=== PATIENT | male | born 1950 | race Caucasian/White ===

== ENCOUNTER 2022-11-23 15:07 | Outpatient (OUT) | payer MEDICARE, OTHER, SELFPAY ==
[2022-11-23 16:20] LABS: Prostate Specific Antigen Dx 3.31 ng/mL (<=4.00)
== END 2022-11-23 15:08 | disposition home or self-care (01) ==
LOC: LAB 15:12
PROVIDERS: PCP Family Medicine; Visit Provider Urology
DX: N40.1 Benign prostatic hyperplasia with lower urinary tract symptoms (principal)
CPT/HCPCS: 36415; 84153

== ENCOUNTER 2023-02-18 12:33 | Outpatient (OUT) | payer MEDICARE, OTHER, SELFPAY ==
--- NOTE | 2023-02-18 12:39 | ECG_ITS ---
[facility] Test Date: 2023-02-18 Pat Name: STEPHAN RAMON Department: Room: - Gender: Male Tie Fastener: : 1950 Requested By: DIANE KELSEY Order Number: [id number] Reading MD: WALTER WONG Measurements Intervals [place] Rate: 52 P: 50 [place]: 205 QRS: -36 QRSD: 94 T: 7 QT: 418 QTc: 391 Interpretive Statements SINUS BRADYCARDIA MARKED LEFT AXIS DEVIATION [QRS AXIS < -30] VOLTAGE CRITERIA FOR LVH [MEETS CRITERIA IN ONE OF: R(aVL), S(V1), R(V5), R(V5/V6)+S(V1)] No previous ECG available for comparison Electronically Signed On 02-23-2023 6:54:25 EST by WALTER WONG
--- NOTE | 2023-02-18 13:26 | PM.PRESUREVA ---
History of Present Illness History of Present Illness Chief complaint: BPH W/ OBSTRUCTION Narrative: Patient presents for preadmission testing. The patient reports a history of bladder cancer. He states he has incomplete bladder emptying, urgency with urination, weak stream, and urge incontinence. He denies dysuria, hematuria, abdominal pain, fever, nausea, vomiting, or any other complaints he does have a known tremor and is treated at the [facility]. Review of Systems ROS Narrative REVIEW OF SYSTEMS: Negative except as stated in HPI, ten or more systems reviewed. Constitutional: No fever , chills, weakness ENT: No sore throat or epistaxis Cardiovascular: No edema, chest pain, palpitations, or activity intolerance Respiratory: No shortness of breath, cough, or wheezing Musculoskeletal: No joint pain or swelling Gastrointestinal: No abdominal pain, constipation, diarrhea, or vomiting Genitourinary: No dysuria or hematuria Neurological: No numbness, tingling, weakness, or headache Psychiatric: No mood changes PFSH PFS Medical History (Updated 02/18/23 @ 13:06 by Adilia Walters NP) Bladder cancer ?C67.9 - Malignant neoplasm of bladder, unspecified (ICD-10) BPH with obstruction/lower urinary tract symptoms ?N40.1 - Benign prostatic hyperplasia with lower urinary tract symptoms (ICD-10) ?N13.8 - Other obstructive and reflux uropathy (ICD-10) Encounter for removal of skin lesion ?L98.9 - Disorder of the skin and subcutaneous tissue, unspecified (ICD-10) GERD (gastroesophageal reflux disease) ?K21.9 - Gastro-esophageal reflux disease without esophagitis (ICD-10) Hepatitis ?K75.9 - Inflammatory liver disease, unspecified (ICD-10) Hypertension ?I10 - Essential (primary) hypertension (ICD-10) Hypokalemia ?E87.6 - Hypokalemia (ICD-10) Intraoperative cardiac arrest during other surgery ?I97.711 - Intraoperative cardiac arrest during other surgery (ICD-10) Melanoma ?C43.9 - Malignant melanoma of skin, unspecified (ICD-10) Tremor ?R25.1 - Tremor, unspecified (ICD-10) Surgical History (Updated 02/18/23 @ 13:04 by Adilia Walters NP) H/O colectomy ?Z90.49 - Acquired absence of other specified parts of digestive tract (ICD-10) H/O elbow surgery ?Z98.890 - Other specified postprocedural states (ICD-10) H/O hand surgery ?Z98.890 - Other specified postprocedural states (ICD-10) H/O transurethral resection of bladder tumor (TURBT) ?Z98.890 - Other specified postprocedural states (ICD-10) ?Z86.03 - Personal history of neoplasm of uncertain behavior (ICD-10) History of bladder surgery ?Z98.890 - Other specified postprocedural states (ICD-10) History of cardiac catheterization ?Z98.890 - Other specified postprocedural states (ICD-10) History of carpal tunnel release ?Z98.890 - Other specified postprocedural states (ICD-10) History of cataract extraction ?Z98.49 - Cataract extraction status, unspecified eye (ICD-10) History of colonoscopy ?Z98.890 - Other specified postprocedural states (ICD-10) S/P cystoscopy ?Z98.890 - Other specified postprocedural states (ICD-10) Family History (Updated 02/18/23 @ 12:58 by Adilia Walters NP) Other Family history of breast cancer Family history of heart disease Family history of liver cancer Family history of lung cancer Social History (Updated 02/18/23 @ 12:55 by Adilia Walters NP) Within the past year, how often did you have a drink containing alcohol: never Score interpretation: A score less than 4 is consistent with normal alcohol consumption. Smoking status: Never smoker Non-prescribed substance use: denies use Highest level of school completed/degree received: high school graduate Meds Home Medications and Allergies Home Medications Medication Instructions Recorded Confirmed Type fluoxetine 20 mg capsule 20 mg PO DAILY 02/18/23 02/18/23 History hydrochlorothiazide 25 mg tablet 25 mg PO DAILY 02/18/23 02/18/23 History losartan 50 mg tablet 50 mg PO DAILY 02/18/23 02/18/23 History omeprazole 40 mg capsule,delayed 40 mg PO DAILY 02/18/23 02/18/23 History release oxcarbazepine 300 mg tablet 300 mg PO BID 02/18/23 02/18/23 History potassium chloride 10 mEq 20 meq PO DAILY 02/18/23 02/18/23 History capsule,extended release propranolol 80 mg capsule,24 80 mg PO DAILY 02/18/23 02/18/23 History hr,extended release ropinirole 0.25 mg tablet 0.25 mg PO TID 02/18/23 02/18/23 History Allergies Allergy/AdvReac Type Severity Reaction Status Date / Time Iodinated Contrast Media Allergy Rash Verified 02/18/23 12:54 terazosin Allergy syncope Verified 02/18/23 12:54 Exam Narrative Exam Narrative: Constitutional: Awake, alert, comfortable, well-appearing, nontoxic, interactive, vital signs as charted Head: Normocephalic, atraumatic Neck: Supple, normal appearance, normal range of motion, no meningeal signs, no lymphadenopathy Respiratory: No respiratory distress, breath sounds clear Cardiovascular: Regular rate and rhythm, strong and regular heart tones Abdomen: Nontender, normal bowel sounds, soft, no CVA tenderness Musculoskeletal: Normal gait, no swelling or edema Skin: No rashes or induration, no lesions, only visible skin inspected Neuro: upper extremity tremor noted Psychiatric: Oriented ?3, normal affect Assessment and Plan Assessment and Plan (1) BPH with obstruction/lower urinary tract symptoms: (2) Bladder cancer: Plan Cystoscopy, transurethral resection of the prostate scheduled with Dr. Flood 03/03/2023.
[2023-02-18 13:50] LABS: Basophils Absolute Auto 0.1 10^3/uL (0.0-0.1); Basophils Percent Auto 0.8 % (0.2-2.0); Eosinophils Absolute Auto 0.1 10^3/uL (0.0-0.7); Eosinophils Percent Auto 2.1 % (0.9-7.0); Hematocrit 36.9 % (42.0-54.0); Hemoglobin 13.5 g/dL (14.0-18.0); Immature Granulocytes Abs Auto 0.03 10^3/uL (0.00-0.03); Immature Granulocytes Pct Auto 0.5 % (0.0-0.5); Lymphocytes Absolute Auto 1.5 10^3/uL (1.2-3.8); Lymphocytes Percent Auto 24.1 % (20.5-60.0); Mean Corpuscular HGB Conc 36.6 g/dL (29.9-35.2); Mean Corpuscular Hemoglobin 32.7 pg (25.9-34.0); Mean Corpuscular Volume 89.3 fL (80.0-94.0); Mean Platelet Volume 11.2 fL (9.5-13.5); Monocytes Absolute Auto 0.6 10^3/uL (0.3-0.8); Neutrophils Absolute Auto 3.8 10^3/uL (1.4-6.5); Neutrophils Percent Auto 62.5 % (43.0-75.0); Platelet Count 180 10^3/uL (150-450); Red Blood Count 4.13 10^6/uL (4.70-6.10); Red Cell Distribution Width 13.4 % (11.0-15.0); White Blood Count 6.1 10^3/uL (4.0-11.0)
[2023-02-18 13:54] LABS: INR 1.01; Partial Thromboplastin Time 29.9 sec (22.3-36.2); Prothrombin Time 10.7 sec (9.0-11.6)
[2023-02-18 13:55] LABS: Alanine Aminotransferase 10 U/L (16-63); Albumin Globulin Ratio 1.1; Albumin Level 3.7 g/dL (3.4-5.0); Alkaline Phosphatase 130 U/L (46-116); Anion Gap 10.3; Aspartate Amino Transferase 14 U/L (15-37); Bilirubin Direct 0.3 mg/dL (0.0-0.2); Bilirubin Total 1.3 mg/dL (0.2-1.0); Calcium 8.3 mg/dL (8.5-10.1); Carbon Dioxide 30.9 mmol/L (21.0-32.0); Chloride 101 mmol/L (98-107); Estimated GFR (African America >60 (>=60); Estimated GFR (Non-African Ame >60 (>=60); Globulin 3.5 g/dL; Glucose 125 mg/dL (74-106); Potassium 3.2 mmol/L (3.5-5.1); Sodium 139 mmol/L (136-145); Total Protein 7.2 g/dL (6.4-8.2)
== END 2023-02-18 12:34 | disposition home or self-care (01) ==
LOC: PST 12:34
PROVIDERS: PCP Family Medicine; Visit Provider Urology
DX: Z01.810 Encounter for preprocedural cardiovascular examination (principal); Z01.812 Encounter for preprocedural laboratory examination; N40.1 Benign prostatic hyperplasia with lower urinary tract symptoms; R31.9 Hematuria, unspecified; R97.20 Elevated prostate specific antigen [PSA]
CPT/HCPCS: 80048; 80076; 85025; 85610; 85730; 86850; 86900; 86901; 93005; G0463

== ENCOUNTER 2023-03-25 13:06 | Outpatient (OUT) | payer MEDICARE, OTHER, SELFPAY ==
--- NOTE | 2023-03-25 13:52 | CA_ITS ---
Patient Name: STEPHAN RAMON MR#: [id number] : 1950 Exam Date: 03/25/2023 Ordering Doctor: DR JOSELO JOYCE M.D. ECHOCARDIOGRAM REPORT PROCEDURE: CA ECHO DOPPLER COMPLETE INDICATIONS: Hypertension COMPARISON: None. DESCRIPTION: COMPLETE ECHOCARDIOGRAM Real-time transthoracic echocardiography with 2D, M-mode, spectral and color flow Doppler performed. QUALITY: Technical quality was good. 70 , 200#, BSA 2.09 m2 LEFT VENTRICLE: Normal chamber size. Thickened septal wall. Global left ventricular systolic function is normal. LV EF: Normal left ventricular ejection fraction, (>55%). DIASTOLIC: Grade I diastolic dysfunction. ATRIAL SEPTUM: Visually appears intact. LEFT ATRIUM: Mild dilatation. RIGHT ATRIUM: Mild dilatation. RIGHT VENTRICLE: Mildly dilated. Normal right ventricular systolic function. TRICUSPID VALVE: Normal mobility and thickness. No stenosis with trivial regurgitation. Doppler studies reveal mildly (35-45) elevated right sided pressures. RVSP 39 mmHg MITRAL VALVE: Normal mobility and thickness. No evidence of mitral valve stenosis. There is no mitral annular calcification. No mitral regurgitation. AORTIC VALVE: Normal trileaflet appearance. Thickened aortic valve. Normal leaflet mobility. No evidence of aortic valve stenosis. No aortic regurgitation. AORTIC ROOT: Ascending aorta is dilated (3.8 cm) PULMONIC VALVE: Not well visualized. No stenosis. No regurgitation. PERICARDIUM: No evidence of pericardial effusion. IVC: IVC does not fully collapse. Normal in size. PLEURA: CONCLUSION: 1. Normal left ventricular systolic function. LVEF is 55 to 60%. 2. Mildly dilated right ventricle with normal systolic function. 3. Mild biatrial dilatation. 4. No significant valvular dysfunction. 5. Mildly elevated right-sided pressures. 6. Mildly dilated ascending aorta measuring 3.8 cm. Adult Echocardiography Procedure Report Left Ventricle LVEDD (3.7 - 5.6 cm): 4.44 cm LVESD (2.2 - 4.0 cm): 2.55 cm LVIVS thickness (0.6 - 1.2 cm): 1.48 cm LVPW thickness (0.5 - 1.0 cm): 0.84 cm e': 0.07 m/s E - e': 7.70 LVOT Max Gradient: 2.97 mm[Hg] LVOT Area (cm2): 0.86 m/s Peak Velocity (LVOT): 0.86 m/s Mean Velocity (LVOT): 0.58 m/s LVOT Diameter 2.21 cm Left Atrium LA Volume Index (2D A2C): 30.59 ml/m2 Left Atrium Systolic Dimension: 4.73 cm Mitral Valve MV E to A Ratio: 0.66 Mitral Valve A-Wave Peak Velocity: 0.77 m/s Mitral Valve E-Wave Peak Velocity: 0.51 m/s Right Ventricle Aorta AO Root Diam: 3.63 cm Ascending Ao Diam: 3.71 cm Aortic Valve AoV Area (Peak Stephen): 3.19 cm2, 3.19 cm2 AoV Area (VTI): 2.98 cm2, 2.98 cm2 Peak Velocity(Antegrade Flow): 1.03 m/s Peak Gradient(Antegrade Flow): 4.26 mm[Hg] Mean Velocity(Antegrade Flow): 0.75 m/s Mean Gradient(Antegrade Flow): 2.45 mm[Hg] Velocity Time Integral: 22.01 cm Tricuspid Valve Peak Velocity (Regurgitant Flow): 2.77 m/s, 2.65 m/s Pulmonic Valve Mean Gradient: 2.21 mm[Hg] Mean Velocity: 0.68 m/s Peak Velocity: 1.05 m/s, 0.85 m/s Peak Gradient: 4.38 mm[Hg], 2.89 mm[Hg] Right Atrium Right Atrium Systolic Pressure: 66.53 ml, 66.53 ml Dictated by: Basil Pichardo M.D. on 03/25/2023 at 17:02 Approved by: Basil Pichardo M.D. on 03/25/2023 at 17:07
== END 2023-03-25 13:07 | disposition home or self-care (01) ==
LOC: CARD 13:07
PROVIDERS: PCP Family Medicine; Visit Provider Internal Medicine Interventional Cardiology
DX: I15.1 Hypertension secondary to other renal disorders (principal); I10 Essential (primary) hypertension
CPT/HCPCS: 93306

== ENCOUNTER 2023-04-26 12:39 | Outpatient (OUT) | payer MEDICARE, OTHER, SELFPAY ==
--- OUTSIDE RECORDS SUMMARY | 2023-04-26 12:43 | XMS_ITS | CCD ---
Author Name Unknown Address [address] [facility] [address] [place] [address] Organization [facility] Care Team Providers Care Maintenance Man Name Role Phone FLORENCIO CROWELL Primary Care Physician Florencio Crowell MD Primary Care Provider Florencio Crowell Unavailable LAURA BURROWS Admitting Unavailable LAURA BURROWS Attending Unavailable MERVAT, DR FLORENCIO Delgado Primary Care Unavailable ASIA MALLOY Attending Unavailable FLORENCIO CROWELL Primary Care Unavailable ALEC HUNTLEY Attending Unavailable TREVOR LYNNE Referring Unavailable TREVOR LYNNE Attending Unavailable FLORENCIO CROWELL Primary Care Unavailable FLORENCIO CROWELL Primary Care Unavailable FLOOD, Connor Rodriguez Attending Unavailable FLOOD, Connor Rodriguez Attending Unavailable FLOOD, Connor R Attending Unavailable FLOOD, Connor R Attending Unavailable FLOOD, Connor R Attending Unavailable FLOOD, Connor R Referring Unavailable FLOOD, Connor R Admitting Unavailable FLOOD, Connor Rodriguez Attending Unavailable FLOOD, Connor Rodriguez Attending Unavailable Laura Chadwick Attending Unavailable Allergies Allergy Classification Reported Allergen(s) Allergy Type Date of Onset Reaction(s) Facility (11 sources) Iodine; Translations: [iodine] Drug Allergy 1 Unknown (qualifier value), Rash, hives [facility] (6 sources) Terazosin; Translations: [terazosin] Drug Allergy 3 Low blood pressure (disorder), Syncope (disorder) [facility] (1 source) Iodine Drug Allergy [facility] Repository Medications Current Medications Medication Drug Class(es) Dates Sig (Normalized) Sig (Original) amoxicillin 875 mg / clavulanate 125 mg oral tablet (1 source) Penicillin-class Antibacterial Start: 07-06-2022 take 1 tablet by mouth every twelve hours Amoxicillin-Pot Clavulanate 875-125 MG 1 tablet Orally every 12 hrs for 10 day(s) Jun, Active benzonatate 200 mg oral capsule (1 source) Non-narcotic Antitussive Start: 07-06-2022 take 1 capsule by mouth every eight hours Benzonatate 200 MG 1 capsule Orally Three times a day for 10 day(s) Jun, Active enteric contrast (will be provided with radiology test) (1 source) Start: 05-10-2022 End: 05-11-2022 enteric contrast (will be provided with radiology test) For CT CHESTABD/PEL W IVCON Routine order Administer, As Directed One Time Only, via Oral, Rectal, both Oral and Rectal, Enteric Tube, Stoma or Indwelling Catheter, Enteric Contrast as designated per enteric contrast guidelines 1 Each 0 05/10/2022 05/11/2022 Active Comment on above: For CT CHESTABD/PEL W IVCON Routine order Administer, As Directed One Time Only, via Oral, Rectal, both Oral and Rectal, Enteric Tube, Stoma or Indwelling Catheter, Enteric Contrast as designated per enteric contrast guidelines iv contrast (will be provided with radiology test) (1 source) Start: 05-10-2022 End: 05-11-2022 iv contrast (will be provided with radiology test) CT Chest ABD/PEL-Inject, intravenously, once for 1 dose.No IV access, insert saline lock prior to the beginning of sedation, infusion, injection of imaging exam. Discontinue saline lock post exam. If Pt. has a central line or IVAD, may access for administration according to line specific nursing protocol. Once exam is complete flush line and de-access according to line specific nursing protocol in the CT contrast administration guidelines link. 1 Each 0 05/10/2022 05/11/2022 Active Comment on above: CT Chest ABD/PEL-Inj ect, intravenously, once for 1 dose.No IV access, insert saline lock prior to the beginning of sedation, infusion, injection of imaging exam. Discontinue saline lock post exam. If Pt. has a central line or IVAD, may access for administration according to line specific nursing protocol. Once exam is complete flush line and de-access according to line specific nursing protocol in the CT contrast administration guidelines link. losartan potassium 50 mg oral tablet (8 sources) Angiotensin 2 Receptor Gilson Start: 11-29-2022 take 1 tablet by mouth once daily losartan 50 mg Tab 50 mg = 1 tab(s), Oral, Daily Start Date: 11/29/22 Status: Ordered Start: 02-12-2021 losartan (COZA AR) 50 mg tablet Start: 02-21-2019 losartan Start Date: 02/21/19 Status: Ordered omeprazole 40 mg delayed release oral capsule (8 sources) Proton Pump Inhibitor Start: 11-29-2022 take 1 capsule by mouth once daily omeprazole 40 mg Cap-DR 40 mg = 1 cap(s), Oral, Daily Start Date: 11/29/22 Status: Ordered Start: 02-21-2019 omeprazole Sta rt Date: 02/21/19 Status: Ordered take 1 capsule by [facility] every twenty-four hours Omeprazole 20 MG 1 capsule Orally Once a day for 30 day(s) Active Comment on above: Take 20 mg by mouth once daily. OXcarbazepine 300 mg oral tablet (2 sources) Anti-epileptic Agent Start: 3 take 1 tablet by mouth twice daily oxcarbazepine 300 mg Tab 300 mg = 1 tab(s), Oral, BID Start Date: 11/29/22 Status: Ordered 24 hr propranolol hydrochloride 60 mg extended release oral capsule (2 sources) beta-Adrenergic Gilson Start: 3 take 1 capsule by mouth once daily propranolol 60 mg Cap-ER 60 mg = 1 cap(s), Oral, Daily Start Date: 11/29/22 Status: Ordered rOPINIRole 0.25 mg oral tablet (5 sources) Nonergot Dopamine Agonist Start: 2 take 1 tablet by mouth three times daily ropinirole 0.25 mg Tab 0.25 mg = 1 tab(s), Oral, TID Start Date: 06/09/21 Status: Ordered Start: 05-05-2021 rOPINIRole (RE QUIP) 4 mg tablet Completed/Discontinued Medications Medication Drug Class(es) Dates Sig (Normalized) Sig (Original) amantadine hydrochloride 100 mg oral capsule (3 sources) Influenza A M2 Protein Inhibitor Start: 04-23-19 End: 05-10-19 amantadine HCl (SYMMETREL) 100 mg capsule carbidopa 10 mg / levodopa 100 mg oral tablet (1 source) Aromatic Amino Acid Decarboxylation Inhibitor, Aromatic Amino Acid Start: 12-02-19 carbidopa-levodopa (SINEMET 10-100) 10-100 mg per tablet ciprofloxacin 500 mg oral tablet (2 sources) Quinolone Antimicrobial Start: 11-30-19 take 1 tablet by mouth once daily Cipro 500 mg Tab 500 mg = 1 tab(s), Oral, Daily, take one tab day before procedure and one tab after procedure, # 2 tab(s), Refills(s) 0, Pharmacy: [facility]/pharmacy #[id number], 178, cm, 11/29/22 13:29:00 EDT, Height/Length Dosing, 87.9, kg, 11/29/22 13:29:00 EDT, Weight Dosing Start Date: 11/29/22 Status: Ordered diphenhydrAMINE hydrochloride 50 mg oral capsule (4 sources) Histamine-1 Receptor Antagonist Start: 04-15-20 End: 04-05-20 take 1 capsule by mouth every six hours as needed diphenhydrAMINE (BENADRYL) 50 mg capsule Take 1 capsule by mouth one hour prior to CT scan 1 capsule 0 04/05/2022 Active Comment on above: Take 1 capsule by [facility] one hour prior to CT scan FLUoxetine 20 mg oral capsule (3 sources) Serotonin Reuptake Inhibitor Start: 04-27-19 FLUoxetine (PROZAC) 20 mg capsule hydroCHLOROthiazide 12.5 mg oral tablet (4 sources) Thiazide Diuretic Start: 02-13-20 21 hydroCHLOROthiazide (HYDRODIURIL, ESIDRIX) 12.5 mg tablet lidocaine hydrochloride 20 mg/ml mucous membrane topical solution (1 source) Antiarrhythmic, Amide Local Anesthetic Start: 11-22-19 16 take 10 mL by mouth every four hours as needed Lidocaine Viscous 2 % 10 ml as needed Mouth/Throat every 4 hrs Nov, Not-Taking methylPREDNISolone 4 mg oral tablet (1 source) Corticosteroid Start: 11-22-19 16 Medrol (Fady) 4 MG as directed Orally Nov, Not-Taking Potassium Chloride (9 sources) Start: 11-30-19 23 take 1 tablet by mouth once daily Potassium Chloride (Hom-Xnhp-Lnv 10) 10 mEq oral tablet, extended release 10 mEq = 1 tab(s), Oral, Daily Start Date: 11/29/22 Status: Ordered Start: 02-21-2019 Klor-Con Start Date: 02/21/19 Status: Ordered Potassium Chlori de ER 10 MEQ Oral for 90 Active Klor-Con Not-Ki ing POTASSIUM CHLORI DE (KLOR-CON ORAL) Take by mouth. 0 Active Comment on above: Take by mouth. predniSONE 50 mg oral tablet (4 sources) Start: 1 End: 2 predniSONE (DELTASONE) 50 mg Take 1 tablet by mouth as directed. Take one tab 13 hours prior, 7 hours prior, and [address] scan 3 tablet 0 04/05/2022 Active Comment on above: Take 1 tablet by michelle th as directed. Take one tab 13 hours prior, 7 hours prior, and [address] scan tamsulosin hydrochloride 0.4 mg oral capsule (4 sources) alpha-Adrenergic Gilson Start: 0 take 0.4 mg by mouth once daily tamsulosin ER (FLOMAX) 0.4 mg Take 0.4 mg by mouth once daily. 0 03/29/2020 Active Comment on above: Take 0.4 mg by mouth once daily. terazosin 10 mg oral capsule (3 sources) alpha-Adrenergic Gilson Start: 2 Terazosin HCl (HYTRIN) 10 mg capsule Triamcinolone (1 source) Corticosteroid Start: 1 KENALOG - 10 mg August, 40 mg Problems Problem Classification Problem Date Documented Date Episodic/Chronic Cancer of bladder (3 sources) History of malignant neoplasm of bladder; Translations: [Personal history of malignant neoplasm of bladder] Onset: 07-28-2021 Episodic Cancer; other and unspecified primary (4 sources) H/O: malignant neoplasm 04-01-2020 Episodic Diabetes mellitus without complication (3 sources) Type 2 diabetes mellitus without complication; Translations: [Type 2 diabetes mellitus without complications] Onset: 06-17-2015 06-17-2015 Chronic Diabetes mellitus without complication (3 sources) Glycosuria; Translations: [Glycosuria] Onset: 11-29-2022 Episodic Esophageal disorders (3 sources) Gastroesophageal reflux disease; Translations: [Gastro-esophageal reflux disease without esophagitis] Onset: 12-13-2013 12-13-2013 Chronic Essential hypertension (7 sources) Hypertensive disorder; Translations: [Essential (primary) hypertension] Onset: 12-13-2013 02-21-2019 Chronic Genitourinary symptoms and ill-defined conditions (11 sources) Incomplete emptying of bladder; Translations: [Microscopic hematuria] Onset: 11-29-2022 04-01-2020 Episodic Hyperplasia of prostate (8 sources) Benign prostatic hypertrophy with outflow obstruction; Translations: [Benign prostatic hyperplasia with lower urinary tract symptoms] Onset: 07-28-2021 Chronic Melanomas of skin (10 sources) Malignant melanoma of skin; Translations: [Malignant melanoma] Onset: 05-03-2022 02-21-2019 Chronic Neoplasms of unspecified nature or uncertain behavior (1 source) Neoplasm of uncertain behavior of soft tissues; Translations: [Neoplasms of unspecified nature of bone, soft tissue, and skin] Episodic Other diseases of kidney and ureters (1 source) Urinary tract obstruction; Translations: [Other obstructive and reflux uropathy] Onset: 12-28-2022 Episodic Other hereditary and degenerative nervous system conditions (1 source) Essential tremor; Translations: [Essential tremor] Chronic Other liver diseases (4 sources) Inflammatory disease of liver 02-21-2019 Chronic Other nervous system disorders (3 sources) Bilateral carpal tunnel syndrome; Translations: [Carpal tunnel syndrome, bilateral upper limbs] Onset: 03-07-2012 03-07-2012 Chronic Other nutritional; endocrine; and metabolic disorders (3 sources) Gilbert's syndrome; 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] Onset: 05-18-2018 05-18-2018 Chronic Other screening for suspected conditions (not mental disorders or infectious disease) (6 sources) Raised prostate specific antigen; Translations: [Elevated prostate specific antigen [PSA]] Onset: 10-27-2021 02-21-2019 Episodic Other upper respiratory infections (1 source) Acute maxillary sinusitis, unspecified Episodic Results Test Name Value Interpretation Reference Range [facility] TRISTEN[facility] ([id number]) 1950 M Date Time Provider Department 04/01/23 TREVOR LYNNE During your visit today, we recorded the following information about you: Amara Marte RN 04/01/2023 2:59 PM Signed Pt here for 1 year f/u 05/05. Please sign labs if agreeable. Will draw with CT 05/02 Thank You! Amara Marte RN Allergies As of Date: 04/01/2023 Noted Allergy Reaction IODINE 02/08/2012 2 - Rash Date Reviewed: 02/17/2023 Reviewed by: Jaspal Palacios LPN - Fully Assessed Reason for Visit: Orders [681] Primary Visit Diagnosis:Malignant melanoma, unspecified site (HCC) [C43.9] Order(s):CBC + DIFF [SQCBCDIF] Order #: [id number] FUTURE COMP METABOLIC PANEL [SQCMP] Order #: [id number] FUTURE Prescriptions as of 04/04/2023 - propranolol (INDERAL) 60 mg tablet Take 60 mg by mouth once daily. - OXcarbazepine (TRILEPTAL) 300 mg tablet Take 300 mg by mouth two times a day. - losartan-hydroCHLOROthi azide (HYZAAR) 50-12.5 mg per tablet Take 1 tablet by mouth once daily. - rOPINIRole (REQUIP) 4 mg tablet - predniSONE (DELTASONE) 50 mg Take 1 tablet by mouth as directed. Take one tab 13 hours prior, 7 hours prior, and [address] scan - diphenhydrAMINE (BENADRYL) 50 mg capsule Take 1 capsule by mouth one hour prior to CT scan - FLUoxetine (PROZAC) 20 mg capsule - POTASSIUM CHLORIDE (KLOR-CON ORAL) Take by mouth. - omeprazole 20 mg capsule Take 20 mg by mouth once daily. Problem List As Of Date 04/01/2023 Noted Resolved Leukopenia [D72.819] 02/08/2012 12/13/2013 Carpal tunnel syndrome on both sides [G56.03] 03/07/2012 Melanoma [C43.9] Hypertension [I10] 12/13/2013 GERD (gastroesophageal reflux disease) [K21.9] 12/13/2013 Type 2 diabetes mellitus without complication (*06/17/2015 Gilbert's syndrome [E80.4] 05/18/2018 Encounter Status:Closed by TREVOR LYNNE on 04/04/23 Normal [facility] Consultation Noteon 03-18-20 Consultation Note [id number] IFF Normal [facility] Office Visiton 03-16-2023 Follow-up visit [id number] Stephan Mercer 1950 M Date Provider Department Center 03/16/2023 [facility], [facility] Family History Problem Relation Age of Onset No Known Problems Mother No Known Problems Father Family Status - Relation Status Age at Mother Father Level of Service:67794 [place] OFFICE/OUTPATIENT NEW HIGH MDM 60-74 MINUTES Normal [facility] ECG 12-Leadon 02-23-2023 ECG 12-Lead [id number] IFF Normal [facility] Lab Reportson 02-22-2023 Lab Reports [id number] IFF Normal [facility] Lab Reports [id number] IFF Normal [facility] CNOVon 02-17-2023 CNOV Office Visit (NRESAV ) STEPHAN MERCER ([id number]) 1950 M Date Time Provider Department 02/17/23 4:00 PM ALEC HUNTLEY NRESAV During your visit today, we recorded the following information about you: Pulse Blood pressure 59/minute 150/77 Alec Huntley, 02/18/2023 2:44 PM Signed [facility] - NEW PATIENT EVALUATION Florencio Crowell MD [address] [facility] [address] Stpehan Mercer is a 72 year old right-handed male who is seen in consultation for evaluation of tremor. He is seen with his . History of Present Illness: The patient has a history of left hemisomal tremor since early 2019. He has been maintained on Requip, propranolol and Trileptal. This provides no benefit. He was tried on Artane, amantadine and Sinemet 10/100. Sinemet caused an upset stomach. No family history of tremor. No effect from EtoH. MRI brain was negative. No DaTscan (Ioflupane I 123 Injection) was done. 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 Anxiety: CAROLIN-7 = 0 usually representing no significant (0-4) anxiety. Finally, the following table shows the patient's overall global physical and mental health using the PROMIS scale: PROMIS-10 Flowsheet Row Office Visit from 02/17/2023 in Neurology Visit (SP) Office from 05/10/2022 in Hematology/Oncology Global Physical Health T Score 54.1 50.8 Global Mental Health T Score 53.3 45.8 0-10 Standard Pain Scale 4 4 *PROMIS-10 scoring scale: mean = 50, over 50 is above average, under 50 is below average Movement Disorders Medications Schedule: Medications AM supper bedtime Requip 3mg 1 1 1 propranolol 60mg 1 0 0 trileptal 300mg 1 0 0 Review of Systems Respiratory: Negative for difficulty breathing. Cardiovascular: Negative for chest pain. Gastrointestinal: Negative for abdominal pain. All other systems reviewed and are negative. ALLERGIES Allergen Reactions Iodine Rash Current Outpatient Medications Medication Sig rOPINIRole (REQUIP) 4 mg tablet FLUoxetine (PROZAC) 20 mg capsule POTASSIUM CHLORIDE (KLOR-CON ORAL) Take by mouth. omeprazole 20 mg capsule Take 20 mg by mouth once daily. propranolol (INDERAL) 60 mg tablet Take 60 mg by mouth once daily. OXcarbazepine (TRILEPTAL) 300 mg tablet Take 300 mg by mouth two times a day. losartan-hydroCHLOROthi azide (HYZAAR) 50-12.5 mg per tablet Take 1 tablet by mouth once daily. predniSONE (DELTASONE) 50 mg Take 1 tablet by mouth as directed. Take one tab 13 hours prior, 7 hours prior, and [address] scan diphenhydrAMINE (BENADRYL) 50 mg capsule Take 1 capsule by mouth one hour prior to CT scan No current facility-administered medications for this visit. Past Medical and Surgical History: has a past medical history of Hypertension and Melanoma (HCC). has a past surgical history that includes colon surgery hx. In addition, the patient denies a history of exposure to dopamine receptor blocking agents, denies history of encephalitis/meningitis and denies significant exposure to insecticides/ pesticides/ heavy metals/ carbon monoxide Social History Tobacco Use Smoking status: Never Smokeless tobacco: Never Substance Use Topics Alcohol use: No Drug use: No Family History: family history is not on file. In addition, the patient denies any family history of PD/parkinsonism, tremor, other involuntary movement disorders. Objective: Vital Signs: BP 150/77 (BP Site: Left Arm, BP Position: Sitting, BP Cuff Size: Regular Adult) Pulse (!) 59 General Medical Examination: General Description of Patient: Well appearing, comfortable Head:normocephalic, atraumatic Neck:No bruits, full range of movement, supple Cardiac: Regular rate and rhythm, no murmur Extremities: No leg edema, pulses intact, no rash or venous stasis changes. Neurological Exam Movement Disorders Scales Performed: MDS-UPDRS Motor subscale condition of exam Medication Off/On/Naiive Time of UPDRS Time of Last Medication Last Medication Taken DBS Right DBS Left MDS-UPDRS Motor subscale scores Speech 1-Slight. Loss of modulation, diction or volume, but still all words easy to understand. Facial Expression 3-Moderate. Masked facies with lips parted some of the time when the mouth is at rest. Rigidity Neck 2-Mild. Rigidity detected without the activation maneuver, but full range of motion is easily achieved. Rigidity Right Upper Extremity 1-Slight. Rigidity only detected with activation maneuver. Rigidity Left Upper Extremity 1-Sl (more content not included)... [facility] Consent for Procedure/Surger yon 02-04-2023 Consent for Procedure/Surgery [id number] IFF Normal [facility] Reminderson 02-03-2023 Reminders - From: Rosa Lacey To: EU - Recalls Flood; Cc: Rosa Lacey; Sent: 11/29/2022 14:32:25 EDT Show up: 11/17/2023 14:32:00 EDT Subject: cysto/needs fish/cytol Due Date/Time: 12/05/2023 14:32:00 EDT Reminder/Recall Patient needs 1 year cysto/fish/cytol (bt ck) in Dec 2023 Pt had turp in Feb 2024, august move cysto Normal [facility] UroVysion Fish and Urine Cyt o ([facility])on 01-04-2023 UVFISH & UC Diagnosis Info Invalid Interpretation Code [facility] Comment on above: Result Comment: A:Ur ine,Urine:Cystoscopy Diagnosis Summary - Atypical Urothelial Cells; Inconclusive for Malignancy. Adequate cellularity for evaluation. Diagnosis Summary - The UroVysion FISH study detected normal copy numbers for chromosomes 3, 7, 17, and 9p21. No evidence of aneuploidy for chromosomes 3, 7, or 17 or deletion of the 9p21 locus was found in cells present in this specimen. These findings should be correlated with cytology and cystoscopy results.* Microscopic Notes - Microscopic Notes - Abnormal cells 9p21 deletions: Abnormal cells aneploid events: Total cells analyzed: Hematuria: Gross Description Site ID:A color Dark Yellow fixative Alcohol Received 90 mls of clear dark yellow fluid with the patient's name and, Urine on the vial. Electronically signed by : on: 01/04/2023 17:32:09 Performed By: #### 1 [id number] ####[facility] [address] [place] [address] Consent for Procedure/Surger yon 12-28-2022 Consent for Procedure/Surgery [id number] CD:127 [facility] Consent for Treatmenton 12-17 Consent for Treatment [id number] D:127 [facility] IntraOperative Documentson 0 12-28-2022 IntraOperative Documents [id number] CD:127 [facility] Main OR Intraoperative Recor don 12-28-2022 Main OR Intraoperative Record IntraOp Document Type FTURO Summary Primary Physician: Connor FLOOD MD Finalized Date/Time: 12/28/22 15:17:56 Pt. Name: LUZKERLINESTEPHAN RODRIGUEZ/Sex: 1950 Male Med Rec #: [id number] Physician: Connor FLOOD MD Financial #: [id number] Pt. Type: O Room/Bed: / Admit/Disch: 12/28/22 13:42:40 - Institution: Case Times FTURO Entry 1 Patient Times In Room 12/28/22 14:59:00 Out Room 12/28/22 15:10:00 Procedure Times Start 12/28/22 15:01:00 Stop 12/28/22 15:06:00 Anesthesia Times Last Modified By: Nathaniel VELAZQUEZ, Shannan Lugo 12/28/22 15:17:41 Case Attendance FTURO Entry 1 Entry 2 Entry 3 Case Attendee LOW GONZALEZ, Connor Armstrong RN, Meg Copeland CST Role Performed Surgeon - Primary Optoelectronics Engineer - Primary Scrub - Primary Time In 12/28/22 14:59:00 12/28/22 14:59:00 12/28/22 14:59:00 Time Out 12/28/22 15:10:00 12/28/22 15:10:00 12/28/22 15:10:00 Procedure CYSTOSCOPY LOCAL(.) CYSTOSCOPY LOCAL(.) CYSTOSCOPY LOCAL(.) Comments Last Modified By: Nathaniel VELAZQUEZ, Shannan Armstrong RN, Shannan Gonzalez RN 12/28/22 15:17:43 12/28/22 15:17:43 12/28/22 15:17:43 Surgical Procedures FTURO Entry 1 Procedure Description Procedure CYSTOSCOPY LOCAL Modifiers . Surgeon Description CYSTOSCOPY WITH FISH AND CYTOLOGY Primary Procedure Yes Primary Surgeon Connor FLOOD MD Start 12/28/22 15:01:00 Stop 12/28/22 15:06:00 Anesthesia Type Local Surgical Service Urology Wound Class 2 - Clean-Contaminated Last Modified By: Shannan Armstrong RN 12/28/22 15:17:49 General Case Data FTURO Pre-Care Text: Classifies surgical wound, implements aseptic technique, initiates traffic control Entry 1 Case Information OR URO 1 FT Case Level None Wound Class 2 - Clean-Contaminated Specialty Urology Preop Diagnosis HX BLADDER CANCER Postop Same As Preop No Postop Diagnosis HX BLADDER CANCER, Outcomes Met? Yes PROSTATE ENLARGEMENT, FOEIGN BODY BLADDER Last Modified By: Shannan Armstrong RN 12/28/22 15:05:11 Post-Care Text: The patient is free from signs and symptoms of infection EU IntraOp - FTURO Pre-Care Text: Implements protective measures prior to operative or invasive procedure, confirms identity before the operative or invasive procedure, verifies operative procedure, surgical site, and laterality Entry 1 EU Perioperative Protocols Procedure(s) CYSTOSCOPY LOCAL(.) Patient Identity Birthday, ID Band Verified (select at Check, Patient least 2): Participation Consents / H and P HandP, Surgery/Procedure Operative Site N/A Verified Consent Marking Verified Surgical Site Yes Laterality Verified n/a Verified Procedure Verified Yes Correct Patient Yes Position Verified Availability Equipment, Medication Time Out Connor FLOOD MD, Verified (If Participants Shannan Armstrong RN, Applicable) Meg Nuno CST Time Out Complete 12/28/22 15:00:00 Allergies Reviewed? Yes Allergies Reviewed Self/Patient With Body Position Supine Prep Area PENIS Prep Agents Betadine Solution Skin. Condition Unable to Visualize Additional FISH Specimens Collected Vitals - EU Blood Pressure 159/94 Pulse 54 bpm Respirations 16 br/min SPO2 96 % EBL 0 IandO - EU Total Intake 0 mL Total Output 0 mL Outcomes Met? Yes Last Modified By: Shannan Armstrong RN 12/28/22 15:00:59 Post-Care Text: The patient is free from signs and symptoms of injury caused by extraneous objects Sign Out FTURO Entry 1 Before Patient Leaves OR Nurse verbally Yes Nurse verbally n/a confirms with the confirms with the team the name of team that the procedure(s) instrument, sponge, recorded and needle counts are correct (or N/A) Nurse verbally Yes Nurse verbally n/a confirms with the confirms with the team how the team whether there specimen is labeled are any equipment (including patient problems to be name), if applicable addressed Sign Out Complete 12/28/22 15:05:00 Last Modified By: Shannan Armstrong RN 12/28/22 15:05:33 Case Comments Finalized By: Shannan Armstrong RN Document Signatures Signed By: Shannan Armstrong RN 12/28/22 15:17 Normal [facility] Main OR Preoperative Recordo n 12-28-2022 Main OR Preoperative Record Holding Area Document Type FTURO Summary Primary Physician: Connor FLOOD MD Finalized Date/Time: 12/28/22 14:40:44 Pt. Name: STEPHAN MERCER D.O.B./Sex: 1950 Male Med Rec #: [id number] Physician: Connor FLOOD MD Financial #: [id number] Pt. Type: O Room/Bed: / Admit/Disch: 12/28/22 13:42:40 - Institution: Case Times Holding FTURO Pre-Care Text: Verifies consent for planned procedure, identifies individual values and wishes concerning care, includes family members in perioperative teaching Secures patient's records' belongings, and valuables, maintains patient's dignity and privacy, and maintains patient confidentiality Entry 1 In Holding 12/28/22 14:34:00 Outcomes Met? Yes Last Modified By: Meg Bullock RN 12/28/22 14:34:57 Post-Care Text: The patient participates in decisions affecting his or her perioperative plan of care The patient's right to privacy is maintained Surgery Checklist FTURO Entry 1 Patient Birthday, ID Band Procedure History and Physical, Identification: Check, Patient Verification: Surgical Consent, With Participation Patient NPO after Midnight: n/a Personal Items: Cataract Lens Implant, Dentures, Glasses, Jewelry Personal Items ring x 1; upper dental Limitations: up ad melinda Comment: implant; bilateral cataract lens implants Complaints of Pain: No Skin Integrity Dry, Warm Vitals - EU Blood Pressure 159/94 Pulse 54 bpm Respirations 16 br/min SPO2 96 % Additional FISH, Other (See Specimens Comment fish and cytology - not Specimens Collected Comment) enought will get more with scope RN Reviewed Yes Last Modified By: Meg Bullock RN 12/28/22 14:39:28 Finalized By: Meg Bullock RN Document Signatures Signed By: Meg Bullock RN 12/28/22 14:39 Meg Bullock RN 12/28/22 14:40 Normal [facility] Operative Reporton Operative Report Patient: STEPHAN MERCER Age: 72 years Sex: Male : 1950 Associated Diagnoses: None Author: Connor FLOOD MD Procedure Operative Information Details: Date/ Time: 12/28/2022 15:14:00. Pre-Op Dx: Hx of Bladder CA - Z85.51, BPH w/ LUTS - N40.1, Urgency Incontinence - N39.41, Incomplete Bladder Emptying - R39.14. Post-Op Dx: Same. Anesthesia Type: Local. Procedure: Local Cystoscopy. Complications: None. Risks/Benefits/Informed Consent: Surgical risks, benefits, details of the procedure have been explained to the patient, Full informed consent has been obtained. Intraoperative Information Prepped: Patient is brought back to the endoscopy suite, Patient is placed in supine position, Patient prepped in the usual fashion with Betadine solution, 2% Xylocaine Jelly is placed per Urethra, After waiting several minutes the Cystoscope is introduced. The Urethra is: Normal. The Prostatic Urethra is: Obstructed, Median Lobe, Very high obstructing median lobe with UroLift band protruding from it. Lateral lobes are obstructing.. The Bladder is: Trabeculated (Severe (3), No bladder tumors. High-grade trabeculation with open deep diverticuli diffusely. UroLift band within the bladder adjacent to the median lobe of the prostate on the patient's left side.). The ureteral orifices: Show efflux of clear urine. Devices Implanted: None. Removal: Cystoscope is removed, The patient tolerated it well. Postoperative Information Discharge: Patient is discharged home with antibiotic coverage, Follow up arranged. Normal [facility] Comment on above: Result Comment: Elec tronically Signed By: Connor FLOOD MD\.br\Date and Time Signed: 12/28/22 15:16 EDT Progress Note-Physicianon Progress Note-Physician Patient: STEPHAN MERCER Age: 72 years Sex: Male : 1950 Associated Diagnoses: None Author: Connor FLOOD MD Subjective X this gentleman has rather exquisite urinary frequency urgency urge incontinence weak stream hesitancy etc. ever since having his UroLift done about a year ago. Cystoscopy today showed no bladder tumors but he has UroLift bands protruding from the large median lobe. He also has a UroLift band within the bladder adhered into the bladder wall on the floor on the patient's left side. He has very high-grade bladder damage. He is strongly desirous to improve his urination profile. Review of Systems ROS reviewed as documented in chart Health Status Allergies: Allergic Reactions (Selected) Severity Not Documented Iodine- Unknown. Nonallergic Reactions (Selected) Mild Terazosin- Syncope and hypotension. Current medications: Home Medications (7) Active Cipro 500 mg Tab 500 mg = 1 tab(s), Oral, Daily losartan 50 mg Tab 50 mg = 1 tab(s), Oral, Daily omeprazole 40 mg Cap-DR 40 mg = 1 cap(s), Oral, Daily oxcarbazepine 300 mg Tab 300 mg = 1 tab(s), Oral, BID Potassium Chloride (Uzk-Xqrs-Xrq 10) 10 mEq oral tablet, extended release 10 mEq = 1 tab(s), Oral, Daily propranolol 60 mg Cap-ER 60 mg = 1 cap(s), Oral, Daily ropinirole 0.25 mg Tab 0.25 mg = 1 tab(s), Oral, TID Problem list: All Problems BPH with urinary obstruction / SNOMED CT 6365665945 / Confirmed Elevated PSA / SNOMED CT 1806605690 / Confirmed Skin cancer (melanoma) / SNOMED CT 079485816 / Confirmed Hepatitis / SNOMED CT 680436236 / Confirmed Hypertension / SNOMED CT 0890037104 / Confirmed History of bladder cancer / SNOMED CT 9518614368 / Confirmed Microscopic hematuria / SNOMED CT 906979236 / Confirmed Incomplete bladder emptying / SNOMED CT 492782873 / Confirmed Glucosuria / SNOMED CT 53389836 / Confirmed Proteinuria / SNOMED CT 07398295 / Confirmed Histories Past Medical History: No active or resolved past medical history items have been selected or recorded. Family History: Hypertension Father Congenital heart disease Mother Stroke Mother Cancer Father Procedure history: Transurethral insertion of prostatic urethral lift implant ([id number]) on 07/16/2021 at 70 Years. Comments: 10/27/2021 11:01 MERVIN - Qi Jacobson UroLift Cystourethroscopy (separate procedure) (09467) on 05/11/2021 at 70 Years. Cystoscopy ([id number]) on 03/06/2020 at 69 Years. TURBT - Transurethral resection of bladder tumor ([id number]) on 10/14/2010 at 60 Years. Cystoscope ([id number]) on 09/30/2010 at 60 Years. Comments: 02/21/2019 13:48 Doris Howard With Bladder BX Cystoscope ([id number]) on 09/07/2010 at 60 Years. Cataract extraction (21874724). Colonoscopy (604010626). Carpal tunnel release (029385696). Release of trigger finger (307535265). Social History Social & Psychosocial Habits Alcohol 02/22/2019 Risk Assessment: Denies Alcohol Use Substance Abuse 06/09/2021 Risk Assessment: Denies Substance Abuse Tobacco 04/01/2020 Risk Assessment: Denies Tobacco Use 11/29/2022 Tobacco Use: Never (less than 100 in l Smokeless tobacco use: Never . Objective He is resting comfortably in bed. He is in no acute distress. Abdomen is soft and nontender. No masses are palpable. External genitalia are unremarkable. Impression and Plan Impression: #1. No evidence of recurrent bladder cancer. 2. This gentleman is visually obstructed with an incredibly high median lobe and obstructing lateral lobes. He also has foreign bodies protruding from the median lobe and within the bladder. He also has severe bladder damage due to persistent obstruction. Plan: #1. We will get him scheduled for a cystoscopy and transurethral resection of the prostate. At this time we will remove all of his UroLift bands and the foreign body within the bladder. [facility] Comment on above: Result Comment: Elec tronically Signed By: LOW GONZALEZ, Connor Rodriguez\.br\Date and Time Signed: 12/28/22 15:21 EDT [facility] Fish and Urine Cyt o ([facility])on 12-28-2022 [facility] Method of Extraction Cystoscopy Normal [facility] Comment on above: Performed By: #### 1 [id number] ####[facility] [address] [place] [address] [facility] Number of Jars 1 Invalid Interpretation Code [facility] Comment on above: Performed By: #### 1 [id number] ####[facility] [address] [place] [address] [facility] Specimen Cystoscopy Normal [facility] Comment on above: Performed By: #### 1 [id number] ####[facility] [address] [place] [address] [facility] Type of Service Technical Only Normal [facility] Comment on above: Performed By: #### 1 [id number] ####[facility] [address] [place] [address] Ambulatory Visit Summaryon 0 11-29-2022 Ambulatory Visit Summary LUZSTEPHAN HADDAD J :1950 Visit Date:11/29/2022 Ambulatory Visit Instructions Your Diagnosis BPH with urinary obstruction History of bladder cancer Elevated PSA Glucosuria Proteinuria Tests Performed Urnls Dip Stick Auto w/o Microscopy POC 40574 Your Care Team Attending Physician - LOW GONZALEZ, Connor Rodriguez Primary Care Physician - FLORENCIO CROWELL MD This Is Your Medications List ciprofloxacin (Cipro 500 mg Tab) Contact prescribing physician if questions or concerns losartan (losartan 50 mg Tab) omeprazole (omeprazole 40 mg Cap-DR) oxcarbazepine (oxcarbazepine 300 mg Tab) potassium chloride (Potassium Chloride (Bbr-Bsad-Kjl 10) 10 mEq oral tablet, extended release) propranolol (propranolol 60 mg Cap-ER) ropinirole (ropinirole 0.25 mg Tab) Procedures Performed Transurethral insertion of prostatic urethral lift implant (07/16/2021), Cystourethroscopy (separate procedure) (05/11/2021), Cystoscopy (03/06/2020), TURBT - Transurethral resection of bladder tumor (10/14/2010), Cystoscope (09/30/2010), Cystoscope (09/07/2010), Carpal tunnel release, Cataract extraction, Colonoscopy, Release of trigger finger. Discharge Vitals Heart Rate (Peripheral) 70 Blood Pressure 150/85 Height 178 cm Height 70 in Weight 87.9 kg Weight 193.38 lb BMI 27.74 What to do next You Need to Schedule the Following Appointments Follow Up with LOW GONZALEZ, TIMMY Betancourt When: Comments: sched cysto Where: [facility] [address], [place] [address]- [phone] Medications What How Much When Instructions New ciprofloxacin (Cipro 500 mg Tab) 1 Tablets By Mouth Every day take one tab day before procedure and one tab after procedure Pickup at [facility]/pharmacy #[id number] Unchanged losartan (losartan 50 mg Tab) 1 Tablets By Mouth Every day Contact prescribing physician if questions or concerns Unchanged omeprazole (omeprazole 40 mg Cap-DR) 1 Capsules By Mouth Every day Contact prescribing physician if questions or concerns Unchanged oxcarbazepine (oxcarbazepine 300 mg Tab) 1 Tablets By Mouth 2 times a day Contact prescribing physician if questions or concerns Unchanged potassium chloride (Potassium Chloride (Mmv-Yryz-Wup 10) 10 mEq oral tablet, extended release) 1 Tablets By Mouth Every day Contact prescribing physician if questions or concerns Unchanged propranolol (propranolol 60 mg Cap-ER) 1 Capsules By Mouth Every day Contact prescribing physician if questions or concerns Unchanged ropinirole (ropinirole 0.25 mg Tab) 1 Tablets By Mouth 3 times a day Contact prescribing physician if questions or concerns Pharmacy Information [facility]/pharmacy #[id number]: [address], [place] [id number] [phone] Test Results Urnls Dip Stick Auto w/o Microscopy POC 32308 (11/29/2022) Bilirubin Urine Dipstick - 1+ Small Blood Urine Dipstick - Trace-intact Glucose Urine Dipstick - Trace 100 mg/dl Ketones Urine Dipstick - Negative Leukocytes Urine Dipstick - Negative Nitrite Urine Dipstick - Negative Protein Urine Dipstick - 1+ (30 mg/dl) Specific [place] Urine Dipstick - 1.020 Urine Appearance Urine Dipstick - Clear Urine Color Urine Dipstick - Yellow Urobilinogen Urine Dipstick - >=8 EU/dl pH Urine Dipstick - 6 Allergies terazosin (Hypotension, Syncope) iodine (Unknown) Problems Ongoing - Any problem that you are currently receiving treatment for. BPH with urinary obstruction Elevated PSA Glucosuria Hepatitis History of bladder cancer Hypertension Incomplete bladder emptying Microscopic hematuria Proteinuria Skin cancer (melanoma) Education Materials Benign Prostatic Hyperplasia Benign prostatic hyperplasia (BPH) is an enlarged prostate gland that is caused by the normal aging process. The prostate may get bigger as a man gets older. The condition is not caused by cancer. The prostate is a walnut-sized gland that is involved in the production of semen. It is located in front of the rectum and below the bladder. The bladder stores urine. The urethra carries stored urine out of the body. An enlarged prostate can press on the urethra. This can make it harder to pass urine. The buildup of urine in the bladder can cause infection. Back pressure and infection may progress to bladder damage and kidney (renal) failure. What are the causes? This condition is part of the normal aging process. However, not all men develop problems from this condition. If the prostate enlarges away from the urethra, urine flow will not be blocked. If it enlarges toward the urethra and compresses it, there will be problems passing urine. What increases the risk? This condition is more likely to develop in men older than 50 years. What are the signs or symptoms? Symptoms of this condition include: ? Getting up often during the night to urinate. ? Needing to urinate frequently during the day. ? Difficulty starting urine flow. (more content not included)... Normal [facility] Lab Reportson 11-29-2022 Lab Reports [id number] D:127 Normal [facility] Patient Educationon 11-30-19 Patient Education Urology Benign Prostatic Hyperplasia Benign prostatic hyperplasia (BPH) is an enlarged prostate gland that is caused by the normal aging process. The prostate may get bigger as a man gets older. The condition is not caused by cancer. The prostate is a walnut-sized gland that is involved in the production of semen. It is located in front of the rectum and below the bladder. The bladder stores urine. The urethra carries stored urine out of the body. An enlarged prostate can press on the urethra. This can make it harder to pass urine. The buildup of urine in the bladder can cause infection. Back pressure and infection may progress to bladder damage and kidney (renal) failure. What are the causes? This condition is part of the normal aging process. However, not all men develop problems from this condition. If the prostate enlarges away from the urethra, urine flow will not be blocked. If it enlarges toward the urethra and compresses it, there will be problems passing urine. What increases the risk? This condition is more likely to develop in men older than 50 years. What are the signs or symptoms? Symptoms of this condition include: ? Getting up often during the night to urinate. ? Needing to urinate frequently during the day. ? Difficulty starting urine flow. ? Decrease in size and strength of your urine stream. ? Leaking (dribbling) after urinating. ? Inability to pass urine. This needs immediate treatment. ? Inability to completely empty your bladder. ? Pain when you pass urine. This is more common if there is also an infection. ? Urinary tract infection (UTI). How is this diagnosed? This condition is diagnosed based on your medical history, a physical exam, and your symptoms. Tests will also be done, such as: ? A post-void bladder scan. This measures any amount of urine that may remain in your bladder after you finish urinating. ? A digital rectal exam. In a rectal exam, your health care provider checks your prostate by putting a lubricated, gloved finger into your rectum to feel the back of your prostate gland. This exam detects the size of your gland and any abnormal lumps or growths. ? An exam of your urine (urinalysis). ? A prostate specific antigen (PSA) screening. This is a blood test used to screen for prostate cancer. ? An ultrasound. This test uses sound waves to electronically produce a picture of your prostate gland. Your health care provider may refer you to a specialist in kidney and prostate diseases (urologist). How is this treated? Once symptoms begin, your health care provider will monitor your condition (active surveillance or watchful waiting). Treatment for this condition will depend on the severity of your condition. Treatment may include: ? Observation and yearly exams. This may be the only treatment needed if your condition and symptoms are mild. ? Medicines to relieve your symptoms, including: ? Medicines to shrink the prostate. ? Medicines to relax the muscle of the prostate. ? Surgery in severe cases. Surgery may include: ? Prostatectomy. In this procedure, the prostate tissue is removed completely through an open incision or with a laparoscope or robotics. ? Transurethral resection of the prostate (TURP). In this procedure, a tool is inserted through the opening at the tip of the penis (urethra). It is used to cut away tissue of the inner core of the prostate. The pieces are removed through the same opening of the penis. This removes the blockage. ? Transurethral incision (TUIP). In this procedure, small cuts are made in the prostate. This lessens the prostate's pressure on the urethra. ? Transurethral microwave thermotherapy (TUMT). This procedure uses microwaves to create heat. The heat destroys and removes a small amount of prostate tissue. ? Transurethral needle ablation (TUNA). This procedure uses radio frequencies to destroy and remove a small amount of prostate tissue. ? Interstitial laser coagulation (ILC). This procedure uses a laser to destroy and remove a small amount of prostate tissue. ? Transurethral electrovaporization (TUVP). This procedure uses electrodes to destroy and remove a small amount of prostate tissue. ? Prostatic urethral lift. This procedure inserts an implant to push the lobes of the prostate away from the urethra. Follow these instructions at home: ? Take splw-joh-iimkika and prescription medicines only as told by your health care provider. ? Monitor your symptoms for any changes. Contact your health care provider with any changes. ? Avoid drinking large amounts of liquid before going to bed or out in public. ? Avoid or reduce how much caffeine or alcohol you drink. ? Give yourself time when you urinate. ? Keep all follow-up visits. This is important. Contact a health care provider if: ? You have unexplained back pain. ? Your symptoms do not get better with treatment. ? You develop side effects from the medicine (more content not included)... Normal [facility] Urology Office/Clinic Noteon 11-29-2022 Urology Office/Clinic Note Chief Complaint 13 month follow up HPI Staff 13 month follow up w/PSA. Current PSA 3.31 done 11/23/22, previous PSA 3.1 done 04/14/21. Previous DX:BPH with urinary obstruction, history of bladder cancer, elevated PSA, incomplete bladder emptying. S/P UroLift done on 07/16/21, Cystourethroscopy done on 05/11/21, TURBT 10/14/10. Dysuria: denies pain or burning Incomplete bladder emptying: sometimes Hematuria: denies visible blood Frequency: denies Urgency: yes ever since the UROLIFT he has been wearing depends Nocturia: denies Stream: sometimes has hesitancy, yes weak stream Leaking: denies Post void dripping: yes Wearing pads/ Depends: yes wears depends daily, changes once a day Urge incontinence: yes Stress incontinence: denies Incontinence without Sensory Awareness: denies Abdominal pain: denies Flank pain: denies Sexual complaints: denies History of Present Illness Tests reviewed: reviewed UA, PSA I have reviewed the previous health record information and history for this patient from Dr. Espinoza. I have reviewed and verified the staff HPI to be accurate for this encounter. There have been no associated fever, chills, flank pain, or blood in the urine. Denies any urinary infections since last encounter. Review of Systems PHQ Score Initial Depression Screen Score: 0 ROS - Provider Constitutional: denies weight loss, denies hot flashes. Eyes: denies eye problems. Gastrointestinal: denies nausea, denies vomiting. Cardiovascular: denies chest pain or angina. Integumentary: no dryness Musculoskeletal: denies musculoskeletal symptoms. ENMT: denies otolaryngeal symptoms. Respiratory: no shortness of breath. Heme/Lymph: denies easy bleeding tendency, denies easy bruising tendency. Psychiatric: no confusion, no anxiety. Genitourinary: See HPI. Physical Exam Vitals & Measurements HR: 70(Peripheral) BP: 150/85 HT: 70 in HT: 178 cm WT: 87.9 kg WT: 193.38 lb BMI: 27.74 General Appearance: alert, no distress, well nourished, well developed male. Genitourinary: normal scrotum, normal testes, normal urethra, normal epididymis, normal vas deferens/spermatic cord. Flank Pain: none. Bladder: nonpalpable. Assessment/Plan Former Dr. Espinoza pt. 1. BPH with urinary obstruction (N40.1: Benign prostatic hyperplasia with lower urinary tract symptoms) S/p UroLift done 07/16/21. Pt states his urinary complications have increased since UroLift procedure. Reports he has urgency and a weak stream. Feels he empties completely most of the time. Pt to start timed voids q2-3hr during waking hours whether the urge to void is present or not. All questions/concerns were discussed. Pt to call the office if he encounters any issues prior. Pt acknowledges understanding. 2. History of bladder cancer (Z85.51: Personal history of malignant neoplasm of bladder) S/p TURBT 10/14/10. S/p Cysto 05/11/21. Will schedule cystoscopy. The risks and benefits for cystoscopy have been discussed. The risks include bleeding, infection, and irritation of the bladder and urinary channel, among others. The patient, after being informed of procedural details and after questions have been answered, wishes to proceed. Full informed consent has been obtained. Will order Local anesthesia. 3. Elevated PSA (R97.20: Elevated prostate specific antigen [PSA]) PSA 02/18/20 - 3.08 04/14/21 - 3.1 11/23/22 - 3.31 4. Glucosuria (R81: Glycosuria) UA today shows 100 mg/dL 5. Proteinuria (R80.9: Proteinuria, unspecified) UA today shows 30 mg/dL. Follow-up With When Contact Information LOW GONZALEZ, Connor Rodriguez, URL [facility] [address], [place] [phone] Additional Instructions: sched cysto Patient Education Benign Prostatic Hyperplasia I, Elsa Valdovinos, personally scribed for Dr. Flood on 11/29/2022 14:21:40. . Documentation recorded by the scribElsa delgado, accurately reflects the services(s) I performed and decisions made by me. Authenticated by Dr. Flood on 11/29/2022 14:22:45. Problem List/Past Medical History Ongoing BPH with urinary obstruction Elevated PSA Glucosuria Hepatitis History of bladder cancer Hypertension Incomplete bladder emptying Microscopic hematuria Proteinuria Skin cancer (melanoma) Historical No qualifying data Procedure/Surgical History Transurethral insertion of prostatic urethral lift implant (07/16/2021), Cystourethroscopy (separate procedure) (05/11/2021), Cystoscopy (03/06/2020), TURBT - Transurethral resection of bladder tumor (10/14/2010), Cystoscope (09/30/2010), Cystoscope (09/07/2010), Carpal tunnel release, Cataract extraction, Colonoscopy, Release of trigger finger. Medications losartan 50 mg Tab, 50 mg= 1 tab(s), Oral, Daily omeprazole 40 mg Cap-DR, 40 mg= 1 cap(s), Oral, Daily oxcarbazepine 300 mg Tab, 300 mg= 1 tab(s), Oral, BID Potassium Chloride (Zgx-Bnfw-Snd 10) 10 mEq oral (more content not included)... [facility] Comment on above: Result Comment: Elec tronically Signed By: Connor FLOOD MD\.br\Date and Time Signed: 11/29/22 14:22 EDT\.br\Electronically Co-Signed By: Elsa Valdovinos\.br\Date and Time Co-Signed: 11/29/22 14:21 EDT Consultation Noteon 05-13-19 Consultation Note [id number] D:127 [facility] CNOVSPon 05-10-2022 CNOVSP Visit (SP) Office ([place]) STEPHAN MERCER ([id number]) 1950 M Date Time Provider Department 05/10/22 1:30 PM TREVOR LYNNE During your visit today, we recorded the following information about you: Temperature Pulse Respiration Blood pressure 97.5 degrees 60/minute 16/minute 156/76 Weight Height 86 kg 1.753 m Trevor Lynne MD 05/10/2022 9:06 PM Signed PATIENT NAME: Stephan Mercer DATE: 05/10/2022 PRIMARY CARE PHYSICIAN: Dr. Florencio Crowell OTHER PHYSICIANS: Dr. Michel, Dr. Kin Espinoza, Dr. Lobato Portions of this encounter note have been copied from the note from 05/11/2021 and has been updated where appropriate, and reflect my current medical decision making from today. CC: This is a 71 year old male with a history of melanoma, seen for scheduled follow-up. INTERIM HISTORY: Since the patient's last visit here he has had no significant medical changes. He still has tremor involving both upper extremities, now felt to be an essential tremor rather than Parkinson's. He follows with neurology (Dr. Lobato). He has ongoing lower urinary tract symptoms despite previous UroLift procedure. He plans to follow-up with his urologist (Dr. Espinoza) for further management. Despite the above he feels well overall. He has noticed no skin changes. No other suspicious symptoms. MEDICATIONS: predniSONE (DELTASONE) 50 mg Take 1 tablet by mouth as directed. Take one tab 13 hours prior, 7 hours prior, and [address] scan diphenhydrAMINE (BENADRYL) 50 mg capsule Take 1 capsule by mouth one hour prior to CT scan amantadine HCl (SYMMETREL) 100 mg capsule FLUoxetine (PROZAC) 20 mg capsule hydroCHLOROthiazide (HYDRODIURIL, ESIDRIX) 12.5 mg tablet losartan (COZAAR) 50 mg tablet Terazosin HCl (HYTRIN) 10 mg capsule tamsulosin ER (FLOMAX) 0.4 mg Take 0.4 mg by mouth once daily. POTASSIUM CHLORIDE (KLOR-CON ORAL) Take by mouth. omeprazole 20 mg capsule Take 20 mg by mouth once daily. ALLERGIES: Iodine PAST MEDICAL HISTORY: PAST MEDICAL HISTORY Diagnosis Date Hypertension Melanoma (HCC) PAST SURGICAL HISTORY: PAST SURGICAL HISTORY Procedure Laterality Date COLON SURGERY HX REVIEW OF SYSTEMS: General: No weight loss, malaise or fevers. HEENT: Negative for frequent or significant headaches. No changes in hearing or vision, no nose bleeds or other nasal problems. Respiratory: Negative for cough, wheezing or shortness of breath. Cardiovascular: Negative for chest pain, leg swelling or palpitations. GI: Negative for abdominal discomfort, blood in stools or black stools or change in bowel habits. : No history of dysuria, frequency or incontinence. Musculoskeletal: Negative for: joint pain or swelling, back pain and muscle pain. Skin: Negative for lesions, rash and itching. Hematology/Lymphology: Negative for prolonged bleeding, bruising easily or swollen nodes. Neuro: No history of headaches, syncope, paralysis, seizures or tremors. PHYSICAL EXAM: Vitals: BP 156/76 Pulse 60 Temp 36.4 ?C (97.5 ?F) (Temporal) Resp 16 Ht 175.3 cm (5' 9 ) Wt 86 kg (189 lb 9.6 oz) SpO2 98% BMI 28.00 kg/m? ECOG 0 Exam limited to gross visualization where appropriate due to COVID-19. Gen.: This is an age-appropriate patient in no acute distress. Head: Appears atraumatic with no visible lesions. Eyes: Pupils equally round and reactive to light, extraocular muscles are intact. Neck: Supple. Mouth: Mucous membranes appeared to be moist. Respiratory: Appears to be respiring comfortably. Neurologic: Nonfocal to gross visualization. Alert and oriented ?3. Psychiatric: No evidence of inappropriate anxiety or depression. Skin: Visible areas of skin without rash, lesions, wounds or petechiae. RADIOLOGY/OTHER STUDIES: 05/03/2022 CT chest IMPRESSION: 1. Stable CT of the chest. No evidence of intrathoracic metastatic disease. 2. No evidence of intrathoracic lymphadenopathy. 3. Stable ectasia of ascending thoracic aorta. 05/03/2022 CT abdomen/pelvis IMPRESSION: 1. Stable CT of the abdomen and pelvis. No findings to suggest new abdominal or pelvic metastatic disease. 2. Cholelithiasis without evidence of acute cholecystitis. No evidence of biliary ductal dilation. 04/30/2021 CT chest IMPRESSION: 1. No evidence of intrathoracic metastatic disease. 2. No evidence of bulky intrathoracic lymphadenopathy. 3. 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 04/30/2021 CT abdomen/pelvis IMPRESSION: 1. Stable CT of the abdomen and pelvis. No evidence of abdominal or pelvic metastatic disease. 2. Cholelithiasis without evidence of acute cholecystitis. No biliary ductal dilation. ASSESSMENT/PLAN: 1. 172.9 Melanoma (primary diagnosis); Malignant melanoma, unspecified site (HCC) - ICD9: 172.9, ICD10: C43.9 (primary diagnosis) Stage (more content not included)... Normal [facility] Patient [facility] May 05, 2022 STEPHAN PEREZJENNIFER [address] [place] [address] STEPHAN MERCER 1950 Dear Mr. 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 This requires a procedure known as a Cystoscopy-scope inside the bladder, and to obtain some recent imaging. My office has tried contacting you to get this scheduled with no response. Please contact my office at your earliest convenience and we will get you scheduled so your condition can be closely monitored. I cannot be responsible for your urological care if you do not follow up as recommended. Office Sincerely, Dr. Asaf Espinoza [facility] [address] [place] [address]. [place] [address] Normal [facility] CBC W Auto Differential pane l (Bld)on 05-03-2022 Basophils (Bld) [#/Vol] 10*3/uL Normal <0.11 [facility] Comment on above: Order Comment: Speci men Type: BLOOD SPECIMEN Ordering Facility: [facility] Address: [address] [address] Performed By: #### 5 7021-8 #### [facility] CLIA [id number] [address] [place] [address] 33972 Basophils/100 WBC (Bld) 0.2 % Normal [facility] Comment on above: Order Comment: Speci men Type: BLOOD SPECIMEN Ordering Facility: [facility] Address: [address] [address] Performed By: #### 5 7021-8 #### [facility] CLIA [id number] [address] [place] [address] 33785 Differential cell count method Nom (Bld) Auto Normal [facility] Comment on above: Order Comment: Speci men Type: BLOOD SPECIMEN Ordering Facility: [facility] Address: [address] [address] Performed By: #### 5 7021-8 #### [facility] CLIA [id number] [address] [place] [address] 29455 Eosinophils (Bld) [#/Vol] 10*3/uL Normal <0.46 [facility] Comment on above: Order Comment: Speci men Type: BLOOD SPECIMEN Ordering Facility: [facility] Address: [address] [address] Performed By: #### 5 7021-8 #### [facility] CLIA [id number] [address] [place] [address] 41083 Eosinophils/100 WBC (Bld) 0.0 % Normal [facility] Comment on above: Order Comment: Speci men Type: BLOOD SPECIMEN Ordering Facility: [facility] Address: [address] [place] [address] Performed By: #### 5 7021-8 #### [facility] CLIA [id number] [address] [place] [address] 58284 Erythrocyte distribution width (RBC) [Ratio] 13.0 % Normal 11.5-15.0 [facility] Comment on above: Order Comment: Speci men Type: BLOOD SPECIMEN Ordering Facility: [facility] Address: [address] [place] [address] Performed By: #### 5 7021-8 #### [facility] CLIA [id number] [address] [place] [address] 86174 Hematocrit (Bld) [Volume fraction] 43.9 % Normal 39.0-51.0 [facility] Comment on above: Order Comment: Speci men Type: BLOOD SPECIMEN Ordering Facility: [facility] Address: [address] [address] Performed By: #### 5 7021-8 #### [facility] CLIA [id number] [address] [place] [address] 84724 Hemoglobin (Bld) [Mass/Vol] 15.5 g/dL Normal 13.0-17.0 [facility] Comment on above: Order Comment: Speci men Type: BLOOD SPECIMEN Ordering Facility: [facility] Address: [address] [address] Performed By: #### 5 7021-8 #### [facility] CLIA [id number] [address] [place] [address] 95986 Immature granulocytes (Bld) [#/Vol] 0.03 10*3/uL Normal <0.10 [facility] Comment on above: Order Comment: Speci men Type: BLOOD SPECIMEN Ordering Facility: [facility] Address: [address] [address] Performed By: #### 5 7021-8 #### [facility] CLIA [id number] [address] [place] [address] 66874 Immature granulocytes/100 WBC (Bld) 0.5 % Normal [facility] Comment on above: Order Comment: Speci men Type: BLOOD SPECIMEN Ordering Facility: [facility] Address: [address] [address] Performed By: #### 5 7021-8 #### [facility] CLIA [id number] [address] [place] [address] 08458 Lymphocytes (Bld) [#/Vol] 0.58 10*3/uL Low 1.00-4.00 [facility] Comment on above: Order Comment: Speci men Type: BLOOD SPECIMEN Ordering Facility: [facility] Address: [address] [address] Performed By: #### 5 7021-8 #### [facility] CLIA [id number] [address] [place] [address] 17784 Lymphocytes/100 WBC (Bld) 9.2 % Normal [facility] Comment on above: Order Comment: Speci men Type: BLOOD SPECIMEN Ordering Facility: [facility] Address: [address] [address] Performed By: #### 5 7021-8 #### [facility] CLIA [id number] [address] [place] [address] 52349 MCH (RBC) [Entitic mass] 30.2 pg Normal 26.0-34.0 [facility] Comment on above: Order Comment: Speci men Type: BLOOD SPECIMEN Ordering Facility: [facility] Address: [address] [address] Performed By: #### 5 7021-8 #### [facility] CLIA [id number] [address] [place] [address] 88254 MCHC (RBC) [Mass/Vol] 35.3 g/dL Normal 30.5-36.0 [facility] Comment on above: Order Comment: Speci men Type: BLOOD SPECIMEN Ordering Facility: [facility] Address: [address] [address] Performed By: #### 5 7021-8 #### [facility] CLIA [id number] [address] [place] [address] 41535 MCV (RBC) [Entitic vol] 85.4 fL Normal 80.0-100.0 [facility] Comment on above: Order Comment: Speci men Type: BLOOD SPECIMEN Ordering Facility: [facility] Address: [address] [address] Performed By: #### 5 7021-8 #### [facility] CLIA [id number] [address] [place] [address] 11938 Monocytes (Bld) [#/Vol] 0.07 10*3/uL Normal <0.87 [facility] Comment on above: Order Comment: Speci men Type: BLOOD SPECIMEN Ordering Facility: [facility] Address: [address] [address] Performed By: #### 5 7021-8 #### [facility] CLIA [id number] [address] [place] [address] 74422 Monocytes/100 WBC (Bld) 1.1 % Normal [facility] Comment on above: Order Comment: Speci men Type: BLOOD SPECIMEN Ordering Facility: [facility] Address: [address] [place] [address] Performed By: #### 5 7021-8 #### [facility] CLIA [id number] [address] [place] [address] 63825 Neutrophils (Bld) [#/Vol] 5.63 10*3/uL Normal 1.45-7.50 [facility] Comment on above: Order Comment: Speci men Type: BLOOD SPECIMEN Ordering Facility: [facility] Address: [address] [place] [address] Performed By: #### 5 7021-8 #### [facility] CLIA [id number] [address] [place] [address] 29753 Neutrophils/100 WBC (Bld) 89.0 % Normal [facility] Comment on above: Order Comment: Speci men Type: BLOOD SPECIMEN Ordering Facility: [facility] Address: [address] [place] [address] Performed By: #### 5 7021-8 #### [facility] CLIA [id number] [address] [place] [address] 40318 Nucleated RBC (Bld) [#/Vol] 10*3/uL Normal <0.01 [facility] Comment on above: Order Comment: Speci men Type: BLOOD SPECIMEN Ordering Facility: [facility] Address: [address] [place] [address] Performed By: #### 5 7021-8 #### [facility] CLIA [id number] [address] [place] [address] 15948 Nucleated RBC/100 WBC (Bld) [Ratio] 0.0 /100 WBC Normal [facility] Comment on above: Order Comment: Speci men Type: BLOOD SPECIMEN Ordering Facility: [facility] Address: [address] [place] [address] Performed By: #### 5 7021-8 #### [facility] CLIA [id number] [address] [place] [address] 92189 Platelet mean volume (Bld) [Entitic vol] 11.1 fL Normal 9.0-12.7 [facility] Comment on above: Order Comment: Speci men Type: BLOOD SPECIMEN Ordering Facility: [facility] Address: [address] [place] [address] Performed By: #### 5 7021-8 #### [facility] CLIA [id number] [address] [place] [address] 08304 Platelets (Bld) [#/Vol] 200 10*3/uL Normal 150-400 [facility] Comment on above: Order Comment: Speci men Type: BLOOD SPECIMEN Ordering Facility: [facility] Address: [address] [place] [address] Performed By: #### 5 7021-8 #### [facility] CLIA [id number] [address] [place] [address] 66275 RBC (Bld) [#/Vol] 5.14 10*6/uL Normal 4.20-6.00 [facility] Comment on above: Order Comment: Speci men Type: BLOOD SPECIMEN Ordering Facility: [facility] Address: [address] [place] [address] Performed By: #### 5 7021-8 #### [facility] CLIA [id number] [address] [place] [address] 24751 WBC (Bld) [#/Vol] 6.32 10*3/uL Normal 3.70-11.00 [facility] Comment on above: Order Comment: Speci men Type: BLOOD SPECIMEN Ordering Facility: [facility] Address: [address] [place] [address] Performed By: #### 5 7021-8 #### [facility] CLIA [id number] [address] [place] [address] ABD/PEL W IVCONon 023 CT ABD/PEL W IVCON * * *Final Report* * * DATE OF EXAM: May 03 2022 12:42PM [facility] 0530 - CT ABD/PEL W IVCON / PROCEDURE REASON: Malignant melanoma of skin (HCC) * * * * Physician Interpretation * * * * RESULT: EXAMINATION: CT ABDOMEN AND PELVIS WITH IV CONTRAST CLINICAL HISTORY: History of melanoma. TECHNIQUE: CT of the abdomen and pelvis was performed using standard technique, scanning from just above the dome of the diaphragm to the symphysis pubis. MQ: CTAP_3 Contrast: IV: 125 ml of Omnipaque 300 Oral: 450 ml of 50ML Omnipaque [address] Radiation dose: Integrated Dose-length product (DLP) for this visit = 889 mGy*cm. CT Dose Reduction Employed: Automated exposure control (AEC) COMPARISON: CT performed 04/30/2021 RESULT: Liver: There is a stable or millimeters hypodensity in segment 6 of the liver (3:36), likely representing a small cyst. The liver is otherwise unremarkable without evidence of a new hepatic mass. Biliary: There is cholelithiasis without evidence of acute cholecystitis. No biliary ductal dilation is seen. Spleen: No mass. No splenomegaly. Pancreas: No mass or duct dilation. Adrenals: No mass. Kidneys: The kidneys symmetrically enhance. No renal calculus or hydronephrosis is seen. A 1.1 cm cyst is noted in the lower pole of the left kidney, more conspicuous when compared to prior exam. GI tract: The stomach and small bowel are unremarkable. There is no evidence of small bowel obstruction or wall thickening. Postsurgical changes are noted in the rectosigmoid colon. The colon is otherwise unremarkable. Lymph nodes: No abdominal or pelvic lymphadenopathy. Mesentery/Peritoneum: No ascites or mass. Retroperitoneum: No mass. Vasculature: - Abdominal aorta and iliac arteries: Atherosclerotic calcifications without aneurysm. - Celiac and SMA: Patent without stenosis. - Portal venous system (SMV, splenic vein, portal vein and branches): Patent. - Hepatic veins: Patent. Pelvis: The urinary bladder is unremarkable. No pelvic mass or fluid collection is seen. Bones/Soft Tissues: Degenerative changes noted in the lumbar spine. Superficial soft tissues are unremarkable. Lower thorax: A chest CT performed will be reported separately. Rapier Insertion Loom Fixer (topogram) images: No additional findings. IMPRESSION: 1. Stable CT of the abdomen and pelvis. No findings to suggest new abdominal or pelvic metastatic disease. 2. Cholelithiasis without evidence of acute cholecystitis. No evidence of biliary ductal dilation. Transcribe Date/Time: May 03 2022 2:41P Dictated by: JOSHUA MEDEL MD This examination was interpreted and the report reviewed and electronically signed by: JOSHUA MEDEL MD on May 03 2022 2:53PM EST Thank you for allowing us to participate in the care of your patient. Should there be any questions regarding this interpretation, please call [phone]. If you are unable to reach us at the number above, please feel free to contact [facility] at [phone]. [id number] Normal [facility] CT CHEST W IVCONon 3 CT CHEST W IVCON * * *Final Report* * * DATE OF EXAM: May 03 2022 12:42PM [facility] 0539 - CT CHEST W IVCON / PROCEDURE REASON: Malignant melanoma of skin (HCC) * * * * Physician Interpretation * * * * RESULT: EXAMINATION: CHEST CT WITH CONTRAST CLINICAL HISTORY: History of melanoma. Technique: Spiral CT acquisition of the chest from the thoracic inlet to the upper abdomen following IV contrast. MQ: CTCW_6 Contrast: 125 mL Omnipaque [address] Radiation dose: Integrated Dose-length product (DLP) for this visit = 889 mGy*cm CT Dose Reduction Employed: Automated exposure control (AEC) Comparison: CT chest performed 04/30/2021 RESULT: Limitations: None. Lines, tubes, and devices: None. Lung parenchyma and airways: There is mild dependent atelectasis. No lobar consolidation is noted. There is a stable right lower lobe 2 mm nodule (4:97). No new or enlarging nodules are visualized. The central airways are widely patent. Pleural space: No pleural effusion. No pleural thickening. Lower neck, lymph nodes, and mediastinum: The imaged thyroid gland is normal. No lymphadenopathy in the supraclavicular, axillary, mediastinal, or hilar regions. Heart, pericardium, and thoracic vessels: The ascending thoracic aorta is ectatic measuring up to 4 cm in greatest diameter. The main pulmonary artery is normal in caliber. The cardiac chambers are normal in size. No coronary artery atherosclerotic calcifications are noted, although the study is not optimized for coronary assessment. No pericardial effusion or thickening. Bones and soft tissues: Degenerative change is noted in the thoracic spine. No destructive osseous lesions are seen. Superficial soft tissues are unremarkable. Upper abdomen: A dedicated CT of the abdomen and pelvis was performed concurrently and is reported separately. Rapier Insertion Loom Fixer (topogram) images: No additional findings. IMPRESSION: 1. Stable CT of the chest. No evidence of intrathoracic metastatic disease. 2. No evidence of intrathoracic lymphadenopathy. 3. Stable ectasia of ascending thoracic aorta. Transcribe Date/Time: May 03 2022 2:30P Dictated by: JOSHUA MEDEL MD This examination was interpreted and the report reviewed and electronically signed by: JOSHUA MEDEL MD on May 03 2022 2:41PM EST Thank you for allowing us to participate in the care of your patient. Should there be any questions regarding this interpretation, please call [phone]. If you are unable to reach us at the number above, please feel free to contact [facility] at [phone]. [id number] Normal [facility] Comprehensive metabolic 2000 panelon 05-03-2022 Albumin [Mass/Vol] 4.8 g/dL Normal 3.9-4.9 [facility] Comment on above: Order Comment: Speci men Type: BLOOD SPECIMEN Ordering Facility: [facility] Address: [address] [place] [address] Performed By: #### 2 4322-8 #### [facility] CLIA [id number] [address] [place] [address] 65505 ALP [Catalytic activity/Vol] 111 U/L Normal 38-113 [facility] Comment on above: Order Comment: Speci men Type: BLOOD SPECIMEN Ordering Facility: [facility] Address: [address] [place] [address] Performed By: #### 2 4322-8 #### [facility] CLIA [id number] [address] [place] [address] 67780 ALT [Catalytic activity/Vol] U/L Low 10-54 [facility] Comment on above: Order Comment: Speci men Type: BLOOD SPECIMEN Ordering Facility: [facility] Address: [address] [place] [address] Performed By: #### 2 432-8 #### [facility] CLIA [id number] [address] [place] [address] 96260 Anion gap [Moles/Vol] 10 mmol/L Normal 9-18 [facility] Comment on above: Order Comment: Speci men Type: BLOOD SPECIMEN Ordering Facility: [facility] Address: [address] [address] Performed By: #### 2 4323-8 #### [facility] CLIA [id number] [address] [place] [address] 59488 AST [Catalytic activity/Vol] 14 U/L Normal 14-40 [facility] Comment on above: Order Comment: Speci men Type: BLOOD SPECIMEN Ordering Facility: [facility] Address: [address] [address] Performed By: #### 2 4323-8 #### [facility] CLIA [id number] [address] [place] [address] 31837 Bilirubin [Mass/Vol] 1.9 mg/dL High 0.2-1.3 [facility] Comment on above: Order Comment: Speci men Type: BLOOD SPECIMEN Ordering Facility: [facility] Address: [address] [address] Performed By: #### 2 4323-8 #### [facility] CLIA [id number] [address] [place] [address] 49488 Calcium [Mass/Vol] 9.5 mg/dL Normal 8.5-10.2 [facility] Comment on above: Order Comment: Speci men Type: BLOOD SPECIMEN Ordering Facility: [facility] Address: [address] [address] Performed By: #### 2 4323-8 #### [facility] CLIA [id number] [address] [place] [address] Chloride [Moles/Vol] 100 mmol/L Normal 97-105 [facility] Comment on above: Order Comment: Speci men Type: BLOOD SPECIMEN Ordering Facility: [facility] Address: [address] [address] Performed By: #### 2 4323-8 #### [facility] CLIA [id number] [address] [place] [address] CO2 [Moles/Vol] 27 mmol/L Normal 22-30 [facility] Comment on above: Order Comment: Speci men Type: BLOOD SPECIMEN Ordering Facility: [facility] Address: [address] [address] Performed By: #### 2 4323-8 #### [facility] CLIA [id number] [address] [place] [address] Creatinine [Mass/Vol] 0.85 mg/dL Normal 0.73-1.22 [facility] Comment on above: Order Comment: Speci men Type: BLOOD SPECIMEN Ordering Facility: [facility] Address: [address] [address] Performed By: #### 2 4323-8 #### [facility] CLIA [id number] [address] [place] [address] ESTIMATED GLOMERULAR FILTRATION RATE 93 mL/min/1.73m??? Normal >=60 [facility] Comment on above: Order Comment: Speci men Type: BLOOD SPECIMEN Ordering Facility: [facility] Address: [address] [place] [address] Result Comment: Tammy mated Glomerular Filtration Rate (eGFR) is calculated using the 2020 CKD-EPI creatinine equation. This equation utilizes serum creatinine, sex, and age as parameters. The creatinine assay has traceable calibration to isotope dilution-mass spectrometry. Refer to KDIGO guidelines for clinical interpretation. In patients with unstable renal function, e.g. those with acute kidney injury, the eGFR may not accurately reflect actual GFR. Performed By: #### 2 4323-8 #### [facility] CLIA [id number] [address] [place] [address] Glucose [Mass/Vol] 153 mg/dL High 74-99 [facility] Comment on above: Order Comment: Speci men Type: BLOOD SPECIMEN Ordering Facility: [facility] Address: [address] [place] [address] Result Comment: The [place] [employer] (ADA) provides guidance for cutoff values for fasting glucose and random glucose. The ADA defines fasting as no caloric intake for at least 8 hours. Fasting plasma glucose results between 100 to 125 mg/dL indicate increased risk for diabetes (prediabetes). Fasting plasma glucose results greater than or equal to 126 mg/dL meet the criteria for diagnosis of diabetes. In the absence of unequivocal hyperglycemia, results should be confirmed by repeat testing. In a patient with classic symptoms of hyperglycemia or hyperglycemic crisis, random plasma glucose results greater than or equal to 200 mg/dL meet the criteria for diagnosis of diabetes. Reference: Standards of Medical Care in Diabetes 2016, [place] [employer]. Diabetes Care. 2016.39(Suppl 1). Performed By: #### 2 4323-8 #### [facility] CLIA [id number] [address] [place] [address] Potassium [Moles/Vol] 3.7 mmol/L Normal 3.7-5.1 [facility] Comment on above: Order Comment: Speci men Type: BLOOD SPECIMEN Ordering Facility: [facility] Address: [address] [place] [address] Performed By: #### 2 4323-8 #### [facility] CLIA [id number] [address] [place] [address] Protein [Mass/Vol] 7.8 g/dL Normal 6.3-8.0 [facility] Comment on above: Order Comment: Abdoulaey krishnamurthy Type: BLOOD SPECIMEN Ordering Facility: [facility] Address: [address] [place] [address] Performed By: #### 2 4323-8 #### [facility] CLIA [id number] [address] [place] [address]892 Sodium [Moles/Vol] 137 mmol/L Normal 136-144 [facility] Comment on above: Order Comment: Katiei men Type: BLOOD SPECIMEN Ordering Facility: [facility] Address: [address] [address] Performed By: #### 2 4323-8 #### [facility] CLIA [id number] [address] [place] [address] 56294 Urea nitrogen [Mass/Vol] 22 mg/dL Normal 9-24 [facility] Comment on above: Order Comment: Speci men Type: BLOOD SPECIMEN Ordering Facility: [facility] Address: [place] [address] Performed By: #### 2 4323-8 #### [facility] CLIA [id number] [address] [place] [address] Vital Signs Date Time Vital Sign Value Performing Clinician Shad boyce 11-29-2022 13:24-0400 Blood Pressure Location Connor FLOOD [facility] 11-29-2022 13:24-0400 Diastolic blood pressure 85 mm[Hg] Connorrony FLOOD [facility] 11-29-2022 13:24-0400 Heart rate 70 /min Connor FLOOD [facility] 11-29-2022 13:24-0400 Systolic blood pressure 150 mm[Hg] Connor FLOOD [facility] 05-10-2022 13:35-0500 Body height 175.3 cm Trevor Lynne MD Work Phone: [facility] 05-10-2022 13:35-0500 Body temperature 97.5 [degF] Trevor Lynne MD Work Phone: [facility] 05-10-2022 13:35-0500 Body weight 86 kg Trevor Lynne MD Work Phone: [facility] 05-10-2022 13:35-0500 Diastolic blood pressure 76 mm[Hg] Trevor Lynne MD Work Phone: [facility] 05-10-2022 13:35-0500 Heart rate 60 /min Trevor Lynne MD Work Phone: [facility] 05-10-2022 13:35-0500 Respiratory rate 16 /min Trevor Lynne MD Work Phone: [facility] 05-10-2022 13:35-0500 SaO2% (BldA) [Mass fraction] 98 % Trevor Lynne MD Work Phone: [facility] 05-10-2022 13:35-0500 Systolic blood pressure 156 mm[Hg] Trevor Lynne MD Work Phone: [facility] 10-27-2021 10:45-0400 Blood Pressure Location Asaf Espinoza Jr. [facility] 10-27-2021 10:45-0400 Diastolic blood pressure 86 mm[Hg] Asaf Espinoza Jr. [facility] 10-27-2021 10:45-0400 Heart rate 78 /min Asaf Espinoza Jr. [facility] 10-27-2021 10:45-0400 Respiratory rate 16 /min Asaf Espinoza Jr. [facility] 10-27-2021 10:45-0400 Systolic blood pressure 139 mm[Hg] Asaf Espinoza Jr. [facility] 07-28-2021 12:20-0400 Respiratory rate 16 /min Asaf Espinoza Jr. [facility] Encounters Encounter Date Encounter Type Care Provider Facility Start: 05-30-2023 ambulatory Connor Chu ty:[facility] [place] Start: 05-16-2023 ambulatory Connor Leei ty:[facility] Start: 05-12-2023 ambulatory Connor Leei ty:CD:[id number] Start: 03-28-2023 ambulatory Connor Leei ty:NOLA Herrera Start: 03-16-2023 End: 03-16-2023 ambulatory [facility] Start: 03-16-2023 End: 03-16-2023 Encounter for other preprocedural examination [facility] Start: 03-07-2023 ambulatory Connor Leei ty:NOLA Mcadams Start: 02-17-2023 End: 02-17-2023 ambulatory FLORENCIO CROWELL Facility:[facility] Start: 12-28-2022 End: 12-29-2022 ambulatory Connor R FLOOD Facility:[facility] Start: 12-28-2022 End: 12-28-2022 Patient encounter procedure Connor FLOOD [facility] Start: 11-29-2022 End: 11-30-2022 ambulatory Connorrony FLOOD Facility:[facility]OLA Herrera Start: 11-29-2022 End: 11-29-2022 Patient encounter procedure Connor FLOOD [facility] Start: 08-11-2022 ambulatory Laura Chadwick Facility:[facility] Start: 07-28-2022 ambulatory LAURA CHADWICK . Facility: Start: 07-06-2022 (Televisit) Televisit Florencio العلي [facility] Start: 07-06-2022 End: 07-06-2022 ambulatory Florencio Crowell Other [employer] Other Start: 05-10-2022 End: 05-10-2022 ambulatory TREVOR LYNNE Facility:[facility] Start: 05-10-2022 End: 05-10-2022 ambulatory Trevor Lynne MD Work Phone: Hematology/Oncology Comment on above: Malignant melanoma o f skin (HCC) (Primary Dx); Benign localized prostatic hyperplasia with lower urinary tract symptoms (LUTS); Essential tremor Start: 05-10-2022 End: 05-10-2022 Patient encounter procedure Trevor Lynne MD Work Phone: [facility] Start: 05-03-2022 End: 05-03-2022 ambulatory FLORENCIO CROWELL Facility:[facility] Start: 04-30-2022 Orders Only Trevor Lynne MD Work Phone: Radiology Pet CT Comment on above: Malignant melanoma o f skin (HCC) (Primary Dx) Start: 04-05-2022 Telephone encounter Leticia Galen Vgoel Hematology/Oncology Comment on above: Orders Start: 10-27-2021 End: 10-27-2021 Patient encounter procedure Asaf Espinoza Jr. [facility] Start: 07-28-2021 End: 07-28-2021 Patient encounter procedure Asaf Espinoza Jr. [facility] Procedures Date Procedure Procedure Detail Performing Clinician Start: 07-16-2021 Transurethral insert ion of prostatic urethral lift implant Asaf Espinoza Jr. Comment on above: UroLift Start: 05-11-2021 Cystourethroscopy Kirk Espinoza Jr. Start: 03-06-2020 Cystoscopy Asaf pearson Jr. Start: 10-14-2010 Transurethral resect ion of bladder neoplasm Asaf Espinoza Jr. Start: 09-30-2010 Cystoscope, device ( physical object) Asaf Espinoza Jr. Comment on above: With Bladder BX Start: 09-07-2010 Cystoscope, device ( physical object) Asaf Espinoza Jr. Colonoscopy Asaf [place] Decompression of median nerve Asaf Espinoza Jr. Extraction of cataract Kirk rebollar Alexis Ovalle Release of trigger finger Do jamilah Alexis Ovalle Plan of Treatment Date Care Activity Detail Author Start: 05-03-2022 End: 07-03-2022 CBC W Auto Differential panel - Blood CBC + DIFF Lab Routine Malignant melanoma of skin (HCC) Expected: 05/03/2022, Expires: 07/03/2022 [facility] Work Phone: Comment on above: Expected: 05/03/2022 , Expires: 07/03/2022 Start: 04-18-2022 ADVANCE DIRECTIVE DISCUSSION ADVANCE DIRECTIVE DISCUSSION [facility] Start: 04-18-2022 DEPRESSION ASSESSMENT DEPRESSION ASS ESSMENT [facility] Start: 12-17-2021 Influenza vaccination INFLUENZA (#1) [facility] Start: 04-21-2021 COVID-19 VACCINE (4 - Booster) COVID-19 VACCINE (4 - Booster) [facility] Start: 04-18-2021 ADVANCE DIRECTIVE DISCUSSION ADVANCE DIRECTIVE DISCUSSION [facility] Start: 04-18-2021 DEPRESSION ASSESSMENT DEPRESSION ASS ESSMENT [facility] Start: 08-15-2020 COVID-19 VACCINE (3 - Booster) COVID-19 VACCINE (3 - Booster) [facility] Start: 03-07-2020 PNEUMOCOCCAL: 65+ (2 - PCV) PNEUMOCOCCAL: 65+ (2 - PCV) [facility] Start: 08-01-2001 SHINGRIX VACCINE (1 of 2) SHINGRIX VACCINE (1 of 2) [facility] Start: 08-01-1996 COLOGUARD (FIT-DNA) COLOGUARD (FIT-D NA) [facility] Start: 08-01-1996 Colonoscopy COLONOSCOPY [facility] Start: 08-01-1996 COLORECTAL CANCER SCREENING COLORECTAL CANCER SCREENING [facility] Start: 08-01-[address] COLONOGRAPHY [facility] Start: 08-01-1996 FECAL OCCULT BLOOD FECAL OCCULT BLOO D [facility] Start: 08-01-1996 SIGMOIDOSCOPY SIGMOIDOSCOPY [facility] Start: 08-01-1970 Urine microalbumin profile DTAP,TDAP,TD (1 - Tdap) [facility] Start: 08-01-1969 ANNUAL PCP TEAM FREQUENCY CHECKER RAFAELA DISEASE VISIT ANNUAL PCP TEAM CHRONIC DISEASE VISIT [facility] Start: 08-01-1969 BP CONTROLLED (<130/80) BP CONTROLLE D (<130/80) [facility] Start: 08-01-1969 Hepatitis B surface antibody level LDL CHOLESTEROL [facility] Start: 08-01-1969 HEPATITIS C SCREENING HEPATITIS C SC JOEL [facility] Start: 08-01-1961 3 comp foot exam completed DIABETIC FOOT EXAM [facility] Start: 08-01-1961 Hepatitis B screening URINE ALBUMIN:CREATININE RATIO [facility] Start: 08-01-1961 Hepatitis C antibody , confirmatory test DILATED RETINAL EXAM [facility] Start: 08-01-1956 Hemoglobin A1c/Hemoglobin.total in Blood HBA1C [facility] End: 06-09-2023 Ct abdomen & pelvis w/contrast material CT ABD/PEL W IVCON Radiology Routine Malignant melanoma of skin (HCC) 1 Occurrences starting 05/10/2022 until 06/09/2023 [facility] Work Phone: Comment on above: 1 Occurrences starti ng 05/10/2022 until 06/09/2023 End: 06-09-2023 CT CHEST W IVCON CT CHEST W IVCON Radiology Routine Malignant melanoma of skin (HCC) 1 Occurrences starting 05/10/2022 until 06/09/2023 [facility] Work Phone: Comment on above: 1 Occurrences starti ng 05/10/2022 until 06/09/2023 [facility] Immunizations Immunization Date Immunization Notes Care Provider Daniel fagan 02-24-2021 SARS-CoV-2 (COVID-19 ) mRNA BNT-162b2 vax Asaf Espinoza Jr. [facility] 02-16-2021 influenza virus vacc ine, unspecified formulation Asaf Espinoza Jr. [facility] 06-20-2020 SARS-CoV-2 (COVID-19 ) mRNA-1273 vaccine Asaf Espinoza Jr. [facility] Comment on above: Result Comment: 2nd shot 05-30-2020 SARS-CoV-2 (COVID-19 ) [id number] vaccine Asaf Espinoza [facility] Comment on above: Result Comment: 1st shot 03-18-2020 influenza nasal, unspecified formulation Leticia Aaron RN [facility] 03-18-2020 influenza virus vacc ine, unspecified formulation Asaf Alexis Ovalle [facility] 03-07-2019 influenza, high dose seasonal, preservative-free Leticia Aaron RN [facility] 03-07-2019 pneumococcal polysaccharide vaccine, 23 valent Leticia Aaron RN [facility] 01-25-2018 influenza virus vacc ine, unspecified formulation Leticia Aaron RN [facility] 02-21-2013 influenza virus vacc ine, unspecified formulation Leticia Aaron RN [facility] Payers Date Payer Category Payer Private Health Insurance [id number] 2017 Unknown [employer] [facility] MEDIC[facility] SUPPLEMENT [id number] 2017-Present [phone] [id number] [place] [address] Indemnity [id number] 2017 Unknown [id number] 2016 Medicare MEDICARE MEDICAR E A AND B [id number] 2016-Present [phone] [place] [address] Medicare [id number] 2016 Medicare [id number] 1959 Self-pay 1950 Unknown [id number] 1950 Unknown [id number] 1950 Unknown [id number] 1950 Unknown [id number] 1950 Unknown [id number] 1950 Unknown [id number] 1950 Unknown [id number] 1950 Unknown [id number] Social History Date Type Detail Facility Start: 07-28-2021 End: 11-29-2022 Tobacco smoking status Never smoked tobacco (finding) [facility] Sex Assigned At Male [facility] Start: 05-11-2021 Alcohol intake 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 Start: 1950 Sex Assigned At Male [facility] Tobacco smoking status Never [facility] Functional Status Date Assessment Result Facility 12-28-2022 Functional Status N/A [facility] 11-29-2022 Functional Status N/A [facility] 10-27-2021 Functional Status N/A [facility] Clinical Notes 02-08-2012 to 03-16-2023 Note Date & Type Note Facility 03-16-2023 Note e [facility] 03-16-[address] [facility] Cardiology Clinic Note Chief Complaint: New patient here to establish care. Ref from Dr. Flood for surgery clearance. Had ECG a few weeks ago. He had colon surgery about 12 years ago and arrested during surgery. Says he had heart cath at [facility] at that time and it was normal. Says BP has been elevated lately. Denies chest pain, SOB, and lightheadedness/syncope. Sometimes feels his heart racing but no irregular beats. HPI: Stephan Mercer is a 72 y.o. male History of hypertension, gastroesophageal reflux disease here in preoperative evaluation. He is currently retired. He states that he is physically active and is able to walk up and down a flight of stairs without chest pain or shortness of breath. No orthopnea, no paroxysmal, dyspnea, no lower extremity edema. Notably, about 12 years ago, during colon surgery he apparently had an arrest . He underwent a cardiac catheterization soon after that showed no obstructive coronary disease. It was felt that hypokalemia was the cause of his arrest. He has been on potassium supplementation since. He has had surgery with general anesthesia since that time with no significant perioperative cardiovascular issues. Cardiology ROS: Review of Systems Cardiovascular: Positive for palpitations ( racing ). Neurological: Positive for tremors. All other systems reviewed and are negative. Past Medical History He has no past medical history on file. Surgical History He has no past surgical history on file. Social History He has no history on file for tobacco use, alcohol use, and drug use. Family History No family history on file. Allergies Patient has no allergy information on record. Medications No current outpatient medications on file. Last Recorded Vitals BP 138/83 (BP Location: Left arm, Patient Position: Sitting) Pulse 65 Ht 1.778 m (5' 10 ) Wt 90.3 kg (199 lb) SpO2 99% BMI 28.55 kg/m??? Physical Examination: GENERAL: alert and oriented x3, well developed, in no acute distress. HEAD: atraumatic, normocephalic. EYES: ANDRZEJ, EOMI. NECK: trachea midline, no JVD present, no carotid bruits present. CARDIAC: S1, S2 present. RRR. No murmur, rubs, or gallops. RESPIRATORY: CTAB, no increased effort of breathing, no rales, rhonchi, or wheezing. ABDOMEN: soft, nontender, nondistended. EXTREMITIES: no lower extremity edema, peripheral pulses are 2+ bilaterally. No rash/skin discoloration present. NEURO: strength/sensation equal and symmetric in bilateral upper and lower extremities. PSYCH: appropriate mood, affect, and judgement. EKG 02/2023: Sinus bradycardia, 52 bpm, left axis deviation, voltage criteria for left ventricular hypertrophy. Assessment: Preoperative cardiovascular risk assessment History of prior cardiac arrest intra-operatively Hypertension Abnormal EKG; LVH Palpitations Essential tremor Plan: Given the patient's physical tolerance (>4 METS), absence of unstable angina, decompensated heart failure or uncontrolled arrhythmias, and the planned procedure, he would be at acceptable low risk to proceed with no further cardiovascular testing needed. Recommend strict heart rate and blood pressure control and avoidance of major fluid shifts. Given his prior history, maintaining normal electrolytes pre and postoperatively is crucial. I do not believe stress testing would add to his risk assessment at this juncture. Will obtain a complete echocardiogram to evaluate for possible left ventricular hypertrophy given his CKD. He is currently appropriately on an angiotensin receptor gilson. Continue aggressive cardiovascular factor modification. Return to clinic in 1 year or sooner should problems arise Asia Malloy MD, MPH, [facility], [facility], [facility] Interventional Cardiology Pager Email: [email or web address] 02-17-2023 Note HNO ID: [id number] Author: Alec Huntley, DO Service: ? Author Type: Physician Type: Progress Notes Filed: 02/18/2023 2:44 PM Note Text: [facility] - NEW PATIENT EVALUATION Florencio Crowell MD [facility] [id number] Stephan Mercer is a 72 year old right-handed male who is seen in consultation for evaluation of tremor. He is seen with his . History of Present Illness: The patient has a history of left hemisomal tremor since early 2019. He has been maintained on Requip, propranolol and Trileptal. This provides no benefit. He was tried on Artane, amantadine and Sinemet 10/100. Sinemet caused an upset stomach. No family history of tremor. No effect from EtoH. MRI brain was negative. No DaTscan (Ioflupane I 123 Injection) was done. 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 Anxiety: CAROLIN-7 = 0 usually representing no significant (0-4) anxiety. Finally, the following table shows the patient's overall global physical and mental health using the PROMIS scale: PROMIS-10 Flowsheet Row Office Visit from 02/17/2023 in Neurology Visit ([place]) Office from 05/10/2022 in Hematology/Oncology Global Physical Health T Score 54.1 50.8 Global Mental Health T Score 53.3 45.8 0-10 Standard Pain Scale 4 4 *PROMIS-10 scoring scale: mean = 50, over 50 is above average, under 50 is below average Movement Disorders Medications Schedule: Medications AM supper bedtime Requip 3mg 1 1 1 propranolol 60mg 1 0 0 trileptal 300mg 1 0 0 Review of Systems Respiratory: Negative for difficulty breathing. Cardiovascular: Negative for chest pain. Gastrointestinal: Negative for abdominal pain. All other systems reviewed and are negative. ALLERGIES Allergen Reactions Iodine Rash Current Outpatient Medications Medication Sig rOPINIRole (REQUIP) 4 mg tablet FLUoxetine (PROZAC) 20 mg capsule POTASSIUM CHLORIDE (KLOR-CON ORAL) Take by mouth. omeprazole 20 mg capsule Take 20 mg by mouth once daily. propranolol (INDERAL) 60 mg tablet Take 60 mg by mouth once daily. OXcarbazepine (TRILEPTAL) 300 mg tablet Take 300 mg by mouth two times a day. losartan-hydroCHLOROthiazide (HYZAAR) 50-12.5 mg per tablet Take 1 tablet by mouth once daily. predniSONE (DELTASONE) 50 mg Take 1 tablet by mouth as directed. Take one tab 13 hours prior, 7 hours prior, and [address] scan diphenhydrAMINE (BENADRYL) 50 mg capsule Take 1 capsule by mouth one hour prior to CT scan No current facility-administered medications for this visit. Past Medical and Surgical History: has a past medical history of Hypertension and Melanoma (HCC). has a past surgical history that includes colon surgery hx. In addition, the patient denies a history of exposure to dopamine receptor blocking agents, denies history of encephalitis/meningitis and denies significant exposure to insecticides/ pesticides/ heavy metals/ carbon monoxide Social History Tobacco Use Smoking status: Never Smokeless tobacco: Never Substance Use Topics Alcohol use: No Drug use: No Family History: family history is not on file. In addition, the patient denies any family history of PD/parkinsonism, tremor, other involuntary movement disorders. Objective: Vital Signs: BP 150/77 (BP Site: Left Arm, BP Position: Sitting, BP Cuff Size: Regular Adult) Pulse (!) 59 General Medical Examination: General Description of Patient: Well appearing, comfortable Head:normocephalic, atraumatic Neck:No bruits, full range of movement, supple Cardiac: Regular rate and rhythm, no murmur Extremities: No leg edema, pulses intact, no rash or venous stasis changes. Neurological Exam Movement Disorders Scales Performed: MDS-UPDRS Motor subscale condition of exam Medication Off/On/Naiive Time of UPDRS Time of Last Medication Last Medication Taken DBS Right DBS Left MDS-UPDRS Motor subscale scores Speech 1-Slight. Loss of modulation, diction or volume, but still all words easy to understand. Facial Expression 3-Moderate. Masked facies with lips parted some of the time when the mouth is at rest. Rigidity Neck 2-Mild. Rigidity detected without the activation maneuver, but full range of motion is easily achieved. Rigidity Right Upper Extremity 1-Slight. Rigidity only detected with activation maneuver. Rigidity Left Upper Extremity 1-Slight. Rigidity only detected with activation maneuver. Rigidity Right Lower Extremity 2-Mild. Rigidity detected without the activation maneuver, but full range of motion is easily achieved. Rigidity Left Lower Extremity 2-Mil (more content not included)... [facility] 12-28-2022 Note Cystoscopy ? Voiding after the procedure: there may be some pain, burning, urgency, frequency and blood tinged urine following the procedure. These symptoms usually resolve within 2-5 days. Drink the amount of fluid it takes to keep the urine pink to yellow or clear in color. Drinking enough water and fluids will help to ease any discomfort after your procedure. ? If you are having problems that seem out of the ordinary, please call. ? If unable to contact your physician and you feel it is an emergency, go to the nearest emergency room or call 911 ? Diet ? you may resume your normal diet. ? Activity ? you may resume your normal activities ? Call if you have a fever over 100 degrees. Urology Transurethral Resection of the Prostate Transurethral resection of the prostate (TURP) is the removal, or resection, of part of the prostate tissue. This procedure is done to treat an enlarged prostate gland (benign prostatic hyperplasia). The goal of TURP is to remove enough prostate tissue to allow for a normal flow of urine. The procedure will allow you to empty your bladder more completely when you urinate so that you can urinate less often. In a transurethral resection, a thin telescope with a light, a camera, and an electric cutting edge (resectoscope) is passed through the urethra and into the prostate. The opening of the urethra is at the end of the penis. Tell a health care provider about: ? Any allergies you have. ? All medicines you are taking, including vitamins, herbs, eye drops, creams, and rxca-cqx-vmdugmv medicines. ? Any problems you or family members have had with anesthetic medicines. ? Any bleeding problems you have. ? Any surgeries you have had. ? Any medical conditions you have. ? Any prostate infections you have had. What are the risks? Generally, this is a safe procedure. However, problems may occur, including: ? Infection. ? Bleeding. ? Allergic reactions to medicines. ? Blood in the urine (hematuria). ? Damage to nearby structures or organs. Other problems may occur, but they are rare. They include: ? Dry ejaculation, or having no semen come out during orgasm. ? Erectile dysfunction, or being unable to have or keep an erection. ? Scarring that leads to narrowing of the urethra. This narrowing may block the flow of urine. ? Inability to control when you urinate (incontinence). ? Deep vein thrombosis. This is a blood clot that can develop in your leg. ? TURP syndrome. This can happen when you lose too much sodium during or after the procedure. Some signs and symptoms of this condition include: ? Weakness. ? Headaches. ? Nausea or vomiting. ? Muscle cramping. What happens before the procedure? When to stop eating and drinking Follow instructions from your health care provider about what you may eat and drink before your procedure. These may include: ? 8 hours before your procedure ? Stop eating most foods. Do not eat meat, fried foods, or fatty foods. ? Eat only light foods, such as toast or crackers. ? All liquids are okay except energy drinks and alcohol. ? 6 hours before your procedure ? Stop eating. ? Drink only clear liquids, such as water, clear fruit juice, black coffee, plain tea, and sports drinks. ? Do not drink energy drinks or alcohol. ? 2 hours before your procedure ? Stop drinking all liquids. ? You may be allowed to take medicines with small sips of water. If you do not follow your health care provider's instructions, your procedure may be delayed or canceled. Medicines Ask your health care provider about: ? Changing or stopping your regular medicines. This is especially important if you are taking diabetes medicines or blood thinners. ? Taking medicines such as aspirin and ibuprofen. These medicines can thin your blood. Do not take these medicines unless your health care provider tells you to take them. ? Taking ikks-pfj-chktppt medicines, vitamins, herbs, and supplements. Surgery safety Ask your health care provider what steps will be taken to help prevent infection. These steps may include: ? Removing hair at the surgery site. ? Washing skin with a germ-killing soap. ? Taking antibiotic medicine. General instructions ? Do not use any products that contain nicotine or tobacco for at least 4 weeks before the procedure. These products include cigarettes, chewing tobacco, and vaping devices, such as e-cigarettes. If you need help quitting, ask your health care provider. ? If you will be going home right after the procedure, plan to have a responsible adult: ? Take you home from the hospital or clinic. You will not be allowed to drive. ? Care for you for the time you are told. What happens during the procedure? ? An IV will be inserted into one of your veins. ? You will be given one or more of the following: ? A medicine to help you relax (sedative). ? A medicine to make you fall asleep (general anesthetic) (more content not included)... [facility] 12-28-2022 Hospital Discharge instructions Patient Education 12/28/2022 15:21:43 Transurethral Resection of the Prostate Transurethral Resection of the Prostate Transurethral resection of the prostate (TURP) is the removal, or resection, of part of the prostate tissue. This procedure is done to treat an enlarged prostate gland (benign prostatic hyperplasia). The goal of TURP is to remove enough prostate tissue to allow for a normal flow of urine. The procedure will allow you to empty your bladder more completely when you urinate so that you can urinate less often. In a transurethral resection, a thin telescope with a light, a camera, and an electric cutting edge (resectoscope) is passed through the urethra and into the prostate. The opening of the urethra is at the end of the penis. Tell a health care provider about: Any allergies you have. All medicines you are taking, including vitamins, herbs, eye drops, creams, and nypf-ibn-mufddio medicines. Any problems you or family members have had with anesthetic medicines. Any bleeding problems you have. Any surgeries you have had. Any medical conditions you have. Any prostate infections you have had. What are the risks? Generally, this is a safe procedure. However, problems may occur, including: Infection. Bleeding. Allergic reactions to medicines. Blood in the urine (hematuria). Damage to nearby structures or organs. Other problems may occur, but they are rare. They include: Dry ejaculation, or having no semen come out during orgasm. Erectile dysfunction, or being unable to have or keep an erection. Scarring that leads to narrowing of the urethra. This narrowing may block the flow of urine. Inability to control when you urinate (incontinence). Deep vein thrombosis. This is a blood clot that can develop in your leg. TURP syndrome. This can happen when you lose too much sodium during or after the procedure. Some signs and symptoms of this condition include: ?Weakness. ?Headaches. ?Nausea or vomiting. ?Muscle cramping. What happens before the procedure? When to stop eating and drinking Follow instructions from your health care provider about what you may eat and drink before your procedure. These may include: 8 hours before your procedure ?Stop eating most foods. Do not eat meat, fried foods, or fatty foods. ?Eat only light foods, such as toast or crackers. ?All liquids are okay except energy drinks and alcohol. 6 hours before your procedure ?Stop eating. ?Drink only clear liquids, such as water, clear fruit juice, black coffee, plain tea, and sports drinks. ?Do not drink energy drinks or alcohol. 2 hours before your procedure ?Stop drinking all liquids. ?You may be allowed to take medicines with small sips of water. If you do not follow your health care provider's instructions, your procedure may be delayed or canceled. Medicines Ask your health care provider about: Changing or stopping your regular medicines. This is especially important if you are taking diabetes medicines or blood thinners. Taking medicines such as aspirin and ibuprofen. These medicines can thin your blood. Do not take these medicines unless your health care provider tells you to take them. Taking rwhn-yep-fthqjcw medicines, vitamins, herbs, and supplements. Surgery safety Ask your health care provider what steps will be taken to help prevent infection. These steps may include: Removing hair at the surgery site. Washing skin with a germ-killing soap. Taking antibiotic medicine. General instructions Do not use any products that contain nicotine or tobacco for at least 4 weeks before the procedure. These products include cigarettes, chewing tobacco, and vaping devices, such as e-cigarettes. If you need help quitting, ask your health care provider. If you will be going home right after the procedure, plan to have a responsible adult: ?Take you home from the hospital or clinic. You will not be allowed to drive. ?Care for you for the time you are told. What happens during the procedure? An IV will be inserted into one of your veins. You will be given one or more of the following: ?A medicine to help you relax (sedative). ?A medicine to make you fall asleep (general anesthetic). ?A medicine that is injected into your spine to numb the area below and slightly above the injection site (spinal anesthetic). Your legs will be placed in foot rests (stirrups) so that your legs are apart and your knees are bent. The resectoscope will be passed through your urethra to your prostate. Parts of your prostate will be resected using the cutting edge of the resectoscope. Fluid will be passed to rinse out the cut tissues (irrigation). The resectoscope will be removed. A small, thin tube (catheter) will be passed through your urethra and into your bladder. The catheter will drain urine into a bag outside of your body. The procedure may vary among health care providers and hospitals. What happens after the procedure? Your blood pressure, heart rate, breathing rate, and blood oxygen level will be monitored until you leave the hospital or clinic. You will be given fluids through the IV. The IV will be removed when you start eating and drinking normally. You may have some pain. Pain medicine will be available to help you. You will have a catheter draining your urine. ?You may have blood in your urine. Your catheter may be kept in until your urine is clear. ?Your urinary drainage will be monitored. If necessary, your bladder may be rinsed out (irrigated) through your catheter. You will be encouraged to walk around as soon as possible. You may have to wear compression stockings. These stockings help to prevent blood clots and reduce swelling in your legs. If you were given a sedative during the procedure, it can affect you for several hours. Do not drive or operate machinery until your health care provider says that it is safe. Summary Transurethral resection of the prostate (TURP) is the removal (resection) of part of the prostate tissue. The goal of this procedure is to remove enough prostate tissue to allow for a normal flow of urine. Follow instructions from your health care provider about taking medicines and about eating and drinking before the procedure. This information is not intended to replace advice given to you by your health care provider. Make sure you discuss any questions you have with your health care provider. Document Revised: 12/29/2021 Document Reviewed: 12/29/2021 [employer] Patient Education 2022 [employer]. 12/28/2022 15:08:27 EU - Cystoscopy Discharge Instructions (CUSTOM) Cystoscopy Voiding after the procedure: there may be some pain, burning, urgency, frequency and blood tinged urine following the procedure. These symptoms usually resolve within 2-5 days. Drink the amount of fluid it takes to keep the urine pink to yellow or clear in color. Drinking enough water and fluids will help to ease any discomfort after your procedure. If you are having problems that seem out of the ordinary, please call. If unable to contact your physician and you feel it is an emergency, go to the nearest emergency room or call 911 Diet you may resume your normal diet. Activity you may resume your normal activities Call if you have a fever over 100 degrees. Follow Up Care 11/29/2022 14:31:05 With:Connor FLOOD Address: [facility] [address], [place] [address]- Business (1) When: Unknown Comments:Office will call to schedule follow up [facility] 12-28-2022 Note [id number] [facility] 12-28-2022 Evaluation + Plan note Extrac christine from: Title:Urology Progress Note Author:Bryan FLOOD MD Date:12/28/22 Impression and Plan Impression: #1. No evidence of recurrent bladder cancer. 2. This gentleman is visually obstructed with an incredibly high median lobe and obstructing lateral lobes. He also has foreign bodies protruding from the median lobe and within the bladder. He also has severe bladder damage due to persistent obstruction. Plan: #1. We will get him scheduled for a cystoscopy and transurethral resection of the prostate. At this time we will remove all of his UroLift bands and the foreign body within the bladder. Diagnostic Tests Pending * [facility] ([facility]) 12/28/22 [facility]08-14-2023 Hospital Discharge instructions Patient Education 11/29/2022 14:16:06 Benign Prostatic Hyperplasia Benign Prostatic Hyperplasia Benign prostatic hyperplasia (BPH) is an enlarged prostate gland that is caused by the normal agingprocess. The prostate may get bigger as a man gets older. The condition is not caused by cancer. The prostate is a walnut-sized gland that is involved in the production of semen. It is located in front of the rectum and below the bladder. The bladder stores urine. The urethra carries stored urine ou t of the body. An enlarged prostate can press on the urethra. This can make it harder to pass urine. The buildup of urine in the bladder can cause infection. Back pressure and infection may progress to bladder damage and kidney (renal) failure. What are the causes? This condition is part of the normal aging process. However, not all men develop problems from thiscondition. If the prostate enlarges away from the urethra, urine flow will not be blocked. If it enlarges toward the urethra and compresses it, there will be problems passing urine. What increases the risk? This condition is more likely to develop in men older than 50 years. What are the signs or symptoms? Symptoms of this condition include: Getting up often during the night to urinate. Needing to urinate frequently during the day. Difficulty starting urine flow. Decrease in size and strength of your urine stream. Leaking (dribbling) after urinating. Inability to pass urine. This needs immediate treatment. Inability to completely empty your bladder. Pain when you pass urine. This is more common if there is also an infection. Urinary tract infection (UTI). How is this diagnosed? This condition is diagnosed based on your medical history, a physical exam, and your symptoms. Tests will also be done, such as: A post-void bladder scan. This measures any amount of urine that may remain in your bladder after you finish urinating. A digital rectal exam. In a rectal exam, your health care provider checks your prostate by putting a lubricated, gloved finger into your rectum to feel the back of your prostate gland. This exam detects the size of your gland and any abnormal lumps or growths. An exam of your urine (urinalysis). A prostate specific antigen (PSA) screening. This is a blood test used to screen for prostate cancer. An ultrasound. This test uses sound waves to electronically produce a picture of your prostate gland. Your health care provider may refer you to a specialist in kidney and prostate diseases (urologist). How is this treated? Once symptoms begin, your health care provider will monitor your condition (active surveillance or watchful waiting). Treatment for this condition will depend on the severity of your condition. Treatment may include: Observation and yearly exams. This may be the only treatment needed if your condition and symptoms are mild. Medicines to relieve your symptoms, including: ?Medicines to shrink the prostate. ?Medicines to relax the muscle of the prostate. Surgery in severe cases. Surgery may include: ?Prostatectomy. In this procedure, the prostate tissue is removed completely through an open incision or with a laparoscope or robotics. ?Transurethral resection of the prostate (TURP). In this procedure, a tool is inserted through the opening at the tip of the penis (urethra). It is used to cut away tissue of the inner core of the prostate. The pieces are removed through the same opening of the penis. This removes the blockage. ?Transurethral incision (TUIP). In this procedure, small cuts are made in the prostate. This lessens the prostate's pressure on the urethra. ?Transurethral microwave thermotherapy (TUMT). This procedure uses microwaves to create heat. The heat destroys and removes a small amount of prostate tissue. ?Transurethral needle ablation (TUNA). This procedure uses radio frequencies to destroy and remove a small amount of prostate tissue. ?Interstitial laser coagulation (ILC). This procedure uses a laser to destroy and remove a small amount of prostate tissue. ?Transurethral electrovaporization (TUVP). This procedure uses electrodes to destroy and remove a small amount of prostate tissue. ?Prostatic urethral lift. This procedure inserts an implant to push the lobes of the prostate away from the urethra. Follow these instructions at home: Take yfbx-oar-sogvlwc and prescription medicines only as told by your health care provider. Monitor your symptoms for any changes. Contact your health care provider with any changes. Avoid drinking large amounts of liquid before going to bed or out in public. Avoid or reduce how much caffeine or alcohol you drink. Give yourself time when you urinate. Keep all follow-up visits. This is important. Contact a health care provider if: You have unexplained back pain. Your symptoms do not get better with treatment. You develop side effects from the medicine you are taking. Your urine becomes very dark or has a bad smell. Your lower abdomen becomes distended and you have trouble passing urine. Get help right away if: You have a fever or chills. You suddenly cannot urinate. You feel light-headed or very dizzy, or you faint. There are large amounts of blood or clots in your urine. Your urinary problems become hard to manage. You develop moderate to severe low back or flank pain. The flank is the side of your body between the ribs and the hip. These symptoms may be an emergency. Get help right away. Call 911. Do not wait to see if the symptoms will go away. Do not drive yourself to the hospital. Summary Benign prostatic hyperplasia (BPH) is an enlarged prostate that is caused by the normal aging process. It is not caused by cancer. An enlarged prostate can press on the urethra. This can make it hard to pass urine. This condition is more likely to develop in men older than 50 years. Get help right away if you suddenly cannot urinate. This information is not intended to replace advice given to you by your health care provider. Make sure you discuss any questions you have with your health care provider. Document Revised: 10/21/2021 Document Reviewed: 10/21/2021 [employer] Patient Education 2022 [employer]. Follow Up Care 07/30/2022 13:07:08 With:LOW GONZALEZ, Connor Rodriguez, TIMMY Address: [facility] [address], [place] [address]- [phone] When: Unknown Comments:sched cysto [facility] Javier 03-21-2023 Evaluation note* Encounter Date Diagnosis Assessment Notes Treatment Notes Treatment Clinical Notes Jun, Acute non-recurrent maxillary sinusitis (ICD-10 - J01.00) Sinus infections can be triggered by a secondary infection from a viral URI or even seasonal allergies. Take medications as directed. Use saline nasal spray prior to presciption nasal spray. Take medications as directed, and complete all doses of medication even if you start to feel better. Patient advised to follow up with PCP if symptoms persist or worsen. Patient verbalized understanding and agreement with treatment plan. [employer] Other 01-23-2023 NoteHNO ID: [id number] Author: Trevor Lynne MD Service: ? Author Type: Physician Type: Progress Notes Filed: 05/10/2022 9:06 PM Note Text: PATIENT NAME: Stephan Mercer DATE: 05/10/2022 PRIMARY CARE PHYSICIAN: Dr. Florencio Crowell OTHER PHYSICIANS: Dr. Michel, Dr. Kin Espinoza, Dr. Lobato Portions of this encounter note have been copied from the note from 05/11/2021 and has been updated where appropriate, and reflect my current medical decision making from today. CC: This is a 71 year old male with a history of melanoma, seen for scheduled follow-up. INTERIM HISTORY: Since the patient's last visit here he has had no significant medical changes. He still has tremor involving both upper extremities, now felt to be an essential tremor rather than Parkinson's. He follows with neurology (Dr. Lobato). He has ongoing lower urinary tract symptoms despite previous UroLift procedure. He plans to follow-up with his urologist (Dr. Espinoza) for further management. Despite the above he feels well overall. He has noticed no skin changes. No other suspicious symptoms. MEDICATIONS: predniSONE (DELTASONE) 50 mg Take 1 tablet by mouth as directed. Take one tab 13 hours prior, 7 hours prior, and [address] scan diphenhydrAMINE (BENADRYL) 50 mg capsule Take 1 capsule by mouth one hour prior to CT scan amantadine HCl (SYMMETREL) 100 mg capsule FLUoxetine (PROZAC) 20 mg capsule hydroCHLOROthiazide (HYDRODIURIL, ESIDRIX) 12.5 mg tablet losartan (COZAAR) 50 mg tablet Terazosin HCl (HYTRIN) 10 mg capsule tamsulosin ER (FLOMAX) 0.4 mg Take 0.4 mg by mouth once daily. POTASSIUM CHLORIDE (KLOR-CON ORAL) Take by mouth. omeprazole 20 mg capsule Take 20 mg by mouth once daily. ALLERGIES: Iodine PAST MEDICAL HISTORY: PAST MEDICAL HISTORY Diagnosis Date Hypertension Melanoma (HCC) PAST SURGICAL HISTORY: PAST SURGICAL HISTORY Procedure Laterality Date COLON SURGERY HX REVIEW OF SYSTEMS: General: No weight loss, malaise or fevers. HEENT: Negative for frequent or significant headaches. No changes in hearing or vision, no nose bleeds or other nasal problems. Respiratory: Negative for cough, wheezing or shortness of breath. Cardiovascular: Negative for chest pain, leg swelling or palpitations. GI: Negative for abdominal discomfort, blood in stools or black stools or change in bowel habits. : No history of dysuria, frequency or incontinence. Musculoskeletal: Negative for: joint pain or swelling, back pain and muscle pain. Skin: Negative for lesions, rash and itching. Hematology/Lymphology: Negative for prolonged bleeding, bruising easily or swollen nodes. Neuro: No history of headaches, syncope, paralysis, seizures or tremors. PHYSICAL EXAM: Vitals: BP 156/76 Pulse 60 Temp 36.4 ?C (97.5 ?F) (Temporal) Resp 16 Ht 175.3 cm (5' 9 ) Wt 86 kg (189 lb 9.6 oz) SpO2 98% BMI 28.00 kg/m? ECOG 0 Exam limited to gross visualization where appropriate due to COVID-19. Gen.: This is an age-appropriate patient in no acute distress. Head: Appears atraumatic with no visible lesions. Eyes: Pupils equally round and reactive to light, extraocular muscles are intact. Neck: Supple. Mouth: Mucous membranes appeared to be moist. Respiratory: Appears to be respiring comfortably. Neurologic: Nonfocal to gross visualization. Alert and oriented ?3. Psychiatric: No evidence of inappropriate anxiety or depression. Skin: Visible areas of skin without rash, lesions, wounds or petechiae. RADIOLOGY/OTHER STUDIES: 05/03/2022 CT chest IMPRESSION: 1. Stable CT of the chest. No evidence of intrathoracic metastatic disease. 2. No evidence of intrathoracic lymphadenopathy. 3. Stable ectasia of ascending thoracic aorta. 05/03/2022 CT abdomen/pelvis IMPRESSION: 1. Stable CT of the abdomen and pelvis. No findings to suggest new abdominal or pelvic metastatic disease. 2. Cholelithiasis without evidence of acute cholecystitis. No evidence of biliary ductal dilation. 04/30/2021 CT chest IMPRESSION: 1. No evidence of intrathoracic metastatic disease. 2. No evidence of bulky intrathoracic lymphadenopathy. 3. 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 04/30/2021 CT abdomen/pelvis IMPRESSION: 1. Stable CT of the abdomen and pelvis. No evidence of abdominal or pelvic metastatic disease. 2. Cholelithiasis without evidence of acute cholecystitis. No biliary ductal dilation. ASSESSMENT/PLAN: 1. 172.9 Melanoma (primary diagnosis); Malignant melanoma, unspecified site (HCC) - ICD9: 172.9, ICD10: C43.9 (primary diagnosis) Stage III (T1, N2, M0) malignant melanoma diagnosed September 2010. Primary disease involved the superior aspect of the gluteal fold with metastasis to the regional lymph nodes in the left inguinal area. Status post primary disease resection and inguinal lymph node dissection November 2010. Status post adjuvant interferon x1 (more content not included)...[facility]01-23-2023 History of Present illness Narrative* Trevor Lynne MD - 05/10/2022 7:35 AM EST PATIENT NAME: Stephan Mercer DATE: 05/10/2022 PRIMARY CARE PHYSICIAN: Dr. Florencio Crowell OTHER PHYSICIANS: Dr. Michel, Dr. Kin Espinoza, Dr. Lobato Portions of this encounter note have been copied from the note from 05/11/2021 and has been updated where appropriate, and reflect my current medical decision making from today. CC: This is a 71 year old male with a history of melanoma, seen for scheduled follow-up. INTERIM HISTORY: Since the patient's last visit here he has had no significant medical changes. He still has tremor involving both upper extremities, now felt to be an essential tremor rather than Parkinson's. He follows with neurology (Dr. Lobato). He has ongoing lower urinary tract symptoms despite previous UroLift procedure. He plans to follow-up with his urologist (Dr. Espinoza) for further management. Despite the above he feels well overall. He has noticed no skin changes. No other suspicious symptoms. MEDICATIONS: predniSONE (DELTASONE) 50 mg Take 1 tablet by mouth as directed. Take one tab 13 hours prior, 7 hours prior, and [address] scan diphenhydrAMINE (BENADRYL) 50 mg capsule Take 1 capsule by mouth one hour prior to CT scan amantadine HCl (SYMMETREL) 100 mg capsule FLUoxetine (PROZAC) 20 mg capsule hydroCHLOROthiazide (HYDRODIURIL, ESIDRIX) 12.5 mg tablet losartan (COZAAR) 50 mg tablet Terazosin HCl (HYTRIN) 10 mg capsule tamsulosin ER (FLOMAX) 0.4 mg Take 0.4 mg by mouth once daily. POTASSIUM CHLORIDE (KLOR-CON ORAL) Take by mouth. omeprazole 20 mg capsule Take 20 mg by mouth once daily. ALLERGIES: Iodine PAST MEDICAL HISTORY: PAST MEDICAL HISTORY Diagnosis Date Hypertension Melanoma (HCC) PAST SURGICAL HISTORY: PAST SURGICAL HISTORY Procedure Laterality Date COLON SURGERY HX REVIEW OF SYSTEMS: General: No weight loss, malaise or fevers. HEENT: Negative for frequent or significant headaches. No changes in hearing or vision, no nose bleeds or other nasal problems. Respiratory: Negative for cough, wheezing or shortness of breath. Cardiovascular: Negative for chest pain, leg swelling or palpitations. GI: Negative for abdominal discomfort, blood in stools or black stools or change in bowel habits. : No history of dysuria, frequency or incontinence. Musculoskeletal: Negative for: joint pain or swelling, back pain and muscle pain. Skin: Negative for lesions, rash and itching. Hematology/Lymphology: Negative for prolonged bleeding, bruising easily or swollen nodes. Neuro: No history of headaches, syncope, paralysis, seizures or tremors. PHYSICAL EXAM: Vitals: BP 156/76 Pulse 60 Temp 36.4 C (97.5 F) (Temporal) Resp 16 Ht 175.3 cm (5' 9 ) Wt86 kg (189 lb 9.6 oz) SpO2 98% BMI 28.00 kg/m ECOG 0 Exam limited to gross visualization where appropriate due to COVID-19. Gen.: This is an age-appropriate patient in no acute distress. Head: Appears atraumatic with no visible lesions. Eyes: Pupils equally round and reactive to light, extraocular muscles are intact. Neck: Supple. Mouth: Mucous membranes appeared to be moist. Respiratory: Appears to be respiring comfortably. Neurologic: Nonfocal to gross visualization. Alert and oriented 3. Psychiatric: No evidence of inappropriate anxiety or depression. Skin: Visible areas of skin without rash, lesions, wounds or petechiae. RADIOLOGY/OTHER STUDIES: 05/03/2022 CT chest IMPRESSION: 1. Stable CT of the chest. No evidence of intrathoracic metastatic disease. 2. No evidence of intrathoracic lymphadenopathy. 3. Stable ectasia of ascending thoracic aorta. 05/03/2022 CT abdomen/pelvis IMPRESSION: 1. Stable CT of the abdomen and pelvis. No findings to suggest new abdominal or pelvic metastatic disease. 2. Cholelithiasis without evidence of acute cholecystitis. No evidence of biliary ductal dilation. 04/30/2021 CT chest IMPRESSION: 1. No evidence of intrathoracic metastatic disease. 2. No evidence of bulky intrathoracic lymphadenopathy. 3. 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 04/30/2021 CT abdomen/pelvis IMPRESSION: 1. Stable CT of the abdomen and pelvis. No evidence of abdominal or pelvic metastatic disease. 2. Cholelithiasis without evidence of acute cholecystitis. No biliary ductal dilation. ASSESSMENT/PLAN: 1. 172.9 Melanoma (primary diagnosis); Malignant melanoma, unspecified site (HCC) - ICD9: 172.9, ICD10: C43.9 (primary diagnosis) Stage III (T1, N2, M0) malignant melanoma diagnosed September 2010. Primary disease involved the superior aspect of the gluteal fold with metastasis to the regional lymph nodes in the left inguinal area. Status post primary disease resection and inguinal lymph node dissection November 2010. Status post adjuvant interferon x1 year completed April 2012. Currently no evidence of disease. Most recent staging CT scans 05/03/2022 negative. At this time we will continue with routine follow-up. At the patient's request we will continue to see him on a yearly basis with labs and restaging CT scans. His next scans will be April 2023, he will then return for follow-up. The patient will also follow-up with dermatology for complete skin exam every 6 months. 2. 401.9 Hypertension - ICD9: 405.99, ICD10: I15.9 Stable on current medications. Continue per PCP. 3. 530.81 GERD (gastroesophageal reflux disease); 530.81, ICD10: K21.9 Stable on current medications. Continue per PCP. 4. Gilbert's syndrome - ICD9: 277.4, ICD10: E80.4 Intermittent indirect hyperbilirubinemia secondary to Gilbert syndrome. Will evaluate as indicated if LFTs worsen. 5. Benign localized prostatic hyperplasia with lower urinary tract symptoms (LUTS) - ICD9: 600.21, 599.69, ICD10: N40.1 Long history of urinary urgency and hesitancy. Diagnosed BPH per [facility]. Status post UroLift procedure 2020 with minimal improvement. Continue management per urology (Dr. Espinoza). 6. Essential tremor - ICD9: 333.1, ICD10: G25.0 Stable on current medications, continue per neurology. Trevor Lynne MD CC: Dr. Kin Espinoza, [facility] Urology: Dr. Michel, [facility] NoteHNO ID: [id number] Author: Muriel Tobias RT(R) Service: ? Author Type: Technologist Type: Progress Notes Filed: 05/03/2022 11:36 AM Note Text: Radiology Service Progress Note PATIENT NAME: Stephan Mercer DATE OF SERVICE: May 03, 2022 TIME: 11:36 AM PATIENT IDENTITY VERIFICATION COMPLETED USING TWO (2) IDENTIFIERS: Name and Date of confirmed by patient verbally. FALL SCREENING: Has the patient had 2 falls in the last year or 1 fall with injury or currently using an Ambulatory Assistive Device (Walker, Cane, Wheelchair, Crutches, etc.)? No PATIENT GENDER DATA: Male PATIENT RELEVANT IMPLANT DATA REVIEWED: Not Applicable RADIOLOGY DEPARTMENT: CT; Exam(s) Completed: Chest Abdomen Pelvis With IV and Oral contrast PERIPHERAL IV DATA: Site assessment: Clean,Dry and Intact, Site disposition Discontinued SIGNED BY: RT Dez(R) May 03, 2022 11:36 [facility]01-16-2023 NoteHNO ID: [id number] Author: Eli Ocampo RN Service: ? Author Type: Registered Nurse Type: Progress Notes Filed: 05/03/2022 12:26 PM Note Text: Radiology Service Progress Note DATE OF SERVICE: May 03, 2022 TIME: 11:22 AM PATIENT WEIGHT: 186 LBS PATIENT IDENTITY VERIFICATION COMPLETED USING TWO (2) STANDARD IDENTIFIERS: Name and Date of confirmed by patient verbally. FALL SCREENING: Has the patient had 2 falls in the last year or 1 fall with injury or currently using an Ambulatory Assistive Device (Walker, Cane, Wheelchair, Crutches, etc.)? No PATIENT GENDER DATA: Male ALLERGIES: Reviewed and unchanged CONTRAST ALLERGY: Yes STANDARD PREMEDICATION: Prednisone 50mg Dose 1 given at 13 hrs prior, Dose 2 at 7 hrs prior, and Dose 3 at 1 hour prior Benadryl 50mg 1 hour prior ALTERNATIVE PREMEDICATION: EXAM: CT -CONTRAST INDUCED NEPHROPATHY RISK FACTORS: Patient age > 60 years CREATININE: Creatinine Date Value Ref Range Status 05/03/2022 0.85 0.73 - 1.22 mg/dL Final 04/30/2021 0.91 0.73 - 1.22 mg/dL Final 05/01/2020 0.85 0.73 - 1.22 mg/dL Final Estimated Glomerular Filtration Rate Date Value Ref Range Status 05/03/2022 93 >=60 mL/min/1.73m? Final Comment: Estimated Glomerular Filtration Rate (eGFR) is calculated using the 2020 CKD-EPI creatinine equation. This equation utilizes serum creatinine, sex, and age as parameters. The creatinine assay has traceable calibration to isotope dilution-mass spectrometry. Refer to KDIGO guidelines for clinical interpretation. In patients with unstable renal function, e.g. those with acute kidney injury, the eGFR may not accurately reflect actual GFR. eGFR- Date Value Ref Range Status 04/30/2021 >60 Final P.O.C.T. RESULTS: POC done: Yes, See Lab Tab May 03, 2022 TREATMENT: N/A IV SITE: Ambulatory: A peripheral IV was started in the Right antecubital site with a Angio cath: 20 gauge. IV SITE APPEARANCE: Clean,Dry and Intact Patient observed 15 minutes post scan. Pt denies any complaints. SIGNATURE: Eli Ocampo RN PATIENT NAME: Stephan Mercer DATE: May 03, 2022 TIME: 11:22 [facility]12-19-2022 Miscellaneous Notes* Telephone Encounter - Angie Alexis APRN.CNP - 04/05/2022 11:53 AM EST The following approved medication requests have been transmitted electronically. Requested Prescriptions Signed Prescriptions Disp Refills predniSONE (DELTASONE) 50 mg 3 tablet 0 Sig: Take 1 tablet by mouth as directed. Take one tab 13 hours prior, 7 hours prior, and [address] scan Authorizing Provider: ANGIE ALEXIS diphenhydrAMINE (BENADRYL) 50 mg capsule 1 capsule 0 Sig: Take 1 capsule by mouth one hour prior to CT scan Authorizing Provider: ANGIE ALEXIS APRN.CNP * Telephone Encounter - Leticia Aaron RN - 04/05/2022 9:09 AM EST Please review and sign pended Premedications for CT d/t Contrast Allergy. Thank you, Leticia Aaron RN documented [facility] Hospital Discharge instructions Patient Education 10/27/2021 10:52:51 Prostate-Specific Antigen Test Prostate-Specific Antigen Test Why am I having this test? The prostate-specific antigen (PSA) test is a screening test for prostate cancer. It can identify early signs of prostate cancer, which may allow for more effective treatment. Your health care provider may recommend that you have a PSA test starting at age 40 or that you have one earlier or later, depending on your risk factors for prostate cancer. You may also have a PSA test: To monitor treatment of prostate cancer. To check whether prostate cancer has returned after treatment. If you have signs of other conditions that can affect PSA levels, such as: ?An enlarged prostate that is not caused by cancer (benign prostatic hyperplasia, BPH). This condition is very common in older men. ?A prostate infection. What is being tested? This test measures the amount of PSA in your blood. PSA is a protein that is made in the prostate. The prostate naturally produces more PSA as you age, but very high levels may be a sign of a medicalcondition. What kind of sample is taken? A blood sample is required for this test. It is usually collected by inserting a needle into a blood vessel or by sticking a finger with a small needle. Blood for this test should be drawn before having an exam of the prostate. How do I prepare for this test? Do not ejaculate starting 24 hours before your test, or as long as told by your health care provider. Tell a health care provider about: Any allergies you have. All medicines you are taking, including vitamins, herbs, eye drops, creams, and [id number] medicines. This also includes: ?Medicines to assist with hair growth, such as finasteride. ?Any recent exposure to a medicine called diethylstilbestrol. Any blood disorders you have. Any recent procedures you have had, especially any procedures involving the prostate or rectum. Any medical conditions you have. Any recent urinary tract infections (UTIs) you have had. How are the results reported? Your test results will be reported as a value that indicates how much PSA is in your blood. This will be given as nanograms of PSA per milliliter of blood (ng/mL). Your health care provider will compare your results to normal ranges that were established after testing a large group of people (reference ranges). Reference ranges may vary among labs and hospitals. PSA levels vary from person to person and generally increase with age. Because of this variation, there is no single PSA value that is considered normal for everyone. Instead, PSA reference ranges are used to describe whether your PSA levels are considered low or high (elevated). Common reference ranges are: Low: 0 2.5 ng/mL. Slightly to moderately elevated: 2.6 10.0 ng/mL. Moderately elevated: 10.0 19.9 ng/mL. Significantly elevated: 20 ng/mL or greater. Sometimes, the test results may report that a condition is present when it is not present (false-positive result). What do the results mean? A test result that is higher than 4 ng/mL may mean that you are at an increased risk for prostate cancer. However, a PSA test by itself is not enough to diagnose prostate cancer. High PSA levels may also be caused by the natural aging process, prostate infection, or BPH. PSA screening cannot tell you if your PSA is high due to cancer or a different cause. A prostate biopsy is the only way to diagnose prostate cancer. A risk of having the PSA test is diagnosing and treating prostate cancer that would never have caused any symptoms or problems (overdiagnosis and overtreatment). Talk with your health care provider about what your results mean. Questions to ask your health care provider Ask your health care provider, or the department that is doing the test: When will my results be ready? How will I get my results? What are my treatment options? What other tests do I need? What are my next steps? Summary The prostate-specific antigen (PSA) test is a screening test for prostate cancer. Your health care provider may recommend that you have a PSA test starting at age 40 or that you have one earlier or later, depending on your risk factors for prostate cancer. A test result that is higher than 4 ng/mL may mean that you are at an increased risk for prostate cancer. However, elevated levels can be caused by a number of conditions other than prostate cancer. Talk with your health care provider about what your results mean. This information is not intended to replace advice given to you by your health care provider. Make sure you discuss any questions you have with your health care provider. Document Released: 05/07/2005 Document Revised: 03/17/2018 Document Reviewed: 01/09/2018 [employer] Patient Education 2019 [employer] [facility] 04-12-2022 Hospital Discharge instructions Patient Education 07/28/2021 12:29:44 Prostate-Specific Antigen Test Prostate-Specific Antigen Test Why am I having this test? The prostate-specific antigen (PSA) test is a screening test for prostate cancer. It can identify early signs of prostate cancer, which may allow for more effective treatment. Your health care provider may recommend that you have a PSA test starting at age 40 or that you have one earlier or later, depending on your risk factors for prostate cancer. You may also have a PSA test: To monitor treatment of prostate cancer. To check whether prostate cancer has returned after treatment. If you have signs of other conditions that can affect PSA levels, such as: ?An enlarged prostate that is not caused by cancer (benign prostatic hyperplasia, BPH). This condition is very common in older men. ?A prostate infection. What is being tested? This test measures the amount of PSA in your blood. PSA is a protein that is made in the prostate. The prostate naturally produces more PSA as you age, but very high levels may be a sign of a medicalcondition. What kind of sample is taken? A blood sample is required for this test. It is usually collected by inserting a needle into a blood vessel or by sticking a finger with a small needle. Blood for this test should be drawn before having an exam of the prostate. How do I prepare for this test? Do not ejaculate starting 24 hours before your test, or as long as told by your health care provider. Tell a health care provider about: Any allergies you have. All medicines you are taking, including vitamins, herbs, eye drops, creams, and [id number]-mkkdcpx medicines. This also includes: ?Medicines to assist with hair growth, such as finasteride. ?Any recent exposure to a medicine called diethylstilbestrol. Any blood disorders you have. Any recent procedures you have had, especially any procedures involving the prostate or rectum. Any medical conditions you have. Any recent urinary tract infections (UTIs) you have had. How are the results reported? Your test results will be reported as a value that indicates how much PSA is in your blood. This will be given as nanograms of PSA per milliliter of blood (ng/mL). Your health care provider will compare your results to normal ranges that were established after testing a large group of people (reference ranges). Reference ranges may vary among labs and hospitals. PSA levels vary from person to person and generally increase with age. Because of this variation, there is no single PSA value that is considered normal for everyone. Instead, PSA reference ranges are used to describe whether your PSA levels are considered low or high (elevated). Common reference ranges are: Low: 0 2.5 ng/mL. Slightly to moderately elevated: 2.6 10.0 ng/mL. Moderately elevated: 10.0 19.9 ng/mL. Significantly elevated: 20 ng/mL or greater. Sometimes, the test results may report that a condition is present when it is not present (false-positive result). What do the results mean? A test result that is higher than 4 ng/mL may mean that you are at an increased risk for prostate cancer. However, a PSA test by itself is not enough to diagnose prostate cancer. High PSA levels may also be caused by the natural aging process, prostate infection, or BPH. PSA screening cannot tell you if your PSA is high due to cancer or a different cause. A prostate biopsy is the only way to diagnose prostate cancer. A risk of having the PSA test is diagnosing and treating prostate cancer that would never have caused any symptoms or problems (overdiagnosis and overtreatment). Talk with your health care provider about what your results mean. Questions to ask your health care provider Ask your health care provider, or the department that is doing the test: When will my results be ready? How will I get my results? What are my treatment options? What other tests do I need? What are my next steps? Summary The prostate-specific antigen (PSA) test is a screening test for prostate cancer. Your health care provider may recommend that you have a PSA test starting at age 40 or that you have one earlier or later, depending on your risk factors for prostate cancer. A test result that is higher than 4 ng/mL may mean that you are at an increased risk for prostate cancer. However, elevated levels can be caused by a number of conditions other than prostate cancer. Talk with your health care provider about what your results mean. This information is not intended to replace advice given to you by your health care provider. Make sure you discuss any questions you have with your health care provider. Document Released: 05/07/2005 Document Revised: 03/17/2018 Document Reviewed: 01/09/2018 [employer] Patient Education 2020 [employer]. Follow Up Care 07/16/2021 12:46:12 With:Alexis Ovalle MD, Asaf Michaels, URO Address: [facility] [address] [place] [address]- When:10/27/2021 Comments:w/ jarvis [facility] 10-23-2012 History of Past illness Narrative* Problem Noted Date Resolved Date Leukopenia 02/08/2012 12/13/2013 documented as of this encounter (statuses as of 04/09/2022) [facility] History of Past illness Narrative* Problem Noted Date Resolved Date Leukopenia 02/08/2012 12/13/2013 documented as of this encounter (statuses as of 04/30/2022) [facility] History of Past illness Narrative* Problem Noted Date Resolved Date Leukopenia 02/08/2012 12/13/2013 documented as of this encounter (statuses as of 05/11/2022) [facility] Appointment Date:10/27/2021 10:15:00 AM Scheduled Provider:Asaf Espinoza Jr., MD Location:[facility] Appointment Type:URO Office Visit [facility] evaluation + Plan note Future Appointments Appointment Date:12/14/2022 11:15:00 AM Scheduled Provider: Location:[facility] Appointment Type:Urology CALL PAT FT Appointment Date:12/28/2022 02:00:00 PM Scheduled Provider: Location:[facility] Appointment Type:Urology FT [facility] evaluation note* Diagnosis Malignant melanoma of skin (HCC)- Primary Melanoma of skin, site unspecified [facility] Diagnosis Malignant melanoma of skin (HCC)- Primary Melanoma of skin, site unspecified Benign localized prostatic hyperplasia with lower urinary tract symptoms (LUTS) Benign localized hyperplasia of prostate with urinary obstruction and other lower urinary tract symptoms (LUTS) Essential tremor Essential and other specified forms of tremor documented in this encounter [facility] general Narrative - Reported* Type Description Date Medical History melanoma [id number] Medical History interfueron treatment for melano ma 2010 Medical History hypertension Medical History Esophageal reflux Surgical History fistula-colon Surgical History carpal tunnel release-bilateral Surgical History trigger finger release-right th umb Surgical History cystoscopy [employer] Other Hospital course Narrative No data available for this section [facility] progress note No data available for this section [facility] Reason for Referral Specialty Diagnoses / Procedures Referred By Contac t Referred To Contact CT IMAGING Diagnoses Malignant melanoma of skin (HCC) Procedures CT CHEST W IVCON DIAGNOSTIC COMPUTED TOMOGRAPHY THORAX W/CONTRAST Trevor Lynne MD [address] [place] [address] [place] [address] Ct Imaging Referral ID Status Reason Start Date Expiration Date Visits Requested Visits Authorized [id number] Authorized Auto-Generat ed Referral 05/10/2022 06/09/2023 1 1 Specialty Diagnoses / Procedures Referred By Contac t Referred To Contact CT IMAGING Diagnoses Malignant melanoma of skin (HCC) Procedures CT ABD/PEL W IVCON CT ABD & PELVIS W/CONTRAST Trevor Lynne MD [address] [place] [address] [place] [address] Ct Imaging Referral ID Status Reason Start Date Expiration Date Visits Requested Visits Authorized [id number] Authorized Auto-Generat ed Referral 05/10/2022 06/09/2023 1 1 Summary Purpose Family History No Family History Records FoundNo Family History Records FoundNo Family History Records FoundNo Family History Records Found Advance Directives No Advanced Directives Records FoundNo Advanced Directives Records FoundNo Advanced Directives Records FoundNo Advanced Directives Records Found Additional Source Comments Care Team (unrecognized sect ion and content) Maintenance Man Relationship Specialty Start Date End Date Florencio Crowell MD [address] [place] [address] PCP - General Family Medicine 08/29/12 Maintenance Man Relationship Specialty Start Date End Date Florencio Crowell MD [address] [place] [address] PCP - General Family Medicine 08/29/12 Maintenance Man Relationship Specialty Start Date End Date Florencio Crowell MD [address] [place] [address] PCP - General Family Medicine 08/29/12 Source Comments (unrecognize d section and content) In the event this informatio n is protected by the Federal Confidentiality of Alcohol and Drug Abuse Patient Records regulations: The Federal rules restrict any use of the information to criminally investigate or prosecute any alcohol or drug abuse patient.[facility] the event this information is protected by the Federal Confidentiality of Alcohol and Drug Abuse Patient Records regulations: The Federal rules restrict any use of the information to criminally investigate or prosecute any alcohol or drug abuse patient.[facility] the event this information is protected by the Federal Confidentiality of Alcohol and Drug Abuse Patient Records regulations: The Federal rules restrict any use of the information to criminally investigate or prosecute any alcohol or drug abuse patient.[facility] Reason for Visit (unrecogniz ed section and content) Reason Comments Orders Reason Comments Malignant Melanoma (unrecognized sect ion and content) No Status Records FoundNo Status Records FoundNo Status Records FoundNo Status Records Found INFORMATION SOURCE (unrecogn ized section and content) DATE CREATED AUTHOR 07/28/2022 [facility] DATE CREATED AUTHOR 'S LUIS THORNE 03/18/2023 [facility] DATE CREATED AUTHOR AUTHOR'S ORGANIZ ATION 04/04/2023 [facility] DATE CREATED AUTHOR AUTHOR'S ORGANIZ ATION 04/22/2023 [facility] FOR RECORDS PERTAINING TO PATIENTS WHO ARE OR HAVE BEEN ENROLLED IN A CHEMICAL DEPENDENCY/SUBSTANCEABUSE PROGRAM, SOME INFORMATION MAY BE OMITTED. This clinical summary was aggregated from multiple sources. Caution should be exercised in using it in the provision of clinical care. This summary normalizes information from multiple sources, and as a consequence, information in this document may materially change the coding, format and clinical context of patient data. In addition, data may be omitted in some cases. CLINICAL DECISIONS SHOULD BE BASED ON THE PRIMARY CLINICAL RECORDS. [employer] provides no warranty or guarantee of the accuracy or completeness of information in this document.
--- NOTE | 2023-04-26 13:09 | P.GSHP_ITS ---
History of Present Illness History of Present Illness Chief complaint: BPH with obstruction Narrative: Patient presents for preadmission testing. The patient reports a history of bladder cancer. He states he has incomplete bladder emptying, urgency with urination, weak stream, and urgency incontinence. He denies dysuria, hematuria, abdominal pain, fever, nausea, or vomiting. He states he did test positive for COVID on 04/06/2023, he had fatigue and no respiratory symptoms. He states he is feeling better at this time. He also states he has a known upper extremity tremor and he is treated at the [facility], he was recently taken off of his medications for the tremor and is awaiting further testing to continue treatment. Review of Systems ROS Narrative REVIEW OF SYSTEMS: Negative except as stated in HPI, ten or more systems reviewed. Constitutional: No fever , chills, weakness ENT: No sore throat or epistaxis Cardiovascular: No edema, chest pain, palpitations, or activity intolerance Respiratory: No shortness of breath, cough, or wheezing Musculoskeletal: No joint pain or swelling Gastrointestinal: No abdominal pain, constipation, diarrhea, or vomiting Genitourinary: No dysuria or hematuria Neurological: No numbness, tingling, weakness, or headache Psychiatric: No mood [facility] History (Updated 04/26/23 @ 12:53 by Adilia Walters NP) COVID-19 (04/06/23) ?U07.1 - COVID-19 (ICD-10) Bladder cancer ?C67.9 - Malignant neoplasm of bladder, unspecified (ICD-10) Melanoma ?C43.9 - Malignant melanoma of skin, unspecified (ICD-10) BPH with obstruction/lower urinary tract symptoms ?N40.1 - Benign prostatic hyperplasia with lower urinary tract symptoms (ICD- 10) ?N13.8 - Other obstructive and reflux uropathy (ICD-10) GERD (gastroesophageal reflux disease) ?K21.9 - Gastro-esophageal reflux disease without esophagitis (ICD-10) Hypertension ?I10 - Essential (primary) hypertension (ICD-10) Intraoperative cardiac arrest during other surgery ?I97.711 - Intraoperative cardiac arrest during other surgery (ICD-10) Hypokalemia ?E87.6 - Hypokalemia (ICD-10) Encounter for removal of skin lesion ?L98.9 - Disorder of the skin and subcutaneous tissue, unspecified (ICD-10) Hepatitis ?K75.9 - Inflammatory liver disease, unspecified (ICD-10) Tremor ?R25.1 - Tremor, unspecified (ICD-10) Surgical History (Updated 02/18/23 @ 13:04 by Adilia Walters NP) H/O elbow surgery ?Z98.890 - Other specified postprocedural states (ICD-10) H/O hand surgery ?Z98.890 - Other specified postprocedural states (ICD-10) History of cardiac catheterization ?Z98.890 - Other specified postprocedural states (ICD-10) History of colonoscopy ?Z98.890 - Other specified postprocedural states (ICD-10) History of cataract extraction ?Z98.49 - Cataract extraction status, unspecified eye (ICD-10) History of carpal tunnel release ?Z98.890 - Other specified postprocedural states (ICD-10) H/O colectomy ?Z90.49 - Acquired absence of other specified parts of digestive tract (ICD- 10) H/O transurethral resection of bladder tumor (TURBT) ?Z98.890 - Other specified postprocedural states (ICD-10) ?Z86.03 - Personal history of neoplasm of uncertain behavior (ICD-10) S/P cystoscopy ?Z98.890 - Other specified postprocedural states (ICD-10) History of bladder surgery ?Z98.890 - Other specified postprocedural states (ICD-10) Family History (Updated 02/18/23 @ 12:58 by Adilia Walters NP) Other Family history of breast cancer Family history of heart disease Family history of liver cancer Family history of lung cancer Social History (Updated 02/18/23 @ 12:55 by Adilia Walters NP) Within the past year, how often did you have a drink containing alcohol: never Score interpretation: A score less than 4 is consistent with normal alcohol consumption. Smoking status: Never smoker Non-prescribed substance use: denies use Highest level of school completed/degree received: high school graduate Meds Home Medications and Allergies Home Medications Medication Instructions Recorded Confirmed Type fluoxetine 20 mg capsule 20 mg PO DAILY 02/18/23 02/18/23 History hydrochlorothiazide 25 mg tablet 25 mg PO DAILY 02/18/23 02/18/23 History losartan 50 mg tablet 50 mg PO DAILY 02/18/23 02/18/23 History omeprazole 40 mg capsule,delayed 40 mg PO DAILY 02/18/23 02/18/23 History release potassium chloride 10 mEq 20 meq PO DAILY 02/18/23 02/18/23 History capsule,extended release ropinirole 0.25 mg tablet 0.25 mg PO TID 02/18/23 02/18/23 History Allergies Allergy/AdvReac Type Severity Reaction Status Date / Time Iodinated Contrast Media Allergy Rash Verified 04/26/23 12:55 terazosin Allergy syncope Verified 04/26/23 12:55 Exam Narrative Exam Narrative: Constitutional: Awake, alert, comfortable, well-appearing, nontoxic, interactive, vital signs as charted Head: Normocephalic, atraumatic Neck: Supple, normal appearance, normal range of motion, no meningeal signs, no lymphadenopathy Respiratory: No respiratory distress, breath sounds clear Cardiovascular: Regular rate and rhythm, strong and regular heart tones Abdomen: Nontender, normal bowel sounds, soft, no CVA tenderness Musculoskeletal: Normal gait, no swelling or edema Skin: No rashes or induration, no lesions, only visible skin inspected Neuro: Upper extremity tremor noted, left worse than right Psychiatric: Oriented ?3, normal affect Assessment and Plan Assessment and Plan (1) Bladder cancer: (2) BPH with obstruction/lower urinary tract symptoms: Plan Cystoscopy/transurethral resection of the prostate scheduled with Dr. Flood 05/12/2023.
[2023-04-26 13:11] LABS: Basophils Percent Auto 0.5 % (0.2-2.0); Eosinophils Absolute Auto 0.1 10^3/uL (0.0-0.7); Eosinophils Percent Auto 1.4 % (0.9-7.0); Hematocrit 38.2 % (42.0-54.0); Hemoglobin 13.6 g/dL (14.0-18.0); Immature Granulocytes Abs Auto 0.02 10^3/uL (0.00-0.03); Immature Granulocytes Pct Auto 0.3 % (0.0-0.5); Lymphocytes Absolute Auto 1.2 10^3/uL (1.2-3.8); Lymphocytes Percent Auto 18.9 % (20.5-60.0); Mean Corpuscular HGB Conc 35.6 g/dL (29.9-35.2); Mean Corpuscular Hemoglobin 31.6 pg (25.9-34.0); Mean Corpuscular Volume 88.6 fL (80.0-94.0); Mean Platelet Volume 10.2 fL (9.5-13.5); Monocytes Absolute Auto 0.6 10^3/uL (0.3-0.8); Monocytes Percent Auto 8.9 % (1.7-12.0); Neutrophils Absolute Auto 4.6 10^3/uL (1.4-6.5); Platelet Count 240 10^3/uL (150-450); Red Blood Count 4.31 10^6/uL (4.70-6.10); Red Cell Distribution Width 13.2 % (11.0-15.0); White Blood Count 6.5 10^3/uL (4.0-11.0)
[2023-04-26 13:39] LABS: INR 1.04; Partial Thromboplastin Time 29.6 sec (22.3-36.2)
[2023-04-26 13:41] LABS: Alanine Aminotransferase 14 U/L (16-63); Albumin Globulin Ratio 0.9; Albumin Level 3.7 g/dL (3.4-5.0); Alkaline Phosphatase 109 U/L (46-116); Anion Gap 10.2; Aspartate Amino Transferase 21 U/L (15-37); BUN Creatinine Ratio 13.3; Bilirubin Direct 0.4 mg/dL (0.0-0.2); Bilirubin Total 1.4 mg/dL (0.2-1.0); Calcium 9.1 mg/dL (8.5-10.1); Carbon Dioxide 30.7 mmol/L (21.0-32.0); Chloride 103 mmol/L (98-107); Estimated GFR (African America >60 (>=60); Estimated GFR (Non-African Ame >60 (>=60); Globulin 4.1 g/dL; Glucose 114 mg/dL (74-106); Sodium 141 mmol/L (136-145); Total Protein 7.8 g/dL (6.4-8.2)
[2023-04-26 13:51] LABS: Potassium 2.9 mmol/L (3.5-5.1)
== END 2023-04-26 12:40 | disposition home or self-care (01) ==
LOC: PST 12:39
PROVIDERS: PCP Family Medicine; Visit Provider Urology
DX: Z01.812 Encounter for preprocedural laboratory examination (principal); Z01.818 Encounter for other preprocedural examination; N40.1 Benign prostatic hyperplasia with lower urinary tract symptoms
CPT/HCPCS: 80048; 80076; 85025; 85610; 85730; G0463

== ENCOUNTER 2023-04-29 14:15 | Outpatient (OUT) | payer MEDICARE, OTHER, SELFPAY ==
--- OUTSIDE RECORDS SUMMARY | 2023-04-29 14:22 | XMS_ITS | CCD ---
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 FLOOD [facility] 11-29-2022 13:24-0400 Heart rate 70 /min Connor FLOOD [facility] 11-29-2022 13:24-0400 Systolic blood pressure 150 mm[Hg] Connor FLOOD [facility] 05-10-2022 13:35-0500 Body height 175.3 cm Trevor Lynne MD Work Phone: [facility] 05-10-2022 13:35-0500 Body temperature 97.5 [degF] Trevor Lynne MD Work Phone: [facility] 05-10-2022 13:35-0500 Body weight 86 kg Trevor Lynne MD Work Phone: [facility] 05-10-2022 13:35-0500 Diastolic blood pressure 76 mm[Hg] Trevor Lynne MD Work Phone: [facility] 05-10-2022 13:35-0500 Heart rate 60 /min Trevor Lynne MD Work Phone: [facility] 05-10-2022 13:35-0500 Respiratory rate 16 /min Trevor Lynne MD Work Phone: [facility] 05-10-2022 13:35-0500 SaO2% (BldA) [Mass fraction] 98 % Trevor Lynne MD Work Phone: [facility] 05-10-2022 13:35-0500 Systolic blood pressure 156 mm[Hg] Trevor Lynne MD Work Phone: [facility] 10-27-2021 10:45-0400 Blood Pressure Location Asaf Espinoza Jr. [facility] 10-27-2021 10:45-0400 Diastolic blood pressure 86 mm[Hg] Asaf Espinoza Jr. [facility] 10-27-2021 10:45-0400 Heart rate 78 /min Asaf Espinoza Jr. [facility] 10-27-2021 10:45-0400 Respiratory rate 16 /min Asaf Espinoza Jr. [facility] 10-27-2021 10:45-0400 Systolic blood pressure 139 mm[Hg] Asaf Espinoza Jr. [facility] 07-28-2021 12:20-0400 Respiratory rate 16 /min Asaf Espinoza Jr. [facility] Encounters Encounter Date Encounter Type Care Provider Facility Start: 05-30-2023 ambulatory Connor Chu ty:[facility] Start: 05-16-2023 ambulatory Connor Leei ty:[facility] Start: 05-12-2023 ambulatory Connor Leei ty:[id number] Start: 03-28-2023 ambulatory Connor Leei ty:[facility] Start: 03-16-2023 End: 03-16-2023 ambulatory [facility] Start: 03-16-2023 End: 03-16-2023 Encounter for other preprocedural examination [facility] Start: 03-07-2023 ambulatory Connor eLei ty:NOLA [place] Start: 02-17-2023 End: 02-17-2023 ambulatory FLORENCIO CROWELL Facility:[facility] Start: 12-28-2022 End: 12-29-2022 ambulatory Connor R FLOOD Facility:[facility] Start: 12-28-2022 End: 12-28-2022 Patient encounter procedure Connor FLOOD [facility] Start: 11-29-2022 End: 11-30-2022 ambulatory Connorrony FLOOD Facility:[facility] Start: 11-29-2022 End: 11-29-2022 Patient encounter procedure Connor FLOOD [facility] Start: 08-11-2022 ambulatory Laura Chadwick Facility:[facility] Start: 07-28-2022 ambulatory LAURA CHADWICK . Facility: Start: 07-06-2022 (Televisit) Televisit Florencio العلي [facility] Start: 07-06-2022 End: 07-06-2022 ambulatory Florencio Crowell Other Sols Other Start: 05-10-2022 End: 05-10-2022 ambulatory TREVOR LYNNE Facility:[facility] Start: 05-10-2022 End: 05-10-2022 ambulatory Trevor Lynne MD Work Phone: Hematology/Oncology Comment on above: Malignant melanoma o f skin (HCC) (Primary Dx); Benign localized prostatic hyperplasia with lower urinary tract symptoms (LUTS); Essential tremor Start: 05-10-2022 End: 05-10-2022 Patient encounter procedure Trevor Lynne MD Work Phone: [facility] Start: 05-03-2022 End: 05-03-2022 ambulatory FLORENCIO CROWELL Facility:[facility] Start: 04-30-2022 Orders Only Trevor Lynne MD Work Phone: Radiology Pet CT Comment on above: Malignant melanoma o f skin (HCC) (Primary Dx) Start: 04-05-2022 Telephone encounter Leticia Galen Vogel Hematology/Oncology Comment on above: Orders Start: 10-27-2021 End: 10-27-2021 Patient encounter procedure Asaf Espinoza Jr. [facility] Start: 07-28-2021 End: 07-28-2021 Patient encounter procedure Asaf Espinoza Jr. [facility] Procedures Date Procedure Procedure Detail Performing [...] of skin (HCC) Expected: 05/03/2022, Expires: 07/03/2022 [facility] Work Phone: Comment on above: Expected: 05/03/2022 , Expires: 07/03/2022 Start: 04-18-2022 ADVANCE DIRECTIVE DISCUSSION ADVANCE DIRECTIVE DISCUSSION [facility] Start: 04-18-2022 DEPRESSION ASSESSMENT DEPRESSION ASS ESSMENT [facility] Start: 12-17-2021 Influenza vaccination INFLUENZA (#1) [facility] Start: 04-21-2021 COVID-19 VACCINE (4 - Booster) COVID-19 VACCINE (4 - Booster) [facility] Start: 04-18-2021 ADVANCE DIRECTIVE DISCUSSION ADVANCE DIRECTIVE DISCUSSION [facility] Start: 04-18-2021 DEPRESSION ASSESSMENT DEPRESSION ASS ESSMENT [facility] Start: 08-15-2020 COVID-19 VACCINE (3 - Booster) COVID-19 VACCINE (3 - Booster) [facility] Start: 03-07-2020 PNEUMOCOCCAL: 65+ (2 - PCV) PNEUMOCOCCAL: 65+ (2 - PCV) [facility] Start: 08-01-2001 SHINGRIX VACCINE (1 of 2) SHINGRIX VACCINE (1 of 2) [facility] Start: 08-01-1996 COLOGUARD (FIT-DNA) COLOGUARD (FIT-D NA) [facility] Start: 08-01-1996 Colonoscopy COLONOSCOPY [facility] Start: 08-01-1996 COLORECTAL CANCER SCREENING COLORECTAL CANCER SCREENING [facility] Start: 08-01-[address] COLONOGRAPHY [facility] Start: 08-01-1996 FECAL OCCULT BLOOD FECAL OCCULT BLOO D [facility] Start: 08-01-1996 SIGMOIDOSCOPY SIGMOIDOSCOPY [facility] Start: 08-01-1970 Urine microalbumin profile DTAP,TDAP,TD (1 - Tdap) [facility] Start: 08-01-1969 ANNUAL PCP TEAM LICENSED PSYCHIATRIC TECHNICIAN RAFAELA DISEASE VISIT ANNUAL PCP TEAM CHRONIC DISEASE VISIT [facility] Start: 08-01-1969 BP CONTROLLED (<130/80) BP CONTROLLE D (<130/80) [facility] Start: 08-01-1969 Hepatitis B surface antibody level LDL CHOLESTEROL [facility] Start: 08-01-1969 HEPATITIS C SCREENING HEPATITIS C SC JOEL [facility] Start: 08-01-1961 3 comp foot exam completed DIABETIC FOOT EXAM [facility] Start: 08-01-1961 Hepatitis B screening URINE ALBUMIN:CREATININE RATIO [facility] Start: 08-01-1961 Hepatitis C antibody , confirmatory test DILATED RETINAL EXAM [facility] Start: 08-01-1956 Hemoglobin A1c/Hemoglobin.total in Blood HBA1C [facility] End: 06-09-2023 Ct abdomen & pelvis w/contrast material CT ABD/PEL W IVCON Radiology Routine Malignant melanoma of skin (HCC) 1 Occurrences starting 05/10/2022 until 06/09/2023 [facility] Work Phone: Comment on above: 1 Occurrences starti ng 05/10/2022 until 06/09/2023 End: 06-09-2023 CT CHEST W IVCON CT CHEST W IVCON Radiology Routine Malignant melanoma of skin (HCC) 1 Occurrences starting 05/10/2022 until 06/09/2023 [facility] Work Phone: Comment on above: 1 Occurrences starti ng 05/10/2022 until 06/09/2023 [facility] Immunizations Immunization Date Immunization Notes Care Provider Daniel fagan 02-24-2021 SARS-CoV-2 (COVID-19 ) mRNA BNT-162b2 vax Asaf Espinoza Jr. [facility] 02-16-2021 influenza virus vacc ine, unspecified formulation Asaf Espinoza Jr. [facility] 06-20-2020 SARS-CoV-2 (COVID-19 ) mRNA-1273 vaccine Asaf Espinoza Jr. [facility] Comment on above: Result Comment: 2nd shot 05-30-2020 SARS-CoV-2 (COVID-19 ) [id number] vaccine Asaf Espinoza [facility] Comment on above: Result Comment: 1st shot 03-18-2020 influenza nasal, unspecified formulation Leticia Aaron RN [facility] 03-18-2020 influenza virus vacc ine, unspecified formulation Asaf Alexis Ovalle [facility] 03-07-2019 influenza, high dose seasonal, preservative-free Leticia Aaron RN [facility] 03-07-2019 pneumococcal polysaccharide vaccine, 23 valent Leticia Aaron RN [facility] 01-25-2018 influenza virus vacc ine, unspecified formulation Leticia Aaron RN [facility] 02-21-2013 influenza virus vacc ine, unspecified formulation Leticia Aaron RN [facility] Payers Date Payer Category Payer Private Health Insurance [id number] 2017 Unknown [employer] [facility] MEDICARE SUPPLEMENT [id number] 2017-Present [phone] [address] [place] [address] Indemnity [id number] 2017 Unknown [id number] 2016 Medicare MEDICARE MEDICAR E A AND B [id number] 2016-Present [phone] [place] [address] Medicare [id number] 2016 Medicare [id number] 1959 Self-pay 1950 Unknown [id number] 1950 Unknown [id number] 1951 Unknown [id number] 1951 Unknown [id number] .[id number] 1950 Unknown [id number] .[id number] 1951 Unknown [id number] .[id number] 1950 Unknown [id number] .[id number] 1950 Unknown [id number] .[id number] Social History Date Type Detail Facility Start: 07-28-2021 End: 11-29-2022 Tobacco smoking status Never smoked tobacco (finding) [facility] Sex Assigned At Male [facility] Start: 05-11-2021 Alcohol intake Current non-dr certified medical biller of alcohol (finding) [facility] Start: 1950 Sex Assigned At Male [facility] Tobacco smoking status Never [facility] Functional Status Date Assessment Result Facility 12-28-2022 Functional Status N/A [facility] 11-29-2022 Functional Status N/A [facility] 10-27-2021 Functional Status N/A [facility] Clinical Notes 02-08-2012 to 03-16-2023 Note Date & Type Note Facility 03-16-2023 Note e [facility] 03-16-[address] [facility] Cardiology Clinic Note Chief Complaint: New patient here to establish care. Ref from Dr. Flood for surgery clearance. Had ECG a few weeks ago. He had colon surgery about 12 years ago and arrested during surgery. Says he had heart cath at [facility] at that time and it was normal. [...] should problems arise Asia Malloy MD, MPH, [facility], [facility], [facility] Interventional Cardiology Pager Email: [email or web address] 02-17-2023 Note HNO ID: [id number] Author: Alec Huntley, DO Service: ? Author Type: Physician Type: Progress Notes Filed: 02/18/2023 2:44 PM Note Text: [facility] - NEW PATIENT EVALUATION Florencio Crowell MD [facility] [address] Stephan Mercer is a 72 year old [...] Lower Extremity 2-Mil (more content not included)... [facility] 12-28-2022 Note Cystoscopy ? Voiding after [...] including vitamins, herbs, eye drops, creams, and vxwi-wdl-gqleziq medicines. ? Any problems you or family [...] tells you to take them. ? Taking gkbb-dcx-hkmroox medicines, vitamins, herbs, and supplements. Surgery safety [...] asleep (general anesthetic) (more content not included)... [facility] 12-28-2022 Hospital Discharge instructions Patient Education [...] including vitamins, herbs, eye drops, creams, and mezd-kre-zyclywq medicines. Any problems you or family members [...] provider tells you to take them. Taking invp-ozq-piggykr medicines, vitamins, herbs, and supplements. Surgery safety [...] provider. Document Revised: 12/29/2021 Document Reviewed: 12/29/2021 [employer] Patient Education 2022 [employer]. 12/28/2022 15:08:27 [facility] - Cystoscopy Discharge Instructions [...] [facility] [address], [place] [address]- Business (1) When: Unknown Comments:Office will call to schedule follow up [facility] 12-28-2022 Note [id number]:[id number] [facility] 12-28-2022 Evaluation + Plan note Extrac [...] Fish and Urine Cyto ([facility]) 12/28/22 [facility]08-14-2023 Hospital Discharge instructions Patient Education 11/29/2022 [...] urethra. Follow these instructions at home: Take pnfb-avf-mjflptu and prescription medicines only as told by [...] provider. Document Revised: 10/21/2021 Document Reviewed: 10/21/2021 [employer] Patient Education 2022 Practice Ignition. Follow Up Care 07/30/2022 13:07:08 With:LOW GONZALEZ, Connor Rodriguez, TIMMY Address: [facility] [address], [place] [address]- [phone] When: Unknown Comments:sched cysto [facility] Javier 03-21-2023 Evaluation note* Encounter Date Diagnosis [...] verbalized understanding and agreement with treatment plan. Sols Other 01-23-2023 NoteHNO ID: [id number] Author: Trevor Lynne MD Service: ? Author [...] post adjuvant interferon x1 (more content not included)...[facility]01-23-2023 History of Present illness Narrative* Trevor [...] Trevor Lynne MD CC: Dr. Kin Espinoza, [facility] Urology: Dr. Michel, [facility]23 NoteHNO ID: [id number] Author: Muriel Tobias RT(R) Service: ? Author [...] BY: RT Dez(R) May 03, 2022 11:36 [facility]01-16-2023 NoteHNO ID: [id number] Author: Eli Ocampo RN Service: ? Author [...] [place] DATE: May 03, 2022 TIME: 11:22 [facility]12-19-2022 Miscellaneous Notes* Telephone Encounter - Angie Alexis [...] you, Leticia Aaron RN [facility] Hospital Discharge instructions Patient Education 10/27/2021 10:52:51 [...] including vitamins, herbs, eye drops, creams, and etqw-llk-moydbky medicines. This also includes: ?Medicines to assist [...] 05/07/2005 Document Revised: 03/17/2018 Document Reviewed: 01/09/2018 [employer] Patient Education 2019 [employer] Ignition. [facility] 04-12-2022 Hospital Discharge instructions Patient Education [...] including vitamins, herbs, eye drops, creams, and zltx-dbk-fkgxwbi medicines. This also includes: ?Medicines to assist [...] 05/07/2005 Document Revised: 03/17/2018 Document Reviewed: 01/09/2018 [employer] Patient Education 2020 Practice Ignition. Follow Up Care 07/16/2021 12:46:12 With:Alexis Ovalle MD, sAaf Michaels, URO Address: [facility] [address] [place] [address]- When:10/27/2021 Comments:w/ jarvis [facility] 10-23-2012 History of Past illness Narrative* Problem Noted Date Resolved Date Leukopenia 02/08/2012 12/13/2013 documented as of this encounter (statuses as of 04/09/2022) [facility] History of Past illness Narrative* Problem Noted Date Resolved Date Leukopenia 02/08/2012 12/13/2013 documented as of this encounter (statuses as of 04/30/2022) [facility] History of Past illness Narrative* Problem Noted Date Resolved Date Leukopenia 02/08/2012 12/13/2013 documented as of this encounter (statuses as of 05/11/2022) [facility] Future Appointments Appointment Date:10/27/2021 10:15:00 AM Scheduled Provider:Asaf Espinoza Jr., MD Location:[facility] Appointment Type:URO Office Visit [facility] evaluation + Plan note Future Appointments Appointment Date:12/14/2022 11:15:00 AM Scheduled Provider: Location:[facility] Appointment Type:Urology CALL PAT FT Appointment Date:12/28/2022 02:00:00 PM Scheduled Provider: Location:[facility] Appointment Type:Urology FT [facility] evaluation note* Diagnosis Malignant melanoma of skin (HCC)- Primary Melanoma of skin, site unspecified documented in this encounter [facility] Diagnosis Malignant melanoma of skin (HCC)- Primary Melanoma of skin, site unspecified Benign localized prostatic hyperplasia with lower urinary tract symptoms (LUTS) Benign localized hyperplasia of prostate with urinary obstruction and other lower urinary tract symptoms (LUTS) Essential tremor Essential and other specified forms of tremor documented in this encounter [facility] general Narrative - Reported* Type Description Date Medical History melanoma [id number] Medical History interfueron treatment for melano ma 2010 Medical History hypertension Medical History Esophageal reflux Surgical History fistula-colon Surgical History carpal tunnel release-bilateral Surgical History trigger finger release-right th umb Surgical History cystoscopy Sols Other Hospital course Narrative No data available for this section [facility] progress note No data available for this section [facility] Reason for Referral Specialty Diagnoses / Procedures Referred By Contac t Referred To Contact CT IMAGING Diagnoses Malignant melanoma of skin (HCC) Procedures CT CHEST W IVCON DIAGNOSTIC COMPUTED TOMOGRAPHY THORAX W/CONTRAST Trevor Lynne MD [address] [place] [address] [place] [address] Ct Imaging Referral ID Status Reason Start Date Expiration Date Visits Requested Visits Authorized [id number] Authorized Auto-Generat ed Referral 05/10/2022 06/09/2023 1 1 Specialty Diagnoses / Procedures Referred By Contac t Referred To Contact CT IMAGING Diagnoses Malignant melanoma of skin (HCC) Procedures CT ABD/PEL W IVCON CT ABD & PELVIS W/CONTRAST Trevor Lynne MD [address] [place] [address] [place] [address] Ct Imaging Referral ID Status Reason Start Date Expiration Date Visits Requested Visits Authorized [id number] Authorized Auto-Generat ed Referral 05/10/2022 06/09/2023 1 1 Summary Purpose Family History No Family History Records FoundNo Family History Records FoundNo Family History Records FoundNo Family History Records Found Advance Directives No Advanced Directives Records FoundNo Advanced Directives Records FoundNo Advanced Directives Records FoundNo Advanced Directives Records Found Additional Source Comments Care Team (unrecognized sect ion and content) 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 Start Date End Date Florencio Crowell MD [address] [place] [id number] PCP - General Family Medicine 08/29/12 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 Start Date End Date Florencio Crowell MD [address] [place] [address] PCP - General Family Medicine 08/29/12 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 Start Date End Date Florencio Crowell MD [address] [place] [address] PCP - General Family Medicine 08/29/12 Source Comments (unrecognize d section and content) In the event this informatio n is protected by the Federal Confidentiality of Alcohol and Drug Abuse Patient Records regulations: The Federal rules restrict any use of the information to criminally investigate or prosecute any alcohol or drug abuse patient.[facility] the event this information is protected by the Federal Confidentiality of Alcohol and Drug Abuse Patient Records regulations: The Federal rules restrict any use of the information to criminally investigate or prosecute any alcohol or drug abuse patient.[facility] the event this information is protected by the Federal Confidentiality of Alcohol and Drug Abuse Patient Records regulations: The Federal rules restrict any use of the information to criminally investigate or prosecute any alcohol or drug abuse patient.[facility] Reason for Visit (unrecogniz ed section and content) Reason Comments Orders Reason Comments Malignant Melanoma (unrecognized sect ion and content) No Status Records FoundNo Status Records FoundNo Status Records FoundNo Status Records Found INFORMATION SOURCE (unrecogn ized section and content) DATE CREATED AUTHOR 07/28/2022 [facility] DATE CREATED AUTHOR 'S LUIS THORNE 03/18/2023 [facility] DATE CREATED AUTHOR AUTHOR'S ORGANIZ ATION 04/04/2023 [facility] DATE CREATED AUTHOR AUTHOR'S ORGANIZ ATION 04/22/2023 [facility] FOR RECORDS PERTAINING TO PATIENTS WHO ARE [...] BE BASED ON THE PRIMARY CLINICAL RECORDS. [employer] provides no warranty or guarantee of the accuracy or completeness of information in this document.
[2023-04-29 15:12] LABS: Anion Gap 11.6; BUN Creatinine Ratio 15.6; Carbon Dioxide 32.5 mmol/L (21.0-32.0); Chloride 101 mmol/L (98-107); Estimated GFR (African America >60 (>=60); Estimated GFR (Non-African Ame >60 (>=60); Glucose 105 mg/dL (74-106); Potassium 3.1 mmol/L (3.5-5.1); Sodium 142 mmol/L (136-145)
== END 2023-04-29 14:16 | disposition home or self-care (01) ==
LOC: LAB 14:18
PROVIDERS: PCP Family Medicine; Visit Provider Family Medicine
DX: E87.6 Hypokalemia (principal)
CPT/HCPCS: 36415; 80048

== ENCOUNTER 2023-05-12 11:11 | Day surgery (SDC) | payer MEDICARE, OTHER, SELFPAY ==
[2023-02-18 13:19] VITALS: BP 141/77; PULSE 57; RESP 16; TEMP 36.5; O2SAT 98; BMI 28.5
[2023-04-26 13:07] VITALS: BP 150/90; RESP 18; TEMP 36.3; O2SAT 97; BMI 27.1
[2023-05-12] VITALS (13 sets, daily range): BP systolic 131–146; BP diastolic 65–81; PULSE 57–89; RESP 9–97; TEMP 35.8–36.7; O2SAT 94–100
--- OUTSIDE RECORDS SUMMARY | 2023-05-12 11:22 | XMS_ITS | CCD ---
Author Name Unknown Address [address] [place] [address] Organization [facility] Care Team Providers Care Wardrobe Stylist Name Role Phone PILI CROWELL Primary Care Physician [phone] Pili Crowell MD Primary Care Provider [phone] Pili Crowell LAURA BURROWS Admitting Unavailable LAURA BURROWS Attending Unavailable DR PILI CROWELL Primary Care Unavailable ASIA MALLOY Attending Unavailable FLOOD, Connor Rodriguez Attending Unavailable FLOOD, Connor Rodriguez Attending Unavailable FLOOD, Connor Rodriguez Attending Unavailable FLOOD, Connor Rodriguez Attending Unavailable FLOOD, Connor Rodriguez Attending Unavailable FLOOD, Connor Rodriguez Referring Unavailable FLOOD, Connor Rodriguez Admitting Unavailable FLOOD, Connor Rodriguez Attending Unavailable FLOOD, Connor Rodriguez Attending Unavailable Laura Chadwick. Attending Unavailable JAE LYNNE Referring Unavailable JAE LYNNE Attending Unavailable PILI CROWELL Primary Care Unavailable JAE LYNNE Referring Unavailable PILI CROWELL Primary Care Unavailable ALEC HUNTLEY Attending Unavailable PILI CROWELL Primary Care Unavailable JAE LYNNE Referring Unavailable JAE LYNNE Attending Unavailable PILI CROWELL Primary Care Unavailable Allergies Allergy Classification Reported Allergen(s) Allergy Type Date of Onset Reaction(s) Facility (12 sources) Iodine; Translations: [iodine] Drug Allergy 1 Unknown (qualifier value), Rash, hives [facility] (6 sources) Terazosin; Translations: [terazosin] Drug Allergy 3 Low blood pressure (disorder), Syncope (disorder) [facility] (1 source) Iodine Drug Allergy [facility] Repository (1 source) patient allergy list reviewed by nurse or physicia Propensity to adverse reactions 8 Comment:Done vidIQ Other (1 source) Allergies Reconciled Propensity to adverse reactions Unknown [facility] Other Medications Current Medications Medication Drug Class(es) Dates [...] link. losartan potassium 50 mg oral tablet (9 sources) Angiotensin 2 Receptor Pawan Start: 11-29-2022 take 1 tablet by mouth once daily losartan 50 mg Tab 50 mg = 1 tab(s), Oral, Daily Start Date: 11/29/22 Status: Ordered Start: 02-12-2021 losartan (COZA AR) 50 mg tablet Start: 02-21-2019 losartan Start Date: 02/21/19 Status: Ordered omeprazole 40 mg delayed release oral capsule (9 sources) Proton Pump Inhibitor Start: 11-29-2022 take 1 capsule by mouth once daily omeprazole 40 mg Cap-DR 40 mg = 1 cap(s), Oral, Daily Start Date: 11/29/22 Status: Ordered Start: 02-21-2019 omeprazole Sta rt Date: 02/21/19 Status: [facility]-four hours Omeprazole 20 MG 1 capsule Orally Once a day for 30 day(s) Active Comment on above: Take 20 mg by mouth once daily. OXcarbazepine 300 mg oral tablet (2 sources) Anti-epileptic Agent Start: 3 take 1 tablet by mouth twice daily oxcarbazepine 300 mg Tab 300 mg = 1 tab(s), Oral, BID Start Date: 11/29/22 Status: Ordered paxlovid (300/100) 20 x 150 mg & 10 x 100mg tablet therapy pack (1 source) Paxlovid (300/10 0) 20 x 150 MG & 10 x 100MG as directed Orally for 6 days Active 24 hr propranolol hydrochloride 60 mg extended release oral capsule (2 sources) beta-Adrenergic Pawan Start: 3 take 1 capsule by mouth once daily propranolol 60 mg Cap-ER 60 mg = 1 cap(s), Oral, Daily Start Date: 11/29/22 Status: Ordered rOPINIRole 0.25 mg oral tablet (5 sources) Nonergot Dopamine Agonist Start: take 1 tablet by mouth three times [...] procedure, # 2 tab(s), Refills(s) 0, Pharmacy: [facility]/pharmacy #[id number], 178, cm, 11/29/22 13:29:00 EDT, [...] Comment on above: [facility] 1 [facility] one hour prior to [facility] scan FLUoxetine 20 mg oral capsule (4 sources) Serotonin Reuptake Inhibitor Start: 04-27-19 FLUoxetine (PROZAC) 20 mg capsule hydroCHLOROthiazide 12.5 mg oral tablet (5 sources) Thiazide Diuretic Start: 10-28-20 21 hydroCHLOROthiazide (HYDRODIURIL, ESIDRIX) 12.5 mg tablet lidocaine hydrochloride 20 mg/ml mucous membrane topical solution (2 sources) Antiarrhythmic, Amide Local Anesthetic Start: 11-22-19 16 take 10 mL by mouth every four hours as needed Lidocaine Viscous 2 % 10 ml as needed Mouth/Throat every 4 hrs Nov, Not-Taking/PRN Start: 11-22-2015 take 10 mL by mouth every four hours as needed Lidocaine Viscous 2 % 10 ml as needed Mouth/Throat every 4 hrs Nov, Not-Taking methylPREDNISolone 4 mg oral tablet (2 sources) Corticosteroid Start: 11-22-2015 Medrol (Fady) 4 MG as directed Orally Nov, Not-Taking/PRN Potassium Chloride (11 sources) Start: 11-29-2022 take 1 tablet by mouth once daily Potassium Chloride (Fzk-Cxzf-Siz 10) 10 mEq oral tablet, extended release 10 mEq = 1 tab(s), Oral, Daily Start Date: 11/29/22 Status: Ordered Start: 02-21-2019 Klor-Con Start Date: 02/21/19 Status: [facility]dered take 2 tablets [facility] once daily Potassium Chloride ER 10 MEQ TAKE 2 TABLETS BY MOUTH EVERY DAY for 90 Active Klor-Con Not-Ki ing/PRN Potassium Chlori de ER 10 MEQ Oral [...] Comment on above: Take 1 tablet by [facility] as directed. Take one tab 13 hours prior, 7 hours prior, and [address] scan tamsulosin hydrochloride 0.4 mg oral capsule (5 sources) alpha-Adrenergic Pawan Start: 0 take 0.4 mg by mouth once daily tamsulosin ER (FLOMAX) 0.4 mg Take 0.4 mg by mouth once daily. 0 03/29/2020 Active Comment on above: Take 0.4 mg by mouth once daily. terazosin 10 mg oral capsule (3 sources) alpha-Adrenergic Pawan Start: 2 Terazosin HCl (HYTRIN) 10 mg capsule Triamcinolone (2 sources) Corticosteroid Start: 1 KENALOG - 10 mg August, 40 mg Problems Active Problems Problem Classification Problem Date Documented Date Episodic/Chronic Cancer of bladder (1 source) Malignant tumor of urinary bladder; Translations: [Malignant neoplasm of bladder, part unspecified] Chronic Cancer of bladder (3 sources) History of malignant neoplasm of bladder; Translations: [Personal history of malignant neoplasm of bladder] Onset: 07-28-2021 Episodic Cancer; other and unspecified primary (4 sources) H/O: malignant neoplasm 04-01-2020 Episodic Diabetes mellitus without complication (3 sources) Type 2 diabetes mellitus without complication; Translations: [Type 2 diabetes mellitus without complications] Onset: 06-17-2015 06-17-2015 Chronic Esophageal disorders (4 sources) Gastroesophageal reflux disease; Translations: [Gastro-esophageal reflux disease without esophagitis] Onset: 12-13-2013 12-13-2013 Chronic Essential hypertension (8 sources) Hypertensive disorder; Translations: [Essential (primary) hypertension] Onset: 12-13-2013 02-21-2019 Chronic Fluid and electrolyte disorders (2 sources) Hypokalemia; Translations: [Hypokalemia] Episodic Genitourinary symptoms and ill-defined conditions (11 sources) Incomplete emptying of bladder; Translations: [Microscopic hematuria] Onset: 11-29-2022 04-01-2020 Episodic Hyperplasia of prostate (8 sources) Benign prostatic hypertrophy with outflow obstruction; Translations: [Benign prostatic hyperplasia with lower urinary tract symptoms] Onset: 07-28-2021 Chronic Melanomas of skin (10 sources) Malignant melanoma of skin; Translations: [Malignant melanoma] Onset: 05-02-2023 02-21-2019 Chronic Melanomas of skin (1 source) History of malignant melanoma of the skin; Translations: [Personal history of malignant melanoma of skin] Episodic Neoplasms of unspecified nature or uncertain behavior (2 sources) Neoplasm of uncertain behavior of soft tissues; Translations: [Neoplasms of unspecified nature of bone, soft tissue, and skin] Episodic Other diseases of kidney and ureters (1 source) Urinary tract obstruction; Translations: [Other obstructive and reflux uropathy] Onset: 12-28-2022 Episodic Other hereditary and degenerative nervous system conditions (1 source) Essential tremor; Translations: [Essential tremor] Chronic Other hereditary and degenerative nervous system conditions (1 source) Tremor; Translations: [Other specified forms of tremor] Chronic Other liver diseases (4 sources) Inflammatory disease of liver 02-21-2019 Chronic Other nervous system disorders (3 sources) Bilateral carpal tunnel syndrome; Translations: [Carpal tunnel syndrome, bilateral upper limbs] Onset: 03-07-2012 03-07-2012 Chronic Other non-traumatic joint disorders (1 source) Pain in wrist; Translations: [Pain in right wrist] Episodic Other nutritional; endocrine; and metabolic disorders (3 sources) Gilbert's syndrome; 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] Onset: 05-18-2018 05-18-2018 Chronic Other upper respiratory disease (1 source) Seasonal allergic rhinitis; Translations: [Other seasonal allergic rhinitis] Onset: 04-21-2017 Chronic Past or Other Problems Problem Classification Problem Date Documented Da te Episodic/Chronic Diabetes mellitus without complication (4 sources) Glycosuria; Translations: [Glycosuria] Onset: 02-26-2015 Episodic Immunizations and screening for infectious disease (1 source) Vaccination given; Translations: [Encounter for immunization] Onset: 04-21-2017 Episodic Other connective tissue disease (1 source) Acquired trigger finger; Translations: [Trigger finger] Onset: 12-23-2012 Episodic Other nutritional; endocrine; and metabolic disorders (1 source) Body mass index 25-29 - overweight; Translations: [Body mass index 28.0-28.9, adult] Onset: 01-02-2016 Episodic Other nutritional; endocrine; and metabolic disorders (1 source) Overweight; Translations: [Overweight] Onset: 01-02-2016 Episodic Other screening for suspected conditions (not mental disorders or infectious disease) (7 sources) Raised prostate specific antigen; Translations: [Elevated prostate specific antigen [PSA]] Onset: 05-01-2018 02-21-2019 Episodic Other upper respiratory infections (2 sources) Acute maxillary sinusitis, unspecified; Translations: [Acute sinusitis] Onset: 03-22-2013 Episodic Results Test Name Value Interpretation Reference Range Facility [facility] 05-05-2023 OVS Visit (SP) Office ([facility]) STEPHAN MERCER ([id number]) 1950 [address] Date Time Provider Department 05/05/23 2:15 PM JAE LYNNE During your visit today, we recorded the following information about you: Temperature Pulse Respiration Blood pressure 97.1 degrees 62/minute 16/minute 151/74 Weight Height 86.9 kg 1.753 m Jae Lynne MD 05/06/2023 8:25 AM Signed PATIENT NAME: Stephan Mercer DATE: 05/05/2023 PRIMARY CARE PHYSICIAN: Dr. Pili Crowell OTHER PHYSICIANS: Dr. Michel, Dr. Flood, Dr. Lobato Portions of this encounter note have been copied from the note from 05/10/2022 and has been updated where appropriate, and reflect my current medical decision making from today. CC: This is a 72 year old male with a history of melanoma, seen for scheduled follow-up. INTERIM HISTORY: Since the patient's last visit here he apparently has had increasing LUTS, and is scheduled to undergo prostate surgery per Dr. Flood next week. Otherwise he has had no significant medical changes. No abdominal pain or other GI symptoms. Essential tremor is unchanged. He has noticed no skin changes. No other suspicious symptoms. MEDICATIONS: diphenhydrAMINE (BENADRYL) 50 mg capsule Take 1 capsule by mouth as directed for 1 dose. one (1) hour prior to exam. propranolol (INDERAL) 60 mg tablet Take 60 mg by mouth once daily. OXcarbazepine (TRILEPTAL) 300 mg tablet Take 300 mg by mouth two times a day. losartan-hydroCHLOROthi azide (HYZAAR) 50-12.5 mg per tablet Take 1 tablet by mouth once daily. rOPINIRole (REQUIP) 4 mg tablet predniSONE (DELTASONE) 50 mg Take 1 tablet by mouth as directed. Take one tab 13 hours prior, 7 hours prior, and [address] scan diphenhydrAMINE (BENADRYL) 50 mg capsule Take 1 capsule by mouth one hour prior to CT scan FLUoxetine (PROZAC) 20 mg capsule POTASSIUM CHLORIDE [...] seizures or tremors. PHYSICAL EXAM: Vitals: BP 151/74 Pulse 62 Temp 36.2 ?C (97.1 ?F) (Temporal) Resp 16 Ht 175.3 cm (5' 9.02 ) Wt 86.9 kg (191 lb 9.3 oz) SpO2 97% BMI 28.28 kg/m? ECOG 0 Exam limited to gross [...] rash, lesions, wounds or petechiae. RADIOLOGY/OTHER STUDIES: 05/02/2023 CT chest IMPRESSION: Stable CT examination of the chest. No substantial intrathoracic adenopathy is identified. 05/02/2023 CT abdomen/pelvis IMPRESSION: 1. 9 mm right lobe hepatic hypodensity is more conspicuous in size from the prior study. Correlation with continued follow-up examinations is recommended. Alternatively, for immediate further evaluation, an MRI examination of the liver would be recommended. 2. 1.4 x 0.9 cm periportal lymph node, slightly more conspicuous in size from the prior examination. Correlation with continued follow-up examinations is recommended. 3. Cholelithiasis is again noted. 05/03/2022 CT chest IMPRESSION: 1. Stable CT of the chest. No evidence of intrathoracic metastatic disease. 2. No evidence of intrathoracic lymphadenopathy. 3. Stable ectasia of ascending thoracic aorta. 05/03/2022 CT abdomen/pelvis IMPRESSION: 1. Stable CT of the abdomen and pelvis. No findings to suggest new abdominal or pelvic metastatic disease. 2. Cholelithiasis without evidence of acute cholecystitis. No e (more content not included)... Normal [facility] CBC W Auto Differential pane l (Bld)on 05-02-2023 Basophils (Bld) [#/Vol] 10*3/uL Normal <0.11 [facility] Comment on above: Order Comment: Speci men Type: BLOOD SPECIMEN Ordering Facility: [facility] Address: [address] [place] [address] Performed By: #### 5 7021-8 #### [facility] CLIA [id number] [address] [place] [address] 23560 Basophils/100 WBC (Bld) 0.0 % Normal [facility] Comment on above: Order Comment: Speci men Type: BLOOD SPECIMEN Ordering Facility: [facility] Address: [address] [place] [address] Performed By: #### 5 7021-8 #### [facility] CLIA [id number] [address] [place] [address] 13678 Differential cell count method Nom (Bld) Auto Normal [facility] Comment on above: Order Comment: Speci men Type: BLOOD SPECIMEN Ordering Facility: [facility] Address: [address] [place] [address] Performed By: #### 5 7021-8 #### [facility] CLIA [id number] [address] [place] [address] 13437 Eosinophils (Bld) [#/Vol] 10*3/uL Normal <0.46 [facility] Comment on above: Order Comment: Speci men Type: BLOOD SPECIMEN Ordering Facility: [facility] Address: [address] [place] [address] Performed By: #### 5 7021-8 #### [facility] CLIA [id number] [address] [place] [address] 51083 Eosinophils/100 WBC (Bld) 0.0 % Normal [facility] Comment on above: Order Comment: Speci men Type: BLOOD SPECIMEN Ordering Facility: [facility] Address: [address] [place] [address] Performed By: #### 5 7021-8 #### [facility] CLIA [id number] [address] [place] [address] 05128 Erythrocyte distribution width (RBC) [Ratio] 13.7 % Normal 11.5-15.0 [facility] Comment on above: Order Comment: Speci men Type: BLOOD SPECIMEN Ordering Facility: [facility] Address: [address] [place] [address] Performed By: #### 5 7021-8 #### [facility] CLIA [id number] [address] [place] [address] 85891 Hematocrit (Bld) [Volume fraction] 40.7 % Normal 39.0-51.0 [facility] Comment on above: Order Comment: Speci men Type: BLOOD SPECIMEN Ordering Facility: [facility] Address: [address] [place] [address] Performed By: #### 5 7021-8 #### [facility] CLIA [id number] [address] [place] [address] 08093 Hemoglobin (Bld) [Mass/Vol] 14.4 g/dL Normal 13.0-17.0 [facility] Comment on above: Order Comment: Speci men Type: BLOOD SPECIMEN Ordering Facility: [facility] Address: [address] [place] [address] Performed By: #### 5 7021-8 #### [facility] CLIA [id number] [address] [place] [address] 82452 Immature granulocytes (Bld) [#/Vol] 10*3/uL Normal <0.10 [facility] Comment on above: Order Comment: Speci men Type: BLOOD SPECIMEN Ordering Facility: [facility] Address: [address] [place] [address] Performed By: #### 5 7021-8 #### [facility] CLIA [id number] [address] [place] [address] 45574 Immature granulocytes/100 WBC (Bld) 0.4 % Normal [facility] Comment on above: Order Comment: Speci men Type: BLOOD SPECIMEN Ordering Facility: [facility] Address: [address] [place] [address] Performed By: #### 5 7021-8 #### [facility] CLIA [id number] [address] [place] [address] 01926 Lymphocytes (Bld) [#/Vol] 0.52 10*3/uL Low 1.00-4.00 [facility] Comment on above: Order Comment: Speci men Type: BLOOD SPECIMEN Ordering Facility: [facility] Address: [address] [place] [address] Performed By: #### 5 7021-8 #### [facility] CLIA [id number] [address] [place] [address] 84880 Lymphocytes/100 WBC (Bld) 10.2 % Normal [facility] Comment on above: Order Comment: Speci men Type: BLOOD SPECIMEN Ordering Facility: [facility] Address: [address] [place] [address] Performed By: #### 5 7021-8 #### [facility] CLIA [id number] [address] [place] [address] 36221 MCH (RBC) [Entitic mass] 31.2 pg Normal 26.0-34.0 [facility] Comment on above: Order Comment: Speci men Type: BLOOD SPECIMEN Ordering Facility: [facility] Address: [address] [place] [address] Performed By: #### 5 7021-8 #### [facility] CLIA [id number] [address] [place] [address] 10723 MCHC (RBC) [Mass/Vol] 35.4 g/dL Normal 30.5-36.0 [facility] Comment on above: Order Comment: Speci men Type: BLOOD SPECIMEN Ordering Facility: [facility] Address: [address] [place] [address] Performed By: #### 5 7021-8 #### [facility] CLIA [id number] [address] [place] [address] 78884 MCV (RBC) [Entitic vol] 88.1 fL Normal 80.0-100.0 [facility] Comment on above: Order Comment: Speci men Type: BLOOD SPECIMEN Ordering Facility: [facility] Address: [address] [place] [address] Performed By: #### 5 7021-8 #### [facility] CLIA [id number] [address] [place] [address] 66685 Monocytes (Bld) [#/Vol] 0.05 10*3/uL Normal <0.87 [facility] Comment on above: Order Comment: Speci men Type: BLOOD SPECIMEN Ordering Facility: [facility] Address: [address] [place] [address] Performed By: #### 5 7021-8 #### [facility] CLIA [id number] [address] [place] [address] 42194 Monocytes/100 WBC (Bld) 1.0 % Normal [facility] Comment on above: Order Comment: Speci men Type: BLOOD SPECIMEN Ordering Facility: [facility] Address: [address] [place] [address] Performed By: #### 5 7021-8 #### [facility] CLIA [id number] [address] [place] [address] 40420 Neutrophils (Bld) [#/Vol] 4.51 10*3/uL Normal 1.45-7.50 [facility] Comment on above: Order Comment: Speci men Type: BLOOD SPECIMEN Ordering Facility: [facility] Address: [address] [place] [address] Performed By: #### 5 7021-8 #### [facility] CLIA [id number] [address] [place] [address] 76901 Neutrophils/100 WBC (Bld) 88.4 % Normal [facility] Comment on above: Order Comment: Speci men Type: BLOOD SPECIMEN Ordering Facility: [facility] Address: [address] [place] [address] Performed By: #### 5 7021-8 #### [facility] CLIA [id number] [address] [place] [address] 07552 Nucleated RBC (Bld) [#/Vol] 10*3/uL Normal <0.01 [facility] Comment on above: Order Comment: Speci men Type: BLOOD SPECIMEN Ordering Facility: [facility] Address: [address] [place] [address] Performed By: #### 5 7021-8 #### [facility] CLIA [id number] [address] [place] [address] 10048 Nucleated RBC/100 WBC (Bld) [Ratio] 0.0 /100 WBC Normal [facility] Comment on above: Order Comment: Speci men Type: BLOOD SPECIMEN Ordering Facility: [facility] Address: [address] [place] [address] Performed By: #### 5 7021-8 #### [facility] CLIA [id number] [address] [place] [address] 01414 Platelet mean volume (Bld) [Entitic vol] 10.7 fL Normal 9.0-12.7 [facility] Comment on above: Order Comment: Speci men Type: BLOOD SPECIMEN Ordering Facility: [facility] Address: [address] [place] [address] Performed By: #### 5 7021-8 #### [facility] CLIA [id number] [address] [place] [address] 38272 Platelets (Bld) [#/Vol] 227 10*3/uL Normal 150-400 [facility] Comment on above: Order Comment: Speci men Type: BLOOD SPECIMEN Ordering Facility: [facility] Address: [address] [place] [address] Performed By: #### 5 7021-8 #### [facility] CLIA [id number] [address] [place] [address] 47913 RBC (Bld) [#/Vol] 4.62 10*6/uL Normal 4.20-6.00 [facility] Comment on above: Order Comment: Speci men Type: BLOOD SPECIMEN Ordering Facility: [facility] Address: [address] [place] [address]322 Performed By: #### 5 7021-8 #### [facility] CLIA [id number] [address] [place] [address] 10393 WBC (Bld) [#/Vol] 5.10 10*3/uL Normal 3.70-11.00 [facility] Comment on above: Order Comment: Speci men Type: BLOOD SPECIMEN Ordering Facility: [facility] Address: [address] [place] [address] 0[address]10 Performed By: #### 5 7021-8 #### [facility] CLIA [id number] [address] [place] [address] ABD/PEL W IVCONon 024 CT ABD/PEL W IVCON * * *Final Report* * * DATE OF EXAM: May 02 2023 11:43AM [facility] 0530 - CT ABD/PEL W IVCON / PROCEDURE REASON: Malignant melanoma of skin (HCC) * * * * Physician Interpretation * * * * RESULT: EXAMINATION: CT ABDOMEN AND PELVIS WITH IV CONTRAST CLINICAL HISTORY: Malignant melanoma TECHNIQUE: CT of the abdomen and pelvis was performed using standard technique, scanning from just above the dome of the diaphragm to the symphysis pubis. MQ: CTAP_3 Contrast: IV: 150 ml of Omnipaque 300 Oral: 500 ml of Omni Oral 9mg per ml CT Radiation dose: Integrated Dose-length product (DLP) for this visit = 989 mGy*cm. CT Dose Reduction Employed: Automated exposure control (AEC) COMPARISON: 05/03/2022 RESULT: Liver: 0.9 cm right lobe hypodensity, more conspicuous in size, previously 6 mm. No additional hepatic lesion is identified. Biliary Tract: No bile duct dilation. Cholelithiasis is noted. Spleen: The spleen remains mildly prominent in size measuring 12.6 cm in maximal length. No discrete splenic mass is appreciated. Pancreas: No mass or ductal dilatation. Adrenal glands: No mass. Kidneys: No enhancing mass or hydronephrosis. 1.2 cm left renal cyst, stable. GI Tract: No bowel wall thickening or dilation. Postoperative changes at the rectosigmoid colon, stable. Lymph nodes: Periportal lymph node measuring 1.4 x 0.9 cm is more conspicuous, previously 1.4 x 0.7 cm, image 30, series 3. No substantial retroperitoneal or pelvic lymphadenopathy. Mesentery/Peritoneum: No ascites or mass. Retroperitoneum: No mass. Vasculature: - Abdominal aorta and iliac arteries: Atherosclerotic calcifications without aneurysm. - Celiac and SMA: Patent. - Portal venous system (SMV, splenic vein, portal vein and branches): Patent. - Hepatic veins: Patent. Pelvis: No free fluid or pelvic mass. The prostate gland is prominent in size, stable. No substantial inguinal adenopathy. Postoperative changes at the left inguinal region, stable. Bones/Soft Tissues: Degenerative change involving the lumbar spine. No osseous destructive process. Lower Thorax: A CT examination of the chest has been performed concurrently and will be dictated separately. Magnetic Tester (topogram) images: No additional findings. IMPRESSION: 1. 9 mm right lobe hepatic hypodensity is more conspicuous in size from the prior study. Correlation with continued follow-up examinations is recommended. Alternatively, for immediate further evaluation, an MRI examination of the liver would be recommended. 2. 1.4 x 0.9 cm periportal lymph node, slightly more conspicuous in size from the prior examination. Correlation with continued follow-up examinations is recommended. 3. Cholelithiasis is again noted. Transcribe Date/Time: May 02 2023 3:52P Dictated by: LILLIE MANDUJANO MD This examination was interpreted and the report reviewed and electronically signed by: LILLIE MANDUJANO MD on May 03 2023 11:48AM EST Thank you for allowing us to participate in the care of your patient. Should there be any questions regarding this interpretation, please call [phone]. If you are unable to reach us at the number above, please feel free to contact [facility] eRadiology at [phone]. [id number] Normal [facility] CT CHEST W IVCONon 4 CT CHEST W IVCON * * *Final Report* * * DATE OF EXAM: May 02 2023 11:43AM [facility] 0539 - CT CHEST W IVCON / PROCEDURE REASON: Malignant melanoma of skin (HCC) * * * * Physician Interpretation * * * * RESULT: EXAMINATION: CHEST CT WITH CONTRAST CLINICAL HISTORY: Malignant melanoma Technique: Spiral CT acquisition of the chest from the thoracic inlet to the upper abdomen following IV contrast. MQ: CTCW_6 Contrast: 150 mL Omnipaque [address] Radiation dose: Integrated Dose-length product (DLP) for this visit = 989 mGy*cm CT Dose Reduction Employed: Automated exposure control (AEC) Comparison: CT chest 05/03/2022 RESULT: Limitations: None. Lines, tubes, and devices: None. Lung parenchyma , airways, and pleural space: No consolidative process or pleural effusion. The trachea and major airways appear patent. No suspicious enlarging pulmonary nodule. Punctate, 2 mm right lower lobe nodule, image 103, series 4, stable to less conspicuous. Lower neck, lymph nodes, and mediastinum: The visualized thyroid gland is stable. No substantial supraclavicular or axillary lymphadenopathy is identified. No substantial mediastinal or hilar adenopathy is identified. Heart, pericardium, and thoracic vessels: Ectasia of the ascending thoracic aorta measuring 3.9 cm in maximal diameter, stable. No substantial pericardial effusion is identified. Bones/Soft Tissues: Degenerative change within the thoracic spine is again noted. No osseous destructive process is identified. Upper Abdomen: A CT examination of the abdomen has been performed concurrently and will be dictated separately. Magnetic Tester (topogram) images: No additional findings. IMPRESSION: Stable CT examination of the chest. No substantial intrathoracic adenopathy is identified. Transcribe Date/Time: May 02 2023 4:27P Dictated by: LILLIE MANDUJANO MD This examination was interpreted and the report reviewed and electronically signed by: LILLIE MANDUJANO MD on May 03 2023 11:48AM EST Thank you for allowing us to participate in the care of your patient. Should there be any questions regarding this interpretation, please call [phone]. If you are unable to reach us at the number above, please feel free to contact [facility] eRadiology at [phone]. [id number] Normal [facility] Comprehensive metabolic 2000 panelon 05-02-2023 Albumin [Mass/Vol] 4.7 g/dL Normal 3.9-4.9 [facility] Comment on above: Order Comment: Speci men Type: BLOOD SPECIMENOrdering Facility: [facility] Address: [address] [place] [address] Performed By: #### 2 4323-8 ####[facility] [id number] [place] [address] ALP [Catalytic activity/Vol] 118 U/L High 38-113 [facility] Comment on above: Order Comment: Speci men Type: BLOOD SPECIMENOrdering Facility: [facility] Address: [address] [place] [address] Performed By: #### 2 4323-8 ####[facility] [id number] [place] [address] ALT [Catalytic activity/Vol] 5 U/L Low 10-54 [facility] Comment on above: Order Comment: Speci men Type: BLOOD SPECIMENOrdering Facility: [facility] Address: [address] [place] [address] Performed By: #### 2 4323-8 ####[facility] [id number] [place] [address] Anion gap [Moles/Vol] 10 mmol/L Normal 9-18 [facility] Comment on above: Order Comment: Speci men Type: BLOOD SPECIMENOrdering Facility: [facility] Address: [address] [place] [address] Performed By: #### 2 4323-8 ####[facility] [id number] [place] [address] AST [Catalytic activity/Vol] 16 U/L Normal 14-40 [facility] Comment on above: Order Comment: Speci men Type: BLOOD SPECIMENOrdering Facility: [facility] Address: [address] [place] [address] Performed By: #### 2 4323-8 ####[facility] [id number] [place] [address] Bilirubin [Mass/Vol] 1.3 mg/dL Normal 0.2-1.3 [facility] Comment on above: Order Comment: Speci men Type: BLOOD SPECIMENOrdering Facility: [facility] Address: [address] [place] [address] Performed By: #### 2 4323-8 ####[facility] [id number] [place] [address] Calcium [Mass/Vol] 9.9 mg/dL Normal 8.5-10.2 [facility] Comment on above: Order Comment: Speci men Type: BLOOD SPECIMENOrdering Facility: [facility] Address: [address] [place] [address] Performed By: #### 2 4323-8 ####[facility] [id number] [place] [address] Chloride [Moles/Vol] 101 mmol/L Normal 97-105 [facility] Comment on above: Order Comment: Speci men Type: BLOOD SPECIMENOrdering Facility: [facility] Address: [address] [place] [address] Performed By: #### 2 4323-8 ####[facility] [id number] [place] [address] CO2 [Moles/Vol] 28 mmol/L Normal 22-30 [facility] Comment on above: Order Comment: Speci men Type: BLOOD SPECIMENOrdering Facility: [facility] Address: [address] [place] [address] Performed By: #### 2 4323-8 ####[facility] [id number] [place] [address] Creatinine [Mass/Vol] 0.84 mg/dL Normal 0.73-1.22 [facility] Comment on above: Order Comment: Abdoulaye krishnamurthy Type: BLOOD SPECIMENOrdering Facility: [facility] Address: [address] [place] [address] Performed By: #### 2 4323-8 ####[facility] [id number] [place] [address] Creatinine and Glomerular filtration rate.predicted panel (S/P/Bld) 93 mL/min/1.73m??? Normal >=60 [facility] Comment on above: Order Comment: Abdoulaye krishnamurthy Type: BLOOD SPECIMENOrdering Facility: [facility] Address: [address] [place] [address] Result Comment: Tammy mated Glomerular Filtration Rate [...] actual GFR. Performed By: #### 2 4323-8 ####[facility] [id number] [place] [address] Glucose [Mass/Vol] 152 mg/dL High 74-99 [facility] Comment on above: Order Comment: Abdoulaye krishnamurthy Type: BLOOD SPECIMENOrdering Facility: [facility] Address: [address] [place] [address] Result Comment: The Stateless Diabetes Association (ADA) provides guidance for cutoff [...] Standards of Medical Care in Diabetes 2016, Stateless Diabetes Association. Diabetes Care. 2016.39(Suppl 1). Performed By: #### 2 4323-8 ####[facility] [id number] [place] [address] Potassium [Moles/Vol] 4.2 mmol/L Normal 3.7-5.1 [facility] Comment on above: Order Comment: Speci men Type: BLOOD SPECIMENOrdering Facility: [facility] Address: [address] [place] [address] Performed By: #### 2 4323-8 ####[facility] [id number] [place] [address] Protein [Mass/Vol] 7.8 g/dL Normal 6.3-8.0 [facility] Comment on above: Order Comment: Speci men Type: BLOOD SPECIMENOrdering Facility: [facility] Address: [address] [place] [address] Performed By: #### 2 4323-8 ####[facility] [id number] [place] [address] Sodium [Moles/Vol] 139 mmol/L Normal 136-144 [facility] Comment on above: Order Comment: Speci men Type: BLOOD SPECIMENOrdering Facility: [facility] Address: [address] [place] [address] Performed By: #### 2 4323-8 ####[facility] [id number] [place] [address] Urea nitrogen [Mass/Vol] 15 mg/dL Normal 9-24 [facility] Comment on above: Order Comment: Speci men Type: BLOOD SPECIMENOrdering Facility: [facility] Address: [address] [place] [address] Performed By: #### 2 4323-8 ####[facility] [id number] [place] [address] CNPNon 12-15-2023 [facility] Telephone (HEMTSA) STEPHAN MERCER ([id number]) 1950 Date Time Provider Department 04/01/23 [facility] During your visit today, we recorded the following information about you: Jessy Marte RN 04/01/2023 2:59 PM Signed Pt here for 1 year f/u 05/05. Please sign labs if agreeable. Will draw with CT 05/02 Thank You! 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] 05/18/2018 Encounter Status:Closed by JAE LYNNE on 04/04/23 Normal [facility] Consultation Noteon 03-18-20 Consultation Note [id number]#1.00T IFF Normal [facility] Office Visiton 03-16-2023 Follow-up visit [id number] Stephan Mercer 1950 M Date Provider Department Center 03/16/2023 Anila-ASIA MALLOY CARD Javier Cardona Family History Problem Relation Age of Onset No Known Problems Mother No Known Problems Father Family Status - Relation Status Age at Mother Father Level of Service:69461 [place] OFFICE/OUTPATIENT NEW HIGH MDM 60-74 MINUTES Normal [facility] ECG 12-Leadon 02-23-2023 ECG 12-Lead [id number]#1.00T IFF Normal [facility] Lab Reportson 02-22-2023 Lab Reports [id number]#1.00T IFF Normal [facility] Lab Reports [id number]#1.00T IFF Normal [facility] CNOVon 02-17-2023 CNOV Office Visit (NRESAV ) STEPHAN MERCER ([id number]) 1950 M Date Time Provider Department 02/17/23 4:00 PM ALEC HUNTLEY NRESAV During your visit today, we recorded the following information about you: Pulse Blood pressure 59/minute 150/77 Alec Huntley, DO 02/18/2023 2:44 PM Signed [facility] - NEW PATIENT EVALUATION Pili Crowell MD [address] [facility] [address] Stephan Mercer is a 72 year old [...] Extremity 1-Sl (more content not included)... Normal [facility] Consent for Procedure/Surger yon 02-04-2023 Consent for Procedure/Surgery [id number]#1.00T IFF Normal [facility] Reminderson 02-03-2023 Reminders - From: Rosa Lacey To: EU - Recalls Flood; Cc: Rosa Lacey; Sent: 11/29/2022 14:32:25 EDT Show up: 11/17/2023 14:32:00 EDT Subject: cysto/needs fish/cytol Due Date/Time: 12/05/2023 14:32:00 EDT Reminder/Recall Patient needs 1 year cysto/fish/cytol (bt ck) in Dec 2023 Pt had turp in Feb 2024, may move cysto Normal [facility] [...] on: 01/04/2023 17:32:09 Performed By: #### 1 [id number] ####[facility] [address] [place] [address] Consent for Procedure/Surger yon 12-28-2022 Consent for Procedure/Surgery [id number]#1.00 CD:127 Normal [facility] Consent for Treatmenton 12-17 Consent for Treatment [id number]#1.00C D:127 Normal [facility] IntraOperative Documentson 0 12-28-2022 IntraOperative Documents [id number]#1.00 CD:127 Normal [facility] Main OR Intraoperative Recor don 12-28-2022 Main OR Intraoperative Record IntraOp Document Type FTURO Summary Primary Physician: Connor FLOOD MD Finalized Date/Time: 12/28/22 15:17:56 Pt. Name: TRISTENSTEPHAN D.O.B./Sex: 1950 Male Med Rec #: [id number] Physician: Connor FLOOD MD Financial #: [id number] Pt. Type: O Room/Bed: / Admit/Disch: 12/28/22 13:42:40 - Institution: Case Times FTURO Entry 1 Patient Times In Room 12/28/22 14:59:00 Out Room 12/28/22 15:10:00 Procedure Times Start 12/28/22 15:01:00 Stop 12/28/22 15:06:00 Anesthesia Times Last Modified By: Nathaniel VELAZQUEZ, Shannan Lugo 12/28/22 15:17:41 Case Attendance FTURO Entry 1 Entry 2 Entry 3 Case Attendee LOW GONZALEZ, Connor Armstrong RN, Shannan Nuno [facility], Meg Cortez Role Performed Surgeon - Primary Slab Lifting Supervisor - Primary Scrub - Primary Time In 12/28/22 14:59:00 12/28/22 14:59:00 12/28/22 14:59:00 Time Out 12/28/22 15:10:00 12/28/22 15:10:00 12/28/22 15:10:00 Procedure CYSTOSCOPY LOCAL(.) CYSTOSCOPY LOCAL(.) CYSTOSCOPY LOCAL(.) Comments Last Modified By: Shannan Armstrong RN, RN, Shannan Gonzalez RN 12/28/22 15:17:43 12/28/22 [...] Out Connor FLOOD MD, Verified (If Participants Nathaniel VELAZQUEZ, Shannan Lugo, Applicable) Meg Nuno CST Time Out Complete [...] Finalized Date/Time: 12/28/22 14:40:44 Pt. Name: STEPHAN MERCER/Sex: 1950 Male Med Rec #: [id number] Physician: Connor FLOOD MD Financial #: [id number] Pt. Type: O Room/Bed: / Admit/Disch: 12/28/22 [...] GONZALEZ, Connor Rodriguez\.br\Date and Time Signed: 12/28/22 15:16 EDT Progress [...] = 1 tab(s), Oral, BID Potassium Chloride (Hvt-Iwdu-Fid 10) 10 mEq oral tablet, extended release 10 mEq = 1 tab(s), Oral, Daily propranolol 60 mg Cap-ER 60 mg = 1 cap(s), Oral, Daily ropinirole 0.25 mg Tab 0.25 mg = 1 tab(s), Oral, TID Problem list: All Problems BPH with urinary obstruction / SNOMED CT 4700357995 / Confirmed Elevated PSA / SNOMED CT 1729793270 / Confirmed Skin cancer (melanoma) / SNOMED CT 026871177 / Confirmed Hepatitis / SNOMED CT 657281835 / Confirmed Hypertension / SNOMED CT 0323268239 / Confirmed History of bladder cancer / SNOMED CT 6112944528 / Confirmed Microscopic hematuria / SNOMED CT 923956689 / Confirmed Incomplete bladder emptying / SNOMED CT 608199300 / Confirmed Glucosuria / SNOMED CT 30835680 / Confirmed Proteinuria / SNOMED CT 80817289 / Confirmed Histories Past Medical History: No active or resolved past medical history items have been selected or recorded. Family History: Hypertension Father Congenital heart disease Mother Stroke Mother Cancer Father Procedure history: Transurethral insertion of prostatic urethral lift implant (3529985735) on 07/16/2021 at 70 Years. Comments: 10/27/2021 11:01 Qi Lew UroLift Cystourethroscopy (separate procedure) (04150) on 05/11/2021 at 70 Years. Cystoscopy (75636332) on 03/06/2020 at 69 Years. TURBT - Transurethral resection of bladder tumor (5595926717) on 10/14/2010 at 60 Years. Cystoscope (62951545) on 09/30/2010 at 60 Years. Comments: 02/21/2019 13:48 Doris Howard With Bladder BX Cystoscope (10943550) on 09/07/2010 at 60 Years. Cataract extraction (23449743). Colonoscopy (537463651). Carpal tunnel release (398141296). Release of trigger finger (444469980). Social History Social & Psychosocial Habits Alcohol [...] and the foreign body within the bladder. Normal [facility] Comment on above: Result Comment: Elec tronically Signed By: LOW GONZALEZ, Connor Rodriguez\.br\Date and Time Signed: 12/28/22 15:21 EDT [facility] Fish and Urine Cyt o ([facility])on 12-28-2022 [facility] Method of Extraction Cystoscopy Normal [facility] Comment on above: Performed By: #### 1 [id number] ####[facility] [address] [place] [address] [facility] Number of Jars 1 Invalid Interpretation Code [facility] Comment on above: Performed By: #### 1 [id number] ####[facility] [address] [place] [address] [facility] Specimen Cystoscopy Normal [facility] Comment on above: Performed By: #### 1 [id number] ####[facility] [address] [place] [address] [facility] Type of Service Technical Only Normal [facility] Comment on above: Performed By: #### 1 [id number] ####[facility] [address] [place] [address] Ambulatory Visit Summaryon 0 11-29-2022 Ambulatory Visit Summary STEPHAN MERCER :1950 Visit Date:11/29/2022 Ambulatory Visit Instructions Your Diagnosis BPH with urinary obstruction History of bladder cancer Elevated PSA Glucosuria Proteinuria Tests Performed Urnls Dip Stick Auto w/o Microscopy POC 04233 Your Care Team Attending Physician - LOW GONZALEZ, Connor Rodriguez Primary Care Physician - PILI CROWELL MD This Is Your Medications List ciprofloxacin (Cipro 500 mg Tab) Contact prescribing physician if questions or concerns losartan (losartan 50 mg Tab) omeprazole (omeprazole 40 mg Cap-DR) oxcarbazepine (oxcarbazepine 300 mg Tab) potassium chloride (Potassium Chloride (Fpy-Vqlr-Qht 10) 10 mEq oral tablet, extended release) [...] cysto Where: [facility] [address], [place] [address] [phone] Medications What How Much When Instructions New ciprofloxacin (Cipro 500 mg Tab) 1 Tablets By Mouth Every day take one tab day before procedure and one tab after procedure Pickup at [facility]/pharmacy #[id number] Unchanged losartan (losartan 50 mg Tab) 1 [...] or concerns Unchanged potassium chloride (Potassium Chloride (Gql-Cunh-Pfq 10) 10 mEq oral tablet, extended release) 1 Tablets By Mouth Every day Contact prescribing physician if questions or concerns Unchanged propranolol (propranolol 60 mg Cap-ER) 1 Capsules By Mouth Every day Contact prescribing physician if questions or concerns Unchanged ropinirole (ropinirole 0.25 mg Tab) 1 Tablets By Mouth 3 times a day Contact prescribing physician if questions or concerns Pharmacy Information [facility]/pharmacy #[id number]: [address] [place], [place] [id number] [phone] Test Results Urnls Dip Stick Auto w/o Microscopy POC 29269 (11/29/2022) Bilirubin Urine Dipstick - 1+ Small Blood Urine Dipstick - Trace-intact Glucose Urine Dipstick - Trace 100 mg/dl Ketones Urine Dipstick - Negative Leukocytes Urine Dipstick - Negative Nitrite Urine Dipstick - Negative Protein Urine Dipstick - 1+ (30 mg/dl) Specific Stanley Urine Dipstick - 1.020 Urine Appearance Urine [...] [facility] Reportson 11-29-2022 Lab Reports [id number]#1.00C D:127 Normal [facility] Patient Educationon 11-30-19 23 Patient Education Urology Benign Prostatic Hyperplasia Benign [...] Follow these instructions at home: ? Take zfdc-rea-xskqbgj and prescription medicines only as told by [...] the medicine (more content not included)... Normal [facility] Urology Office/Clinic Noteon 11-29-2022 Urology Office/Clinic Note [...] URL [facility] [address], [place] [phone] Additional Instructions: sched cysto Patient Education Benign Prostatic Hyperplasia I, Elsa Valdovinos, personally scribed for Dr. Flood on 11/29/2022 14:21:40. . Documentation recorded by the scribe, Elsa Valdovinos, accurately reflects the services(s) I performed and [...] mg= 1 tab(s), Oral, BID Potassium Chloride (Agb-Fwou-Sun 10) 10 mEq oral (more content not included)... [facility] Comment on above: Result Comment: Elec tronically Signed By: Connor FLOOD MD\.br\Date and Time Signed: 11/29/22 14:22 EDT\.br\Electronically Co-Signed By: Elsa Valdovinos\.br\Date and Time Co-Signed: 11/29/22 14:21 EDT Consultation Noteon 05-13-19 23 Consultation Note [id number]#1.00C D:127 [facility] CNOVSPon 05-10-2022 CNOVSP Visit (SP) Office (RUI) STEPHAN MERCER ([id number]) 1950 Date Time Provider Department 05/10/22 1:30 PM JAE LYNNE During your visit today, we recorded the following information about you: Temperature Pulse Respiration Blood pressure 97.5 degrees 60/minute 16/minute 156/76 Weight Height 86 kg 1.753 m Jae Lynne MD 05/10/2022 9:06 PM Signed PATIENT NAME: Stephan Mercer DATE: 05/10/2022 PRIMARY CARE PHYSICIAN: Dr. Pili Crowell OTHER PHYSICIANS: Dr. Michel, Dr. Kin [...] diagnosis) Stage (more content not included)... Normal [facility] Patient Letter FTMCon 2022 Patient Letter [facility] May 05, 2022 STEPHAN MERCER [address] [place] [address] TRISTEN STEPHAN Lugo 1950 Dear Mr. Mercer, I am corresponding [...] Office Sincerely, Dr. Asaf Espinoza [facility] [address] [place] [address] Normal [facility] Vital Signs Date Time Vital Sign Value Performing Clinician Shad boyce 11-29-2022 13:24-0400 Blood Pressure Location Connor FLOOD [facility] 11-29-2022 13:24-0400 Diastolic blood pressure 85 mm[Hg] Connor FLOOD [facility] 11-29-2022 13:24-0400 Heart rate 70 /min Connor FLOOD [facility] 11-29-2022 13:24-0400 Systolic blood pressure 150 mm[Hg] Connor FLOOD [facility] 05-10-2022 13:35-0500 Body height 175.3 cm Jae Lynne MD Work Phone: [facility] 05-10-2022 13:35-0500 Body temperature 97.5 [degF] Jae Lynne MD Work Phone: [facility] 05-10-2022 13:35-0500 Body weight 86 kg Jae Lynne MD Work Phone: [facility] 05-10-2022 13:35-0500 Diastolic blood pressure 76 mm[Hg] Jae Lynne MD Work Phone: [facility] 05-10-2022 13:35-0500 Heart rate 60 /min Jae Lynne MD Work Phone: [facility] 05-10-2022 13:35-0500 Respiratory rate 16 /min Jae Lynne MD Work Phone: [facility] 05-10-2022 13:35-0500 SaO2% (BldA) [Mass fraction] 98 % Jae Lynne MD Work Phone: [facility] 05-10-2022 13:35-0500 Systolic blood pressure 156 mm[Hg] Jae Lynne MD Work Phone: [facility] 10-27-2021 10:45-0400 Blood Pressure Location Asaf Espinoza Jr. [facility] 10-27-2021 10:45-0400 Diastolic blood pressure 86 mm[Hg] Asaf Espinoza Jr. [facility] 10-27-2021 10:45-0400 Heart rate 78 /min Asaf Espinoza Jr. [facility] 10-27-2021 10:45-0400 Respiratory rate 16 /min Asaf Espinoza Jr. [facility] 10-27-2021 10:45-0400 Systolic blood pressure 139 mm[Hg] Asaf Espinoza Jr. [facility] 07-28-2021 12:20-0400 Respiratory rate 16 /min Asaf Espinoza Jr. [facility] Encounters Encounter Date Encounter Type Care Provider Facility Start: 05-30-2023 ambulatory Connor Leei ty:NOLA Herrera Start: 05-16-2023 ambulatory Connor Leei ty:NOLA Herrera Start: 05-12-2023 ambulatory Connor Leei ty:[id number] Start: 05-05-2023 End: 05-05-2023 ambulatory JAE LYNNE Facility:[facility] Start: 05-03-2023 End: 05-03-2023 ambulatory Pili Crowell Other [facility] Other Start: 05-03-2023 Telephone encounter Pili Crowell [facility] Start: 05-02-2023 End: 05-02-2023 ambulatory JAE LYNNE Facility:[facility] Start: 03-28-2023 ambulatory Connor Leei ty:[facility] Javier Start: 03-16-2023 End: 03-16-2023 ambulatory [facility] Start: 03-16-2023 End: 03-16-2023 Encounter for other preprocedural examination [facility] Start: 03-07-2023 ambulatory Connor Leei ty:NOLA Mcadams Start: 02-17-2023 End: 02-17-2023 ambulatory ALEC HUNTLEY Facility:[facility] Start: 12-28-2022 End: 12-29-2022 ambulatory Connor FLOOD Facility:[facility] Start: 12-28-2022 End: 12-28-2022 Patient encounter procedure Connor FLOOD [facility] Start: 11-29-2022 End: 11-30-2022 ambulatory Connorrony FLOOD Facility:[facility] [place] Start: 11-29-2022 End: 11-29-2022 Patient encounter procedure Connor FLOOD [facility] Start: 08-11-2022 ambulatory Laura Chadwick Facility:[facility] [place] Start: 07-28-2022 ambulatory LAURA CHADWICK . Facility: Start: 07-06-2022 (Televisit) Televisit Pili Crowell [facility] Start: 07-06-2022 End: 07-06-2022 ambulatory Pili Crowell Other [facility] Other Start: 05-10-2022 End: 05-10-2022 ambulatory JAE LYNNE Facility:[facility] Start: 05-10-2022 End: 05-10-2022 ambulatory Jae Lynne MD Work Phone: Hematology/Oncology Comment on above: Malignant melanoma o f skin (HCC) (Primary Dx); Benign localized prostatic hyperplasia with lower urinary tract symptoms (LUTS); Essential tremor Start: 05-10-2022 End: 05-10-2022 Patient encounter procedure Jae Lynne MD Work Phone: [place] Start: 04-30-2022 Orders Only Jae Lynne MD Work Phone: Radiology Pet CT Comment on above: Malignant melanoma o f skin (HCC) (Primary Dx) Start: 04-05-2022 Telephone encounter Leticia Vogel Hematology/Oncology Comment on above: Orders Start: 10-27-2021 End: 10-27-2021 Patient encounter procedure Asaf Espinoza Jr. [facility] Start: 07-28-2021 End: 07-28-2021 Patient encounter procedure Asaf Espinoza Jr. [facility] Start: 10-12-2019 Pre-procedure evalua tion check Pili Crowell Other [facility] Other Procedures Date Procedure Procedure Detail Performing Clinician Start: 07-16-2021 Transurethral insert ion of prostatic urethral lift implant Asaf Espinoza Jr. Comment on above: UroLift Start: 05-11-2021 Cystourethroscopy Kirk Espinoza Jr. Start: 03-06-2020 Cystoscopy Asaf pearson Jr. Start: 04-25-2018 Screening for malign ant neoplasm of prostate Pili Crowell Other Start: 03-22-2013 General examination of patient Pili Crowell Other Start: 10-14-2010 Transurethral resect ion of bladder neoplasm Asaf Espinoza Jr. Start: 09-30-2010 Cystoscope, device ( physical object) Asaf Espinoza Jr. Comment on above: With Bladder BX Start: 09-07-2010 Cystoscope, device ( physical object) Asaf Espinoza Jr. Colonoscopy Asaf [place] Decompression of median nerve Asaf Espinoza Jr. Extraction of cataract Kirk Espinoza Jr. Release of trigger finger Do jamilah Espinoza Jr. Plan of Treatment Date Care Activity Detail Author Start: 05-03-2022 End: 07-03-2022 CBC W Auto Differential panel - Blood CBC + DIFF Lab Routine Malignant melanoma of skin (HCC) Expected: 05/03/2022, Expires: 07/03/2022 [facility] Work Phone: Comment on above: Expected: 05/03/2022 , Expires: 07/03/2022 Start: 04-18-2022 ADVANCE DIRECTIVE DISCUSSION ADVANCE DIRECTIVE DISCUSSION [facility] Start: 04-18-2022 DEPRESSION ASSESSMENT DEPRESSION ASS ESSMENT [facility] Start: 12-17-2021 Influenza vaccination INFLUENZA (#1) [facility] Start: 04-21-2021 COVID-19 VACCINE (4 - Booster) COVID-19 VACCINE (4 - Booster) [facility] Start: 04-18-2021 ADVANCE DIRECTIVE DISCUSSION ADVANCE DIRECTIVE DISCUSSION [facility] Start: 04-18-2021 DEPRESSION ASSESSMENT DEPRESSION ASS ESSMENT [facility] Start: 08-15-2020 COVID-19 VACCINE (3 - Booster) COVID-19 VACCINE (3 - Booster) [facility] Start: 03-07-2020 PNEUMOCOCCAL: 65+ (2 - PCV) PNEUMOCOCCAL: 65+ (2 - PCV) [facility] Start: 08-01-2001 SHINGRIX VACCINE (1 of 2) SHINGRIX VACCINE (1 of 2) [facility] Start: 08-01-1996 COLOGUARD (FIT-DNA) COLOGUARD (FIT-D NA) [facility] Start: 08-01-1996 Colonoscopy COLONOSCOPY [facility] Start: 08-01-1996 COLORECTAL CANCER SCREENING COLORECTAL CANCER SCREENING [facility] Start: 08-01-[address] COLONOGRAPHY [facility] Start: 08-01-1996 FECAL OCCULT BLOOD FECAL OCCULT BLOO D [facility] Start: 08-01-1996 SIGMOIDOSCOPY SIGMOIDOSCOPY [facility] Start: 08-01-1970 Urine microalbumin profile DTAP,TDAP,TD (1 - Tdap) [facility] Start: 08-01-1969 ANNUAL PCP TEAM 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 TECHNOLOGIST RAFAELA DISEASE VISIT ANNUAL PCP TEAM CHRONIC DISEASE VISIT [facility] Start: 08-01-1969 BP CONTROLLED (<130/80) BP CONTROLLE D (<130/80) [facility] Start: 08-01-1969 Hepatitis B surface antibody level LDL CHOLESTEROL [facility] Start: 08-01-1969 HEPATITIS C SCREENING HEPATITIS C SC JOEL [facility] Start: 08-01-1961 3 comp foot exam completed DIABETIC FOOT EXAM [facility] Start: 08-01-1961 Hepatitis B screening URINE ALBUMIN:CREATININE RATIO [facility] Start: 08-01-1961 Hepatitis C antibody , confirmatory test DILATED RETINAL EXAM [facility] Start: 08-01-1956 Hemoglobin A1c/Hemoglobin.total in Blood HBA1C [facility] End: 06-09-2023 Ct abdomen & pelvis w/contrast material CT ABD/PEL W IVCON Radiology Routine Malignant melanoma of skin (HCC) 1 Occurrences starting 05/10/2022 until 06/09/2023 [facility] Work Phone: Comment on above: 1 Occurrences starti ng 05/10/2022 until 06/09/2023 End: 06-09-2023 CT CHEST W IVCON CT CHEST W IVCON Radiology Routine Malignant melanoma of skin (HCC) 1 Occurrences starting 05/10/2022 until 06/09/2023 [facility] Work Phone: Comment on above: 1 Occurrences starti ng 05/10/2022 until 06/09/2023 [facility] Immunizations Immunization Date Immunization Notes Care Provider Daniel fagan 03-27-2021 influenza virus vaccine, split virus (incl. purified surface antigen) Pili Crowell Other [facility] Other 02-24-2021 SARS-CoV-2 (COVID-19 ) mRNA BNT-162b2 vax Asaf Espinoza Jr. [facility] 02-16-2021 influenza virus vaccine, unspecified formulation Asaf Espinoza Jr. [facility] 06-20-2020 SARS-CoV-2 (COVID-19 ) mRNA-1273 vaccine Asaf Espinoza Jr. [facility] Comment on above: Result Comment: 2nd shot 05-30-2020 SARS-CoV-2 (COVID-19 ) mRNA-1273 vaccine Asaf Espinoza Jr. [facility] Comment on above: Result Comment: 1st shot 03-18-2020 influenza nasal, unspecified formulation Leticia Aaron RN [facility] 03-18-2020 influenza virus vaccine, unspecified formulation Asaf Espinoza Jr. [facility] 03-07-2019 influenza, high dose seasonal, preservative-free Leticia Aaron RN [facility] 03-07-2019 pneumococcal polysaccharide vaccine, 23 valent Leticia Aaron RN [facility] 01-25-2018 influenza virus vaccine, unspecified formulation Leticia Aaron RN [facility] 01-10-2018 influenza virus vaccine, split virus (incl. purified surface antigen) Pili Crowell Other [facility] Other 04-21-2017 pneumococcal conjuga te vaccine, 13 valent Pili Crowell Other [facility] Other 04-16-2016 influenza virus vaccine, split virus (incl. purified surface antigen) Pili Crowell Other [facility] Other 02-21-2013 influenza virus vaccine, unspecified formulation Leticia Aaron RN [facility] Payers Date Payer Category Payer Private Health Insurance [id number] 2017 Unknown [employer] MEDICARE SUPPLEMENT [id number] 2017-Present [phone] [employer] [place] [address] Indemnity [id number] 2017 Unknown [id number] 2016 Medicare MEDICARE MEDICAR E A AND B [id number] 2016-Present [phone] [place] [address] Medicare [id number] 2016 Medicare [id number] 1959 Self-pay 1950 Unknown [id number] 1950 Unknown [id number] 1950 Unknown [id number] 1951 Unknown [id number] 1950 Unknown [id number] 1951 Unknown [id number] 1951 Unknown [id number] 1950 Unknown [id number] Social History Date Type Detail Facility Start: 07-28-2021 End: 11-29-2022 Tobacco smoking status Never smoked tobacco (finding) [facility] Sex Assigned At Male [facility] Start: 05-11-2021 Alcohol intake Current non-dr dinker of alcohol (finding) [facility] Start: 1950 Sex Assigned At Male [facility] Tobacco smoking status Never [facility] Functional Status Date Assessment Result Facility 12-28-2022 Functional Status N/A [facility] 11-29-2022 Functional Status N/A [facility] 10-27-2021 Functional Status N/A [facility] Clinical Notes 02-08-2012 to 05-05-2023 Note Date & Type Note Facility 05-05-2023 Note HNO ID: [id number] Author: JAE LYNNE MD Service: ? Author Type: Physician Type: Progress Notes Filed: 05/06/2023 08:25 Note Text: PATIENT NAME: Stephan Mercer DATE: 05/05/2023 PRIMARY CARE PHYSICIAN: Dr. Pili Crowell OTHER PHYSICIANS: Dr. Michel, Dr. Flood, Dr. Lobato Portions of this encounter note have been copied from the note from 05/10/2022 and has been updated where appropriate, and reflect my current medical decision making from today. CC: This is a 72 year old male with a history of melanoma, seen for scheduled follow-up. INTERIM HISTORY: Since the patient's last visit here he apparently has had increasing LUTS, and is scheduled to undergo prostate surgery per Dr. Flood next week. Otherwise he has had no significant medical changes. No abdominal pain or other GI symptoms. Essential tremor is unchanged. He has noticed no skin changes. No other suspicious symptoms. MEDICATIONS: diphenhydrAMINE (BENADRYL) 50 mg capsule Take 1 capsule by mouth as directed for 1 dose. one (1) hour prior to exam. propranolol (INDERAL) 60 mg tablet Take 60 mg by mouth once daily. OXcarbazepine (TRILEPTAL) 300 mg tablet Take 300 mg by mouth two times a day. losartan-hydroCHLOROthiazide (HYZAAR) 50-12.5 mg per tablet Take 1 tablet by mouth once daily. rOPINIRole (REQUIP) 4 mg tablet predniSONE (DELTASONE) 50 mg Take 1 tablet by mouth as directed. Take one tab 13 hours prior, 7 hours prior, and [address] scan diphenhydrAMINE (BENADRYL) 50 mg capsule Take 1 capsule by mouth one hour prior to CT scan FLUoxetine (PROZAC) 20 mg capsule POTASSIUM CHLORIDE [...] seizures or tremors. PHYSICAL EXAM: Vitals: BP 151/74 Pulse 62 Temp 36.2 ?C (97.1 ?F) (Temporal) Resp 16 Ht 175.3 cm (5' 9.02 ) Wt 86.9 kg (191 lb 9.3 oz) SpO2 97% BMI 28.28 kg/m? ECOG 0 Exam limited to gross [...] rash, lesions, wounds or petechiae. RADIOLOGY/OTHER STUDIES: 05/02/2023 CT chest IMPRESSION: Stable CT examination of the chest. No substantial intrathoracic adenopathy is identified. 05/02/2023 CT abdomen/pelvis IMPRESSION: 1. 9 mm right lobe hepatic hypodensity is more conspicuous in size from the prior study. Correlation with continued follow-up examinations is recommended. Alternatively, for immediate further evaluation, an MRI examination of the liver would be recommended. 2. 1.4 x 0.9 cm periportal lymph node, slightly more conspicuous in size from the prior examination. Correlation with continued follow-up examinations is recommended. 3. Cholelithiasis is again noted. 05/03/2022 CT chest IMPRESSION: 1. Stable CT [...] abdomen/pelvis IMPRESSION: 1. Stable CT of the abdom (more content not included)... [facility] 05-03-2023 Evaluation note Encounter Date Diagnosis Assessment Notes Apr, Hypokalemia (ICD-10 - E87.6) [facility] Other 01-15-2024 NoteHNO ID: [id number] Author: JESSY MARTE RN Service: ? Author Type: Registered Nurse Type: Progress Notes Filed: 05/02/2023 14:50 Note Text: 191 Radiology Service Progress Note DATE OF SERVICE: May 02, 2023 TIME: 10:26 AM PATIENT WEIGHT: 191LBS PATIENT IDENTITY VERIFICATION COMPLETED USING TWO (2) STANDARD IDENTIFIERS: Name and Date of confirmed by patient verbally. FALL SCREENING: Has the patient had 2 falls in the last year or 1 fall with injury or currently using an Ambulatory Assistive Device (Walker, Cane, Wheelchair, Crutches, etc.)? No PATIENT GENDER DATA: Male ALLERGIES: Reviewed and unchanged CONTRAST ALLERGY: No EXAM: CT -CONTRAST INDUCED NEPHROPATHY RISK FACTORS: Patient age > 60 years CREATININE: Creatinine Date Value Ref Range Status 05/02/2023 0.84 0.73 - 1.22 mg/dL Final 05/03/2022 0.85 0.73 - 1.22 mg/dL Final 04/30/2021 0.91 0.73 - 1.22 mg/dL Final Estimated Glomerular Filtration Rate Date Value Ref Range Status 05/02/2023 93 >=60 mL/min/1.73m? Final Comment: Estimated Glomerular [...] POC done: Yes, See Lab Tab May 02, 2023 TREATMENT: N/A IV SITE: Ambulatory: A peripheral IV was started in the Right antecubital site with a Angio cath: 20 gauge. IV SITE APPEARANCE: Clean,Dry and Intact Pt with IV contrast allergy-premeds taken per pt. Observed pt [id number] after CT no s/s reaction SIGNATURE: Jessy Marte RN PATIENT NAME: Stephan Mercer DATE: May 02, 2023 TIME: 10:26 [facility]01-15-2024 NoteHNO ID: [id number] Author: BRANDEN EVERETT RT(R) Service: ? Author Type: Technologist Type: Progress Notes Filed: 05/02/2023 10:28 Note Text: Radiology Service Progress Note PATIENT NAME: Stephan Mercer DATE OF SERVICE: May 02, 2023 TIME: 10:28 AM PATIENT IDENTITY VERIFICATION COMPLETED USING TWO [...] disposition Discontinued SIGNED BY: RT Dez(R) May 02, 2023 10:28 [facility] Note Chief Complaint: New patient here to establish care. Ref from Dr. Flood for surgery clearance. Had ECG a few weeks ago. He had colon surgery about 12 years ago and arrested during surgery. Says he had heart cath at [facility] at that time and it was normal. [...] is currently appropriately on an angiotensin receptor pawan. Continue aggressive cardiovascular factor modification. Return to clinic in 1 year or sooner should problems arise Asia Malloy MD, MPH, [facility], [facility], [facility] Interventional Cardiology Pager Email: [email or web address]11-02-2023 NoteHNO ID: [id number] Author: Alec Huntley, DO Service: ? Author Type: Physician Type: Progress Notes Filed: 02/18/2023 2:44 PM Note Text: [facility] - NEW PATIENT EVALUATION Pili Crowell MD [address] [facility] [address] Stephan Mercer is a 72 year old [...] Left Lower Extremity 2-Mil (more content not included)...[facility]09-12-2023 NoteCystoscopy ? Voiding after the procedure: there may be some pain, burning, urgency, frequency and blood tingedurine following the procedure. These symptoms usually resolve [...] light, a camera, and an electric cutting edge(resectoscope) is passed through the urethra and into the prostate. The opening of the urethra is at the end of the penis. Tell a health care provider about: ? Any allergies you have. ? All medicines you are taking, including vitamins, herbs, eye drops, creams, and lptl-qpj-vwzzspk medicines. ? Any problems you or family [...] tells you to take them. ? Taking wcwj-gmz-ygaitzt medicines, vitamins, herbs, and supplements. Surgery safety [...] fall asleep (general anesthetic) (more content not included)...[facility]09-12-2023 Hospital Discharge instructions Patient Education 12/28/2022 15:21:43 [...] light, a camera, and an electric cutting edge(resectoscope) is passed through the urethra and into the prostate. The opening of the urethra is at the end of the penis. Tell a health care provider about: Any allergies you have. All medicines you are taking, including vitamins, herbs, eye drops, creams, and zkqn-qpo-iyifcpe medicines. Any problems you or family members [...] provider tells you to take them. Taking uffd-ttx-xuibbjt medicines, vitamins, herbs, and supplements. Surgery safety Ask your health care provider what steps will be taken to help prevent infection. These steps may include: Removing hair at the surgery site. Washing skin with a germ-killing soap. Taking antibiotic medicine. General instructions Do not use any products that contain nicotine or tobacco for at least 4 weeks before the procedure.These products include cigarettes, chewing tobacco, and vaping [...] blood oxygen level will be monitored until youleave the hospital or clinic. You will be [...] provider. Document Revised: 12/29/2021 Document Reviewed: 12/29/2021 [employer] Patient Education 2022 [employer]. 12/28/2022 15:08:27 EU - Cystoscopy Discharge Instructions [...] With:Connor FLOOD Address: [facility] [address] , [place] [address]- Business (1) When: Unknown Comments:Office will call to schedule follow up [facility]09-12-2023 Note [id number]:127[facility] 12-28-2022 Evaluation + Plan noteExtracted from: Title:Urology Progress Note Author:Bryan FLOOD MD [...] Fish and Urine Cyto ([facility]) 12/28/22 [facility]08-14-2023 Hospital Discharge instructions Patient Education 11/29/2022 [...] urethra. Follow these instructions at home: Take ocqw-qgx-ospcfhe and prescription medicines only as told by [...] provider. Document Revised: 10/21/2021 Document Reviewed: 10/21/2021 [employer] Patient Education 2022 [employer] Follow Up Care 07/30/2022 13:07:08 With:LOW GONZALEZ, Connor Rodriguez, URL Address: [facility] [address], [place] [phone] When: Unknown Comments:sched cysto [facility] [place] 03-21-2023 Evaluation note* Encounter Date [...] verbalized understanding and agreement with treatment plan. [facility] Other 01-23-2023 NoteHNO ID: [id number] Author: Jae Lynne MD Service: ? Author Type: Physician Type: Progress Notes Filed: 05/10/2022 9:06 PM Note Text: PATIENT NAME: Stephan Mercer DATE: 05/10/2022 PRIMARY CARE PHYSICIAN: Dr. Pili Crowell OTHER PHYSICIANS: Dr. Michel, Dr. Kin [...] post adjuvant interferon x1 (more content not included)...[facility]01-23-2023 History of Present illness Narrative* Jae Lynne MD - 05/10/2022 7:35 AM EST PATIENT NAME: Stephan Mercer DATE: 05/10/2022 PRIMARY CARE PHYSICIAN: Dr. Pili Crowell OTHER PHYSICIANS: Dr. Michel, Dr. Kin [...] Stable on current medications, continue per neurology. Jae Lynne MD CC: Dr. Kin Espinoza, [facility] Urology: Dr. Michel, [facility] Miscellaneous Notes* Telephone Encounter - Angie [...] you, Leticia Aaron RN [facility] Hospital Discharge instructions Patient Education 10/27/2021 [...] including vitamins, herbs, eye drops, creams, and vdtl-rvv-wsehant medicines. This also includes: ?Medicines to assist [...] 05/07/2005 Document Revised: 03/17/2018 Document Reviewed: 01/09/2018 [employer] Patient Education 2019 [employer]. [facility] [place] 04-12-2022 Hospital Discharge instructions Patient Education 07/28/2021 [...] including vitamins, herbs, eye drops, creams, and hjgd-pej-prwszoc medicines. This also includes: ?Medicines to assist [...] 05/07/2005 Document Revised: 03/17/2018 Document Reviewed: 01/09/2018 [employer] Patient Education [employer]. Follow Up Care 07/16/2021 12:46:12 With:Alexis Ovalle MD, Asaf Michaels, URO Address: [facility] [address], [place] [address]- When:10/27/2021 Comments:w/ pvr [facility] 10-23-2012 History of Past illness Narrative* Problem Noted Date Resolved Date Leukopenia 02/08/2012 12/13/2013 documented as of this encounter (statuses as of 04/09/2022) [facility]10-[facility] History of Past illness Narrative* Problem Noted Date Resolved Date Leukopenia 02/08/2012 12/13/2013 documented as of this encounter (statuses as of 04/30/2022) [facility] History of Past illness Narrative* Problem Noted Date Resolved Date Leukopenia 02/08/2012 12/13/2013 documented as of this encounter (statuses as of 05/11/2022) [facility] Future Appointments Appointment Date:10/27/2021 10:15:00 AM Scheduled Provider:Alexis Ovalle MD, Asaf Michaels Location:[facility] Appointment Type:URO Office Visit [facility] evaluation + Plan note Future Appointments Appointment Date:12/14/2022 11:15:00 AM Scheduled Provider: Location:[facility] Appointment Type:Urology CALL PAT FT Appointment Date:12/28/2022 02:00:00 PM Scheduled Provider: Location:[facility] Appointment Type:Urology FT [facility] evaluation note* Diagnosis Malignant melanoma of skin (HCC)- Primary Melanoma of skin, site unspecified [facility] Diagnosis Malignant melanoma of skin (HCC)- Primary Melanoma of skin, site unspecified Benign localized prostatic hyperplasia with lower urinary tract symptoms (LUTS) Benign localized hyperplasia of prostate with urinary obstruction and other lower urinary tract symptoms (LUTS) Essential tremor Essential and other specified forms of tremor documented in this encounter [facility] general Narrative - Reported* Type Description Date Medical History melanoma [id number] Medical History interfueron treatment for melano ma 2010 Medical History hypertension Medical History Esophageal reflux Surgical History fistula-colon Surgical History carpal tunnel release-bilateral Surgical History trigger finger release-right th umb Surgical History cystoscopy [facility] Other Hospital course Narrative No data available for this section [facility] [place] progress note No data available for this section [facility] [employer] Reason for Referral Specialty Diagnoses / Procedures Referred By Contac t Referred To Contact CT IMAGING Diagnoses Malignant melanoma of skin (HCC) Procedures CT CHEST W IVCON DIAGNOSTIC COMPUTED TOMOGRAPHY THORAX W/CONTRAST Jae Lynne MD [address] [place] [address] [address], [place] [address] Ct Imaging Referral ID Status Reason Start Date Expiration Date Visits Requested Visits Authorized [id number] Authorized Auto-Generat ed Referral 05/10/2022 06/09/2023 1 1 Specialty Diagnoses / Procedures Referred By Contac t Referred To Contact CT IMAGING Diagnoses Malignant melanoma of skin (HCC) Procedures CT ABD/PEL W IVCON CT ABD & PELVIS W/CONTRAST Jae Lynne MD [address] [place] [address] [place] [address] Ct Imaging Referral ID Status Reason Start Date Expiration Date Visits Requested Visits Authorized [id number] Authorized Auto-Generat ed Referral 05/10/2022 06/09/2023 1 1 Summary Purpose Family History No Family History Records FoundNo Family History Records FoundNo Family History Records FoundNo Family History Records Found Advance Directives No Advanced Directives Records FoundNo Advanced Directives Records FoundNo Advanced Directives Records FoundNo Advanced Directives Records Found Additional Source Comments Care Team (unrecognized sect ion and content) Wardrobe Stylist Relationship Specialty Start Date End Date iPli Crowell MD [address] [place] [address] PCP - General Family Medicine 08/29/12 Wardrobe Stylist Relationship Specialty Start Date End Date Pili Crowell MD [address] [place] [address] PCP - General Family Medicine 08/29/12 Wardrobe Stylist Relationship Specialty Start Date End Date Pili Crowell MD [address] [place] [address] PCP - General Family Medicine 08/29/12 Source Comments (unrecognize d section and content) In the event this informatio n is protected by the Federal Confidentiality of Alcohol and Drug Abuse Patient Records regulations: The Federal rules restrict any use of the information to criminally investigate or prosecute any alcohol or drug abuse patient.[facility] the event this information is protected by the Federal Confidentiality of Alcohol and Drug Abuse Patient Records regulations: The Federal rules restrict any use of the information to criminally investigate or prosecute any alcohol or drug abuse patient.[facility] the event this information is protected by the Federal Confidentiality of Alcohol and Drug Abuse Patient Records regulations: The Federal rules restrict any use of the information to criminally investigate or prosecute any alcohol or drug abuse patient.[facility] Reason for Visit (unrecogniz ed section and content) Reason Comments Orders Reason Comments Malignant Melanoma (unrecognized sect ion and content) No Status Records FoundNo Status Records FoundNo Status Records FoundNo Status Records Found INFORMATION SOURCE (unrecogn ized section and content) DATE CREATED AUTHOR 07/28/2022 Toya Herrera [facility] DATE CREATED AUTHOR AUTHOR'S ORGANIZ ATION 03/18/2023 [facility] DATE CREATED AUTHOR AUTHOR'S ORGANIZ ATION 04/22/2023 [facility] DATE CREATED AUTHOR AUTHOR'S ORGANIZ ATION 05/06/2023 [facility] FOR RECORDS PERTAINING TO PATIENTS WHO ARE [...] BE BASED ON THE PRIMARY CLINICAL RECORDS. [employer] [facility] provides no warranty or guarantee of the accuracy or completeness of information in this document.
[2023-05-12 11:55] LABS: BUN Creatinine Ratio 13.7; Carbon Dioxide 32.8 mmol/L (21.0-32.0); Chloride 104 mmol/L (98-107); Estimated GFR (African America >60 (>=60); Estimated GFR (Non-African Ame >60 (>=60); Glucose 101 mg/dL (74-106); Potassium 3.8 mmol/L (3.5-5.1); Sodium 144 mmol/L (136-145)
--- NOTE | 2023-05-12 12:13 | PC.NURSE ---
Tremor of left hand and arm noted
[2023-05-12] MEDS: LACTATED RINGER'S SOLUTION 1,000 ML 50 ML IV (12:14)
[2023-05-12] MEDS: LEVOFLOXACIN IN DEXTROSE 5 % 500 MG/100 ML PIGGYBACK 100 MG IV (13:27)
[2023-05-12] MEDS: LACTATED RINGER'S SOLUTION 1,000 ML 1000 ML IV (14:59)
--- NOTE | 2023-05-12 15:21 | PC.NURSE ---
22fr coude catheter inserted in [facility]
--- NOTE | 2023-05-12 15:32 | PC.NURSE ---
clear pale yellow urine just emptied from catheter
--- OUTSIDE RECORDS SUMMARY | 2023-05-12 15:55 | XMS_ITS | CCD ---
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 Elsa Valdovinos\.br\Date and Time Co-Signed: 11/29/22 14:21 EDT Consultation Noteon 05-13-19 23 Consultation Note [id number] D:127 [facility] CNOVSPon 05-10-2022 CNOVSP Visit (SP) Office (RUI) STEPHAN MERCER ([id number]) 1950 Date Time Provider Department 05/10/22 1:30 [...] diagnosis) Stage (more content not included)... Normal [facility] Patient Letter FTMCon 2022 Patient Letter [facility] [place] 05, 2022 STEPHAN MERCER [address] [place] [address] TRISTEN STEPHAN Lugo 1950 Dear Mr. Mercer, [...] Office Sincerely, Dr. Asaf Espinoza [facility] [address] [place] [id number] Normal [facility] Vital Signs Date Time Vital Sign Value Performing Clinician Shad boyce 11-29-2022 13:24-0400 Blood Pressure Location Connor FLOOD [facility] 11-29-2022 13:24-0400 Diastolic blood pressure 85 mm[Hg] Connor FLOOD [facility] 11-29-2022 13:24-0400 Heart rate 70 /min Connor FLOOD [facility] 11-29-2022 13:24-0400 Systolic blood pressure 150 mm[Hg] Connor FLOOD [facility] 05-10-2022 13:35-0500 Body height 175.3 cm Jae Lynne MD Work Phone: [facility] 05-10-2022 13:35-0500 Body temperature 97.5 [degF] Jae Lynne MD Work Phone: [facility] 05-10-2022 13:35-0500 Body weight 86 kg Jae Lynne MD Work Phone: [facility] 05-10-2022 13:35-0500 Diastolic blood pressure 76 mm[Hg] Jae Lynne MD Work Phone: [facility] 05-10-2022 13:35-0500 Heart rate 60 /min Jae Lynne MD Work Phone: [facility] 05-10-2022 13:35-0500 Respiratory rate 16 /min Jae Lynne MD Work Phone: [facility] 05-10-2022 13:35-0500 SaO2% (BldA) [Mass fraction] 98 % Jae Lynne MD Work Phone: [facility] 05-10-2022 13:35-0500 Systolic blood pressure 156 mm[Hg] Jae Lynne MD Work Phone: [facility] 10-27-2021 10:45-0400 Blood Pressure Location Asaf Espinoza Jr. [facility] 10-27-2021 10:45-0400 Diastolic blood pressure 86 mm[Hg] Asaf Espinoza Jr. [facility] 10-27-2021 10:45-0400 Heart rate 78 /min Asaf Espinoza Jr. [facility] 10-27-2021 10:45-0400 Respiratory rate 16 /min Asaf Espinoza Jr. [facility] 10-27-2021 10:45-0400 Systolic blood pressure 139 mm[Hg] Asaf Espinoza Jr. [facility] 07-28-2021 12:20-0400 Respiratory rate 16 /min Asaf Espinoza Jr. [facility] Encounters Encounter Date Encounter Type Care Provider Facility Start: 05-30-2023 ambulatory Connor Leei ty:[facility] [place] Start: 05-16-2023 ambulatory Connor Leei ty:NOL[facility] [place] Start: 05-12-2023 ambulatory Connor Leei ty:CD:[id number] Start: 05-05-2023 End: 05-05-2023 ambulatory JAE LYNNE Facility:[facility] Start: 05-03-2023 End: 05-03-2023 ambulatory Pili Crowell Other [facility] Other Start: 05-03-2023 Telephone encounter Pili Crowell [facility] Start: 05-02-2023 End: 05-02-2023 ambulatory JAE LYNNE Facility:[facility] Start: 03-28-2023 ambulatory Connor Leei ty:[facility] [place] Start: 03-16-2023 End: 03-16-2023 ambulatory [facility] Start: 03-16-2023 End: 03-16-2023 Encounter for other preprocedural examination [facility] Start: 03-07-2023 ambulatory Connor Leei ty:NOLA Mcadams Start: 02-17-2023 End: 02-17-2023 ambulatory ALEC HUNTLEY Facility:[facility] Start: 12-28-2022 End: 12-29-2022 ambulatory Connor FLOOD [facility] Start: 12-28-2022 End: 12-28-2022 Patient encounter procedure Connor FLOOD [facility] Start: 11-29-2022 End: 11-30-2022 ambulatory Connorrony FLOOD Facility:[facility] [place] Start: 11-29-2022 End: 11-29-2022 Patient encounter procedure Connor FLOOD [facility] Start: 08-11-2022 ambulatory Laura Chadwick Facility:[facility] Start: 07-28-2022 ambulatory LAURA CHADWICK . Facility: Start: 07-06-2022 (Televisit) Televisit Pili Crowell [facility] Start: 07-06-2022 End: 07-06-2022 ambulatory Pili Crowell Other [facility] Other Start: 05-10-2022 End: 05-10-2022 ambulatory JAE LYNNE Facility:[facility] Start: 05-10-2022 End: 05-10-2022 ambulatory Jae Lynne MD Work Phone: Hematology/Oncology Comment on above: Malignant melanoma o f skin (HCC) (Primary Dx); Benign localized prostatic hyperplasia with lower urinary tract symptoms (LUTS); Essential tremor Start: 05-10-2022 End: 05-10-2022 Patient encounter procedure Jae Lynne MD Work Phone: [place] Start: 04-30-2022 Orders Only Jae Lynne MD Work Phone: Radiology Pet CT Comment on above: Malignant melanoma o f skin (HCC) (Primary Dx) Start: 04-05-2022 Telephone encounter Leticia Vogel Hematology/Oncology Comment on above: Orders Start: 10-27-2021 End: 10-27-2021 Patient encounter procedure Asaf Espinoza Jr. [facility] Start: 07-28-2021 End: 07-28-2021 Patient encounter procedure Asaf Espinoza Jr. [facility] Start: 10-12-2019 Pre-procedure evalua tion check Pili Crowell Other [facility] Other Procedures Date Procedure Procedure Detail Performing [...] of skin (HCC) Expected: 05/03/2022, Expires: 07/03/2022 [facility] Work Phone: Comment on above: Expected: 05/03/2022 , Expires: 07/03/2022 Start: 04-18-2022 ADVANCE DIRECTIVE DISCUSSION ADVANCE DIRECTIVE DISCUSSION [facility] Start: 04-18-2022 DEPRESSION ASSESSMENT DEPRESSION ASS ESSMENT [facility] Start: 12-17-2021 Influenza vaccination INFLUENZA (#1) [facility] Start: 04-21-2021 COVID-19 VACCINE (4 - Booster) COVID-19 VACCINE (4 - Booster) [facility] Start: 04-18-2021 ADVANCE DIRECTIVE DISCUSSION ADVANCE DIRECTIVE DISCUSSION [facility] Start: 04-18-2021 DEPRESSION ASSESSMENT DEPRESSION ASS ESSMENT [facility] Start: 08-15-2020 COVID-19 VACCINE (3 - Booster) COVID-19 VACCINE (3 - Booster) [facility] Start: 03-07-2020 PNEUMOCOCCAL: 65+ (2 - PCV) PNEUMOCOCCAL: 65+ (2 - PCV) [facility] Start: 08-01-2001 SHINGRIX VACCINE (1 of 2) SHINGRIX VACCINE (1 of 2) [facility] Start: 08-01-1996 COLOGUARD (FIT-DNA) COLOGUARD (FIT-D NA) [facility] Start: 08-01-[address] [facility] Start: 08-01-1996 COLORECTAL CANCER SCREENING COLORECTAL CANCER SCREENING [facility] Start: 08-01-[address] COLONOGRAPHY [facility] Start: 08-01-1996 FECAL OCCULT BLOOD FECAL OCCULT BLOO D [facility] Start: 08-01-1996 SIGMOIDOSCOPY SIGMOIDOSCOPY [facility] Start: 08-01-1970 Urine microalbumin profile DTAP,TDAP,TD (1 - Tdap) 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 Start: 08-01-1969 BP CONTROLLED (<130/80) BP CONTROLLE D (<130/80) [facility] Start: 08-01-1969 Hepatitis B surface antibody level LDL CHOLESTEROL [facility] Start: 08-01-1969 HEPATITIS C SCREENING HEPATITIS C SC JOEL [facility] Start: 08-01-1961 3 comp foot exam completed DIABETIC FOOT EXAM [facility] Start: 08-01-1961 Hepatitis B screening URINE ALBUMIN:CREATININE RATIO [facility] Start: 08-01-1961 Hepatitis C antibody , confirmatory test DILATED RETINAL EXAM [facility] Start: 08-01-1956 Hemoglobin A1c/Hemoglobin.total in Blood HBA1C [facility] End: 06-09-2023 Ct abdomen & pelvis w/contrast material CT ABD/PEL W IVCON Radiology Routine Malignant melanoma of skin (HCC) 1 Occurrences starting 05/10/2022 until 06/09/2023 [facility] Work Phone: Comment on above: 1 Occurrences starti ng 05/10/2022 until 06/09/2023 End: 06-09-2023 CT CHEST W IVCON CT CHEST W IVCON Radiology Routine Malignant melanoma of skin (HCC) 1 Occurrences starting 05/10/2022 until 06/09/2023 [facility] Work Phone: Comment on above: 1 Occurrences starti ng 05/10/2022 until 06/09/2023 [facility] Immunizations Immunization Date Immunization Notes Care Provider Daniel fagan 03-27-2021 influenza virus vaccine, split virus (incl. purified surface antigen) Pili Crowell Other [facility] Other 02-24-2021 SARS-CoV-2 (COVID-19 ) mRNA BNT-162b2 vax Asaf Espinoza Jr. [facility] 02-16-2021 influenza virus vaccine, unspecified formulation Asaf Espinoza Jr. [facility] 06-20-2020 SARS-CoV-2 (COVID-19 ) mRNA-1273 vaccine Asaf Espinoza Jr. [facility] Comment on above: Result Comment: 2nd shot 05-30-2020 SARS-CoV-2 (COVID-19 ) mRNA-1273 vaccine Asaf Espinoza Jr. [facility] Comment on above: Result Comment: 1st shot 03-18-2020 influenza nasal, unspecified formulation Leticia Aaron RN [facility] 03-18-2020 influenza virus vaccine, unspecified formulation Asaf Espinoza Jr. [facility] 03-07-2019 influenza, high dose seasonal, preservative-free Leticia Aaron RN [facility] 03-07-2019 pneumococcal polysaccharide vaccine, 23 valent Leticia Aaron RN [facility] 01-25-2018 influenza virus vaccine, unspecified formulation Leticia Aaron RN [facility] 01-10-2018 influenza virus vaccine, split virus (incl. purified surface antigen) Pili Crowell Other [facility] Other 04-21-2017 pneumococcal conjuga te vaccine, 13 valent Pili Crowell Other [facility] Other 04-16-2016 influenza virus vaccine, split virus (incl. purified surface antigen) Pili Crowell Other [facility] Other 02-21-2013 influenza virus vaccine, unspecified formulation Leticia Aaron RN [facility] Payers Date Payer Category Payer Private Health Insurance [id number] 2017 Unknown [employer] MED[employer] SUPPLEMENT [id number] 2017-Present [phone] [id number] [employer] [place] [address] Indemnity [id number] 2017 Unknown [id number] 2016 Medicare MEDICARE MEDICAR E A AND B [id number] 2016-Present [phone] [place] [address] Medicare [id number] 2016 Medicare [id number] 1959 Self-pay 1950 Unknown [id number] 1950 Unknown [id number] 1950 Unknown [id number] 1950 Unknown [id number] .[id number] 1950 Unknown [id number] .[id number] 1950 Unknown [id number] .[id number] 1950 Unknown [id number] .[id number] 1950 Unknown [id number] .[id number] Social History Date Type Detail Facility Start: 07-28-2021 End: 11-29-2022 Tobacco smoking status Never smoked tobacco (finding) [facility] Sex Assigned At Male [facility] Start: 05-11-2021 Alcohol intake Current non-dr charger of alcohol (finding) [facility] Start: 1950 Sex Assigned At Male [facility] Tobacco smoking status Never [facility] Functional Status Date Assessment Result Facility 12-28-2022 Functional Status N/A [facility] 11-29-2022 Functional Status N/A [facility] 10-27-2021 Functional Status N/A [facility] Clinical Notes 02-08-2012 to 05-05-2023 Note Date & Type Note Facility 05-05-2023 Note HNO ID: [id number] Author: JAE LYNNE MD Service: ? Author [...] of the abdom (more content not included)... [facility] 05-03-2023 Evaluation note Encounter Date Diagnosis Assessment Notes Apr, Hypokalemia (ICD-10 - E87.6) [facility] Other 01-15-2024 NoteHNO ID: [id number] Author: JESSY MARTE RN Service: ? Author [...] contrast allergy-premeds taken per pt. Observed pt b96egmtuvm after CT no s/s reaction SIGNATURE: Jessy Marte RN PATIENT NAME: Stephan Mercer DATE: May 02, 2023 TIME: 10:26 [facility]01-15-2024 NoteHNO ID: [id number] Author: BRANDEN EVERETT RT(R) Service: ? Author [...] BY: RT Dez(R) May 02, 2023 10:28 [facility]11-29-20[facility] Cardiology Clinic Note Chief Complaint: New patient here to establish care. Ref from Dr. Flood for surgery clearance. Had ECG a few weeks ago. He had colon surgery about 12 years ago and arrested during surgery. Says he had heart cath at [facility] at that time and it was normal. [...] should problems arise Asia Malloy MD, MPH, [facility], [facility], [facility] Interventional Cardiology Pager Email: [email or web address]11-02-2023 NoteHNO ID: [id number] Author: Alec Huntley, DO Service: ? Author Type: Physician Type: Progress Notes Filed: 02/18/2023 2:44 PM Note Text: [facility] - NEW PATIENT EVALUATION Pili Crowell MD [address] [address] Stephan Mercer is a 72 year old [...] Left Lower Extremity 2-Mil (more content not included)...[facility]09-12-2023 NoteCystoscopy ? Voiding after the procedure: there [...] including vitamins, herbs, eye drops, creams, and losf-vie-bktxqpj medicines. ? Any problems you or family [...] tells you to take them. ? Taking fmmb-sik-xewsnee medicines, vitamins, herbs, and supplements. Surgery safety [...] fall asleep (general anesthetic) (more content not included)...[facility]09-12-2023 Hospital Discharge instructions Patient Education 12/28/2022 15:21:43 [...] including vitamins, herbs, eye drops, creams, and wgbt-qmd-nmqenje medicines. Any problems you or family members [...] provider tells you to take them. Taking hlma-idl-htxobzx medicines, vitamins, herbs, and supplements. Surgery safety [...] provider. Document Revised: 12/29/2021 Document Reviewed: 12/29/2021 [employer] Patient Education 2022 [employer]. 12/28/2022 15:08:27 [facility] - Cystoscopy Discharge Instructions [...] [facility] [address] , [place] [address]- Business (1) When: Unknown Comments:Office will call to schedule follow up [facility]09-12-2023 Note [id number]:127[facility] 12-28-2022 Evaluation + Plan noteExtracted from: Title:Urology [...] Fish and Urine Cyto ([facility]) 12/28/22 [facility]08-14-2023 Hospital Discharge instructions Patient Education 11/29/2022 [...] urethra. Follow these instructions at home: Take vgyr-kub-lqknyhy and prescription medicines only as told by [...] provider. Document Revised: 10/21/2021 Document Reviewed: 10/21/2021 [employer] Patient Education 2022 [employer] Follow Up Care 07/30/2022 13:07:08 With:LOW GONZALEZ, Connor Rodriguez, URL Address: [facility] [address], [place] [phone] When: Unknown Comments:sched cysto [facility] [place] 03-21-2023 Evaluation note* Encounter Date [...] verbalized understanding and agreement with treatment plan. [facility] Other 01-23-2023 NoteHNO ID: [id number] Author: Jae Lynne MD Service: ? Author [...] post adjuvant interferon x1 (more content not included)...[facility]01-23-2023 History of Present illness Narrative* Jae Lynne [...] Jae Lynne MD CC: Dr. Kin Espinoza, [facility] [place]: Dr. Michel, [facility] Miscellaneous Notes* Telephone Encounter - Angie [...] you, Leticia Aaron RN [facility] Hospital Discharge instructions Patient Education 10/27/2021 [...] including vitamins, herbs, eye drops, creams, and sffm-rke-bfvsmut medicines. This also includes: ?Medicines to assist [...] 05/07/2005 Document Revised: 03/17/2018 Document Reviewed: 01/09/2018 [employer] Patient Education 2019 [employer]. [facility] [place] 04-12-2022 Hospital Discharge instructions Patient [...] including vitamins, herbs, eye drops, creams, and vqle-rth-llhzdim medicines. This also includes: ?Medicines to assist [...] 05/07/2005 Document Revised: 03/17/2018 Document Reviewed: 01/09/2018 [employer] Patient Education [employer]. Follow Up Care 07/16/2021 12:46:12 With:Alexis Ovalle MD, Asaf Michaels, URO Address: [facility] [address], [place] [address]- When:10/27/2021 Comments:w/ pvr [facility] 10-23-2012 History of Past illness Narrative* Problem Noted Date Resolved Date Leukopenia 02/08/2012 12/13/2013 documented as of this encounter (statuses as of 04/09/2022) [facility]10-[facility] History of Past illness Narrative* Problem Noted Date Resolved Date Leukopenia 02/08/2012 12/13/2013 documented as of this encounter (statuses as of 04/30/2022) [facility] History of Past illness Narrative* Problem Noted Date Resolved Date Leukopenia 02/08/2012 12/13/2013 documented as of this encounter (statuses as of 05/11/2022) [facility] Future Appointments Appointment Date:10/27/2021 10:15:00 AM Scheduled Provider:Alexis Ovalle MD, Asaf Michaels Location:[facility] Appointment Type:URO Office Visit [facility] evaluation + Plan note Future Appointments Appointment Date:12/14/2022 11:15:00 AM Scheduled Provider: Location:[facility] Appointment Type:Urology CALL PAT FT Appointment Date:12/28/2022 02:00:00 PM Scheduled Provider: Location:[facility] Appointment Type:Urology FT [facility] evaluation note* Diagnosis Malignant melanoma of skin (HCC)- Primary Melanoma of skin, site unspecified [facility] Diagnosis Malignant melanoma of skin (HCC)- Primary Melanoma of skin, site unspecified Benign localized prostatic hyperplasia with lower urinary tract symptoms (LUTS) Benign localized hyperplasia of prostate with urinary obstruction and other lower urinary tract symptoms (LUTS) Essential tremor Essential and other specified forms of tremor documented in this encounter [facility] general Narrative - Reported* Type Description Date Medical History melanoma [id number] Medical History interfueron treatment for melano ma 2010 Medical History hypertension Medical History Esophageal reflux Surgical History fistula-colon Surgical History carpal tunnel release-bilateral Surgical History trigger finger release-right th umb Surgical History cystoscopy [facility] Other Hospital course Narrative No data available for this section [facility] progress note No data available for this section [facility] 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 Reason for Referral Specialty Diagnoses / Procedures Referred By Contac t Referred To Contact CT IMAGING Diagnoses Malignant melanoma of skin (HCC) Procedures CT CHEST W IVCON DIAGNOSTIC COMPUTED TOMOGRAPHY THORAX W/CONTRAST Jae Lynne MD [address] [place] [address] [address] [place], [place] [address] Ct Imaging Referral ID Status Reason Start Date Expiration Date Visits Requested Visits Authorized [id number] Authorized Auto-Generat ed Referral 05/10/2022 06/09/2023 1 1 Specialty Diagnoses / Procedures Referred By Contac t Referred To Contact CT IMAGING Diagnoses Malignant melanoma of skin (HCC) Procedures CT ABD/PEL W IVCON CT ABD & PELVIS W/CONTRAST Jae Lynne MD [address] [place] [address] [place] [address] Ct Imaging Referral ID Status Reason Start Date Expiration Date Visits Requested Visits Authorized [id number] Authorized Auto-Generat ed Referral 05/10/2022 06/09/2023 1 1 Summary Purpose Family History No Family History Records FoundNo Family History Records FoundNo Family History Records FoundNo Family History Records Found Advance Directives No Advanced Directives Records FoundNo Advanced Directives Records FoundNo Advanced Directives Records FoundNo Advanced Directives Records Found Additional Source Comments Care Team (unrecognized sect ion and content) 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 Start Date End Date Pili Crowell MD [address] [place] [address] PCP - General Family Medicine 08/29/12 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 the event this information is protected by the Federal Confidentiality of Alcohol and Drug Abuse Patient Records regulations: The Federal rules restrict any use of the information to criminally investigate or prosecute any alcohol or drug abuse patient.[facility] the event this information is protected by the Federal Confidentiality of Alcohol and Drug Abuse Patient Records regulations: The Federal rules restrict any use of the information to criminally investigate or prosecute any alcohol or drug abuse patient.[facility] Reason for Visit (unrecogniz ed section and content) Reason Comments Orders Reason Comments Malignant Melanoma (unrecognized sect ion and content) No Status Records FoundNo Status Records FoundNo Status Records FoundNo Status Records Found INFORMATION SOURCE (unrecogn ized section and content) DATE CREATED AUTHOR 07/28/2022 Toya Herrera [facility] DATE CREATED AUTHOR AUTHOR'S ORGANIZ ATION 03/18/2023 [facility] DATE CREATED AUTHOR AUTHOR'S ORGANIZ ATION 04/22/2023 [facility] DATE CREATED AUTHOR AUTHOR'S ORGANIZ ATION 05/06/2023 [facility] FOR RECORDS PERTAINING TO PATIENTS WHO ARE [...] BE BASED ON THE PRIMARY CLINICAL RECORDS. [employer] [facility]. provides no warranty or guarantee of the accuracy or completeness of information in this document.
--- NOTE | 2023-05-12 16:00 | P.URON_ITS ---
Urology Surgery Operative Note Operative Note Procedure Date: 05/12/23 Time Out Performed: yes Pre-op Diagnosis: BPH with LUTS status post UroLift 07/07. Post-op Diagnosis: other (Same plus foreign bodies in bladder) Procedures performed: 1. Cystoscopy. 2. Transurethral resection of the prostate. 3. Removal of UroLift bands from the prostate and from the bladder. Anesthesia: GETA Primary Surgeon: Connor Flood Complications: None Estimated blood loss (mL): 20 Findings: 1. Trilobar obstruction of the prostate. 2. UroLift band protruding from the median lobe 3. UroLift bands placed within the bladder Specimens: Prostate chips Drains: 22 [place] three-way coud? Castillo catheter to traction and CBI Indications for Procedures: This gentleman had a UroLift done in June 2021 for BPH with LUTS. Since his procedure he has had worsening frequency urgency and weak stream. Endoscopy revealed that he has trilobar obstruction of the prostate and protruding UroLift bands from the median lobe and at the bladder neck. He was strongly desirous for TURP so as to remove his UroLift bands and open up his obstructing prostate. He has signed an informed consent for this procedure after all risks were explained. Some of these risks include bleeding, infection, anesthesia, urinary incontinence temporary and permanent, retrograde ejaculation, erectile dysfunction and possible need for further operations just to name a few. Detailed description of Procedure: The patient was brought to the operating room and placed on the operating room table in the supine position. SCDs were placed on the lower extremities and turned on and functioning during the entire case. Timeout was done by all par ties in the room. We all agreed upon the patient's identification and the planned procedures for this patient. Genn. anesthesia was then administered. The patient was then repositioned into the modified dorsal lithotomy position. All pressure points were satisfactorily padded. Genitalia were sterilely prepped and draped in usual fashion. I started by passing a 26 [place] Olympus resectoscope with a standard bipolar loop electrode per urethra and as I arrived at the high median lobe I could see there was a protruding UroLift band which was poking into his anterior bladder neck. Once the scope was in the bladder I then could appreciate that there was a second UroLift band coming out of the bladder neck on the right side. This was protruding into the bladder also. I initially marked the ureters with the loop electrode. I then started up on the high median lobe and uniformly resected this down to the bladder neck level. This allowed me to remove the UroLift band within the median lobe. I also was then able to remove the bladder neck UroLift band. I then resected the left lateral lobe from the bladder neck to the Veru level. I found 1 band there which was also removed. I then resected the right lateral lobe in a similar fashion and I also found a band there which I was able to remove. The anterior tissue was then taken down. I then opened up the apex. I then brought the scope back into the bladder and used the Ilich to get all the chips and bands out of the bladder. The prostate chips were sent for permanent sections. To my surprise, I then found another UroLift band originating in the bladder on the right lateral wall lateral to the right UO. I used the bipolar loop and resected this band free. It was of course removed from the bladder. I then pressed on the bladder wall to cause the suture connecting the UroLift bands to protrude. I was able to remove this entire suture. I then could see the anchoring end of this UroLift band while I pressed deeply and exposed the area where the anchor was. This was on the outer side of the bladder wall. In order for me to remove this in full, I would have to significantly perforate the bladder. I elected not to. I simply coagulated the mucosa and submucosa around it. It seemed to fall back into the depths of the outer bladder and I could no longer see the metal anchor. On final inspection, I found no more UroLift bands. there was no prostate chips remaining in the bladder. There was no bleeding. With the scope at the apex the prostatic urethra and bladder neck were wide open. The scope was then removed. I then placed a 22 [place] three-way coud? Castillo catheter in the bladder. It was manually irrigated with a Genet syringe. 30 cc of fluid was placed in the balloon. It was taped to traction and CBI was started. It irrigated clear. The anesthetic was then reversed. [place] and wheeled to PACU in stable condition. Urinary Catheter Management Urinary Catheter Management Coude: Cath placed during this visit: no
[2023-05-12] MEDS: SOLIFENACIN SUCCINATE 10 MG TABLET PO (17:06)
[2023-05-12] MEDS: 0.9 % SODIUM CHLORIDE 1,000 ML 80 ML IV (17:06)
[2023-05-12] MEDS: SODIUM CHLORIDE IRRIG SOLUTION 3,000 ML 3000 ML IRR ×2 (17:07→17:16)
[2023-05-12] MEDS: CEFAZOLIN SODIUM/DEXTROSE,ISO 1 GM/50 ML IV.SOLN IV ×2 (18:20→23:07)
[2023-05-12] MEDS: SODIUM CHLORIDE IRRIG SOLUTION 3,000 ML 1500 ML IRR ×4 (18:20→23:12)
[2023-05-13 01:00] VITALS: BP 115/65; PULSE 97; RESP 20; TEMP 36.4; O2SAT 95
[2023-05-13 05:00] VITALS: BP 137/71; PULSE 60; RESP 20; TEMP 36.7; O2SAT 96
--- NOTE | 2023-05-13 05:24 | PC.NURSE ---
traction tape removed from left thigh.
== END 2023-05-13 09:45 | disposition home or self-care (01) ==
LOC: SURGOUT 15:50 → MS 05-13 09:35 → SURGOUT 05-24 09:00 → MS 05-24 09:01
PROVIDERS: PCP Family Medicine; Visit Provider Urology
PROC: (CPT 52601; principal; 2023-05-12 12:15)
DX: N40.1 Benign prostatic hyperplasia with lower urinary tract symptoms (principal); T83.89XA Other specified complication of genitourinary prosthetic devices, implants and grafts, initial encounter; K75.9 Inflammatory liver disease, unspecified; I10 Essential (primary) hypertension; R33.9 Retention of urine, unspecified; R39.12 Poor urinary stream; N39.41 Urge incontinence; N13.8 Other obstructive and reflux uropathy; K21.9 Gastro-esophageal reflux disease without esophagitis; Z85.51 Personal history of malignant neoplasm of bladder; Z86.74 Personal history of sudden cardiac arrest; Z90.49 Acquired absence of other specified parts of digestive tract; Z86.16 Personal history of COVID-19
CPT/HCPCS: 52601; 53899; 36415; 80048; 88305; J1094; J2704

== ENCOUNTER 2024-05-14 07:37 | Day surgery (SDC) | payer MEDICARE, OTHER, SELFPAY ==
--- OUTSIDE RECORDS SUMMARY | 2024-05-14 07:43 | XMS_ITS | CCD ---
Author Organization [facility] Care Team Providers Care Braider Operator Name Role Phone FLORENCIO CROWELL Primary Care Physician Florencio Crowell MD Primary Care Provider Florencio Crowell Unavailable SYLWIA BURROWS Admitting Unavailable SYLWIA BURROWS Attending Unavailable DR FLORENCIO CROWELL Primary Care Unavailable Connor Kelsey Attending Unavailable Connor Kelsey Admitting Unavailable Florencio Crowell MD Primary Care Provider Anita Roman CNP Unavailable Anita Roman CNP Unavailable ASIA MALLOY Attending Unavailable HUMZA DOMINGUEZ Attending Unavailable FLORENCIO CROWELL Primary Care Unavailable ALEC HUNTLEY Referring Unavailable FLORENCIO CROWELL Primary Care Unavailable FLORENCIO CROWELL Primary Care Unavailable ALEC HUNTLEY Referring Unavailable TREVOR LYNNE Attending Unavailable TREVOR LYNNE Referring Unavailable FLORENCIO CROWELL Primary Care Unavailable TREVOR LYNNE Referring Unavailable FLORENCIO CROWELL Primary Care Unavailable ALEC HUNTLEY Attending Unavailable FLORENCIO CROWELL Primary Care Unavailable ISABEL STACK Attending Unavailab Connor Ramires Attending Unavailable Connor KELSEY Attending Unavailable Connor KELSEY Attending Unavailable Connor KELSEY Attending Unavailable Connor KELSEY Admitting Unavailable Connor KELSEY Attending Unavailable Connor KELSEY Attending Unavailable Allergies Allergy Classification Reported Allergen(s) Allergy Type Date of Onset Reaction(s) Facility Iodine (and Iodine containting drugs) (2 sources) Iodine Drug Allergy 2 Rash [facility] (20 sources) Iodine; Translations: [iodine] Drug Allergy 1 Unknown (qualifier value), Rash, hives [facility] (11 sources) Terazosin; Translations: [terazosin] Drug Allergy 3 Low blood pressure (disorder), Syncope (disorder) [facility] (1 source) Iodine Drug Allergy [facility] (2 sources) patient allergy list reviewed by nurse or physicia Propensity to adverse reactions 8 Comment:Done Best [facility] Other (2 sources) Allergies Reconciled Propensity to adverse reactions Unknown [facility] Other (1 source) Iodine Drug Allergy 3 [facility] Medications Current Medications Medication Drug Class(es) [...] a day for 10 day(s) Jun, Active carbidopa 25 mg / levodopa 100 mg oral tablet (8 sources) Aromatic Amino Acid Decarboxylation Inhibitor, Aromatic Amino Acid Start: 11-24-2023 End: 01-02-2025 take 2 tablets by mouth three times daily carbidopa-levodopa (SINEMET) 25-100 mg per tablet Indications: Parkinson's disease without dyskinesia or fluctuating manifestations (HCC) Take 2 tablets by mouth three times a day. 540 tablet 3 01/03/2024 01/02/2025 Active Start: 12-01-2021 carbidopa-levo dopa (SINEMET 10-100) 10-100 mg per tablet enteric contrast (will be provided with radiology test) (2 sources) Start: 05-03-2024 End: 05-04-2024 enteric contrast (will be provided with radiology test) For CT CHESTABD/PEL W IVCON Routine order Administer, As Directed One Time Only, via Oral, Rectal, both Oral and Rectal, Enteric Tube, Stoma or Indwelling Catheter, Enteric Contrast as designated per enteric contrast guidelines 1 Each 05/03/2024 05/04/2024 Active Start: 05-10-2022 End: 05-11-2022 enteric contrast (will be pr ovided with radiology test) For CT CHESTABD/PEL W [...] Contrast as designated per enteric contrast guidelines FLUoxetine 20 mg oral capsule (16 sources) Serotonin Reuptake Inhibitor Start: FLUoxetine (PROZAC) 20 mg capsule 04/27/2021 Active hydroCHLOROthiazide 12.5 mg / losartan potassium 50 mg oral tablet (10 sources) Thiazide Diuretic, Angiotensin 2 Receptor Gilson take 1 tablet by mouth once daily losartan-hydroCHLORO thiazide (HYZAAR) 50-12.5 mg per tablet Take 1 tablet by mouth once daily. Active iv contrast (will be provided with radiology test) (2 sources) Start: End: iv contrast (will be provided with radiology [...] CT contrast administration guidelines link. 1 Each 05/03/2024 05/04/2024 Active Start: 05-10-2022 End: 05-11-2022 iv contrast (will be provide d with radiology test) CT Chest ABD/PEL-Inject, intravenously, [...] link. losartan potassium 50 mg oral tablet (15 sources) Angiotensin 2 Receptor Gilson Start: 1 take 1 tablet by mouth once daily losartan 50 mg Tab 50 mg = 1 tab(s), Oral, Daily Start Date: 11/29/22 Status: Ordered Start: 02-21-2019 losartan Start Date: 02/21/19 Status: Ordered omeprazole 40 mg delayed release oral capsule (20 sources) Proton Pump Inhibitor Start: 11-29-2022 take 1 capsule by mouth once daily omeprazole 40 mg Cap-DR 40 mg = 1 cap(s), Oral, Daily Start Date: 11/29/22 Status: Ordered Start: 02-21-2019 omeprazole Sta rt Date: 02/21/19 Status: Ordered take 1 capsule by [facility] once daily omeprazole 20 mg capsule Take 20 mg by mouth once daily. Active Comment on above: Take 20 mg by mouth once daily. OXcarbazepine 300 mg oral tablet (12 sources) Anti-epileptic Agent Start: 3 End: 4 take 1 tablet by mouth twice daily oxcarbazepine 300 mg Tab 300 mg = 1 tab(s), Oral, BID Start Date: 11/29/22 Status: Ordered paxlovid (300/100) 20 x 150 mg & 10 x 100mg tablet therapy pack (2 sources) Paxlovid (300/10 0) 20 x 150 MG & 10 x 100MG as directed Orally for 6 days Active 24 hr propranolol hydrochloride 60 mg extended release oral capsule (13 sources) beta-Adrenergic Gilson Start: take 1 capsule by mouth once daily propranolol 60 mg Cap-ER 60 mg = 1 cap(s), Oral, Daily Start Date: 11/29/22 Status: Ordered take 1 tablet by michelle th three times daily propranolol (INDERAL) 40 mg tablet Take 40 mg by mouth three times a day. Active End: 11-24-2023 take 1 tablet by mouth once daily propranolol (INDERAL) 60 mg tablet Take 60 mg by mouth once daily. 11/24/2023 Discontinued (Discontinued by another Health Care Provider) rOPINIRole 0.25 mg oral tablet (17 sources) Nonergot Dopamine Agonist Start: 06-09-2021 take 1 tablet by mouth three times daily ropinirole 0.25 mg Tab 0.25 mg = 1 tab(s), Oral, TID Start Date: 06/09/21 Status: Ordered Start: 05-05-2021 End: 01-03-2024 rOPINIRole (REQUIP) 4 mg tab let 05/05/2021 01/03/2024 Discontinued Completed/Discontinued Medications Medication Drug Class(es) Dates Sig (Normalized) Sig (Original) amantadine hydrochloride 100 mg oral capsule (3 sources) Influenza A M2 Protein Inhibitor Start: 04-23-2021 End: 05-10-2022 amantadine HCl (SYMMETREL) 100 mg capsule ciprofloxacin 500 mg oral tablet (5 sources) Quinolone Antimicrobial Start: 03-06-2024 take 1 tablet by mouth once daily Cipro 500 mg Tab 500 mg = 1 tab(s), Oral, Daily, Take 1 tablet the day before the procedure and 1 tablet after the procedure, # 2 tab(s), Refills(s) 0, Pharmacy: [facility]/pharmacy #[id number], 178, cm, 08/30/23 16:17:00 EDT, Height/Length Dosing, 86.5, kg, 08/30/23 16:17:00 EDT, Weight Dosing Start Date: 03/06/24 Status: Ordered Start: 11-29-2022 take 1 tablet by michelle th once daily Cipro 500 mg Tab 500 mg = 1 tab(s), Oral, Daily, take one tab day before procedure and one tab after procedure, # 2 tab(s), Refills(s) 0, Pharmacy: [facility]/pharmacy #[id number], 178, cm, 11/29/22 13:29:00 EDT, Height/Length Dosing, 87.9, kg, 11/29/22 13:29:00 EDT, Weight Dosing Start Date: 11/29/22 Status: Ordered diphenhydrAMINE hydrochloride 50 mg oral capsule (20 sources) Histamine-1 Receptor Antagonist Start: 04-15-2021 End: 05-03-2024 take 1 capsule by mouth every hour diphenhydrAMINE (BENADRYL) 50 mg capsule Take 1 capsule by mouth as directed for 1 dose. one (1) hour prior to exam. 1 capsule 04/04/2023 05/03/2024 Discontinued (Discontinued by Patient) Comment on above: Take 1 capsule by mo [facility] one hour prior to CT scan hydroCHLOROthiazide 12.5 mg oral tablet (5 sources) Thiazide Diuretic Start: 02-12-2021 hydroCHLOROthiazide (HYDRODIURIL, ESIDRIX) 12.5 mg tablet lidocaine hydrochloride 20 mg/ml mucous membrane topical solution (3 sources) Antiarrhythmic, Amide Local Anesthetic Start: 11-22-2015 take 10 mL by mouth every four hours as needed Lidocaine Viscous 2 % 10 ml as needed Mouth/Throat every 4 hrs Nov, Not-Taking/PRN Start: 11-22-2015 take 10 mL by mouth every four hours as needed Lidocaine Viscous 2 % 10 ml as needed Mouth/Throat every 4 hrs Nov, Not-Taking methylPREDNISolone 4 mg oral tablet (3 sources) Corticosteroid Start: 11-22-2015 Medrol (Fady) 4 MG as directed Orally Nov, Not-Taking/PRN Potassium Chloride (20 sources) Start: 11-29-2022 take 1 tablet by mouth once daily Potassium Chloride (Qqe-Dccd-Slx 10) 10 mEq oral tablet, extended release 10 mEq = 1 tab(s), Oral, Daily Start Date: 11/29/22 Status: Ordered Start: 02-21-2019 Klor-Con Start Date: 02/21/19 Status: Ordered POTASSIUM CHLORI DE (KLOR-CON ORAL) Take by mouth. Active take 2 tablets by mo [facility] every twelve hours Potassium Chloride ER 10 MEQ 2 tablets with food Orally Twice a day for 90 days Active take 2 tablets by mo uth once daily Potassium Chloride ER 10 MEQ TAKE 2 TABLETS BY MOUTH EVERY DAY for 90 Active Klor-Con Not-Ki ing/PRN Potassium Chlori de ER 10 MEQ Oral for 90 Active Klor-Con Not-Ki ing POTASSIUM CHLORI DE (KLOR-CON ORAL) Take by mouth. 0 Active Comment on above: Take by mouth. predniSONE 50 mg oral tablet (19 sources) Start: 03-20-2024 End: 05-03-2024 predniSONE (DELTASONE) 50 mg Take one tab 13 hours prior to scan, take one tab 7 hours prior to scan and take one tab 1 hour prior to scan 3 tablet 03/20/2024 05/03/2024 Discontinued (Discontinued by Patient) Start: 04-15-2021 End: 05-03-2024 predniSONE (DELTASONE) 50 mg Take 1 tablet by mouth as directed. Take one tab 13 hours prior, 7 hours prior, and [address] scan 3 tablet 04/05/2022 05/03/2024 Discontinued (Discontinued by Patient) Comment on above: Take 1 tablet by [facility] as directed. Take one tab 13 hours prior, 7 hours prior, and [address] scan tamsulosin hydrochloride 0.4 mg oral capsule (7 sources) alpha-Adrenergic Gilson Start: 03-29-20 End: 02-18-20 23 take 0.4 mg by mouth once daily tamsulosin ER (FLOMAX) 0.4 mg Take 0.4 mg by mouth once daily. 03/29/2020 02/17/2023 Discontinued (Other) Comment on above: Take 0.4 mg by mouth once daily. terazosin 10 mg oral capsule (3 sources) alpha-Adrenergic Gilson Start: 04-21-19 22 Terazosin HCl (HYTRIN) 10 mg capsule Triamcinolone (3 sources) Corticosteroid Start: 09-04-19 21 KENALOG - 10 mg August, 40 mg Problems Active Problems Problem Classification Problem Date Documented Date Episodic/Chronic Cancer of bladder (2 sources) Malignant tumor of urinary bladder; Translations: [Malignant neoplasm of bladder, part unspecified] Chronic Cancer of bladder (6 sources) History of malignant neoplasm of bladder; Translations: [Personal history of malignant neoplasm of bladder] Onset: 07-28-2021 Episodic Cancer; other and unspecified primary (9 sources) H/O: malignant neoplasm 04-01-2020 Episodic Diabetes mellitus without complication (15 sources) Type 2 diabetes mellitus without complication; Translations: [Type 2 diabetes mellitus without complications] Onset: 06-17-2015 06-17-2015 Chronic Diabetes mellitus without complication (10 sources) Glycosuria; Translations: [Glycosuria] Onset: 02-26-2015 Episodic Esophageal disorders (17 sources) Gastroesophageal reflux disease; Translations: [Gastro-esophageal reflux disease without esophagitis] Onset: 12-13-2013 12-13-2013 Chronic Essential hypertension (20 sources) Hypertensive disorder; Translations: [Essential (primary) hypertension] Onset: 12-13-2013 02-21-2019 Chronic Fluid and electrolyte disorders (3 sources) Hypokalemia; Translations: [Hypokalemia] Episodic Genitourinary symptoms and ill-defined conditions (20 sources) Incomplete emptying of bladder; Translations: [Microscopic hematuria] Onset: 11-29-2022 04-01-2020 Episodic Hyperplasia of prostate (15 sources) Benign prostatic hypertrophy with outflow obstruction; Translations: [Benign prostatic hyperplasia with lower urinary tract symptoms] Onset: 07-28-2021 Chronic Lymphadenitis (1 source) Lymphadenopathy; Translations: [Enlarged lymph nodes, unspecified] 04-30-2021 Episodic Melanomas of skin (20 sources) Malignant melanoma of skin; Translations: [Malignant melanoma] 02-21-2019 Chronic Melanomas of skin (3 sources) History of malignant melanoma of the skin; Translations: [Personal history of malignant melanoma of skin] 05-04-2024 Episodic Neoplasms of unspecified nature or uncertain behavior (3 sources) Neoplasm of uncertain behavior of soft tissues; Translations: [Neoplasms of unspecified nature of bone, soft tissue, and skin] Episodic Other diseases of kidney and ureters (1 source) Urinary tract obstruction; Translations: [Other obstructive and reflux uropathy] Onset: 12-28-2022 Episodic Other hereditary and degenerative nervous system conditions (1 source) Essential tremor; Translations: [Essential tremor] Chronic Other hereditary and degenerative nervous system conditions (2 sources) Tremor; Translations: [Other specified forms of tremor] Chronic Other liver diseases (9 sources) Inflammatory disease of liver 02-21-2019 Chronic Other nervous system disorders (15 sources) Bilateral carpal tunnel syndrome; Translations: [Carpal tunnel syndrome, bilateral upper limbs] Onset: 03-07-2012 03-07-2012 Chronic Other non-traumatic joint disorders (2 sources) Pain in wrist; Translations: [Pain in right wrist] Episodic Other nutritional; endocrine; and metabolic disorders (15 sources) Gilbert's syndrome; 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] Onset: 05-18-2018 05-18-2018 Chronic Other screening for suspected conditions (not mental disorders or infectious disease) (13 sources) Raised prostate specific antigen; Translations: [Elevated prostate specific antigen [PSA]] Onset: 05-01-2018 02-21-2019 Episodic Other upper respiratory disease (1 source) Seasonal allergic rhinitis; Translations: [Other seasonal allergic rhinitis] Onset: 04-21-2017 Chronic Other upper respiratory disease (1 source) Other seasonal allergic rhinitis; Translations: [Other seasonal allergic rhinitis] Onset: 04-21-2017 Chronic Unclassified (2 sources) Parkinson's disease; Translations: [Parkinson's disease without dyskinesia or fluctuating manifestations (HCC)] 11-24-2023 Chronic Past or Other Problems Problem Classification Problem Date Documented Da te Episodic/Chronic Diseases of white blood cells (12 sources) Leukopenia; Translations: [Decreased white blood cell count, unspecified] Onset: 02-08-2012 Resolved: 12-13-2013 12-13-2013 Chronic Immunizations and screening for infectious disease (2 sources) Vaccination given; Translations: [Encounter for immunization] Onset: 04-21-2017 Episodic Other connective tissue disease (1 source) Acquired trigger finger; Translations: [Trigger finger] Onset: 12-23-2012 Episodic Other nutritional; endocrine; and metabolic disorders (2 sources) Body mass index 25-29 - overweight; Translations: [Body mass index 28.0-28.9, adult] Onset: 01-02-2016 Episodic Other nutritional; endocrine; and metabolic disorders (2 sources) Overweight; Translations: [Overweight] Onset: 01-02-2016 Episodic Other upper respiratory infections (3 sources) Acute maxillary sinusitis, unspecified; Translations: [Acute sinusitis] Onset: 03-22-2013 Episodic Unclassified (1 source) Trigger finger; Translations: [Trigger finger] Onset: 12-23-2012 Results Test Name Value Interpretation Reference Range Facility [facility] 05-03-2024 [facility] Visit (SP) Office ([facility]) STEPHAN MERCER ([id number]) 1950 M Date Time Provider Department 05/03/24 1:40 PM TREVOR LYNNE During your visit today, we recorded the following information about you: Temperature Pulse Respiration Blood pressure 97.3 degrees 48/minute 16/minute 158/86 Weight Height 83.2 kg 1.753 m Trevor Lynne MD 05/04/2024 7:20 AM Signed PATIENT NAME: Stephan Mercer DATE: 05/03/2024 PRIMARY CARE PHYSICIAN: Dr. Florencio Crowell OTHER PHYSICIANS: Dr. Michel, Dr. Kelsey, Dr. Huntley Portions of this encounter note have been copied from the note from 05/05/2023 and has been updated where appropriate, and reflect my current medical decision making from today. CC: This is a 73 year old male with a history of melanoma, seen for scheduled follow-up. INTERIM HISTORY: Since the patient's last visit here he was diagnosed with Parkinson's disease. He currently is on medications per [facility] neurology with improvement. He continues to have LUTS, stable on current medications per urology. He continues to follow with dermatology on yearly basis. Apparently he has been diagnosed with small areas of basal cell carcinoma, but has had no evidence of recurrent melanoma. Otherwise no new medical problems. Overall he feels well. MEDICATIONS: propranolol (INDERAL) 40 mg tablet Take 40 mg by mouth three times a day. diphenhydrAMINE (BENADRYL) 50 mg capsule Take 1 capsule by mouth as directed. Take one capsule 1 hour prior to scan carbidopa-levodopa (SINEMET) 25-100 mg per tablet Take 2 tablets by mouth three times a day. losartan-hydroCHLOROthi azide (HYZAAR) 50-12.5 mg per tablet Take 1 tablet by mouth once daily. FLUoxetine (PROZAC) 20 mg capsule POTASSIUM CHLORIDE [...] seizures or tremors. PHYSICAL EXAM: Vitals: BP 158/86 Pulse (!) 48 Temp 36.3 ?C (97.3 ?F) (Temporal) Resp 16 Ht 175.3 cm (5' 9.02 ) Wt 83.2 kg (183 lb 6.8 oz) SpO2 98% BMI 27.07 kg/m? ECOG 0 Exam limited to gross [...] rash, lesions, wounds or petechiae. RADIOLOGY/OTHER STUDIES: 04/26/2024 CT chest IMPRESSION: No metastatic disease in the chest. 04/26/2024 CT abdomen/pelvis IMPRESSION: No metastatic disease in the abdomen or pelvis. 05/02/2023 CT chest IMPRESSION: Stable CT examination [...] new abdominal or pelvic metastatic disease. 2. Cholelithiasi (more content not included)... Normal [facility] CBC W Auto Differential pane l (Bld)on 04-26-2024 Basophils (Bld) [#/Vol] [facility] Basophils/100 WBC (Bld) 0.0 % [facility] Differential cell count method Nom (Bld) Auto [facility] Eosinophils (Bld) [#/Vol] [facility] Eosinophils/100 WBC (Bld) 0.0 % [facility] Erythrocyte distribution width (RBC) [Ratio] 13.7 % 11.5 - 15.0 % [facility] Hematocrit (Bld) [Volume fraction] 43.6 % 39.0 - 51.0 % [facility] Hemoglobin (Bld) [Mass/Vol] 16.0 g/dL 13.0 - 17.0 g/dL [facility] Immature granulocytes (Bld) [#/Vol] [facility] Immature granulocytes/100 WBC (Bld) 0.3 % [facility] Interpretation and review of laboratory results Abnormal [facility] Lymphocytes (Bld) [#/Vol] 0.58 10*3/uL Low [facility] Lymphocytes/100 WBC (Bld) 9.6 % [facility] MCH (RBC) [Entitic mass] 30.9 pg 26.0 - 34.0 pg [facility] MCHC (RBC) [Mass/Vol] 36.7 g/dL High 30.5 - 36.0 g/dL [facility] MCV (RBC) [Entitic vol] 84.2 fL 80.0 - 100.0 fL [facility] Monocytes (Bld) [#/Vol] 0.04 10*3/uL [facility] Monocytes/100 WBC (Bld) 0.7 % [facility] Neutrophils (Bld) [#/Vol] 5.39 10*3/uL [facility] Neutrophils/100 WBC (Bld) 89.4 % [facility] Nucleated RBC (Bld) [#/Vol] NINF [facility] Nucleated RBC/100 WBC (Bld) [Ratio] 0.0 % /100 WBC [facility] Platelet mean volume (Bld) [Entitic vol] 10.7 fL 9.0 - 12.7 fL [facility] Platelets (Bld) [#/Vol] 201 10*3/uL [facility] RBC (Bld) [#/Vol] 5.18 10*6/uL 4.20 - 6.0 0 m/uL [facility] WBC (Bld) [#/Vol] 6.03 10*3/uL [facility] Basophils (Bld) [#/Vol] 10*3/uL Normal <0.11 [facility] Comment on above: Order Comment: Speci men Type: BLOOD SPECIMEN Ordering Facility: [facility] Address: [address] [place] [address] Performed By: #### 5 7021-8 #### [facility] CLIA [id number] [address] [place] [address] Basophils/100 WBC (Bld) 0.0 % Normal [facility] Comment on above: Order Comment: Speci men Type: BLOOD SPECIMEN Ordering Facility: [facility] Address: [address] [place] [address] Performed By: #### 5 7021-8 #### [facility] CLIA [id number] [address] [place] [address] Differential cell count method Nom (Bld) Auto Normal [facility] Comment on above: Order Comment: Speci men Type: BLOOD SPECIMEN Ordering Facility: [facility] Address: [address] [place] [address] Performed By: #### 5 7021-8 #### [facility] CLIA [id number] [address] [place] [address] Eosinophils (Bld) [#/Vol] 10*3/uL Normal <0.46 [facility] Comment on above: Order Comment: Speci men Type: BLOOD SPECIMEN Ordering Facility: [facility] Address: [address] [place] [address] Performed By: #### 5 7021-8 #### [facility] CLIA [id number] [address] [place] [address] Eosinophils/100 WBC (Bld) 0.0 % Normal [facility] Comment on above: Order Comment: Speci men Type: BLOOD SPECIMEN Ordering Facility: [facility] Address: [address] [place] [address] Performed By: #### 5 7021-8 #### [facility] CLIA [id number] [address] [place] [address] Erythrocyte distribution width (RBC) [Ratio] 13.7 % Normal 11.5-15.0 [facility] Comment on above: Order Comment: Speci men Type: BLOOD SPECIMEN Ordering Facility: [facility] Address: [address] [place] [address] Performed By: #### 5 7021-8 #### [facility] CLIA [id number] [address] [place] [address] Hematocrit (Bld) [Volume fraction] 43.6 % Normal 39.0-51.0 [facility] Comment on above: Order Comment: Speci men Type: BLOOD SPECIMEN Ordering Facility: [facility] Address: [address] [place] [address] Performed By: #### 5 7021-8 #### [facility] CLIA [id number] [address] [place] [address] Hemoglobin (Bld) [Mass/Vol] 16.0 g/dL Normal 13.0-17.0 [facility] Comment on above: Order Comment: Speci men Type: BLOOD SPECIMEN Ordering Facility: [facility] Address: [address] [place] [address] Performed By: #### 5 7021-8 #### [facility] CLIA [id number] [address] [place] [address] Immature granulocytes (Bld) [#/Vol] 10*3/uL Normal <0.10 [facility] Comment on above: Order Comment: Speci men Type: BLOOD SPECIMEN Ordering Facility: [facility] Address: [address] [place] [address] Performed By: #### 5 7021-8 #### [facility] CLIA [id number] [address] [place] [address] Immature granulocytes/100 WBC (Bld) 0.3 % Normal [facility] Comment on above: Order Comment: Speci men Type: BLOOD SPECIMEN Ordering Facility: [facility] Address: [address] [place] [address] Performed By: #### 5 7021-8 #### [facility] CLIA [id number] [address] [place] [address] Lymphocytes (Bld) [#/Vol] 0.58 10*3/uL Low 1.00-4.00 [facility] Comment on above: Order Comment: Speci men Type: BLOOD SPECIMEN Ordering Facility: [facility] Address: [address] [place] [address] Performed By: #### 5 7021-8 #### [facility] CLIA [id number] [address] [place] [address] Lymphocytes/100 WBC (Bld) 9.6 % Normal [facility] Comment on above: Order Comment: Speci men Type: BLOOD SPECIMEN Ordering Facility: [facility] Address: [address] [place] [address] Performed By: #### 5 7021-8 #### [facility] CLIA [id number] [address] [place] [address] MCH (RBC) [Entitic mass] 30.9 pg Normal 26.0-34.0 [facility] Comment on above: Order Comment: Speci men Type: BLOOD SPECIMEN Ordering Facility: [facility] Address: [address] [place] [address] Performed By: #### 5 7021-8 #### [facility] CLIA [id number] [address] [place] [address] 77806 MCHC (RBC) [Mass/Vol] 36.7 g/dL High 30.5-36.0 [facility] Comment on above: Order Comment: Speci men Type: BLOOD SPECIMEN Ordering Facility: [facility] Address: [address] [place] [address] Performed By: #### 5 7021-8 #### [facility] CLIA [id number] [address] [place] [address] 78132 MCV (RBC) [Entitic vol] 84.2 fL Normal 80.0-100.0 [facility] Comment on above: Order Comment: Speci men Type: BLOOD SPECIMEN Ordering Facility: [facility] Address: [address] [place] [address] Performed By: #### 5 7021-8 #### [facility] CLIA [id number] [address] [place] [address] 12140 Monocytes (Bld) [#/Vol] 0.04 10*3/uL Normal <0.87 [facility] Comment on above: Order Comment: Speci men Type: BLOOD SPECIMEN Ordering Facility: [facility] Address: [address] [place] [address] Performed By: #### 5 7021-8 #### [facility] CLIA [id number] [address] [place] [address] 06989 Monocytes/100 WBC (Bld) 0.7 % Normal [facility] Comment on above: Order Comment: Speci men Type: BLOOD SPECIMEN Ordering Facility: [facility] Address: [address] [place] [address] Performed By: #### 5 7021-8 #### [facility] CLIA [id number] [address] [place] [address] 69859 Neutrophils (Bld) [#/Vol] 5.39 10*3/uL Normal 1.45-7.50 [facility] Comment on above: Order Comment: Speci men Type: BLOOD SPECIMEN Ordering Facility: [facility] Address: [address] [place] [address] Performed By: #### 5 7021-8 #### [facility] CLIA [id number] [address] [place] [address] Neutrophils/100 WBC (Bld) 89.4 % Normal [facility] Comment on above: Order Comment: Speci men Type: BLOOD SPECIMEN Ordering Facility: [facility] Address: [address] [place] [id number] Performed By: #### 5 7021-8 #### [facility] CLIA [id number] [address] [place] [address] Nucleated RBC (Bld) [#/Vol] 10*3/uL Normal <0.01 [facility] Comment on above: Order Comment: Speci men Type: BLOOD SPECIMEN Ordering Facility: [facility] Address: [address] [place] [address] Performed By: #### 5 7021-8 #### [facility] CLIA [id number] [address] [place] [address] 40309 Nucleated RBC/100 WBC (Bld) [Ratio] 0.0 /100 WBC Normal [facility] Comment on above: Order Comment: Speci men Type: BLOOD SPECIMEN Ordering Facility: [facility] Address: [address] [place] [address] Performed By: #### 5 7021-8 #### [facility] CLIA [id number] [address] [place] [address] Platelet mean volume (Bld) [Entitic vol] 10.7 fL Normal 9.0-12.7 [facility] Comment on above: Order Comment: Speci men Type: BLOOD SPECIMEN Ordering Facility: [facility] Address: [address] [place] [address] Performed By: #### 5 7021-8 #### [facility] CLIA [id number] [address] [place] [address] 97240 Platelets (Bld) [#/Vol] 201 10*3/uL Normal 150-400 [facility] Comment on above: Order Comment: Speci men Type: BLOOD SPECIMEN Ordering Facility: [facility] Address: [address] [place], [place] [address] Performed By: #### 5 7021-8 #### [facility] CLIA [id number] [address] [place] [address] 33366 RBC (Bld) [#/Vol] 5.18 10*6/uL Normal 4.20-6.00 [facility] Comment on above: Order Comment: Speci men Type: BLOOD SPECIMEN Ordering Facility: [facility] Address: [address] [place], [place] [address] Performed By: #### 5 7021-8 #### [facility] CLIA [id number] [address] [place] [address] 26390 WBC (Bld) [#/Vol] 6.03 10*3/uL Normal 3.70-11.00 [facility] Comment on above: Order Comment: Speci men Type: BLOOD SPECIMEN Ordering Facility: [facility] Address: [address] [place], [place] [address] Performed By: #### 5 7021-8 #### [facility] CLIA [id number] [address] [place] [address] ABD/PEL W IVCONon 025 CT ABD/PEL W IVCON * * *Final Report* * * DATE OF EXAM: Apr 26 2024 11:16AM [facility] 0530 - CT ABD/PEL W IVCON / PROCEDURE REASON: Malignant melanoma of skin (HCC) * * * * Physician Interpretation * * * * RESULT: EXAMINATION: CT ABDOMEN AND PELVIS WITH IV CONTRAST PATIENT/TECHNOLOGIST PROVIDED HISTORY: Melanoma CLINICAL INFORMATION ( PROVIDED BY ORDERING CLINICIAN) : Malignant melanoma of skin (HCC) TECHNIQUE: CT of the abdomen and pelvis was performed using standard technique, scanning from just above the dome of the diaphragm to the pubic symphysis. . Contrast: IV: 100 ml of Omnipaque 350 Oral: 500 ml of Omni 240 10-25ml diluted with water CT Radiation dose: Integrated Dose-length product (DLP) for this visit = 875 mGy*cm. CT Dose Reduction Employed: Automated exposure control (AEC) COMPARISON: 05/02/2023 Abdomen / Pelvis: Liver: Unchanged subcentimeter low-attenuation lesion in the right hepatic lobe likely benign given stability. Spleen: Unchanged subcentimeter low-attenuation lesion in the spleen. Pancreas: No focal pancreatic lesions. Adrenals: No mass. Biliary: No bile duct dilation. Cholelithiasis. Kidneys: Symmetric nephrograms bilaterally without hydronephrosis. Unchanged low-attenuation lesion lower pole left kidney likely a cyst. Vasculature: The celiac axis and SMA are patent. The portal vein and branches, splenic vein, SMV, and hepatic veins are patent. Abdominal aorta is normal in caliber. GI tract: No bowel obstruction. Normal appendix. Lymph nodes: No lymphadenopathy by CT size criteria. Mesentery/Peritoneum: No ascites, fluid collection, or mass. Pelvis: Enlarged prostate gland. Urinary bladder is unremarkable. Bones/Soft tissues: Degenerative changes in lumbar spine. No aggressive osseous lesions. Diastases of the rectus abdominis muscles. Lower thorax: Dedicated CT imaging of the chest was performed concurrently and is dictated separately. Mails Supervisor (topogram) images: Unremarkable. IMPRESSION: No metastatic disease in the abdomen or pelvis. Transcribe Date/Time: Apr 26 2024 12:57P Dictated by: JEVON PHILIPPE MD This examination was interpreted and the report reviewed and electronically signed by: JEVON PHILIPPE MD on Apr 26 2024 1:27PM EST Thank you for allowing us to participate in the care of your patient. Should there be any questions regarding this interpretation, please call [phone]. If you are unable to reach us at the number above, please feel free to contact [facility] at [phone]. [id number] Normal [facility] CT Abdomen and Pelvis W cont rast Jorge 04-26-2024 IMPRESSION: No metastatic disease in the abdomen or pelvis. Transcribe Date/Time: Apr 26 2024 12:57P Dictated by: JEVON PHILIPPE MD This examination was interpreted and the report reviewed and electronically signed by: JEVON PHILIPPE MD on Apr 26 2024 1:27PM EST Thank you for allowing us to participate in the care of your patient. Should there be any questions regarding this interpretation, please call [phone]. If you are unable to reach us at the number above, please feel free to contact [facility] at [phone]. DIVISION OF RADIOLOGY * * *Final Report* * * DATE OF EXAM: Apr 26 2024 11:16AM [facility] 0530 - CT ABD/PEL W IVCON / PROCEDURE REASON: Malignant melanoma of skin (HCC) * * * * Physician Interpretation * * * * RESULT: EXAMINATION: CT ABDOMEN AND PELVIS WITH IV CONTRAST PATIENT/TECHNOLOGIST PROVIDED HISTORY: Melanoma CLINICAL INFORMATION ( PROVIDED BY ORDERING CLINICIAN) : Malignant melanoma of skin (HCC) TECHNIQUE: CT of the abdomen and pelvis was performed using standard technique, scanning from just above the dome of the diaphragm to the pubic symphysis. . Contrast: IV: 100 ml of Omnipaque 350 Oral: 500 ml of Omni 240 10-25ml diluted with water CT Radiation dose: Integrated Dose-length product (DLP) for this visit = 875 mGy*cm. CT Dose Reduction Employed: Automated exposure control (AEC) COMPARISON: 05/02/2023 Abdomen / Pelvis: Liver: Unchanged subcentimeter low-attenuation lesion in the right hepatic lobe likely benign given stability. Spleen: Unchanged subcentimeter low-attenuation lesion in the spleen. Pancreas: No focal pancreatic lesions. Adrenals: No mass. Biliary: No bile duct dilation. Cholelithiasis. Kidneys: Symmetric nephrograms bilaterally without hydronephrosis. Unchanged low-attenuation lesion lower pole left kidney likely a cyst. Vasculature: The celiac axis and SMA are patent. The portal vein and branches, splenic vein, SMV, and hepatic veins are patent. Abdominal aorta is normal in caliber. GI tract: No bowel obstruction. Normal appendix. Lymph nodes: No lymphadenopathy by CT size criteria. Mesentery/Peritoneum: No ascites, fluid collection, or mass. Pelvis: Enlarged prostate gland. Urinary bladder is unremarkable. Bones/Soft tissues: Degenerative changes in lumbar spine. No aggressive osseous lesions. Diastases of the rectus abdominis muscles. Lower thorax: Dedicated CT imaging of the chest was performed concurrently and is dictated separately. Mails Supervisor (topogram) images: Unremarkable. DIVISION OF RADIOLOGY Provider, [facility] - 04/26/2024 * * *Final Report* * * DATE OF EXAM: Apr 26 2024 11:16AM [facility] 0530 - CT ABD/PEL W IVCON / PROCEDURE REASON: Malignant melanoma of skin (HCC) * * * * Physician Interpretation * * * * RESULT: EXAMINATION: CT ABDOMEN AND PELVIS WITH IV CONTRAST PATIENT/TECHNOLOGIST PROVIDED HISTORY: Melanoma CLINICAL INFORMATION ( PROVIDED BY ORDERING CLINICIAN) : Malignant melanoma of skin (HCC) TECHNIQUE: CT of the abdomen and pelvis was performed using standard technique, scanning from just above the dome of the diaphragm to the pubic symphysis. . Contrast: IV: 100 ml of Omnipaque 350 Oral: 500 ml of Omni 240 10-25ml diluted with water CT Radiation dose: Integrated Dose-length product (DLP) for this visit = 875 mGy*cm. CT Dose Reduction Employed: Automated exposure control (AEC) COMPARISON: 05/02/2023 Abdomen / Pelvis: Liver: Unchanged subcentimeter low-attenuation lesion in the right hepatic lobe likely benign given stability. Spleen: Unchanged subcentimeter low-attenuation lesion in the spleen. Pancreas: No focal pancreatic lesions. Adrenals: No mass. Biliary: No bile duct dilation. Cholelithiasis. Kidneys: Symmetric nephrograms bilaterally without hydronephrosis. Unchanged low-attenuation lesion lower pole left kidney likely a cyst. Vasculature: The celiac axis and SMA are patent. The portal vein and branches, splenic vein, SMV, and hepatic veins are patent. Abdominal aorta is normal in caliber. GI tract: No bowel obstruction. Normal appendix. Lymph nodes: No lymphadenopathy by CT size criteria. Mesentery/Peritoneum: No ascites, fluid collection, or mass. Pelvis: Enlarged prostate gland. Urinary bladder is unremarkable. Bones/Soft tissues: Degenerative changes in lumbar spine. No aggressive osseous lesions. Diastases of the rectus abdominis muscles. Lower thorax: Dedicated CT imaging of the chest was performed concurrently and is dictated separately. Mails Supervisor (topogram) images: Unremarkable. IMPRESSION IMPRESSION: No metastatic disease in the abdomen or pelvis. Transcribe Date/Time: Apr 26 2024 12:57P Dictated by: JEVON PHILIPPE MD This examination was interpreted and the report reviewed and electronically signed by: JEVON PHILIPPE MD on Apr 26 2024 1:27PM EST Thank you for allowing us to participate in the care of your patient. Should there be any questions regarding this interpretation, please call [phone]. If you are unable to reach us at the number above, please feel free to contact [facility] at [phone]. [facility] CT Abdomen and Pelvis W cont rast IVOrdered By: [facility] Provider on 04-26-[address] [facility] [address] CHEST W IVCONon CT CHEST W IVCON * * *Final Report* * * DATE OF EXAM: Apr 26 2024 11:16AM [facility] 0539 - CT CHEST W IVCON / PROCEDURE REASON: Malignant melanoma of skin (HCC) * * * * Physician Interpretation * * * * RESULT: EXAMINATION: CHEST CT WITH CONTRAST CLINICAL HISTORY: Malignant melanoma of skin (HCC) Technique: Spiral CT acquisition of the chest from the thoracic inlet to the upper abdomen following IV contrast. MQ: CTCWR_5 Contrast: 100 mL Omnipaque [address] Dose-Length Product: 875 mGy*cm CT Dose Reduction Employed: Automated exposure control (AEC) Comparison: 05/02/2023 RESULT: Lines, tubes, and devices: None. Lung parenchyma and airways: Trachea and central airways are patent. No consolidative opacity. No suspicious appearing pulmonary nodules. Pleural space: No pleural effusion or pneumothorax. Lower neck, lymph nodes, and mediastinum: No axillary, supraclavicular, mediastinal or hilar lymphadenopathy by CT size criteria. Heart, pericardium, and thoracic vessels: The heart is normal in size. No pericardial effusion. The thoracic aorta and main pulmonary artery are normal in caliber. Atherosclerotic calcifications of the thoracic aorta and coronary arteries. Bones/Soft Tissues: No aggressive osseous lesions. Upper abdomen: Dedicated CT imaging of the abdomen and pelvis was performed concurrently and is dictated separately. Mails Supervisor (topogram) images: Unremarkable. IMPRESSION: No metastatic disease in the chest. Transcribe Date/Time: Apr 26 2024 12:33P Dictated by: JEVON PHILIPPE MD This examination was interpreted and the report reviewed and electronically signed by: JEVON PHILIPPE MD on Apr 26 2024 12:55PM EST Thank you for allowing us to participate in the care of your patient. Should there be any questions regarding this interpretation, please call [phone]. If you are unable to reach us at the number above, please feel free to contact [facility] at [phone]. [id number] Normal [facility] CT Chest W contrast Jorge IMPRESSION: No metastatic disease in the chest. Transcribe Date/Time: Apr 26 2024 12:33P Dictated by: JEVON PHILIPPE MD This examination was interpreted and the report reviewed and electronically signed by: JEVON PHILIPPE MD on Apr 26 2024 12:55PM EST Thank you for allowing us to participate in the care of your patient. Should there be any questions regarding this interpretation, please call [phone]. If you are unable to reach us at the number above, please feel free to contact [facility] at [phone]. DIVISION OF RADIOLOGY * * *Final Report* * * DATE OF EXAM: Apr 26 2024 11:16AM [facility] 0539 - CT CHEST W IVCON / PROCEDURE REASON: Malignant melanoma of skin (HCC) * * * * Physician Interpretation * * * * RESULT: EXAMINATION: CHEST CT WITH CONTRAST CLINICAL HISTORY: Malignant melanoma of skin (HCC) Technique: Spiral CT acquisition of the chest from the thoracic inlet to the upper abdomen following IV contrast. MQ: CTCWR_5 Contrast: 100 mL Omnipaque [address] Dose-Length Product: 875 mGy*cm CT Dose Reduction Employed: Automated exposure control (AEC) Comparison: 05/02/2023 RESULT: Lines, tubes, and devices: None. Lung parenchyma and airways: Trachea and central airways are patent. No consolidative opacity. No suspicious appearing pulmonary nodules. Pleural space: No pleural effusion or pneumothorax. Lower neck, lymph nodes, and mediastinum: No axillary, supraclavicular, mediastinal or hilar lymphadenopathy by CT size criteria. Heart, pericardium, and thoracic vessels: The heart is normal in size. No pericardial effusion. The thoracic aorta and main pulmonary artery are normal in caliber. Atherosclerotic calcifications of the thoracic aorta and coronary arteries. Bones/Soft Tissues: No aggressive osseous lesions. Upper abdomen: Dedicated CT imaging of the abdomen and pelvis was performed concurrently and is dictated separately. Mails Supervisor (topogram) images: Unremarkable. DIVISION OF RADIOLOGY Provider, [facility] - 04/26/2024 * * *Final Report* * * DATE OF EXAM: Apr 26 2024 11:16AM [facility] 0539 - CT CHEST W IVCON / PROCEDURE REASON: Malignant melanoma of skin (HCC) * * * * Physician Interpretation * * * * RESULT: EXAMINATION: CHEST CT WITH CONTRAST CLINICAL HISTORY: Malignant melanoma of skin (HCC) Technique: Spiral CT acquisition of the chest from the thoracic inlet to the upper abdomen following IV contrast. MQ: CTCWR_5 Contrast: 100 mL Omnipaque [address] Dose-Length Product: 875 mGy*cm CT Dose Reduction Employed: Automated exposure control (AEC) Comparison: 05/02/2023 RESULT: Lines, tubes, and devices: None. Lung parenchyma and airways: Trachea and central airways are patent. No consolidative opacity. No suspicious appearing pulmonary nodules. Pleural space: No pleural effusion or pneumothorax. Lower neck, lymph nodes, and mediastinum: No axillary, supraclavicular, mediastinal or hilar lymphadenopathy by CT size criteria. Heart, pericardium, and thoracic vessels: The heart is normal in size. No pericardial effusion. The thoracic aorta and main pulmonary artery are normal in caliber. Atherosclerotic calcifications of the thoracic aorta and coronary arteries. Bones/Soft Tissues: No aggressive osseous lesions. Upper abdomen: Dedicated CT imaging of the abdomen and pelvis was performed concurrently and is dictated separately. Mails Supervisor (topogram) images: Unremarkable. IMPRESSION IMPRESSION: No metastatic disease in the chest. Transcribe Date/Time: Apr 26 2024 12:33P Dictated by: JEVON PHILIPPE MD This examination was interpreted and the report reviewed and electronically signed by: JEVON PHILIPPE MD on Apr 26 2024 12:55PM EST Thank you for allowing us to participate in the care of your patient. Should there be any questions regarding this interpretation, please call [phone]. If you are unable to reach us at the number above, please feel free to contact [facility] at [phone]. [facility] Comprehensive metabolic 2000 panelOrdered By: Shannan Umanzor on 04-26-2024 Albumin [Mass/Vol] 4.8 g/dL 3.9 - 4.9 g/dL [facility] ALP [Catalytic activity/Vol] 132 U/L High 38 - 113 U/L [facility] ALT [Catalytic activity/Vol] U/L Low 10 - 54 U/L [facility] Anion gap [Moles/Vol] 10 mmol/L 8 - 15 mmol/L [facility] AST [Catalytic activity/Vol] 11 U/L Low 14 - 40 U/L [facility] Bilirubin [Mass/Vol] 2.1 mg/dL High 0.2 - 1 .3 mg/dL [facility] Calcium [Mass/Vol] 9.8 mg/dL 8.5 - 10. 2 mg/dL [facility] Chloride [Moles/Vol] 99 mmol/L 98 - 10 7 mmol/L [facility] CO2 [Moles/Vol] 28 mmol/L 22 - 30 mmol/L [facility] Creatinine [Mass/Vol] 0.76 mg/dL 0.73 - 1.22 mg/dL [facility] GFR/1.73 sq M.predicted among non-blacks MDRD (S/P/Bld) [Vol rate/Area] 95 mL/min/{1.73_m2} - PINF [facility] Comment on above: Estimated Glomerular Filtration Rate (eGFR) is calculated using the 2020 CKD-EPI creatinine equation. This equation utilizes serum creatinine, sex, and age as parameters. The creatinine assay has traceable calibration to isotope dilution-mass spectrometry. Refer to KDIGO guidelines for clinical interpretation. In patients with unstable renal function, e.g. those with acute kidney injury, the eGFR may not accurately reflect actual GFR. Glucose [Mass/Vol] 154 mg/dL High 74 - 99 mg/dL [facility] Comment on above: The [place] Diab[employer] s Association (ADA) provides guidance for cutoff values [...] Standards of Medical Care in Diabetes 2016, [place] [employer]. Diabetes Care. 2016.39(Suppl 1). Interpretation and review of laboratory results Abnormal [facility] Potassium [Moles/Vol] 3.9 mmol/L 3.7 - 5.1 mmol/L [facility] Protein [Mass/Vol] 7.9 g/dL 6.3 - 8.0 g/dL [facility] Sodium [Moles/Vol] 137 mmol/L 136 - 144 mmol/L [facility] Urea nitrogen [Mass/Vol] 16 mg/dL 9 - 24 mg/dL [facility] Comprehensive metabolic 2000 panelon 04-26-2024 Albumin [Mass/Vol] 4.8 g/dL Normal 3.9-4.9 [facility] Comment on above: Order Comment: Speci men Type: BLOOD SPECIMEN Ordering Facility: [facility] Address: [address] [place] [address] Performed By: #### 2 4323-8 #### [facility] CLIA [id number] [address] [place] [address] ALP [Catalytic activity/Vol] 132 U/L High 38-113 [facility] Comment on above: Order Comment: Speci men Type: BLOOD SPECIMEN Ordering Facility: [facility] Address: [address] [place] [address] Performed By: #### 2 4323-8 #### [facility] CLIA [id number] [address] [place] [address] ALT [Catalytic activity/Vol] U/L Low 10-54 [facility] Comment on above: Order Comment: Speci men Type: BLOOD SPECIMEN Ordering Facility: [facility] Address: [address] [place] [address] Performed By: #### 2 4323-8 #### [facility] CLIA [id number] [address] [place] [address] Anion gap [Moles/Vol] 10 mmol/L Normal 8-15 [facility] Comment on above: Order Comment: Speci men Type: BLOOD SPECIMEN Ordering Facility: [facility] Address: [address] [place] [address] Performed By: #### 2 4323-8 #### [facility] CLIA [id number] [address] [place] [address] AST [Catalytic activity/Vol] 11 U/L Low 14-40 [facility] Comment on above: Order Comment: Speci men Type: BLOOD SPECIMEN Ordering Facility: [facility] Address: [address] [id number] Performed By: #### 2 4323-8 #### [facility] CLIA [id number] [address] [place] [address] Bilirubin [Mass/Vol] 2.1 mg/dL High 0.2-1.3 [place] Comment on above: Order Comment: Speci men Type: BLOOD SPECIMEN Ordering Facility: [facility] Address: [address] [place] [address] Performed By: #### 2 4323-8 #### [facility] CLIA [id number] [address] [place] [address] Calcium [Mass/Vol] 9.8 mg/dL Normal 8.5-10.2 [facility] Comment on above: Order Comment: Speci men Type: BLOOD SPECIMEN Ordering Facility: [facility] Address: [address] [place] [address] Performed By: #### 2 4323-8 #### [facility] CLIA [id number] [address] [place] [address] Chloride [Moles/Vol] 99 mmol/L Normal 98-107 [place] Comment on above: Order Comment: Speci men Type: BLOOD SPECIMEN Ordering Facility: [facility] Address: [address] [id number] Performed By: #### 2 4323-8 #### [facility] CLIA [id number] [address] [place] [address] CO2 [Moles/Vol] 28 mmol/L Normal 22-30 [facility] Comment on above: Order Comment: Speci men Type: BLOOD SPECIMEN Ordering Facility: [facility] Address: [address] [place] [address] Performed By: #### 2 4323-8 #### [facility] CLIA [id number] [address] [place] [address] Creatinine [Mass/Vol] 0.76 mg/dL Normal 0.73-1.22 [facility] Comment on above: Order Comment: Speci men Type: BLOOD SPECIMEN Ordering Facility: [facility] Address: [address] [place] [address] Performed By: #### 2 4323-8 #### [facility] CLIA [id number] [address] [place] [address] Creatinine and Glomerular filtration rate.predicted panel (S/P/Bld) 95 mL/min/1.73m??? Normal >=60 [facility] Comment on above: Order Comment: Speci men Type: BLOOD SPECIMEN Ordering Facility: [facility] Address: [address] [place] [address] Result Comment: Tammy mated Glomerular Filtration Rate [...] GFR. Performed By: #### 2 4323-8 #### [facility] CLIA [id number] [address] [place] [address] Glucose [Mass/Vol] 154 mg/dL High 74-99 [facility] Comment on above: Order Comment: Speci men Type: BLOOD SPECIMEN Ordering Facility: [facility] Address: [address] [place] [address] Result Comment: The [place] Diabetes Association (ADA) provides guidance for cutoff [...] Standards of Medical Care in Diabetes 2016, [place] [employer]. Diabetes Care. 2016.39(Suppl 1). Performed By: #### 2 4323-8 #### [facility] CLIA [id number] [address] [place] [address] Potassium [Moles/Vol] 3.9 mmol/L Normal 3.7-5.1 [facility] Comment on above: Order Comment: Speci men Type: BLOOD SPECIMEN Ordering Facility: [facility] Address: [address] [place] [address] Performed By: #### 2 4323-8 #### [facility] CLIA [id number] [address] [place] [address] Protein [Mass/Vol] 7.9 g/dL Normal 6.3-8.0 [facility] Comment on above: Order Comment: Katiei yessy Type: BLOOD SPECIMEN Ordering Facility: [facility] Address: [address] [place], [place] [address] Performed By: #### 2 4323-8 #### [facility] CLIA [id number] [address] [place] [address] Sodium [Moles/Vol] 137 mmol/L Normal 136-144 [facility] Comment on above: Order Comment: Katiei men Type: BLOOD SPECIMEN Ordering Facility: [facility] Address: [address] [place] [address] Performed By: #### 2 4323-8 #### [facility] CLIA [id number] [address] [place] [address] Urea nitrogen [Mass/Vol] 16 mg/dL Normal 9-24 [facility] Comment on above: Order Comment: Speci men Type: BLOOD SPECIMEN Ordering Facility: [facility] Address: [address] [place] [address] Performed By: #### 2 4323-8 #### [facility] CLIA [id number] [address] [place] [address] No Panel Informationon 04-26 Radiology Study observation (narrative) [facility] Office Visiton 04-09-2024 Follow-up visit [id number] Stephan Mercer 1950 M Date Provider Department Center 04/09/2024 271-ASIA MALLOY [facility] Family History Problem Relation Age of Onset No Known Problems Mother No Known Problems Father Family Status - Relation Status Age at Mother Father Level of Service:48715 CT OFFICE/OUTPATIENT ESTABLISHED LOW MDM 20 MIN Normal [facility] CNPNon 03-20-2024 CNPN Telephone (HEMTSA) STEPHAN MERCER ([id number]) 1950 M Date Time Provider Department 03/20/24 MARIA TERESA MIKE HEMTSA During your visit today, we recorded the following information about you: Maria Teresa Mike RN 03/20/2024 2:14 PM Signed Patient is scheduled for CT scan and has allergy to Iodine. Please review pre medications and sign. Thanks! Maria Teresa Mike RN Allergies As of Date: 03/20/2024 Noted Allergy Reaction IODINE 02/08/2012 2 - Rash Date Reviewed: 11/27/2023 Reviewed by: Humza Dominguez PA-C - Fully Assessed Reason for Visit: Orders [681] Order(s):predniSONE (DELTASONE) 50 mgTake one tab 13 hours prior to scan, take one tab 7 hours prior to scan and take one tab 1 hour prior to scanDisp: 3 tabletRfl: 0 diphenhydrAMINE (BENADRYL) 50 mg capsuleTake 1 capsule by mouth as directed. Take one capsule 1 hour prior to scanDisp: 1 capsuleRfl: 0 Prescriptions as of 03/28/2024 - predniSONE (DELTASONE) 50 mg Take one tab 13 hours prior to scan, take one tab 7 hours prior to scan and take one tab 1 hour prior to scan - diphenhydrAMINE (BENADRYL) 50 mg capsule Take 1 capsule by mouth as directed. Take one capsule 1 hour prior to scan - carbidopa-levodopa (SINEMET) 25-100 mg per tablet Take 2 tablets by mouth three times a day. - diphenhydrAMINE (BENADRYL) 50 mg capsule Take 1 capsule by mouth as directed for 1 dose. one (1) hour prior to exam. - losartan-hydroCHLOROthi azide (HYZAAR) 50-12.5 mg per tablet Take 1 tablet by mouth once daily. - predniSONE (DELTASONE) 50 mg Take 1 [...] once daily. Problem List As Of Date 03/20/2024 Noted Resolved Leukopenia [D72.819] 02/08/2012 12/13/2013 Carpal tunnel syndrome on both sides [G56.03] 03/07/2012 Melanoma [C43.9] Hypertension [I10] 12/13/2013 GERD (gastroesophageal reflux disease) [K21.9] 12/13/2013 Type 2 diabetes mellitus without complication (*06/17/2015 Gilbert's syndrome [E80.4] 05/18/2018 Prescriptions ordered this encounter Disp Refills Start End PREDNISONE 50 MG TABLET 3 ta* 0 03/20/2024 Sig: Take one tab 13 hours prior to scan, take one tab 7 hours prior to scan and take one tab 1 hour prior to scan DIPHENHYDRAMINE 50 MG CAPSULE 1 ca* 0 03/20/2024 Route: ORAL Sig: Take 1 capsule by mouth as directed. Take one capsule 1 hour prior to scan Encounter Status:Closed by MARIA TERESA MIKE on 03/28/24 Normal [facility] Reminderson 03-06-2024 Reminders Reminders From: Rosa Lacey To: EU - Recalls Kelsey; Sent: 03/06/2024 10:31:36 EST Show up: 02/16/2025 10:31:00 EDT Subject: Cysto/FISH/cytol Due Date/Time: 03/11/2025 10:31:00 EST Reminder/Recall Patient is due in Apr 2025 for 1 year cysto/fish/.cytol (bt ck) Normal [facility] NM BRAIN TREMOR SPECT/CTon 0 11-17-2023 NM BRAIN TREMOR SPECT/CT * * *Final Report* * * DATE OF EXAM: Nov 17 2023 1:36PM [facility] 0088 - NM BRAIN TREMOR SPECT/CT / PROCEDURE REASON: Tremor * * * * Physician Interpretation * * * * EXAMINATION: DOPAMINE ACTIVE TRANSPORTER SCAN (DaTscan) CLINICAL HISTORY: Tremor. Parkinsonian symptoms TECHNIQUE: Patient medications and allergies were reviewed prior to the exam. Thyroid blockade administered orally at least 15 minutes prior to radiotracer injection. 5.3 mCi of I-123 Ioflupane administered IV followed by brain SPECT imaging approximately 3.5 to 4 hours later. Low dose, non-contrast CT of the same body region obtained for attenuation correction and anatomic localization. Note, this CT is not designed to produce or replace diagnostic CT quality. * CT Dose-Length Product (DLP): 334 mGy*cm * CT Dose Reduction Employed: Yes REFERENCE: Bonny DUFFY, et al. Accurate differentiation of parkinsonism and essential tremor using visual assessment of [123I]-FP-CIT SPECT imaging: The [123I]-FP-CIT study group. Movement Disorders. 2000;15(3):503-510. CORRELATION: No relevant imaging available RESULT: Caudate nuclei uptake: Symmetric * Right caudate: Within normal limits * Left caudate: Within normal limits [place]amina uptake: Asymmetric * Right anterior putamen: Abnormally reduced * Right posterior putamen: Abnormally reduced * Left anterior putamen: Abnormally reduced * Left posterior putamen: Abnormally reduced Localization CT: No significant incidental findings. Mails Supervisor (topogram) images: No significant findings. IMPRESSION: Abnormal exam. 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 Court Interpreter: [facility] Transcribe Date/Time: Nov 17 2023 3:29P Dictated by : NEGAR DURAN MD This examination was interpreted and the report reviewed and electronically signed by: NEHAL MCKENZIE MD on Nov 17 2023 4:20PM EST [id number] Normal [facility] SPECT Brainon 11-17-2023 IMPRESSION: Abnormal exam. 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 Court Interpreter: [facility] Transcribe Date/Time: Nov 17 2023 3:29P Dictated by : NEGAR DURAN MD This examination was interpreted and the report reviewed and electronically signed by: NEHAL MCKENZIE MD on Nov 17 2023 4:20PM EST DIVISION OF RADIOLOGY * * *Final Report* * * DATE OF EXAM: Nov 17 2023 1:36PM [facility] 0088 - NM BRAIN TREMOR SPECT/CT / PROCEDURE REASON: Tremor * * * * Physician Interpretation * * * * EXAMINATION: DOPAMINE ACTIVE TRANSPORTER SCAN (DaTscan) CLINICAL HISTORY: Tremor. Parkinsonian symptoms TECHNIQUE: Patient medications and allergies were reviewed prior to the exam. Thyroid blockade administered orally at least 15 minutes prior to radiotracer injection. 5.3 mCi of I-123 Ioflupane administered IV followed by brain SPECT imaging approximately 3.5 to 4 hours later. Low dose, non-contrast CT of the same body region obtained for attenuation correction and anatomic localization. Note, this CT is not designed to produce or replace diagnostic CT quality. * CT Dose-Length Product (DLP): 334 mGy*cm * CT Dose Reduction Employed: Yes REFERENCE: Bonny DUFFY, et al. Accurate differentiation of parkinsonism and essential tremor using visual assessment of [123I]-FP-CIT SPECT imaging: The [123I]-FP-CIT study group. Movement Disorders. 2000;15(3):503-510. CORRELATION: No relevant imaging available RESULT: Caudate nuclei uptake: Symmetric * Right caudate: Within normal limits * Left caudate: Within normal limits Putamina uptake: Asymmetric * Right anterior putamen: Abnormally reduced * Right posterior putamen: Abnormally reduced * Left anterior putamen: Abnormally reduced * Left posterior putamen: Abnormally reduced Localization CT: No significant incidental findings. Mails Supervisor (topogram) images: No significant findings. DIVISION OF RADIOLOGY Provider, iWng Mora - 11/17/2023 * * *Final Report* * * DATE OF EXAM: Nov 17 2023 1:36PM [facility] 0088 - NM BRAIN TREMOR SPECT/CT / PROCEDURE REASON: Tremor * * * * Physician Interpretation * * * * EXAMINATION: DOPAMINE ACTIVE TRANSPORTER SCAN (DaTscan) CLINICAL HISTORY: Tremor. Parkinsonian symptoms TECHNIQUE: Patient medications and allergies were reviewed prior to the exam. Thyroid blockade administered orally at least 15 minutes prior to radiotracer injection. 5.3 mCi of I-123 Ioflupane administered IV followed by brain SPECT imaging approximately 3.5 to 4 hours later. Low dose, non-contrast CT of the same body region obtained for attenuation correction and anatomic localization. Note, this CT is not designed to produce or replace diagnostic CT quality. * CT Dose-Length Product (DLP): 334 mGy*cm * CT Dose Reduction Employed: Yes REFERENCE: Bonny DUFFY, et al. Accurate differentiation of parkinsonism and essential tremor using visual assessment of [123I]-FP-CIT SPECT imaging: The [123I]-FP-CIT study group. Movement Disorders. 2000;15(3):503-510. CORRELATION: No relevant imaging available RESULT: Caudate nuclei uptake: Symmetric * Right caudate: Within normal limits * Left caudate: Within normal limits Putamina uptake: Asymmetric * Right anterior putamen: Abnormally reduced * Right posterior putamen: Abnormally reduced * Left anterior putamen: Abnormally reduced * Left posterior putamen: Abnormally reduced Localization CT: No significant incidental findings. Mails Supervisor (topogram) images: No significant findings. IMPRESSION IMPRESSION: Abnormal exam. 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 Court Interpreter: [facility] Transcribe Date/Time: Nov 17 2023 3:29P Dictated by : NEGAR DURAN MD This examination was interpreted and the report reviewed and electronically signed by: NEHAL MCKENZIE MD on Nov 17 2023 4:20PM [facility] Radiology Study observation (narrative) [facility] SPECT BrainOrdered By: Wing cool on 11-17-2023 [facility] Farida 10-28-2023 CNPN Telephone (MFI) TRISTENSTEPHAN ([id number]) 1950 M Date Time Provider Department 10/28/23 ALEC HUNTLEY MFI During your visit today, we recorded the following information about you: Zaina Hunter 10/28/2023 3:57 PM Signed Name: Stephan Mercer AGE: [age] year old Weight: Last 1 Encounter Wt Readings: Date: Wt: 05/05/2023 86.9 kg (191 lb 9.3 oz) Is this appointment for a WBC scan? No. Clinical Scan LEV SCAN Scheduled for - Date: 11/16 Time: 929 Study can ONLY be done Tuesday thru Tuesday Scanned into Syngo: N/A Additional Comments: Route to P [place] Special Studies ([id number]) Are all orders present for scheduling? Yes Appointment Scheduled: Date: 11/16 Time: 929 Provisioning Analyst Notes: N/A Route to P TN SPECIAL STUDIES [[id number]] Allergies As of Date: 10/28/2023 Noted Allergy Reaction IODINE 02/08/2012 2 - Rash Date Reviewed: 05/05/2023 Reviewed by: Shahrzad Casey MA - Fully Assessed Reason for Visit: NM LEV [Other] Prescriptions as of 11/08/2023 - diphenhydrAMINE (BENADRYL) 50 mg capsule Take 1 capsule by mouth as directed for 1 dose. one (1) hour prior to exam. - propranolol (INDERAL) 60 mg tablet Take [...] once daily. Problem List As Of Date 10/28/2023 Noted Resolved Leukopenia [D72.819] 02/08/2012 12/13/2013 Carpal tunnel syndrome on both sides [G56.03] 03/07/2012 Melanoma [C43.9] Hypertension [I10] 12/13/2013 GERD (gastroesophageal reflux disease) [K21.9] 12/13/2013 Type 2 diabetes mellitus without complication (*06/17/2015 Gilbert's syndrome [E80.4] 05/18/2018 Encounter Status:Closed by ZAINA HUNTER on 11/08/23 Normal [facility] Screenson 09-01-2023 Screens [id number] IFF Normal [facility] Urology Office/Clinic Noteon 08-31-2023 Urology Office/Clinic Note Chief Complaint 3 month HPI Staff PRW pt. 3m DX: BPH & Hx of Bladder Cancer *No Uro Meds S/p Cysto 12/28/22 - no bladder tumors. Reminder in chart for possible BT check Cysto end of 2023. (may move due to TURP 05/12/23) Last PSA 11/23/22- 3.31 Dysuria: no Incomplete bladder emptying: no Hematuria: no Frequency: 2-3 hours or longer Urgency: occasionally Nocturia: no Stream: good stream Post void dripping: mild, Pt. states has improved Wearing pads/ Depends: no Urge incontinence: mild, Pt. states has improved Stress incontinence: no Incontinence without Sensory Awareness: no Abdominal pain: no Flank pain: no History of Present Illness staff HPI reviewed and agree. Review of Systems PHQ Score Initial Depression Screen Score: 0 SCORE no fever, chills, malaise, myalgia. no rash/lesions. no chest pain, palpitations, or SOB. no abdominal pain, nausea, vomiting. no unilateral calf swelling, redness, pain Physical Exam Vitals & Measurements HT: 70 in HT: 178 cm WT: 86.5 kg WT: 190.3 lb BMI: 27.3 General: nontoxic, NAD Mouth: moist mucosa Lungs: normal respiratory effort Cardio: regular rate, good distal perfusion Abdomen: nondistended, no suprapubic distention or tenderness, no CVA tenderness Neurologic: Grossly normal Skin: No rashes or suspicious lesions Assessment/Plan PRW pt. ALEE 17 1. BPH with urinary obstruction (N40.1: Benign prostatic hyperplasia with lower urinary tract symptoms) PSA 02/18/20 - 3.08 04/14/21 - 3.1 11/23/22 - 3.31 S/p UroLift 07/16/21 by DLS. S/p TURP 05/12/23 - all Urolift bands removed. Path showed prostate glandular and stromal hyperplasia. Catheter removed 05/23/23. IPSS 1. Not taking any BPH meds. Greatly improved since TURP. Still experiences urgency when doing the dishes, but has improved. UA today shows small blood, likely still from TURP. Overall very pleased since TURP. -Will order PSA, can be reviewed at cysto 2. History of bladder cancer (Z85.51: Personal history of malignant neoplasm of bladder) S/p TURBT 10/14/10 by DLS - Polypoid cystitis and urinary bladder mucosa showing chronic inflammatory changes with areas of ulceration, granulation tissue. Muscular wall present, no invasion seen. S/p Cysto 05/11/21. S/p Cysto 12/28/22 - no bladder tumors. -Cysto/FISH/cytol in Apr 2024 Follow-up With When Contact Information LOW GONZALEZ, Connor Rodriguez, [address] [place] [address]- Additional Instructions: Cysto 04/2024 *review PSA* Patient Education Benign Prostatic Hyperplasia I, Ani Colon, personally scribed for Corine Stack PA-C on 08/30/2023 16:34:17. . Documentation recorded by the scribe Ani Isaiah accurately reflects the services(s) I performed and decisions made by me. Authenticated by Lisa Stack PA-C on 08/31/2023 17:40:01. Problem List/Past Medical History Ongoing BPH with urinary obstruction Elevated PSA Glucosuria Hepatitis History of bladder cancer Hypertension Incomplete bladder emptying Microscopic hematuria Proteinuria Skin cancer (melanoma) Historical No qualifying data Procedure/Surgical History TURP - Transurethral resection of prostate (05/12/2023), Cystoscopy (12/28/2022), Transurethral insertion of prostatic urethral lift implant [...] mg= 1 tab(s), Oral, BID Potassium Chloride (Xwy-Bugh-Agu 10) 10 mEq oral tablet, extended release, 10 mEq= 1 tab(s), Oral, Daily propranolol 60 mg Cap-ER, 60 mg= 1 cap(s), Oral, Daily ropinirole 0.25 mg Tab, 0.25 mg= 1 tab(s), Oral, TID Allergies terazosin (Hypotension, Syncope) iodine (Unknown) Social History Alcohol - Denies Alcohol Use, 02/22/2019 Substance Abuse - Denies Substance Abuse, 06/09/2021 Tobacco - Denies Tobacco Use, 04/01/2020 Never (less than 100 in lifetime) Tobacco Use:. Never Smokeless Tobacco Use:. Household tobacco concerns: No. Yes, 08/30/2023 Family History Cancer: Father. Congenital heart disease: Mother. Hypertension: Father. Stroke: Mother. Immunizations Vaccine Date Status Comments influenza virus vaccine, inactivated 01/24/2023 Recorded influenza virus vaccine, inactivated 03/27/2021 Recorded SARS-CoV-2 (COVID-19) mRNA BNT-162b2 vax 02/24/2021 Recorded influenza virus vaccine, inactivated 02/2021 Recorded SARS-CoV-2 (COVID-19) mRNA-1273 vaccine 06/20/2020 Recorded 2nd shot SARS-CoV-2 (COVID-19) mRNA-1273 vaccine 05/30/2020 Recorded 1st shot influenza virus vaccine, fanny (more content not included)... Normal [facility] Comment on above: Result Comment: Elec tronically Signed By: LISA STACK PA-C\.br\Date and Time Signed: 08/31/23 17:40 EDT\.br\Electronically Co-Signed By: Ani Colon\.br\Date and Time Co-Signed: 08/30/23 16:34 EDT Patient Educationon 08-30-19 Patient Education Urology Benign Prostatic Hyperplasia Benign [...] Follow these instructions at home: ? Take yjft-mqj-xrxapuy and prescription medicines only as told by [...] the medicine (more content not included)... Normal [facility] Ambulatory Visit Summaryon 0 05-30-2023 Ambulatory Visit Summary LUZSTEPHAN HADDAD :1950 Visit Date:05/30/2023 Ambulatory Visit Instructions Your Diagnosis BPH with urinary obstruction History of bladder cancer Your Care Team Attending Physician - LOW GONZALEZ, Connor Rodriguez Primary Care Physician - FLORENCIO CROWELL MD This Is Your Medications List Contact prescribing physician if questions or concerns losartan (losartan 50 mg Tab) omeprazole (omeprazole 40 mg Cap-DR) oxcarbazepine (oxcarbazepine 300 mg Tab) potassium chloride (Potassium Chloride (Lan-Rgto-Qks 10) 10 mEq oral tablet, extended release) propranolol (propranolol 60 mg Cap-ER) ropinirole (ropinirole 0.25 mg Tab) Procedures Performed TURP - Transurethral resection of prostate (05/12/2023), Cystoscopy (12/28/2022), Transurethral insertion of prostatic urethral lift implant (07/16/2021), Cystourethroscopy (separate procedure) (05/11/2021), Cystoscopy (03/06/2020), TURBT - Transurethral resection of bladder tumor (10/14/2010), Cystoscope (09/30/2010), Cystoscope (09/07/2010), Carpal tunnel release, Cataract extraction, Colonoscopy, Release of trigger finger. Discharge Vitals Height 178 cm Height 70 in Weight 86.5 kg Weight 190.3 lb BMI 27.3 What to do next Scheduled Follow-Up Appointments Tuesday. 2023 10:45 AM EDT With: Connor KELSEY MD Where: [facility] Javier Normal [facility] Patient Educationon 05-30-19 Patient Education Urology Transurethral Resection of the Prostate, Care After The following information offers guidance on how to care for yourself after your procedure. Your health care provider may also give you more specific instructions. If you have problems or questions, contact your health care provider. What can I expect after the procedure? After the procedure, it is common to have: ? Mild pain in your lower abdomen. ? Soreness or mild discomfort in your penis or when you urinate. This is from having the catheter inserted during the procedure. ? A sudden urge to urinate (urgency). ? A need to urinate often. ? A small amount of blood in your urine. You may notice some small blood clots in your urine. These are normal. Follow these instructions at home: Medicines ? Take bsgj-nhl-qhukbuo and prescription medicines only as told by your health care provider. ? If you were prescribed an antibiotic medicine, take it as told by your health care provider. Do not stop taking the antibiotic even if you start to feel better. Activity ? Rest as told by your health care provider. ? Avoid sitting for a long time without moving. Get up to take short walks every 1?2 hours. This is important to improve blood flow and breathing. Ask for help if you feel weak or unsteady. You may increase your physical activity gradually as you start to feel better. ? Do not drive or operate machinery until your health care provider says that it is safe. ? Do not ride in a car for long periods of time, or as told by your health care provider. ? Avoid intense physical activity for as long as told by your health care provider. ? Do not lift anything that is heavier than 10 lb (4.5 kg), or the limit that you are told, until your health care provider says that it is safe. ? Do not have sex until your health care provider approves. ? Return to your normal activities as told by your health care provider. Ask your health care provider what activities are safe for you. Preventing constipation You may need to take these actions to prevent or treat constipation: ? Drink enough fluid to keep your urine pale yellow. ? Take vgza-khz-sdecqze or prescription medicines. ? Eat foods that are high in fiber, such as beans, whole grains, and fresh fruits and vegetables. ? Limit foods that are high in fat and processed sugars, such as fried or sweet foods. General instructions ? Do not strain when you have a bowel movement. Straining may lead to bleeding from the prostate. This may cause blood clots and trouble urinating. ? Do not use any products that contain nicotine or tobacco. These products include cigarettes, chewing tobacco, and vaping devices, such as e-cigarettes. If you need help quitting, ask your health care provider. ? If you go home with a tube draining your urine (urinary catheter), care for the catheter as told by your health care provider. ? Wear compression stockings as told by your health care provider. These stockings help to prevent blood clots and reduce swelling in your legs. ? Keep all follow-up visits. This is important. Contact a health care provider if: ? You have signs of infection, such as: ? Fever or chills. ? Urine that smells very bad. ? Swelling around your urethra that is getting worse. ? Swelling in your penis or testicles. ? You have difficulty urinating. ? You have pain that gets worse or does not improve with medicine. ? You have blood in your urine that does not go away after 1 week of resting and drinking more fluids. ? You have trouble having a bowel movement. ? You have trouble having or keeping an erection. ? No semen comes out during orgasm (dry ejaculation). ? You have a urinary catheter in place, and you have: ? Spasms or pain. ? Problems with your catheter or your catheter is blocked. Get help right away if: ? You are unable to urinate. ? You are having more blood clots in your urine instead of fewer. ? You have: ? Large blood clots. ? A lot of blood in your urine. ? Pain in your back or lower abdomen. ? You have difficulty breathing or shortness of breath. ? You develop swelling or pain in your leg. These symptoms may be an emergency. Get help right away. Call 911. ? Do not wait to see if the symptoms will go away. ? Do not drive yourself to the hospital. Summary ? After the procedure, it is common to have a small amount of blood in your urine. ? Follow restrictions about lifting and sexual activity as told by your health care provider. Ask what activities are safe for you. ? Keep all follow-up visits. This is important. This information is not intended to replace advice given to you by your health care provider. Make sure you discuss any questions you have with your health care provider. Document Revised: 12/29/2021 Document Reviewed: 12/29/2021 Whotever Patient Education ? 2022 [employer]. [facility] Urology Office/Clinic Noteon 05-30-2023 Urology Office/Clinic Note Chief Complaint S/P TURP HPI Staff 2 wk f/u to review path report from TURP 05/12/23. (Also removed Urolift bands at that time-pt states there is still 1 that PRW could not get) Previous dx: BPH with obstruction, hx of bladder ca, elevated PSA, glucosuria, proteinuria. S/p Urolift 07/16/21 by DLS. S/p Cysto 12/28/22. Cath removed 05/23/23. Visible blood noted in urine the following Tuesday. Intermittent. Yesterday was worse in the morning. Then cleared up through out the day. Again, this morning. Mild pain, attributes to passing clots. Burning at tip of penis with urination. No complaints with urinary stream. Stronger stream since procedure. History of Present Illness Tests reviewed: reviewed path report I have reviewed the previous health record information and history for this patient from Dr. Kelsey. I have reviewed and verified the staff HPI to be accurate for this encounter. Review of Systems PHQ Score Initial Depression Screen Score: 0 SCORE ROS - Provider Constitutional: denies weight loss, denies hot flashes. Eyes: denies eye problems. Gastrointestinal: denies nausea, denies vomiting. Cardiovascular: denies chest pain or angina. Integumentary: no dryness Musculoskeletal: denies musculoskeletal symptoms. ENMT: denies otolaryngeal symptoms. Respiratory: no shortness of breath. Heme/Lymph: denies easy bleeding tendency, denies easy bruising tendency. Psychiatric: no confusion, no anxiety. Genitourinary: See HPI. Physical Exam Vitals & Measurements HT: 70 in HT: 178 cm WT: 86.5 kg WT: 190.3 lb BMI: 27.3 General Appearance: alert, no distress, well nourished, well developed male. Genitourinary: normal scrotum, normal testes, normal urethra, normal epididymis, normal vas deferens/spermatic cord. Flank Pain: none. Bladder: nonpalpable. Assessment/Plan 1. BPH with urinary obstruction (N40.1: Benign prostatic hyperplasia with lower urinary tract symptoms) PSA 02/18/20 - 3.08 04/14/21 - 3.1 11/23/22 - 3.31 S/p UroLift 07/16/21 by MAE. S/p TURP 05/12/23 - all Urolift bands removed. Path showed prostate glandular and stromal hyperplasia. Catheter removed 05/23/23. Not currently taking any BPH meds. States urinary stream has improved since TURP. Reports he still has blood in his urine. Advised pt to increase fluid intake to help dilute urine and pass any clots. The pathology report was reviewed with the patient in detail today. There is no evidence of malignancy and no further evaluation of the tissue removed is planned. All questions were answered and the report discussed in terms that the patient could understand. -Increase fluid intake -Limit strenuous activities until gross hematuria clears 2. History of bladder cancer (Z85.51: Personal history of malignant neoplasm of bladder) S/p TURBT 10/14/10 by DLS - Polypoid cystitis and urinary bladder mucosa showing chronic inflammatory changes with areas of ulceration, granulation tissue. Muscular wall present, no invasion seen. S/p Cysto 05/11/21. S/p Cysto 12/28/22 - no bladder tumors. Follow-up With When Contact Information LOW GONZALEZ, Connor Rodriguez, URL [facility] [address] [place] [address] [phone] Additional Instructions: 3 mos Patient Education Transurethral Resection of the Prostate, Care After I, Elsa Valdovinos, personally scribed for Dr. Kelsey on 05/30/2023 11:37:32. . Documentation recorded by the scribe, Elsa Valdovinos, accurately reflects the services(s) I performed and decisions made by me. Authenticated by Dr. Kelsey on 05/30/2023 11:40:37. Problem List/Past Medical History Ongoing BPH with urinary obstruction Elevated PSA Glucosuria Hepatitis History of bladder cancer Hypertension Incomplete bladder emptying Microscopic hematuria Proteinuria Skin cancer (melanoma) Historical No qualifying data Procedure/Surgical History TURP - Transurethral resection of prostate (05/12/2023), Cystoscopy (12/28/2022), Transurethral insertion of prostatic urethral lift implant [...] mg= 1 tab(s), Oral, BID Potassium Chloride (Qcz-Hxwq-Dpy 10) 10 mEq oral tablet, extended release, 10 mEq= 1 tab(s), Oral, Daily propranolol 60 mg Cap-ER, 60 mg= 1 cap(s), Oral, Daily ropinirole 0.25 mg Tab, 0.25 mg= 1 tab(s), Oral, TID Allergies terazosin (Hypotension, Syncope) iodine (Unknown) Social History Alcohol - Denies Alcohol Use, 02/22/2019 Substance Abuse - Denies Substance Abuse, 06/09/2021 Tobacco - Denies Toba (more content not included)... [facility] Comment on above: Result Comment: Elec tronically Signed By: Connor KELSEY MD\.br\Date and Time Signed: 05/30/23 11:40 EST\.br\Electronically Co-Signed By: Elsa Valdovinos\Date and Time Co-Signed: 05/30/23 11:38 EST Pathology Noteon 05-19-2023 Pathology Note [id number]#1.00T IFF [facility] Pathology Noteon 05-17-2023 Pathology Note [id number]#1.00T IFF [facility] Lab Reportson 05-13-2023 Lab Reports [id number]#1.00T IFF [facility] Operative Reporton Operative Report [id number]#1.00T IFF [facility] Best 05-12-2023 L Specimen: [id number] Received: 05/13/23 Status: IVAN Parker Num: [id number] Spec Type: Surgical Subm Dr: Connor Kelsey MD Tissues: A Prostate - Tur (PROSTATE CHIPS) Procedures: HE/10, Gross/Micro L4 Age/ Patient Sex Location Account Attending Physician Stephan Mercer 72/M [facility] [id number] Connor Kelsey MD SPEC NUM: [id number] RECD: 05/13/23 STATUS: IVAN PARKER NUM: [id number] COLIN: 05/12/[address]: Connor Kelsey MD ENTERED: 05/13/[address] [facility] [address]: Kieran Herrera SPEC TYPE: Surgical DEPT: KELLIE HYLTON ORDERED: HE/10, Gross/Micro L4 ORDERED: HE/10, Gross/Micro L4 Pathological Diagnosis Prostate, Tur: Prostate Glandular And Stromal Hyperplasia. Clinical Information Enlarged prostate with lower urinary tract symptoms Gross Description Received in formalin labeled with the patient's name, date of and prostate chips is an 8 g, 7 x 5 x 1 cm aggregate of rubbery arnett nodular tissue fragments. There are no firm, friable, or yellow foci identified grossly. Entirely submitted in seven cassettes labeled A1-A7. CPT Codes 88693 Specimen: [id number] Received: 05/13/23 Status: IVAN Bartlettsocrates Num: [id number] Spec Type: Surgical Subm Dr: Connor Kelsey MD Tissues: A Prostate - Tur (PROSTATE CHIPS) Procedures: , Gross/Micro L4 Patient: Stephan Mercer [id number] (Continued) Signed (signature on file) Chalino Enciso MD 05/16/[address] [facility] CT Abdomen and Pelvis Ankit Patel 05-03-2023 IMPRESSION: 1. 9 mm right lobe hepatic [...] any questions regarding this interpretation, please call [phone]. If you are unable to reach us at the number above, please feel free to contact [facility] at [phone]. DIVISION OF RADIOLOGY * * *Final Report* * * DATE OF EXAM: May 02 2023 11:43AM [facility] 0530 - CT ABD/PEL W [...] performed concurrently and will be dictated separately. Mails Supervisor (topogram) images: No additional findings. DIVISION OF RADIOLOGY Provider, [facility] - 05/03/2023 * * *Final Report* * * DATE OF EXAM: May 02 2023 11:43AM [facility] 0530 - CT ABD/PEL W [...] performed concurrently and will be dictated separately. Mails Supervisor (topogram) images: No additional findings. IMPRESSION IMPRESSION: 1. 9 mm right lobe hepatic [...] any questions regarding this interpretation, please call [phone]. If you are unable to reach us at the number above, please feel free to contact [facility] at [phone]. [facility] CT Chest W contrast Jorge IMPRESSION: Stable CT examination of the chest. No substantial intrathoracic adenopathy is identified. Transcribe Date/Time: May 02 2023 4:27P Dictated by: LILLIE MANDUJANO MD This examination was interpreted and the report reviewed and electronically signed by: LILILE MANDUJANO MD on May 03 2023 11:48AM EST Thank you for allowing us to participate in the care of your patient. Should there be any questions regarding this interpretation, please call [phone]. If you are unable to reach us at the number above, please feel free to contact [facility] at [phone]. DIVISION OF RADIOLOGY * * *Final Report* * * DATE OF EXAM: May 02 2023 11:43AM [facility] 0539 - CT CHEST W [...] performed concurrently and will be dictated separately. Mails Supervisor (topogram) images: No additional findings. DIVISION OF RADIOLOGY Provider, [facility] - 05/03/2023 * * *Final Report* * * DATE OF EXAM: May 02 2023 11:43AM [facility] 0539 - CT CHEST W [...] performed concurrently and will be dictated separately. Mails Supervisor (topogram) images: No additional findings. IMPRESSION IMPRESSION: Stable CT examination of the chest. [...] any questions regarding this interpretation, please call [phone]. If you are unable to reach us at the number above, please feel free to contact [facility] at [phone]. [facility] No Panel InformationOrdered By: Ccf Provider on 05-03-2023 [facility] CBC W Auto Differential pane l (Bld)on 05-02-2023 Basophils (Bld) [#/Vol] NINF [facility] Basophils/100 WBC (Bld) 0.0 % [facility] Differential cell count method Nom (Bld) Auto [facility] Eosinophils (Bld) [#/Vol] [facility] Eosinophils/100 WBC (Bld) 0.0 % [facility] Erythrocyte distribution width (RBC) [Ratio] 13.7 % 11.5 - 15.0 % [facility] Hematocrit (Bld) [Volume fraction] 40.7 % 39.0 - 51.0 % [facility] Hemoglobin (Bld) [Mass/Vol] 14.4 g/dL 13.0 - 17.0 g/dL [facility] Immature granulocytes (Bld) [#/Vol] [facility] Immature granulocytes/100 WBC (Bld) 0.4 % [facility] Interpretation and review of laboratory results Abnormal [facility] Lymphocytes (Bld) [#/Vol] 0.52 10*3/uL Low [facility] Lymphocytes/100 WBC (Bld) 10.2 % [facility] MCH (RBC) [Entitic mass] 31.2 pg 26.0 - 34.0 pg [facility] MCHC (RBC) [Mass/Vol] 35.4 g/dL 30.5 - 36.0 g/dL [facility] MCV (RBC) [Entitic vol] 88.1 fL 80.0 - 100.0 fL [facility] Monocytes (Bld) [#/Vol] 0.05 10*3/uL [facility] Monocytes/100 WBC (Bld) 1.0 % [facility] Neutrophils (Bld) [#/Vol] 4.51 10*3/uL [facility] Neutrophils/100 WBC (Bld) 88.4 % [facility] Nucleated RBC (Bld) [#/Vol] [facility] Nucleated RBC/100 WBC (Bld) [Ratio] 0.0 % /100 WBC [facility] Platelet mean volume (Bld) [Entitic vol] 10.7 fL 9.0 - 12.7 fL [facility] Platelets (Bld) [#/Vol] 227 10*3/uL [facility] RBC (Bld) [#/Vol] 4.62 10*6/uL 4.20 - 6.0 0 m/uL [facility] WBC (Bld) [#/Vol] 5.10 10*3/uL [facility] Comprehensive metabolic 2000 panelOrdered By: Shannan Umanzor on 05-02-2023 Albumin [Mass/Vol] 4.7 g/dL 3.9 - 4.9 g/dL [facility] ALP [Catalytic activity/Vol] 118 U/L High 38 - 113 U/L [facility] ALT [Catalytic activity/Vol] 5 U/L Low 10 - 54 U/L [facility] Anion gap [Moles/Vol] 10 mmol/L 9 - 18 mmol/L [facility] AST [Catalytic activity/Vol] 16 U/L 14 - 40 U/L [facility] Bilirubin [Mass/Vol] 1.3 mg/dL 0.2 - 1 .3 mg/dL [facility] Calcium [Mass/Vol] 9.9 mg/dL 8.5 - 10. 2 mg/dL [facility] Chloride [Moles/Vol] 101 mmol/L 97 - 10 5 mmol/L [facility] CO2 [Moles/Vol] 28 mmol/L 22 - 30 mmol/L [facility] Creatinine [Mass/Vol] 0.84 mg/dL 0.73 - 1.22 mg/dL [facility] GFR/1.73 sq M.predicted among non-blacks MDRD (S/P/Bld) [Vol rate/Area] 93 mL/min/{1.73_m2} - PINF [facility] Comment on above: Estimated Glomerular Filtration Rate (eGFR) is calculated using the 2020 CKD-EPI creatinine equation. This equation utilizes serum creatinine, sex, and age as parameters. The creatinine assay has traceable calibration to isotope dilution-mass spectrometry. Refer to KDIGO guidelines for clinical interpretation. In patients with unstable renal function, e.g. those with acute kidney injury, the eGFR may not accurately reflect actual GFR. Glucose [Mass/Vol] 152 mg/dL High 74 - 99 mg/dL [facility] Comment on above: The [place] Diabete s Association (ADA) provides guidance for cutoff values [...] Standards of Medical Care in Diabetes 2016, [place] Diabetes [employer]. Diabetes Care. 2016.39(Suppl 1). Interpretation and review of laboratory results Abnormal [facility] Potassium [Moles/Vol] 4.2 mmol/L 3.7 - 5.1 mmol/L [facility] Protein [Mass/Vol] 7.8 g/dL 6.3 - 8.0 g/dL [facility] Sodium [Moles/Vol] 139 mmol/L 136 - 144 mmol/L [facility] Urea nitrogen [Mass/Vol] 15 mg/dL 9 - 24 mg/dL [facility] No Panel Informationon 05-02 Radiology Study observation (narrative) [facility] CBC W Auto Differential pane l (Bld)on 05-03-2022 Basophils (Bld) [#/Vol] [facility] Basophils/100 WBC (Bld) 0.2 % [facility] Differential cell count method Nom (Bld) Auto [facility] Eosinophils (Bld) [#/Vol] [facility] Eosinophils/100 WBC (Bld) 0.0 % [facility] Erythrocyte distribution width (RBC) [Ratio] 13.0 % 11.5 - 15.0 % [facility] Hematocrit (Bld) [Volume fraction] 43.9 % 39.0 - 51.0 % [facility] Hemoglobin (Bld) [Mass/Vol] 15.5 g/dL 13.0 - 17.0 g/dL [facility] Immature granulocytes (Bld) [#/Vol] 0.03 10*3/uL [facility] Immature granulocytes/100 WBC (Bld) 0.5 % [facility] Interpretation and review of laboratory results Abnormal [facility] Lymphocytes (Bld) [#/Vol] 0.58 10*3/uL Low [facility] Lymphocytes/100 WBC (Bld) 9.2 % [facility] MCH (RBC) [Entitic mass] 30.2 pg 26.0 - 34.0 pg [facility] MCHC (RBC) [Mass/Vol] 35.3 g/dL 30.5 - 36.0 g/dL [facility] MCV (RBC) [Entitic vol] 85.4 fL 80.0 - 100.0 fL [facility] Monocytes (Bld) [#/Vol] 0.07 10*3/uL NINF [facility] Monocytes/100 WBC (Bld) 1.1 % [facility] Neutrophils (Bld) [#/Vol] 5.63 10*3/uL [facility] Neutrophils/100 WBC (Bld) 89.0 % [facility] Nucleated RBC (Bld) [#/Vol] NINF [facility] Nucleated RBC/100 WBC (Bld) [Ratio] 0.0 % /100 WBC [facility] Platelet mean volume (Bld) [Entitic vol] 11.1 fL 9.0 - 12.7 fL [facility] Platelets (Bld) [#/Vol] 200 10*3/uL [facility] RBC (Bld) [#/Vol] 5.14 10*6/uL 4.20 - 6.0 0 m/uL [facility] WBC (Bld) [#/Vol] 6.32 10*3/uL [facility] This is an appended report. These results have been appended to a previously verified report. [facility] CT Abdomen and Pelvis W cont rast Jorge 05-03-2022 IMPRESSION: 1. Stable CT of the abdomen [...] any questions regarding this interpretation, please call [phone]. If you are unable to reach us at the number above, please feel free to contact [facility] at [phone]. DIVISION OF RADIOLOGY * * *Final Report* * * DATE OF EXAM: May 03 2022 12:42PM [facility] 0530 - CT ABD/PEL W [...] chest CT performed will be reported separately. Mails Supervisor (topogram) images: No additional findings. DIVISION OF RADIOLOGY Provider, [facility] - 05/03/2022 * * *Final Report* * * DATE OF EXAM: May 03 2022 12:42PM [facility] 0530 - CT ABD/PEL W [...] chest CT performed will be reported separately. Mails Supervisor (topogram) images: No additional findings. IMPRESSION IMPRESSION: 1. Stable CT of the abdomen [...] any questions regarding this interpretation, please call [phone]. If you are unable to reach us at the number above, please feel free to contact [facility] at [phone]. [facility] CT Abdomen and Pelvis W cont rast IVOrdered By: Ccf Provider on 05-03-[address] [facility] [address] Chest W contrast Jorge IMPRESSION: 1. Stable CT of the chest. [...] any questions regarding this interpretation, please call [phone]. If you are unable to reach us at the number above, please feel free to contact [facility] at [phone]. DIVISION OF RADIOLOGY * * *Final Report* * * DATE OF EXAM: May 03 2022 12:42PM [facility] 0539 - CT CHEST W [...] was performed concurrently and is reported separately. Mails Supervisor (topogram) images: No additional findings. DIVISION OF RADIOLOGY Provider, [facility] - 05/03/2022 * * *Final Report* * * DATE OF EXAM: May 03 2022 12:42PM [facility] 0539 - CT CHEST W [...] was performed concurrently and is reported separately. Mails Supervisor (topogram) images: No additional findings. IMPRESSION IMPRESSION: 1. Stable CT of the chest. [...] any questions regarding this interpretation, please call [phone]. If you are unable to reach us at the number above, please feel free to contact [facility] at [phone]. [facility] Comprehensive metabolic 2000 panelOrdered By: Nemesio Herrera on 05-03-2022 Albumin [Mass/Vol] 4.8 g/dL 3.9 - 4.9 g/dL [facility] ALP [Catalytic activity/Vol] 111 U/L 38 - 113 U/L [facility] ALT [Catalytic activity/Vol] U/L Low 10 - 54 U/L [facility] Anion gap [Moles/Vol] 10 mmol/L 9 - 18 mmol/L [facility] AST [Catalytic activity/Vol] 14 U/L 14 - 40 U/L [facility] Bilirubin [Mass/Vol] 1.9 mg/dL High 0.2 - 1 .3 mg/dL [facility] Calcium [Mass/Vol] 9.5 mg/dL 8.5 - 10. 2 mg/dL [facility] Chloride [Moles/Vol] 100 mmol/L 97 - 10 5 mmol/L [facility] CO2 [Moles/Vol] 27 mmol/L 22 - 30 mmol/L [facility] Creatinine [Mass/Vol] 0.85 mg/dL 0.73 - 1.22 mg/dL [facility] GFR/1.73 sq M.predicted among non-blacks MDRD (S/P/Bld) [Vol rate/Area] 93 mL/min/{1.73_m2} - PINF [facility] Comment on above: Estimated Glomerular Filtration Rate (eGFR) is calculated using the 2020 CKD-EPI creatinine equation. This equation utilizes serum creatinine, sex, and age as parameters. The creatinine assay has traceable calibration to isotope dilution-mass spectrometry. Refer to KDIGO guidelines for clinical interpretation. In patients with unstable renal function, e.g. those with acute kidney injury, the eGFR may not accurately reflect actual GFR. Glucose [Mass/Vol] 153 mg/dL High 74 - 99 mg/dL [facility] Comment on above: The [place] Diabete s Association (ADA) provides guidance for cutoff values [...] Standards of Medical Care in Diabetes 2016, [place] Diabetes [employer]. Diabetes Care. 2016.39(Suppl 1). Interpretation and review of laboratory results Abnormal [facility] Potassium [Moles/Vol] 3.7 mmol/L 3.7 - 5.1 mmol/L [facility] Protein [Mass/Vol] 7.8 g/dL 6.3 - 8.0 g/dL [facility] Sodium [Moles/Vol] 137 mmol/L 136 - 144 mmol/L [facility] Urea nitrogen [Mass/Vol] 22 mg/dL 9 - 24 mg/dL [facility] No Panel Informationon 05-03 Radiology Study observation (narrative) [facility] CT Abdomen and Pelvis W cont rast Jorge 04-30-2021 IMPRESSION: 1. Stable CT of the abdomen and pelvis. No evidence of abdominal or pelvic metastatic disease. 2. Cholelithiasis without evidence of acute cholecystitis. No biliary ductal dilation. Transcribe Date/Time: Apr 30 2021 11:51A Dictated by: JOSHUA MEDEL MD This examination was interpreted and the report reviewed and electronically signed by: JOSHUA MEDEL MD on Apr 30 2021 12:48PM EST Thank you for allowing us to participate in the care of your patient. Should there be any questions regarding this interpretation, please call [phone]. If you are unable to reach us at the number above, please feel free to contact [facility] at [phone]. DIVISION OF RADIOLOGY * * *Final Report* * * DATE OF EXAM: Apr 30 2021 11:49AM [facility] 0530 - CT ABD/PEL W IVCON / PROCEDURE REASON: Enlarged lymph node * * * * Physician Interpretation * * * * RESULT: EXAMINATION: CT ABDOMEN AND PELVIS WITH IV CONTRAST CLINICAL HISTORY: History of melanoma. TECHNIQUE: CT of the abdomen and pelvis was performed using standard technique, scanning from just above the dome of the diaphragm to the symphysis pubis. MQ: CTAP_3 Contrast: IV: 150 ml of Omnipaque 300 Oral: 900 ml of 50ML Omnipaque [address] Radiation dose: Integrated Dose-length product (DLP) for this visit = 1084 mGy*cm. CT Dose Reduction Employed: Automated exposure control (AEC) COMPARISON: CT performed 05/01/2020 RESULT: Liver: There is a stable 4 mm hypodensity in the right hepatic lobe which may represent a cyst (2:32). The liver is otherwise unremarkable. No new hepatic mass lesions are visualized. Biliary: There is cholelithiasis. No gallbladder wall thickening or pericholecystic inflammatory change is noted. Spleen: No mass. No splenomegaly. Pancreas: No mass or duct dilation. Adrenals: No mass. Kidneys: No mass, calculus or hydronephrosis. GI tract: The stomach and small bowel are unremarkable. There is no evidence of small bowel obstruction or wall thickening. Postsurgical changes are noted in the rectosigmoid colon. The colon is otherwise unremarkable. Lymph nodes: No abdominal or pelvic lymphadenopathy. Mesentery/Peritoneum: No ascites or mass. Retroperitoneum: No mass. Vasculature: Atherosclerotic calcification is noted in the abdominal aorta. No abdominal aortic aneurysm is noted. Pelvis: No mass, ascites or fluid collection. Bones/Soft Tissues: Degenerative change is seen in the thoracic spine. No destructive osseous lesions are seen. Superficial soft tissues are unremarkable. Lower thorax: A chest CT performed will be reported separately. Mails Supervisor (topogram) images: No additional findings. DIVISION OF RADIOLOGY Provider, [facility] U[facility] - 04/30/2021 * * *Final Report* * * DATE OF EXAM: Apr 30 2021 11:49AM [facility] 0530 - CT ABD/PEL W IVCON / PROCEDURE REASON: Enlarged lymph node * * * * Physician Interpretation * * * * RESULT: EXAMINATION: CT ABDOMEN AND PELVIS WITH IV CONTRAST CLINICAL HISTORY: History of melanoma. TECHNIQUE: CT of the abdomen and pelvis was performed using standard technique, scanning from just above the dome of the diaphragm to the symphysis pubis. MQ: CTAP_3 Contrast: IV: 150 ml of Omnipaque 300 Oral: 900 ml of 50ML Omnipaque [address] Radiation dose: Integrated Dose-length product (DLP) for this visit = 1084 mGy*cm. CT Dose Reduction Employed: Automated exposure control (AEC) COMPARISON: CT performed 05/01/2020 RESULT: Liver: There is a stable 4 mm hypodensity in the right hepatic lobe which may represent a cyst (2:32). The liver is otherwise unremarkable. No new hepatic mass lesions are visualized. Biliary: There is cholelithiasis. No gallbladder wall thickening or pericholecystic inflammatory change is noted. Spleen: No mass. No splenomegaly. Pancreas: No mass or duct dilation. Adrenals: No mass. Kidneys: No mass, calculus or hydronephrosis. GI tract: The stomach and small bowel are unremarkable. There is no evidence of small bowel obstruction or wall thickening. Postsurgical changes are noted in the rectosigmoid colon. The colon is otherwise unremarkable. Lymph nodes: No abdominal or pelvic lymphadenopathy. Mesentery/Peritoneum: No ascites or mass. Retroperitoneum: No mass. Vasculature: Atherosclerotic calcification is noted in the abdominal aorta. No abdominal aortic aneurysm is noted. Pelvis: No mass, ascites or fluid collection. Bones/Soft Tissues: Degenerative change is seen in the thoracic spine. No destructive osseous lesions are seen. Superficial soft tissues are unremarkable. Lower thorax: A chest CT performed will be reported separately. Mails Supervisor (topogram) images: No additional findings. IMPRESSION IMPRESSION: 1. Stable CT of the abdomen and pelvis. No evidence of abdominal or pelvic metastatic disease. 2. Cholelithiasis without evidence of acute cholecystitis. No biliary ductal dilation. Transcribe Date/Time: Apr 30 2021 11:51A Dictated by: JOSHUA MEDEL MD This examination was interpreted and the report reviewed and electronically signed by: JOSHUA MEDEL MD on Apr 30 2021 12:48PM EST Thank you for allowing us to participate in the care of your patient. Should there be any questions regarding this interpretation, please call [phone]. If you are unable to reach us at the number above, please feel free to contact [facility] eRadiology at [phone]. [facility] CT Abdomen and Pelvis W cont rast IVOrdered By: [facility] Provider on 04-30-[address] [facility] [address] Chest W contrast Jorge IMPRESSION: 1. No evidence of intrathoracic metastatic disease. 2. No evidence of bulky intrathoracic lymphadenopathy. 3. 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 Transcribe Date/Time: Apr 30 2021 11:50A Dictated by: JOSHUA MEDEL MD This examination was interpreted and the report reviewed and electronically signed by: JOSHUA MEDEL MD on Apr 30 2021 12:17PM EST Thank you for allowing us to participate in the care of your patient. Should there be any questions regarding this interpretation, please call [phone]. If you are unable to reach us at the number above, please feel free to contact [facility]Radiology at [phone]. DIVISION OF RADIOLOGY * * *Final Report* * * DATE OF EXAM: Apr 30 2021 11:49AM [facility] 0539 - CT CHEST W IVCON / PROCEDURE REASON: Enlarged lymph node * * * * Physician Interpretation * * * * RESULT: EXAMINATION: CHEST CT WITH CONTRAST CLINICAL HISTORY: History of melanoma. Technique: Spiral CT acquisition of the chest from the thoracic inlet to the upper abdomen following IV contrast. MQ: CTCW_6 Contrast: 150 mL Omnipaque [address] Radiation dose: Integrated Dose-length product (DLP) for this visit = 1084 mGy*cm CT Dose Reduction Employed: Automated exposure control (AEC) Comparison: CT of chest performed 05/01/2020. CT chest performed 02/14/2014 RESULT: Limitations: None. Lines, tubes, and devices: None. Lung parenchyma and airways: There is dependent atelectasis. No lobar consolidation is noted. There is a 2 mm nodule in the right lower lobe (3:112). This is stable when compared to prior exams dating back to 2013 and is likely benign. No new or enlarging nodules are visualized. The central airways are widely patent. Pleural space: No pleural effusion. No pleural thickening. Lower neck, lymph nodes, and mediastinum: The imaged thyroid gland is normal. No lymphadenopathy in the supraclavicular, axillary, mediastinal, or hilar regions. Heart, pericardium, and thoracic vessels: There is stable ectasia of the ascending thoracic aorta measuring up to 4 cm in diameter. The main pulmonary artery is normal in caliber. The cardiac chambers are normal in size. No coronary artery atherosclerotic calcifications are noted, although the study is not optimized for coronary assessment. No pericardial effusion or thickening. Bones and soft tissues: Degenerative change is seen in the thoracic spine. No destructive osseous lesions are seen. A probable sebaceous cyst is noted in the right mid back (2:131). This has also been stable when compared to prior exams dating back to 2013. Superficial soft tissues are otherwise unremarkable. Upper abdomen: A dedicated CT of the abdomen and pelvis was performed concurrently and is reported separately. Mails Supervisor (topogram) images: No additional findings. DIVISION OF RADIOLOGY Provider, [facility] - 04/30/2021 * * *Final Report* * * DATE OF EXAM: Apr 30 2021 11:49AM [facility] 0539 - CT CHEST W IVCON / PROCEDURE REASON: Enlarged lymph node * * * * Physician Interpretation * * * * RESULT: EXAMINATION: CHEST CT WITH CONTRAST CLINICAL HISTORY: History of melanoma. Technique: Spiral CT acquisition of the chest from the thoracic inlet to the upper abdomen following IV contrast. MQ: CTCW_6 Contrast: 150 mL Omnipaque [address] Radiation dose: Integrated Dose-length product (DLP) for this visit = 1084 mGy*cm CT Dose Reduction Employed: Automated exposure control (AEC) Comparison: CT of chest performed 05/01/2020. CT chest performed 02/14/2014 RESULT: Limitations: None. Lines, tubes, and devices: None. Lung parenchyma and airways: There is dependent atelectasis. No lobar consolidation is noted. There is a 2 mm nodule in the right lower lobe (3:112). This is stable when compared to prior exams dating back to 2013 and is likely benign. No new or enlarging nodules are visualized. The central airways are widely patent. Pleural space: No pleural effusion. No pleural thickening. Lower neck, lymph nodes, and mediastinum: The imaged thyroid gland is normal. No lymphadenopathy in the supraclavicular, axillary, mediastinal, or hilar regions. Heart, pericardium, and thoracic vessels: There is stable ectasia of the ascending thoracic aorta measuring up to 4 cm in diameter. The main pulmonary artery is normal in caliber. The cardiac chambers are normal in size. No coronary artery atherosclerotic calcifications are noted, although the study is not optimized for coronary assessment. No pericardial effusion or thickening. Bones and soft tissues: Degenerative change is seen in the thoracic spine. No destructive osseous lesions are seen. A probable sebaceous cyst is noted in the right mid back (2:131). This has also been stable when compared to prior exams dating back to 2013. Superficial soft tissues are otherwise unremarkable. Upper abdomen: A dedicated CT of the abdomen and pelvis was performed concurrently and is reported separately. Mails Supervisor (topogram) images: No additional findings. IMPRESSION IMPRESSION: 1. No evidence of intrathoracic metastatic disease. 2. No evidence of bulky intrathoracic lymphadenopathy. 3. 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 Transcribe Date/Time: Apr 30 2021 11:50A Dictated by: JOSHUA MEDEL MD This examination was interpreted and the report reviewed and electronically signed by: JOSHUA MEDEL MD on Apr 30 2021 12:17PM EST Thank you for allowing us to participate in the care of your patient. Should there be any questions regarding this interpretation, please call [phone]. If you are unable to reach us at the number above, please feel free to contact [facility] eRadiology at [phone]. [facility] No Panel Informationon 04-30 Radiology Study observation (narrative) [facility] Vital Signs Date Time Vital Sign Value Performing Clinician Faci lity 05-03-2024 14:04-0500 Body height 175.3 cm Trevor Lynne MD Work Phone: [facility] 05-03-2024 14:04-0500 Body mass index (BMI) [Ratio] 27.07 kg/m2 Trevor Lynne MD Work Phone: [facility] 05-03-2024 14:04-0500 Body temperature 97.3 [degF] Trevor Lynne MD Work Phone: [facility] 05-03-2024 14:04-0500 Body weight 83.2 kg Trevor Lynne MD Work Phone: [facility] 05-03-2024 14:04-0500 Diastolic blood pressure 86 mm[Hg] Trevor Lynne MD Work Phone: [facility] 05-03-2024 14:04-0500 Heart rate 48 /min Trevor Lynne MD Work Phone: [facility] 05-03-2024 14:04-0500 Respiratory rate 16 /min Trevor Lynne MD Work Phone: [facility] 05-03-2024 14:04-0500 SaO2% (BldA) [Mass fraction] 98 % Trevor Lynne MD Work Phone: [facility] 05-03-2024 14:04-0500 Systolic blood pressure 158 mm[Hg] Trevor Lynne MD Work Phone: [facility] 05-30-2023 10:45-0500 Blood Pressure Location Connor KELSEY [facility] 05-30-2023 10:45-0500 Diastolic blood pressure 87 mm[Hg] Connor KELSEY [facility] 05-30-2023 10:45-0500 Heart rate 69 /min Connor KELSEY [facility] 05-30-2023 10:45-0500 Respiratory rate 16 /min Connor KELSEY [facility] 05-30-2023 10:45-0500 Systolic blood pressure 132 mm[Hg] Connor KELSEY [facility] 11-29-2022 13:24-0400 Blood Pressure Location Connorrony KELSEY [facility] 11-29-2022 13:24-0400 Diastolic blood pressure 85 mm[Hg] Connor KELSEY [facility] 11-29-2022 13:24-0400 Heart rate 70 /min Connor KELSEY [facility] 11-29-2022 13:24-0400 Systolic blood pressure 150 mm[Hg] Connor KELSEY [facility] 05-10-2022 13:35-0500 Body height 175.3 cm Trevor Lynne MD Work Phone: [facility] 05-10-2022 13:35-0500 Body temperature 97.5 [degF] Trevor Lynne MD Work Phone: [facility] 05-10-2022 13:35-0500 Body weight 86 kg Trevor Lynne MD Work Phone: [facility] 05-10-2022 13:35-0500 Diastolic blood pressure 76 mm[Hg] Trevor Lynne MD Work Phone: [facility] 05-10-2022 13:35-0500 Heart rate 60 /min Trevor Lynne MD Work Phone: [facility] 05-10-2022 13:35-0500 Respiratory rate 16 /min Trevor Lynne MD Work Phone: [facility] 05-10-2022 13:35-0500 SaO2% (BldA) [Mass fraction] 98 % Trevor Lynne MD Work Phone: [facility] 05-10-2022 13:35-0500 Systolic blood pressure 156 mm[Hg] rTevor Lynne MD Work Phone: [facility] 10-27-2021 10:45-0400 Blood Pressure Location Asaf Espinoza Jr. [facility] 10-27-2021 10:45-0400 Diastolic blood pressure 86 mm[Hg] Asaf Espinoza Jr. [facility] 10-27-2021 10:45-0400 Heart rate 78 /min Asaf Espinoza Jr. [facility] 10-27-2021 10:45-0400 Respiratory rate 16 /min Asaf Espinoza Jr. [facility] 10-27-2021 10:45-0400 Systolic blood pressure 139 mm[Hg] Asaf Espinoza Jr. [facility] 07-28-2021 12:20-0400 Respiratory rate 16 /min Asaf Espinoza Jr. [facility] Encounters Encounter Date Encounter Type Care Provider Facility Start: 05-07-2024 End: 05-07-2024 Lab Drop off Connor KELSEY [facility] Start: 05-07-2024 End: 05-07-2024 ambulatory Connor KELSEY Facility[place] Start: 05-07-2024 End: 05-07-2024 Patient encounter procedure Connor Rodriguez LOW [facility] Javier Start: 05-03-2024 End: 05-03-2024 ambulatory TREVOR LYNNE Facility:[facility] Start: 05-03-2024 End: 05-03-2024 Office outpatient visit 15 minutes Trevor Lynne MD Work Phone: Hematology/Oncology Comment on above: History of melanoma (Primary Dx) Start: 04-26-2024 End: 04-26-2024 ambulatory TREVOR LYNNE Facility:[facility] Start: 04-26-2024 End: 04-26-2024 Subsequent hospital visit by physician Arrival Time Radiology Work Phone: Radiology [facility] Start: 04-09-2024 End: 04-09-2024 ambulatory [facility] Start: 03-20-2024 End: 03-28-2024 Telephone encounter Maria Teresa Mike RN Hematology/Oncology Comment on above: Orders Start: 01-03-2024 End: 01-03-2024 ambulatory ALEC HUNTLEY Facility:[facility] Start: 01-03-2024 End: 01-03-2024 Office outpatient visit 10 minutes Alec Huntley DO Work Phone: [facility] Comment on above: Parkinson's disease without dyskinesia or fluctuating manifestations (HCC) (Primary Dx) Start: 11-27-2023 ambulatory Humza Dominguez PA-C Work Phone: [facility] Comment on above: Aftervisit Summary a nd EMPOWERU info Start: 11-27-2023 E-mail encounter keith holder caregiver Humza Dominguez PA-C Work Phone: [facility] Start: 11-24-2023 End: 11-24-2023 ambulatory Humza Dominguez PA-C Work Phone: Neurology Movement [facility] Comment on above: Parkinson's disease without dyskinesia or fluctuating manifestations (HCC) (Primary Dx) Start: 11-24-2023 End: 11-24-2023 Telemedicine consultation with patient [place] L Alberto HALL Work Phone: Neurology [facility] Start: 11-17-2023 End: 11-17-2023 Subsequent hospital visit by physician [employer] Work Phone: Molecular Imaging Comment on above: Tremor [R25.1] Start: 11-17-2023 End: 11-17-2023 ambulatory ALEC HUNTLEY Facility:[facility] Start: 11-17-2023 End: 11-17-2023 Subsequent hospital visit by physician [facility] Start: 10-28-2023 Telephone encounter Alec rivera DO Work Phone: Molecular Imaging Comment on above: NM LEV Start: 08-30-2023 End: 08-30-2023 ambulatory ISABEL STACK Facility:[facility] Start: 08-30-2023 End: 08-30-2023 Patient encounter procedure LISA STACK [facility] Start: 05-30-2023 End: 05-30-2023 ambulatory Connor KELSEY Facility:[facility] Start: 05-30-2023 End: 05-30-2023 Patient encounter procedure Connor KELSEY [facility] Start: 05-23-2023 Telephone encounter Florencio Crowell [facility] Start: 05-23-2023 End: 05-23-2023 ambulatory Connor KELSEY [place] [employer] Other Start: 05-23-2023 End: 05-23-2023 Patient encounter procedure Connor KELSEY [facility] Start: 05-12-2023 End: 05-12-2023 ambulatory Connor Kelsey Facility:[facility] Start: 05-12-2023 End: 05-12-2023 ambulatory Connor R KELSEY Facility:[id number] Start: 05-03-2023 End: 05-03-2023 ambulatory Florencio Crowell Other [facility] Other Start: 05-03-2023 Telephone encounter Florencio Crowell [facility] Start: 05-02-2023 End: 05-02-2023 Subsequent hospital visit by physician Arrival Time Radiology Work Phone: Radiology Pet CT Comment on above: Malignant melanoma o f skin (HCC) [C43.9] Start: 12-28-2022 End: 12-28-2022 Patient encounter procedure Connor KELSEY [facility] Start: 11-29-2022 End: 11-29-2022 Patient encounter procedure Connor KELSEY [facility] Start: 07-28-2022 ambulatory SYLWIA GREGG . Facility: Start: 07-06-2022 (Televisit) Televisit Florencio Crowell [facility] Start: 07-06-2022 End: 07-06-2022 ambulatory Florencio Crowell Other [facility] Other Start: 05-10-2022 End: 05-10-2022 ambulatory Trevor Lynne MD Work Phone: Hematology/Oncology Comment on above: Malignant melanoma o f skin (HCC) (Primary Dx); Benign localized prostatic hyperplasia with lower urinary tract symptoms (LUTS); Essential tremor Start: 05-10-2022 End: 05-10-2022 Patient encounter procedure Trevor Lynne MD Work Phone: [facility] Start: 05-03-2022 End: 05-03-2022 Subsequent hospital visit by physician Arrival Time Radiology Work Phone: Radiology Pet CT Comment on above: Malignant melanoma o f skin (HCC) [C43.9] Start: 04-30-2022 Orders Only Trevor Lynne MD Work Phone: Radiology Pet CT Comment on above: Malignant melanoma o f skin (HCC) (Primary Dx) Start: 04-05-2022 Telephone encounter Leticia Vogel Hematology/Oncology Comment on above: Orders Start: 10-27-2021 End: 10-27-2021 Patient encounter procedure Asaf Espinoza Jr. [facility] Start: 07-28-2021 End: 07-28-2021 Patient encounter procedure Asaf Espinoza Jr. [facility] Start: 04-30-2021 End: 04-30-2021 Subsequent hospital visit by physician Arrival Time Radiology Work Phone: Radiology Pet CT Comment on above: Enlarged lymph node [R59.9] Start: 10-12-2019 Encounter for other preprocedural examination Florencio Crowell Other [facility] Other Start: 10-12-2019 Pre-procedure evalua tion check Florencio Crowell Other [facility] Other Procedures Date Procedure Procedure Detail Performing Clinician Start: 04-26-2024 Ct abdomen & pelvis w/contrast material Trevor Lynne MD Work Phone: Start: 04-26-2024 Ct thorax w/contrast material Trevor Lynne MD Work Phone: Start: 04-26-2024 Blood count complete auto&auto difrntl wbc Trevor Lynne MD Work Phone: Start: 05-12-2023 Transurethral prostatectomy Connor KELSEY Start: 05-02-2023 Ct abdomen & pelvis w/contrast material Trevor Lynne MD Work Phone: Start: 05-02-2023 Ct thorax w/contrast material Trevor Lynne MD Work Phone: Start: 05-02-2023 Blood count complete auto&auto difrntl wbc Trevor Lynne MD Work Phone: Start: 12-28-2022 Transurethral cystoscopy Connor KELSEY Start: 05-03-2022 Ct abdomen & pelvis w/contrast material Trevor Lynne MD Work Phone: Start: 05-03-2022 Ct thorax w/contrast material Trevor Lynne MD Work Phone: Start: 05-03-2022 Blood count complete auto&auto difrntl wbc Trevor Lynne MD Work Phone: Start: 07-16-2021 Transurethral insert ion of prostatic urethral lift implant Asaf Espinoza Jr. Comment on above: UroLift All Urolift bands re moved by PRW 05/12/23. Urolift bands remove d by PRW 05/12/23. 1 band remaining. Start: 05-11-2021 Cystourethroscopy Kirk Espinoza Jr. Start: 04-30-2021 Ct abdomen & pelvis w/contrast material Angie Alexis [employer] SUPERVISOR.WE[employer]HER [employer] CHARGER Work Phone: Start: 04-30-2021 Ct thorax w/contrast material Angie Alexis FEED HOUSE SUPERVISOR.WE[employer]HER [employer] CHARGER Work Phone: Start: 03-06-2020 Cystoscopy Asaf pearson Jr. Start: 04-25-2018 Screening for malign ant neoplasm of prostate Florencio Crowell Other Start: 03-22-2013 General examination of patient Florencio Crowell Other Start: 10-14-2010 Transurethral resect ion [...] Treatment Date Care Activity Detail Author Start: 08-01-2026 RSV Vaccine (1 - 1-d ose 75+ series) RSV Vaccine (1 - 1-dose 75+ series) [facility] Start: 04-25-2025 End: 07-25-2025 CBC W Auto Differential panel - Blood COMPLETE BLOOD COUNT AND DIFFERENTIAL Lab Routine Expected: 04/25/2025 (Approximate), Expires: 07/25/2025 [facility] Comment on above: Expected: 04/25/2025 (Approximate), Expires: 07/25/2025 Start: 04-25-2025 End: 07-25-2025 Comprehensive metabolic 2000 panel - Serum or Plasma COMPREHENSIVE METABOLIC PANEL Lab Routine Expected: 04/25/2025 (Approximate), Expires: 07/25/2025 [facility] Comment on above: Expected: 04/25/2025 (Approximate), Expires: 07/25/2025 Start: 04-25-2025 End: 04-25-2025 Patient encounter procedure 04/25/2025 10:15 AM EST Appointment Radiology Pet CT [address] [place] [address] CT CAP W IV Radiology Pet CT Comment on above: CT CAP W IV Start: 07-03-2024 End: 07-03-2024 ambulatory 07/03/2024 4:40 PM EDT [facility] [address] [place] [address] Alec Huntley, DO [address] [place] [address] Medications [facility] Comment on above: Medications Start: 05-14-2024 ambulatory Ambulatory Facility:C [id number] Start: 05-03-2024 End: 05-03-2024 Follow-up encounter 05/03/2024 2:45 PM EST Visit (SP) Office Hematology/Oncology [address] [address] Trevor Lynne MD [address] [place] [address] 1 YEAR FOLLOW UP Hematology/Oncology Comment on above: 1 YEAR FOLLOW UP Start: 05-03-2024 End: 05-03-2024 Follow-up encounter 05/03/2024 1:40 PM EST Visit (SP) Office Hematology/Oncology [address] [place] [address] [place] [address] Trevor Lynne MD [address] [address] 1 YEAR FOLLOW UP Hematology/Oncology Comment on above: 1 YEAR FOLLOW UP Start: 04-26-2024 End: 04-26-2024 Patient encounter procedure 04/26/2024 10:15 AM EST Appointment Radiology Pet CT [address] [place] [address] CT CAP W IV Radiology Pet CT Comment on above: CT CAP W IV Start: 04-18-2024 Advance Directive Discussion Advance Directive Discussion [facility] Start: 01-03-2024 End: 01-03-2024 ambulatory 01/03/2024 3:40 PM EDT [facility] [address] [place] [address] Alec Huntley, DO [address] [place] [address] Parkinson's diagnosis, currrent medications [facility] Comment on above: Parkinson's diagnosi s, currrent medications Start: 12-18-2023 Covid-19 Vaccine ( season) Covid-19 Vaccine ( season) [facility] Start: 12-18-2023 Covid-19 Vaccine ( season) Covid-19 Vaccine () [facility] Start: 12-18-2023 Influenza vaccination Influenza Vacc ine (#1) [facility] Start: 11-17-2023 End: 11-17-2023 Patient encounter procedure Molecular Imaging Comment on above: NM BRAIN TREMOR SPEC T/CT Start: 04-18-2023 Advance Directive Discussion Advance Directive Discussion [facility] Start: 04-18-2023 Behavioral Health Screening Behavioral Health Screening [facility] Start: 12-17-2022 Covid-19 Vaccine () Covid-19 Vaccine () [facility] Start: 05-03-2022 End: 07-03-2022 CBC W Auto Differential panel - Blood CBC + DIFF Lab Routine Malignant melanoma of skin (HCC) Expected: 05/03/2022, Expires: 07/03/2022 [facility] Work Phone: Comment on above: Expected: 05/03/2022 , Expires: 07/03/2022 Start: 04-18-2022 ADVANCE DIRECTIVE DISCUSSION ADVANCE DIRECTIVE DISCUSSION [facility] Start: 04-18-2022 DEPRESSION ASSESSMENT DEPRESSION ASS ESSMENT [facility] Start: 12-17-2021 Influenza vaccination INFLUENZA (#1) [facility] Start: 04-21-2021 COVID-19 VACCINE (4 - Booster) COVID-19 VACCINE (4 - Booster) [facility] Start: 04-18-2021 ADVANCE DIRECTIVE DISCUSSION ADVANCE DIRECTIVE DISCUSSION [facility] Start: 04-18-2021 DEPRESSION ASSESSMENT DEPRESSION ASS ESSMENT [facility] Start: 08-15-2020 COVID-19 VACCINE (3 - Booster) COVID-19 VACCINE (3 - Booster) [facility] Start: 03-07-2020 Pneumococcal Vaccine : 65+ (2 of 2 - PCV) Pneumococcal Vaccine: 65+ (2 of 2 - PCV) [facility] Start: 03-07-2020 PNEUMOCOCCAL: 65+ (2 - PCV) PNEUMOCOCCAL: 65+ (2 - PCV) [facility] Start: 2011 RSV Vaccine (1 - 1-d ose 60+ series) RSV Vaccine (1 - 1-dose 60+ series) [facility] Start: 08-01-2001 SHINGRIX VACCINE (1 of 2) SHINGRIX VACCINE (1 of 2) [facility] Start: 08-01-1996 COLOGUARD (FIT-DNA) COLOGUARD (FIT-D NA) [facility] Start: 08-01-1996 Colonoscopy COLONOSCOPY [facility] Start: 08-01-1996 COLORECTAL CANCER SCREENING COLORECTAL CANCER SCREENING [facility] Start: 08-01-[address] COLONOGRAPHY [facility] Start: 08-01-1996 FECAL OCCULT BLOOD FECAL OCCULT BLOO D [facility] Start: 08-01-1996 Screening for malign ant neoplasm of colon [facility] Start: 08-01-1996 SIGMOIDOSCOPY SIGMOIDOSCOPY [facility] [facility] [place] Start: 08-01-1970 Urine microalbumin profile [facility] Start: 08-01-1969 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 RAFAELA DISEASE VISIT ANNUAL PCP TEAM CHRONIC DISEASE VISIT [facility] Start: 08-01-1969 Anxiety Screening Anxiety Screening [facility] Start: 08-01-1969 BP CONTROLLED (<130/80) BP CONTROLLE D (<130/80) [facility] Start: 08-01-1969 Depression Screening Depression Scre ening [facility] Start: 08-01-1969 Hepatitis B surface antibody level LDL CHOLESTEROL [facility] Start: 08-01-1969 HEPATITIS C SCREENING [facility] Start: 08-01-1969 Hepatitis C screening Hepatitis C [facility] Start: 08-01-1961 3 comp foot exam completed DIABETIC FOOT EXAM [facility] Start: 08-01-1961 Diabetic foot examination Diabetic Foot Exam [facility] Start: 08-01-1961 Glaucoma screening Dilated Retinal E xam [facility] Start: 08-01-1961 Hepatitis B screening URINE ALBUMIN:CREATININE RATIO [facility] Start: 08-01-1961 Hepatitis C antibody , confirmatory test DILATED RETINAL EXAM [facility] Start: 08-01-1956 Hemoglobin A1c measurement HbA1C [facility] Start: 08-01-1956 Hemoglobin A1c/Hemoglobin.total in Blood HBA1C [facility] End: 06-09-2023 Ct abdomen & pelvis w/contrast material CT ABD/PEL W IVCON Radiology Routine Malignant melanoma of skin (HCC) 1 Occurrences starting 05/10/2022 until 06/09/2023 [facility] Work Phone: Comment on above: 1 Occurrences starti ng 05/10/2022 until 06/09/2023 End: 06-02-2025 CT Abdomen and Pelvis W contrast IV CT ABD/PEL W IVCON Radiology Routine 1 Occurrences starting 05/03/2024 until 06/02/2025 [facility] Work Phone: Comment on above: 1 Occurrences starti ng 05/03/2024 until 06/02/2025 End: 06-02-2025 CT Chest W contrast IV CT CHEST W IVCON Radiology Routine 1 Occurrences starting 05/03/2024 until 06/02/2025 [facility] Comment on above: 1 Occurrences starti ng 05/03/2024 until 06/02/2025 End: 06-09-2023 CT CHEST W IVCON CT CHEST W IVCON Radiology Routine Malignant melanoma of skin (HCC) 1 Occurrences starting 05/10/2022 until 06/09/2023 [facility] Work Phone: Comment on above: 1 Occurrences starti ng 05/10/2022 until 06/09/2023 [facility] Immunization Date Immunization Notes Care Provider Fa [facility] 01-24-2023 influenza virus vaccine, unspecified formulation Connor KELSEY [facility] 03-27-2021 influenza virus vaccine, split virus (incl. purified surface antigen) Florencio Crowell Other [facility] Other 03-27-2021 influenza virus vaccine, unspecified formulation Connor KELSEY [facility] 02-24-2021 SARS-CoV-2 (COVID-19 ) mRNA BNT-162b2 vax Asaf Espinoza Jr. [facility] 02-16-2021 influenza virus vaccine, unspecified formulation Asaf Espinoza Jr. [facility] 06-20-2020 SARS-CoV-2 (COVID-19 ) mRNA-1273 vaccine Asaf Espinoza [facility] Comment on above: Result Comment: 2nd shot 05-30-2020 SARS-CoV-2 (COVID-19 ) mRNA-1273 vaccine Asaf Espinoza [facility] Comment on above: Result Comment: 1st shot 03-20-2020 influenza virus vaccine, unspecified formulation Connor KELSEY [facility] 03-18-2020 influenza nasal, unspecified formulation Leticia Aaron RN [facility] 03-18-2020 influenza virus vaccine, unspecified formulation Asaf Alexis Ovalle [facility] 03-07-2019 influenza virus vaccine, unspecified formulation Connor KELSEY [facility] 03-07-2019 influenza, high dose seasonal, preservative-free Leticia Aaron RN [facility] 03-07-2019 pneumococcal polysaccharide vaccine, 23 valent Leticia Aaron RN [facility] 01-25-2018 influenza virus vaccine, unspecified formulation Leticia Aaron RN [facility] 01-10-2018 influenza virus vaccine, split virus (incl. purified surface antigen) Florencio Crowell Other [facility] Other 01-10-2018 influenza virus vaccine, unspecified formulation Connor KELSEY [facility] 01-10-2018 pneumococcal conjuga te vaccine, 13 valent Connor KELSEY [facility] 05-05-2017 influenza virus vaccine, unspecified formulation Connor KELSEY [facility] 04-21-2017 pneumococcal conjuga te vaccine, 13 valent Florencio Crowell Other [facility] 04-16-2016 influenza virus vaccine, split virus (incl. purified surface antigen) Florencio Crowell Other [facility] Other 04-16-2016 influenza virus vaccine, unspecified formulation Connor KELSEY [facility] 02-21-2013 influenza virus vaccine, unspecified formulation Leticia Aaron RN [facility] Payers Date Payer Category Payer Unknown [facility] [facility] MEDICARE SUPPLEMENT [id number] 2017-Present [phone] [id number] [place] [address] [facility] [id number] 2017 Private Health Insurance [id number] 2017 Unknown [id number] 2016 Medicare [id number] 2016 Medicare [id number] 1959 Self-pay 1950 Unknown [id number] 1950 Unknown [id number] 1950 Unknown [id number] 1950 Unknown [id number] 1950 Unknown [id number] 1950 Unknown [id number] 1950 Unknown [id number] Social History Date Type Detail Facility Start: 07-28-2021 End: 08-30-2023 Tobacco smoking status Never smoked tobacco (finding) [facility] Start: 05-11-2021 End: 02-17-2023 Sex Assigned At Male [facility] Start: 05-08-2020 End: 05-11-2021 Alcohol intake Current non-drinker of alcohol (finding) [facility] Start: 1950 Sex Assigned At Male [facility] Tobacco smoking status Never [facility] Start: 05-11-2021 End: 02-17-2023 History of Social function [facility] Start: 05-12-2019 Gender identity Identifies as male gender (finding) [facility] Start: 05-12-2019 Sexual orientation Heterosexual (fin ding) [facility] Start: 03-31-2021 End: 04-30-2021 Exposure to SARS-CoV-2 (event) Not sure [facility] Functional Status Date Assessment Result Facility 08-30-2023 Functional Status N/A [facility] 05-30-2023 Functional Status N/A [facility] 12-28-2022 Functional Status N/A [facility] 11-29-2022 Functional Status N/A [facility] 10-27-2021 Functional Status N/A [facility] Clinical Notes 02-08-2012 to 05-07-2024 Trevor Lynne MD - 05/01/2024 8:11 AM Muriel Salcedo RT(R) - 04/26/2024 10:15 AM Maria Teresa eDras RN - 04/26/2024 10:15 AM ESTPatient Instructions Note Date & Type Note Facility 05-07-2024 Evaluation + Plan note Diagnostic Tests PendingUrine Cytology ([facility]) 05/07/24 [facility] 05-01-2024 Note HNO ID: [id number] Author: TREVOR LYNNE MD Service: ? Author Type: Physician Type: Progress Notes Filed: 05/04/2024 07:20 Note Text: PATIENT NAME: Stephan Mercer DATE: 05/03/2024 PRIMARY CARE PHYSICIAN: Dr. Florencio Crowell OTHER PHYSICIANS: Dr. Michel, Dr. Kelsey, Dr. Huntley Portions of this encounter note have been copied from the note from 05/05/2023 and has been updated where appropriate, and reflect my current medical decision making from today. CC: This is a 73 year old male with a history of melanoma, seen for scheduled follow-up. INTERIM HISTORY: Since the patient's last visit here he was diagnosed with Parkinson's disease. He currently is on medications per [facility] neurology with improvement. He continues to have LUTS, stable on current medications per urology. He continues to follow with dermatology on yearly basis. Apparently he has been diagnosed with small areas of basal cell carcinoma, but has had no evidence of recurrent melanoma. Otherwise no new medical problems. Overall he feels well. MEDICATIONS: propranolol (INDERAL) 40 mg tablet Take 40 mg by mouth three times a day. diphenhydrAMINE (BENADRYL) 50 mg capsule Take 1 capsule by mouth as directed. Take one capsule 1 hour prior to scan carbidopa-levodopa (SINEMET) 25-100 mg per tablet Take 2 tablets by mouth three times a day. losartan-hydroCHLOROthiazide (HYZAAR) 50-12.5 mg per tablet Take 1 tablet by mouth once daily. FLUoxetine (PROZAC) 20 mg capsule POTASSIUM CHLORIDE [...] seizures or tremors. PHYSICAL EXAM: Vitals: BP 158/86 Pulse (!) 48 Temp 36.3 ?C (97.3 ?F) (Temporal) Resp 16 Ht 175.3 cm (5' 9.02 ) Wt 83.2 kg (183 lb 6.8 oz) SpO2 98% BMI 27.07 kg/m? ECOG 0 Exam limited to gross [...] rash, lesions, wounds or petechiae. RADIOLOGY/OTHER STUDIES: 04/26/2024 CT chest IMPRESSION: No metastatic disease in the chest. 04/26/2024 CT abdomen/pelvis IMPRESSION: No metastatic disease in the abdomen or pelvis. 05/02/2023 CT chest IMPRESSION: Stable CT examination [...] measuring up to 4 cm. 04/30/2021 CT abdomen/p (more content not included)... [facility] 05-01-2024 History of Present illness Narrative PATIENT NAME: Stephan Mercer DATE: 05/03/2024 PRIMARY CARE PHYSICIAN: Dr. Florencio Crowell OTHER PHYSICIANS: Dr. Michel, Dr. Kelsey, Dr. Huntley Portions of this encounter note have been copied from the note from 05/05/2023 and has been updated where appropriate, and reflect my current medical decision making from today. CC: This is a 73 year old male with a history of melanoma, seen for scheduled follow-up. INTERIM HISTORY: Since the patient's last visit here he was diagnosed with Parkinson's disease. He currently is on medications per [facility] neurology with improvement. He continues to have LUTS, stable on current medications per urology. He continues to follow with dermatology on yearly basis. Apparently he has been diagnosed with small areas of basal cell carcinoma, but has had no evidence of recurrent melanoma. Otherwise no new medical problems. Overall he feels well. MEDICATIONS: propranolol (INDERAL) 40 mg tablet Take 40 mg by mouth three times a day. diphenhydrAMINE (BENADRYL) 50 mg capsule Take 1 capsule by mouth as directed. Take one capsule 1 hour prior to scan carbidopa-levodopa (SINEMET) 25-100 mg per tablet Take 2 tablets by mouth three times a day. losartan-hydroCHLOROthiazide (HYZAAR) 50-12.5 mg per tablet Take 1 tablet by mouth once daily. FLUoxetine (PROZAC) 20 mg capsule POTASSIUM CHLORIDE [...] seizures or tremors. PHYSICAL EXAM: Vitals: BP 158/86 Pulse (!) 48 Temp 36.3 C (97.3 F) (Temporal) Resp 16 Ht 175.3 cm (5' 9.02 ) Wt 83.2 kg (183 lb 6.8 oz) SpO2 98% BMI 27.07 kg/m ECOG 0 Exam limited to gross [...] rash, lesions, wounds or petechiae. RADIOLOGY/OTHER STUDIES: 04/26/2024 CT chest IMPRESSION: No metastatic disease in the chest. 04/26/2024 CT abdomen/pelvis IMPRESSION: No metastatic disease in the abdomen or pelvis. 05/02/2023 CT chest IMPRESSION: Stable CT examination [...] ductal dilation. ASSESSMENT/PLAN: 1. 172.9 Melanoma (primary diagnosis) ICD9: 172.9, ICD10: C43.9 (primary diagnosis) Stage III (T1, N2, M0) malignant melanoma diagnosed September 2010. Primary disease involved the superior aspect of the gluteal fold with metastasis to the regional lymph nodes in the left inguinal area. Status post primary disease resection and inguinal lymph node dissection November 2010. Status post adjuvant interferon x1 year completed April 2012. Since initial diagnosis and treatment the patient has had no evidence of recurrence. Most recent staging CT scans 04/26/2024 negative. Currently no evidence of disease. Per patient request we will continue to see him at our facility on a yearly basis for follow-up, to include labs and staging CT scans. Next visit April 2025. 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 2. 401.9 Hypertension - ICD9: 405.99, ICD10: [...] post UroLift procedure 2020 with minimal improvement. SP TURP per Dr. Kelsey Apr 2023. Currently stable. Continue management per urology. 6. Parkinson's disease - ICD9: 333.1, ICD10: G25.0 Stable on current medications, continue management per [facility] neurology. Trevor Lynne MD CC: Dr. Kelsey, [facility]; Dr. Michel, [facility] documented in this encounter [facility] 04-26-2024 History of Present illness Narrative Radiology Service Progress Note PATIENT NAME: Stephan Mercer DATE OF SERVICE: April 26, 2024 TIME: 10:52 AM PATIENT IDENTITY VERIFICATION COMPLETED USING TWO (2) IDENTIFIERS: Name and Date of confirmed by patient verbally. FALL SCREENING: Has the patient had 2 falls in the last year or 1 fall with injury or currently using an Ambulatory Assistive Device (Walker, Cane, Wheelchair, Crutches, etc.)? 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: No RADIOLOGY DEPARTMENT: CT; Exam(s) Completed: Chest Abdomen Pelvis PERIPHERAL IV DATA: Site assessment: Clean,Dry and Intact, Site disposition Discontinued SIGNED BY: RT Dez(R) April 26, 2024 10:52 AM Radiology Service Progress Note DATE OF SERVICE: April 26, 2024 TIME: 12:21 PM PATIENT WEIGHT: 181LBS PATIENT IDENTITY VERIFICATION COMPLETED USING TWO (2) [...] Yes STANDARD PREMEDICATION: Prednisone 50mg Dose 1 taken at 13, Dose 2 at 7 , and Dose 3 at 1 Benadryl 50mg 1 ALTERNATIVE PREMEDICATION: EXAM: CT -CONTRAST INDUCED NEPHROPATHY RISK FACTORS: Patient age > 60 years and Not applicable CREATININE: Creatinine Date Value Ref Range Status 04/26/2024 0.76 0.73 - 1.22 mg/dL Final 05/02/2023 0.84 0.73 - 1.22 mg/dL Final 05/03/2022 0.85 0.73 - 1.22 mg/dL Final Estimated Glomerular Filtration Rate Date Value Ref Range Status 04/26/2024 95 >=60 mL/min/1.73m Final Comment: Estimated Glomerular Filtration Rate (eGFR) [...] RESULTS: POC done: Yes, See Lab Tab April 26, 2024 TREATMENT: No Hydration needed. IV SITE: Ambulatory: A peripheral IV was started in the Right antecubital site with a Angio cath: 20 gauge. IV SITE APPEARANCE: Clean,Dry and Intact SIGNATURE: Maria Teresa Mike RN PATIENT NAME: Stephan Mercer DATE: April 26, 2024 TIME: 12:21 PM documented in this encounter [facility] 04-26-2024 Note HNO ID: [id number] Author: MARIA TERESA MIKE RN Service: ? Author Type: Registered Nurse Type: Progress Notes Filed: 04/26/2024 12:23 Note Text: Radiology Service Progress Note DATE OF SERVICE: April 26, 2024 TIME: 12:21 PM PATIENT WEIGHT: 181LBS PATIENT IDENTITY VERIFICATION COMPLETED USING TWO (2) [...] Yes STANDARD PREMEDICATION: Prednisone 50mg Dose 1 taken at 13, Dose 2 at 7 , and Dose 3 at 1 Benadryl 50mg 1 ALTERNATIVE PREMEDICATION: EXAM: CT -CONTRAST INDUCED NEPHROPATHY RISK FACTORS: Patient age > 60 years and Not applicable CREATININE: Creatinine Date Value Ref Range Status 04/26/2024 0.76 0.73 - 1.22 mg/dL Final 05/02/2023 0.84 0.73 - 1.22 mg/dL Final 05/03/2022 0.85 0.73 - 1.22 mg/dL Final Estimated Glomerular Filtration Rate Date Value Ref Range Status 04/26/2024 95 >=60 mL/min/1.73m? Final Comment: Estimated Glomerular Filtration [...] RESULTS: POC done: Yes, See Lab Tab April 26, 2024 TREATMENT: No Hydration needed. IV SITE: Ambulatory: A peripheral IV was started in the Right antecubital site with a Angio cath: 20 gauge. IV SITE APPEARANCE: Clean,Dry and Intact SIGNATURE: Maria Teresa Mike RN PATIENT NAME: Stephan Mercer DATE: April 26, 2024 TIME: 12:21 PM [facility] 04-26-2024 Note HNO ID: [id number] Author: MURIEL TOBIAS RT(R) Service: ? Author Type: Technologist Type: Progress Notes Filed: 04/26/2024 10:52 Note Text: Radiology Service Progress Note PATIENT NAME: Stephan Mercer DATE OF SERVICE: April 26, 2024 TIME: 10:52 AM PATIENT IDENTITY VERIFICATION COMPLETED USING TWO (2) IDENTIFIERS: Name and Date of confirmed by patient verbally. FALL SCREENING: Has the patient had 2 falls in the last year or 1 fall with injury or currently using an Ambulatory Assistive Device (Walker, Cane, Wheelchair, Crutches, etc.)? 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: No RADIOLOGY DEPARTMENT: CT; Exam(s) Completed: Chest Abdomen Pelvis PERIPHERAL IV DATA: Site assessment: Clean,Dry and Intact, Site disposition Discontinued SIGNED BY: RT Dez(R) April 26, 2024 10:52 AM [facility] 04-09-[address] [facility] Cardiology Clinic Note Chief Complaint: Patient here for 1 year follow up hypertension and palpitations. No recent labs/imaging. Denies chest pain, SOB, and lightheadedness. He can still feel his heart racing sometimes with stress, but he states this has become less frequent. Doing well. HPI: Stephan Mercer is a 73 y.o. male History of hypertension, gastroesophageal reflux [...] time with no significant perioperative cardiovascular issues. Update 04/09/2024: Doing well from a cardiac standpoint His blood pressure has been high recently; his primary care physician added propranolol He is being treated for Parkinson's Cardiology ROS: Review of Systems Cardiovascular: Positive for palpitations ( racing with stress , less frequent). Neurological: Positive for tremors. All other systems reviewed and are negative. Past Medical History He has a past medical history of BPH (benign prostatic hyperplasia), Cancer (CMS/HCC), GERD (gastroesophageal reflux disease), Hypertension, Hypokalemia, and Tremor. Surgical History He has a past surgical history that includes Cardiac catheterization; Colon surgery; Skin cancer excision; and Carpal tunnel release. Social History He reports that he has never smoked. He has never used smokeless tobacco. He reports that he does not currently use alcohol. No history on file for drug use. Family History Family History Problem Relation Name Age of Onset No Known Problems Mother No Known Problems Father Allergies Iodine and Terazosin Medications Current Outpatient Medications: cholecalciferol, vitamin D3, (Vitamin D3) 50 mcg (2,000 unit) capsule, Take 4,000 Units by mouth., Disp: , Rfl: FLUoxetine (PROzac) 20 mg capsule, , Disp: , Rfl: losartan-hydrochlorothiazide (Hyzaar) 50-12.5 mg tablet, Take 1 tablet by mouth in the morning., Disp: , Rfl: omeprazole (PriLOSEC) [address] capsule, Take 20 mg by mouth in the morning., Disp: , Rfl: potassium chloride CR (Klor-Con M20) 20 mEq ER tablet, Take 20 mEq by mouth in the morning., Disp: , Rfl: rOPINIRole (Requip) 3 mg tablet, Take 3 mg by mouth in the morning, afternoon, and at bedtime., Disp: , Rfl: Last Recorded Vitals BP 146/86 (BP Location: Left arm, Patient Position: Sitting) Pulse 62 Ht 1.778 m (5' 10 ) Wt 83 kg (183 lb) SpO2 97% BMI 26.26 kg/m??? Physical Examination: GENERAL: alert and oriented [...] voltage criteria for left ventricular hypertrophy. Assessment: History of prior cardiac arrest intra-operatively - Likely related to abnormal potassium Hypertension Abnormal EKG; LVH Palpitations Essential tremor Plan: He is to monitor his blood pressure at home a.m. and p.m. an hour after medications 2 or 3 times a week and to keep a log If his blood pressure continues to be above target of about 135/80, would recommend switching propranolol to Coreg He is appropriately on an angiotensin receptor gilson given evidence of left ventricular hypertrophy Treat noncardiac comorbidities as clinically appropriate; we discussed the association of Parkinson's with dysautonomia Return to clinic in 1 year or sooner should problems arise Asia Malloy MD, MPH, [facility], [facility], [facility] Interventional Cardiology Pager Email: [email or web address] 03-20-2024 Telephone encounter Note Patient is scheduled for CT scan and has allergy to Iodine. Please review pre medications and sign. Thanks! Maria Teresa Mike RN [facility] 03-20-2024 Miscellaneous Notes Patient is scheduled for CT scan and has allergy to Iodine. Please review pre medications and sign. Thanks! Maria Teresa Mike RN documented in this encounter [facility] 01-03-2024 Instructions Alec Huntley, - 01/03/2024 3:50 PM EDT Rest of December 2023 Medications 9A 1P 6P Requip 4mg 0 1 1 Sinemet 25/100 2 1 17 January 2024 Medications 9A 1P 6P Requip 4mg 0 0 1 Sinemet 25/100 2 2 17 February 2024 and continue Medications 9A 1P 6P Requip 4mg STOP! Sinemet 25/100 2 2 2 documented in this encounter [facility] 01-03-2024 Note HNO ID: [id number] Author: ALEC HUNTLEY DO Service: ? Author Type: Physician Type: Progress Notes Filed: 01/03/2024 15:53 Note Text: VIRTUAL VISIT PROGRESS NOTE This is a virtual visit using [employer] Video Visit. It required patient-provider interaction for the medical decision making as documented below. I have communicated my name and active licensure. The patient's identity and physical location were verified at the time of this visit. Either the patient or their legal dental detail representative has been informed of the risks and benefits of -- and alternatives to -- treatment through a remote evaluation and consents to proceed with the evaluation remotely. Stephan Mercer is a 73 year old male seen for PD. 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 The DaTscan (Ioflupane I 123 Injection) showed grade 2 loss of dopaminergic neuronal terminal density in the striatum c/w PD. He is still taking the Requip [NB: from my records in [facility], this was increased]. The patient denies any adverse drug reactions (ADRs) from dopamine agonists such as fatigue, sleep attacks, hallucinations, orthostatic hypotension, lightheadedness AND dizziness which can lead to syncope and falls. The patient denies nausea, anorexia and weight loss. The patient denies any dyskinesias. The patient denies developing pathological addictions (gambling, shopping, internet pornography, hypersexuality AND aberrant social behaviors). Medications 9A 1P 6P Requip 4mg 1 1 1 Sinemet 25/100 1 1 1 HISTORY REVIEWED (electronic chart updated): PAST MEDICAL HISTORY Diagnosis Date Hypertension Melanoma (HCC) PAST SURGICAL HISTORY Procedure Laterality Date COLON SURGERY HX No family history on file. Social History Tobacco Use Smoking status: Never Smokeless tobacco: Never Substance Use Topics Alcohol use: No Drug use: No Current Outpatient Medications Medication Sig carbidopa-levodopa (SINEMET) 25-100 mg per tablet Take 2 tablets by mouth three times a day. diphenhydrAMINE (BENADRYL) 50 mg capsule Take 1 capsule by mouth as directed for 1 dose. one (1) hour prior to exam. (Patient not taking: Reported on 05/05/2023) losartan-hydroCHLOROthiazide (HYZAAR) 50-12.5 mg per tablet Take 1 tablet by mouth once daily. rOPINIRole (REQUIP) 4 mg tablet predniSONE (DELTASONE) 50 mg Take 1 tablet by mouth as directed. Take one tab 13 hours prior, 7 hours prior, and [address] scan (Patient not taking: Reported on 05/05/2023) diphenhydrAMINE (BENADRYL) 50 mg capsule Take 1 capsule by mouth one hour prior to CT scan (Patient not taking: Reported on 05/05/2023) FLUoxetine (PROZAC) 20 mg capsule POTASSIUM CHLORIDE (KLOR-CON ORAL) Take by mouth. omeprazole 20 mg capsule Take 20 mg by mouth once daily. No current facility-administered medications for this visit. ALLERGIES Allergen Reactions Iodine Rash REVIEW OF SYSTEMS: All other ROS: negative As noted in HPI PHYSICAL EXAMINATION: VIDEO EXAM: (if completed, performed via video enabled technology) NEUROLOGIC: no obvious deficit and b/l PD tremor ASSESSMENT: (G20.A1) Parkinson's disease without dyskinesia or fluctuating manifestations (HCC) (primary encounter diagnosis) PLAN: Plan to slowly wean off the Requip and increase Sinemet Discussed potential for DBS to control his PD tremor Patient Instructions of December 2023 Medications 9A 1P 6P Requip 4mg 0 1 1 Sinemet 25/100 2 1 17 January 2024 Medications 9A 1P 6P Requip 4mg 0 0 1 Sinemet 25/100 2 2 17 February 2024 and continue Medications 9A 1P 6P Requip 4mg STOP! Sinemet 25/100 2 2 2 I spent a total of 13 minutes on the date of the service which included preparing to see the patient, [id number] patient care, completing clinical documentation, obtaining and/or reviewing separately obtained history, performing a medically appropriate examination, counseling and educating the patient/family/caregiver, ordering medications, tests, or procedures, and communicating results to the patient/family/caregiver Alec Huntley DO [facility] 01-03-2024 History of Present illness Narrative VIRTUAL VISIT PROGRESS NOTE This is a virtual visit using timeplazza Zoom Video Visit. It required patient-provider interaction for the medical decision making as documented below. I have communicated my name and active licensure. The patient's identity and physical location were verified at the time of this visit. Either the patient or their legal dental detail representative has been informed of the risks and benefits of -- and alternatives to -- treatment through a remote evaluation and consents to proceed with the evaluation remotely. Stephan Mercer is a 73 year old male seen for PD. 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 The DaTscan (Ioflupane I 123 Injection) showed grade 2 loss of dopaminergic neuronal terminal density in the striatum c/w PD. He is still taking the Requip [NB: from my records in [facility], this was increased]. The patient denies any adverse drug reactions (ADRs) from dopamine agonists such as fatigue, sleep attacks, hallucinations, orthostatic hypotension, lightheadedness & dizziness which can lead to syncope and falls. The patient denies nausea, anorexia and weight loss. The patient denies any dyskinesias. The patient denies developing pathological addictions (gambling, shopping, internet pornography, hypersexuality & aberrant social behaviors). Medications 9A 1P 6P Requip 4mg 1 1 1 Sinemet 25/100 1 1 1 HISTORY REVIEWED (electronic chart updated): PAST MEDICAL HISTORY Diagnosis Date Hypertension Melanoma (HCC) PAST SURGICAL HISTORY Procedure Laterality Date COLON SURGERY HX No family history on file. Social History Tobacco Use Smoking status: Never Smokeless tobacco: Never Substance Use Topics Alcohol use: No Drug use: No Current Outpatient Medications Medication Sig carbidopa-levodopa (SINEMET) 25-100 mg per tablet Take 2 tablets by mouth three times a day. diphenhydrAMINE (BENADRYL) 50 mg capsule Take 1 capsule by mouth as directed for 1 dose. one (1) hour prior to exam. (Patient not taking: Reported on 05/05/2023) losartan-hydroCHLOROthiazide (HYZAAR) 50-12.5 mg per tablet Take 1 tablet by mouth once daily. rOPINIRole (REQUIP) 4 mg tablet predniSONE (DELTASONE) 50 mg Take 1 tablet by mouth as directed. Take one tab 13 hours prior, 7 hours prior, and [address] scan (Patient not taking: Reported on 05/05/2023) diphenhydrAMINE (BENADRYL) 50 mg capsule Take 1 capsule by mouth one hour prior to CT scan (Patient not taking: Reported on 05/05/2023) FLUoxetine (PROZAC) 20 mg capsule POTASSIUM CHLORIDE (KLOR-CON ORAL) Take by mouth. omeprazole 20 mg capsule Take 20 mg by mouth once daily. No current facility-administered medications for this visit. ALLERGIES Allergen Reactions Iodine Rash REVIEW OF SYSTEMS: All other ROS: negative As noted in HPI PHYSICAL EXAMINATION: VIDEO EXAM: (if completed, performed via video enabled technology) NEUROLOGIC: no obvious deficit and b/l PD tremor ASSESSMENT: (G20.A1) Parkinson's disease without dyskinesia or fluctuating manifestations (HCC) (primary encounter diagnosis) PLAN: Plan to slowly wean off the Requip and increase Sinemet Discussed potential for DBS to control his PD tremor Patient Instructions Rest of December 2023 Medications 9A 1P 6P Requip 4mg 0 1 1 Sinemet 25/100 2 1 17 January 2024 Medications 9A 1P 6P Requip 4mg 0 0 1 Sinemet 25/100 2 2 17 February 2024 and continue Medications 9A 1P 6P Requip 4mg STOP! Sinemet 25/100 2 2 2 I spent a total of 13 minutes on the date of the service which included preparing to see the patient, [id number] patient care, completing clinical documentation, obtaining and/or reviewing separately obtained history, performing a medically appropriate examination, counseling and educating the patient/family/caregiver, ordering medications, tests, or procedures, and communicating results to the patient/family/caregiver Alec Huntley DO documented in this encounter [facility] 11-24-2023 Note HNO ID: [id number] Author: HUMZA DOMINGUEZ PA-C Service: ? Author Type: Physician Extract Puller Type: Progress Notes Filed: 11/27/2023 23:08 Note Text: [facility] - FOLLOW UP EVALUATION - VIRTUAL VISIT Florencio Crowell MD [address] [facility] [place] [id number] Dear Florencio Crowell MD: I had the pleasure of seeing Mr. Mercer for follow-up today. As you know he is a 73 year old right-handed male with a history of since . We had a visit using: Answer.Toom Answer.Toom I have communicated my name and active licensure. The patient's identity and physical location were verified at the time of this visit. Either the patient or their legal dental detail representative has been informed of the risks and benefits of -- and alternatives to -- treatment through a remote evaluation and consents to proceed with the evaluation remotely. Subjective During his previous visit the following plan was made: Previous plan: 02/17/23 Obtain DaTscan (Ioflupane I 123 Injection) Pending result of DaTscan (Ioflupane I 123 Injection) - trial with primidone(Mysoline) or Sinemet 25/100 Lengthy d/w patient and regarding magnetic resonance guided focused ultrasound (MRgFUS) thalamotomy AND DBS Interval History Patient is seen alone today. States he has noted mild worsening of tremor symptoms (LUE and LLE; some mouth tremor lately). 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 He notes some LLE stiffness. States general health has remained stable since the last visit; underwent prostate procedure by Dr. Kelsey that helped to relieve his bladder symptoms. States that Dr. Lobato stopped the propranolol and Trileptal. Movement Disorders Medications Schedule - as of the start of the visit: Medications AM supper Bedtime Requip 3mg 1 1 1 ALLERGIES Allergen Reactions Iodine Rash Current Outpatient Medications Medication Sig carbidopa-levodopa (SINEMET) 25-100 mg per tablet Take 1/2 tab 3 times daily x 1 week, then take 1 tab 3 times daily at 9am - 1pm - 6pm diphenhydrAMINE (BENADRYL) 50 mg capsule Take 1 capsule by mouth as directed for 1 dose. one (1) hour prior to exam. (Patient not taking: Reported on 05/05/2023) losartan-hydroCHLOROthiazide (HYZAAR) 50-12.5 mg per tablet Take 1 tablet by mouth once daily. rOPINIRole (REQUIP) 4 mg tablet predniSONE (DELTASONE) 50 mg Take 1 tablet by mouth as directed. Take one tab 13 hours prior, 7 hours prior, and [address] scan (Patient not taking: Reported on 05/05/2023) diphenhydrAMINE (BENADRYL) 50 mg capsule Take 1 capsule by mouth one hour prior to CT scan (Patient not taking: Reported on 05/05/2023) FLUoxetine (PROZAC) 20 mg capsule POTASSIUM CHLORIDE (KLOR-CON ORAL) Take by mouth. omeprazole 20 mg capsule Take 20 mg by mouth once daily. No current facility-administered medications for this visit. Questionnaires: In addition, the following areas that may be affected by abnormal involuntary movements were evaluated: Daily activities Difficulties with eating: Yes (slight) Difficulties in dressing: Yes (slight) Difficulties with hygiene activities: Yes (slight) Difficulties with handwritin (none) Difficulties with doing hobbies and other activities: Yes (mild) Difficulties turning in bed: Yes (slight) Difficulties getting out of bed, car or chair: Yes (slight) Tremors/Gait/Balance Shaking or tremors: Yes (mild) Walking and balance problems: Yes (slight) Number of falls in the Last Month: 0 Gait freezing: Yes (slight) Autonomic/Pain Lightheadeness on standing: Yes (slight) Urinary problems: 0 (none) No more bladder isssues after recent procedure Constipation problems: 0 (none) Pain and other sensations: 0 (none) Speech/Swallowing Speech problems: 0 (none) Droolin (none) Chewing and swallowing problems: 0 (none) Sleep/Fatigue Sleep problems: Yes (moderate) States he delays in going to bed since he's retired. No issues falling asleep and generally sleeps well. Daytime sleepiness: Yes (moderate) Does not generally nap Fatigue: Yes (mild) Mood/Behavior Depression: PHQ-9 Score: 3 usually representing no significant (0-4) depression. Anxiety: CAROLIN-7 Total Score: 3 usually representing no significant (0-4) anxiety. Finally, the following table shows the patient's overall global physical and mental health using the PROMIS scale: PROMIS-10 Flowsheet Row Distance Health from 11/24/2023 in Neurology [facility] Visit ([place]) Office from 05/05/2023 in Hematology/Oncology Global Physical Health T Score 50.8 47.7 Global Mental Health T Score 53.3 50.8 0-10 Standard Pain Scale 4 4 *PROMIS-10 scoring scale: mean = 50, over 50 is above average, under 50 is below average In addition, the following non-motor symptoms and palliative concerns were evaluated: Sleep/Fatigue: REM sleep behavior disorder: No Restless Legs Syndrom (more content not included)... [facility] 11-24-2023 History of Present illness Narrative [facility] - FOLLOW UP EVALUATION - VIRTUAL VISIT Florencio Crowell MD [address] [facility] [place] [id number] Dear Florencio Crowell MD: I had the pleasure of seeing Mr. Mercer for follow-up today. As you know he is a 73 year old right-handed male with a history of since . We had a visit using: Seabags I have communicated my name and active licensure. The patient's identity and physical location were verified at the time of this visit. Either the patient or their legal dental detail representative has been informed of the risks and benefits of -- and alternatives to -- treatment through a remote evaluation and consents to proceed with the evaluation remotely. Subjective During his previous visit the following plan was made: Previous plan: 02/17/23 Obtain DaTscan (Ioflupane I 123 Injection) Pending result of DaTscan (Ioflupane I 123 Injection) - trial with primidone(Mysoline) or Sinemet 25/100 Lengthy d/w patient and regarding magnetic resonance guided focused ultrasound (MRgFUS) thalamotomy & DBS Interval History Patient is seen alone today. States he has noted mild worsening of tremor symptoms (LUE and LLE; some mouth tremor lately). 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 He notes some LLE stiffness. States general health has remained stable since the last visit; underwent prostate procedure by Dr. Kelsey that helped to relieve his bladder symptoms. States that Dr. Lobato stopped the propranolol and Trileptal. Movement Disorders Medications Schedule - as of the start of the visit: Medications AM supper Bedtime Requip 3mg 1 1 1 ALLERGIES Allergen Reactions Iodine Rash Current Outpatient Medications Medication Sig carbidopa-levodopa (SINEMET) 25-100 mg per tablet Take 1/2 tab 3 times daily x 1 week, then take 1 tab 3 times daily at 9am - 1pm - 6pm diphenhydrAMINE (BENADRYL) 50 mg capsule Take 1 capsule by mouth as directed for 1 dose. one (1) hour prior to exam. (Patient not taking: Reported on 05/05/2023) losartan-hydroCHLOROthiazide (HYZAAR) 50-12.5 mg per tablet Take 1 tablet by mouth once daily. rOPINIRole (REQUIP) 4 mg tablet predniSONE (DELTASONE) 50 mg Take 1 tablet by mouth as directed. Take one tab 13 hours prior, 7 hours prior, and [address] scan (Patient not taking: Reported on 05/05/2023) diphenhydrAMINE (BENADRYL) 50 mg capsule Take 1 capsule by mouth one hour prior to CT scan (Patient not taking: Reported on 05/05/2023) FLUoxetine (PROZAC) 20 mg capsule POTASSIUM CHLORIDE (KLOR-CON ORAL) Take by mouth. omeprazole 20 mg capsule Take 20 mg by mouth once daily. No current facility-administered medications for this visit. Questionnaires: In addition, the following areas that may be affected by abnormal involuntary movements were evaluated: Daily activities Difficulties with eating: Yes (slight) Difficulties in dressing: Yes (slight) Difficulties with hygiene activities: Yes (slight) Difficulties with handwritin (none) Difficulties with doing hobbies and other activities: Yes (mild) Difficulties turning in bed: Yes (slight) Difficulties getting out of bed, car or chair: Yes (slight) Tremors/Gait/Balance Shaking or tremors: Yes (mild) Walking and balance problems: Yes (slight) Number of falls in the Last Month: 0 Gait freezing: Yes (slight) Autonomic/Pain Lightheadeness on standing: Yes (slight) Urinary problems: 0 (none) No more bladder isssues after recent procedure Constipation problems: 0 (none) Pain and other sensations: 0 (none) Speech/Swallowing Speech problems: 0 (none) Droolin (none) Chewing and swallowing problems: 0 (none) Sleep/Fatigue Sleep problems: Yes (moderate) States he delays in going to bed since he's retired. No issues falling asleep and generally sleeps well. Daytime sleepiness: Yes (moderate) Does not generally nap Fatigue: Yes (mild) Mood/Behavior Depression: PHQ-9 Score: 3 usually representing no significant (0-4) depression. Anxiety: CAROLIN-7 Total Score: 3 usually representing no significant (0-4) anxiety. Finally, the following table shows the patient's overall global physical and mental health using the PROMIS scale: PROMIS-10 Flowsheet Row Distance Health from 11/24/2023 in Neurology [facility] Visit ([place]) Office from 05/05/2023 in Hematology/Oncology Global Physical Health T Score 50.8 47.7 Global Mental Health T Score 53.3 50.8 0-10 Standard Pain Scale 4 4 *PROMIS-10 scoring scale: mean = 50, over 50 is above average, under 50 is below average In addition, the following non-motor symptoms and palliative concerns were evaluated: Sleep/Fatigue: REM sleep behavior disorder: No Restless Legs Syndrome: No Leg swelling: Impaired sense of smell: No Cognition: Cognitive impairment: no MoCA Cognitive assessment: Hallucinations and delusions: no Apathy: no Impulse control disorder: No Palliative Concerns: Caregiver burden: Spiritual concerns: Advanced directives on file: Palliative services: Therapy and Exercise: Last PT Date: Last OT Date: Last ST Date: Exercises Regularly: Objective General Exam Rest tremor: R-1 (thumb), L-3 (LLE-2) Postural tremor: R-0, L-1 Action tremor: R-0, L-2 Finger taps: R-1, L-0 Hand teleradiologist: R-0, L-2 Pron/sup: R-0, L-2 Gait: Not observed Assessment and Plan: Assessment Mr. Mercer is a right-handed 73 year old male with Prominent left body > right body tremor. 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 Remains on ropinerole 3 mg 3 times daily. Plan: Will start carbidopa/levodopa 25/100 2 tab 3 times daily x 1 week, then will increase to take 1 tablet 3 times daily. Advised to take it with food to reduce likelihood of nausea. Advised that if he develops nausea despite taking it with food to send a MyChart advising of this. Explained the structure of carbidopa levodopa (carbidopa is there to prevent nausea and ensure that levodopa goes across blood-brain barrier to be absorbed as dopamine as a dopamine replacement). Explained that some patients need extra carbidopa to ensure that levodopa is absorbing in the brain and not in the body (which causes nausea). We can prescribe extra carbidopa if needed. Also recommended to start structured aerobic exercise program, in particular using an exercise or recumbent bike - pedal at low resistance/high RPM's. In short: Any aerobic exercise that you can safely do will be acceptable. Interested in clinical research? Not currently Updated Movement Disorder Medication Schedule: Medications AM supper bedtime Requip 3mg 1 1 1 propranolol 60mg 1 0 0 trileptal 300mg 1 0 0 Level of service: 50453 (30-39 min). Time spent 35 min on the day of service, which included [id number] patient care, completing clinical documentation, obtaining and/or reviewing separately obtained history, performing a medically appropriate examination, and counseling and educating the patient/family/caregiver. Thank you for allowing me to be part of the clinical care of this patient! I look forward to continued participation in the patient s care with you. Please do not hesitate to call with any questions. Sincerely, Humza Dominguez PA-C Physician Extract Puller [facility] documented in this encounter [facility] 11-17-2023 History of Present illness Narrative RADIOLOGY SERVICE PROGRESS NOTE SERVICE DATE: 11/17/2023 SERVICE TIME: 9:47 AM PATIENT IDENTITY VERIFICATION COMPLETED USING TWO (2) STANDARD IDENTIFIERS: Name and Date of confirmed by patient verbally FALL SCREENING: Has the patient had 2 falls in the last year or 1 fall with injury or currently using an Ambulatory Assistive Device (Walker, Cane, Wheelchair, Crutches, etc.)? No PATIENT GENDER DATA: .male ALLERGIES: Reviewed and unchanged MEDICATIONS REVIEWED: Yes PATIENT RELEVANT IMPLANT DATA REVIEWED: Not Applicable PATIENT PRESENTS WITH AN IMPLANTABLE OR ATTACHED SCHOOL CROSSING GUARD SUPERVISOR: No CREATININE: Creatinine Date Value Ref Range Status 05/02/2023 0.84 0.73 - 1.22 mg/dL Final 05/03/2022 0.85 0.73 - 1.22 mg/dL Final 04/30/2021 0.91 0.73 - 1.22 mg/dL Final Estimated Glomerular Filtration Rate Date Value Ref Range Status 05/02/2023 93 >=60 mL/min/1.73m Final Comment: Estimated Glomerular Filtration Rate (eGFR) [...] Range Status 04/30/2021 >60 Final P.O.C.T. RESULTS: N/A November 17, [address] PERFORMED: No IV SITE: Ambulatory: A peripheral IV was started in the Right antecubital site with a Angio cath: 22 gauge. POST EXAM PIV STATUS: Discontinued PROCEDURE TYPE: NM INJECT: DaTscan Scan. 5.3 mCi I 123 DatScan. Lugol's given orally at 0943. ADMINISTRATION TIME: 0958 PATIENT DISCHARGED TO: Ambulatory patient, left [place] department area. A Diagnostic radioactive procedure has taken place, with no further precautions necessary other than routine body substance precautions. More information regarding radiation safety can be found using this link: [email or web address] [email or web address] SIGNATURE: MANJIT Talavera) PATIENT NAME: Stephan Mercer DATE: November 17, 2023 TIME: 9:47 AM PAGER/CONTACT #: documented in this encounter [facility] 11-17-2023 Note HNO ID: [id number] Author: MICHAEL FERRO RT (R) Service: Nuclear Medicine Author Type: Technologist Type: Progress Notes Filed: 11/17/2023 09:53 Note Text: RADIOLOGY SERVICE PROGRESS NOTE SERVICE DATE: 11/17/2023 SERVICE TIME: 9:47 AM PATIENT IDENTITY VERIFICATION COMPLETED USING TWO (2) STANDARD IDENTIFIERS: Name and Date of confirmed by patient verbally FALL SCREENING: Has the patient had 2 falls in the last year or 1 fall with injury or currently using an Ambulatory Assistive Device (Walker, Cane, Wheelchair, Crutches, etc.)? No PATIENT GENDER DATA: .male ALLERGIES: Reviewed and unchanged MEDICATIONS REVIEWED: Yes PATIENT RELEVANT IMPLANT DATA REVIEWED: Not Applicable PATIENT PRESENTS WITH AN IMPLANTABLE OR ATTACHED SCHOOL CROSSING GUARD SUPERVISOR: No CREATININE: Creatinine Date Value Ref Range Status [...] Range Status 04/30/2021 >60 Final P.O.C.T. RESULTS: N/A November 17, [address] PERFORMED: No IV SITE: Ambulatory: A peripheral IV was started in the Right antecubital site with a Angio cath: 22 gauge. POST EXAM PIV STATUS: Discontinued PROCEDURE TYPE: NM INJECT: DaTscan Scan. 5.3 mCi I 123 DatScan. Lugol's given orally at 0943. ADMINISTRATION TIME: 0958 PATIENT DISCHARGED TO: Ambulatory patient, left [place] department area. A Diagnostic radioactive procedure has taken place, with no further precautions necessary other than routine body substance precautions. More information regarding radiation safety can be found using this link: [email or web address]%20Medicine [email or web address] SIGNATURE: RT Ilan(R) PATIENT NAME: Stephan Mercer DATE: November 17, 2023 TIME: 9:47 AM PAGER/CONTACT #: [facility] 10-28-2023 Telephone encounter Note Name: Stephan Mercer AGE: [age] year old Weight: Last 1 Encounter Wt Readings: Date: Wt: 05/05/2023 86.9 kg (191 lb 9.3 oz) Is this appointment for a WBC scan? No. Clinical Scan LEV SCAN Scheduled for - Date: 11/16 Time: 929 Study can ONLY be done Tuesday thru Tuesday Scanned into Syngo: N/A Additional Comments: Route to P NM Special Studies ([id number]) Are all orders present for scheduling? Yes Appointment Scheduled: Date: 11/16 Time: 929 Provisioning Analyst Notes: N/A Route to P NM SPECIAL STUDIES [[id number]] [facility] 10-28-2023 Miscellaneous Notes Name: Stephan Mercer AGE: [age] year old Weight: Last 1 Encounter Wt Readings: Date: Wt: 05/05/2023 86.9 kg (191 lb 9.3 oz) Is this appointment for a WBC scan? No. Clinical Scan LEV SCAN Scheduled for - Date: 11/16 Time: 929 Study can ONLY be done Tuesday thru Tuesday Scanned into [employer]: N/A Additional Comments: Route to P NM Special Studies ([id number]) Are all orders present for scheduling? Yes Appointment Scheduled: Date: 11/16 Time: 929 Provisioning Analyst Notes: N/A Route to P NM SPECIAL STUDIES [[id number]] documented in this encounter [facility] 08-30-2023 Hospital Discharge instructions Patient Education 08/30/2023 16:33:22 Benign Prostatic Hyperplasia Benign Prostatic Hyperplasia Benign [...] urethra. Follow these instructions at home: Take vggy-wdi-hbgriqh and prescription medicines only as told by [...] provider. Document Revised: 10/21/2021 Document Reviewed: 10/21/2021 [employer] Patient Education 2022 [employer]. Follow Up Care 05/30/2023 11:41:14 With:LOW GONZALEZ, Connor Rodriguez, URL Address: [address] [place], [place] [id number]- When: Unknown [facility] 05-30-2023 Hospital Discharge instructions Patient Education 05/30/2023 11:34:44 Transurethral Resection of the Prostate, Care After Transurethral Resection of the Prostate, Care After The following information offers guidance on how to care for yourself after your procedure. Your health care provider may also give you more specific instructions. If you have problems or questions, contact your health care provider. What can I expect after the procedure? After the procedure, it is common to have: Mild pain in your lower abdomen. Soreness or mild discomfort in your penis or when you urinate. This is from having the catheter inserted during the procedure. A sudden urge to urinate (urgency). A need to urinate often. A small amount of blood in your urine. You may notice some small blood clots in your urine. These are normal. Follow these instructions at home: Medicines Take hdmj-fcp-pbujaqv and prescription medicines only as told by your health care provider. If you were prescribed an antibiotic medicine, take it as told by your health care provider. Do not stop taking the antibiotic even if you start to feel better. Activity Rest as told by your health care provider. Avoid sitting for a long time without moving. Get up to take short walks every 1 2 hours. This is important to improve blood flow and breathing. Ask for help if you feel weak or unsteady. You may increase your physical activity gradually as you start to feel better. Do not drive or operate machinery until your health care provider says that it is safe. Do not ride in a car for long periods of time, or as told by your health care provider. Avoid intense physical activity for as long as told by your health care provider. Do not lift anything that is heavier than 10 lb (4.5 kg), or the limit that you are told, until your health care provider says that it is safe. Do not have sex until your health care provider approves. Return to your normal activities as told by your health care provider. Ask your health care provider what activities are safe for you. Preventing constipation You may need to take these actions to prevent or treat constipation: Drink enough fluid to keep your urine pale yellow. Take hmay-zmg-rrqbpau or prescription medicines. Eat foods that are high in fiber, such as beans, whole grains, and fresh fruits and vegetables. Limit foods that are high in fat and processed sugars, such as fried or sweet foods. General instructions Do not strain when you have a bowel movement. Straining may lead to bleeding from the prostate. This may cause blood clots and trouble urinating. Do not use any products that contain nicotine or tobacco. These products include cigarettes, chewing tobacco, and vaping devices, such as e-cigarettes. If you need help quitting, ask your health care provider. If you go home with a tube draining your urine (urinary catheter), care for the catheter as told by your health care provider. Wear compression stockings as told by your health care provider. These stockings help to prevent blood clots and reduce swelling in your legs. Keep all follow-up visits. This is important. Contact a health care provider if: You have signs of infection, such as: ?Fever or chills. ?Urine that smells very bad. ?Swelling around your urethra that is getting worse. ?Swelling in your penis or testicles. You have difficulty urinating. You have pain that gets worse or does not improve with medicine. You have blood in your urine that does not go away after 1 week of resting and drinking more fluids. You have trouble having a bowel movement. You have trouble having or keeping an erection. No semen comes out during orgasm (dry ejaculation). You have a urinary catheter in place, and you have: ?Spasms or pain. ?Problems with your catheter or your catheter is blocked. Get help right away if: You are unable to urinate. You are having more blood clots in your urine instead of fewer. You have: ?Large blood clots. ?A lot of blood in your urine. ?Pain in your back or lower abdomen. You have difficulty breathing or shortness of breath. You develop swelling or pain in your leg. These symptoms may be an emergency. Get help right away. Call 911. Do not wait to see if the symptoms will go away. Do not drive yourself to the hospital. Summary After the procedure, it is common to have a small amount of blood in your urine. Follow restrictions about lifting and sexual activity as told by your health care provider. Ask what activities are safe for you. Keep all follow-up visits. This is important. This information is not intended to replace advice given to you by your health care provider. Make sure you discuss any questions you have with your health care provider. Document Revised: 12/29/2021 Document Reviewed: 12/29/2021 [employer] Patient Education 2022 [employer]. Follow Up Care 03/22/2023 13:16:34 With:LOW GONZALEZ, Connor Rodriguez, URL Address: [facility] [address] [place] [address] [phone] When: Unknown Comments:3 mos [facility] Evaluation note Encounter Date Diagnosis Assessment Notes Apr, Hypokalemia (ICD-10 - E87.6) [facility] Other 01-15-2024 History of Present illness Narrative* Amara Marte RN - 05/02/2023 9:45 AM EST 191 Radiology Service Progress Note DATE OF [...] Value Ref Range Status 05/02/2023 93 >=60 mL/min/1.73m Final Comment: Estimated Glomerular Filtration Rate (eGFR) is calculated using the 2020 CKD-EPI creatinine equation. This equation utilizes serum creatinine, sex, and age as parameters. The creatinine assay has traceable calibration to isotope dilution- mass spectrometry. Refer to KDIGO guidelines for clinical interpretation. In patients with unstable renal function, e.g. those with acute kidney injury, the eGFRmay not accurately reflect actual GFR. eGFR- Date Value Ref Range Status 04/30/2021 >60 Final P.O.C.T. RESULTS: POC done: Yes, See Lab Tab May 02, 2023 TREATMENT: N/A IV SITE: Ambulatory: A peripheral IV was started in the Right antecubital site with a Angio cath: 20 gauge. IV SITE APPEARANCE: Clean,Dry and Intact Pt with IV contrast allergy-premeds taken per pt. Observed pt [id number] after CT no s/s reaction SIGNATURE: Amara Marte RN PATIENT NAME: Stephan Mercer DATE: May 02, 2023 TIME: 10:26 AM * Muriel Tobias RT(R) - 05/02/2023 9:45 AM EST Radiology Service Progress Note PATIENT NAME: Stephan Mercer DATE OF SERVICE: May 02, 2023 TIME: 10:28 AM PATIENT IDENTITY VERIFICATION COMPLETED USING TWO (2) IDENTIFIERS: Name and Date of confirmedby patient verbally. FALL SCREENING: Has the patient [...] BY: RT Dez(R) May 02, 2023 10:28 AM documented in this encounter[facility] Hospital Discharge instructions Patient Education 12/28/2022 [...] including vitamins, herbs, eye drops, creams, and jciu-ydz-flhlpzl medicines. Any problems you or family members [...] provider tells you to take them. Taking faxb-pvc-ghbifpb medicines, vitamins, herbs, and supplements. Surgery safety [...] provider. Document Revised: 12/29/2021 Document Reviewed: 12/29/2021 [employer] Patient Education 2022 [employer]. 12/28/2022 15:08:27 EU - Cystoscopy Discharge Instructions [...] degrees. Follow Up Care 11/29/2022 14:31:05 With:Connor KELSEY Address: [facility] [address], [place] [phone] [facility] (1) When: Unknown Comments:Office will call to schedule follow up [facility]09-12-2023 Evaluation + Plan noteExtracted from: Title:Urology Progress Note Author:Bryan KELSEY MD Date:12/28/22 Impression and Plan Impression: #1. [...] and Urine Cyto ([facility]) 12/28/22 [facility]08-14-2023 Hospital Discharge instructions Patient Education 11/29/2022 [...] urethra. Follow these instructions at home: Take icua-aog-ijgvlzi and prescription medicines only as told by [...] provider. Document Revised: 10/21/2021 Document Reviewed: 10/21/2021 [employer] Patient Education 2022 [employer]. Follow Up Care 07/30/2022 13:07:08 With:LOW GONZALEZ, Connor Rodriguez, URL Address: [facility] [address], [place] [address] [phone] When: Unknown Comments:sched cysto [facility] 03-21-2023 Evaluation note* Encounter Date Diagnosis Assessment [...] verbalized understanding and agreement with treatment plan. [facility] Other 01-23-2023 History of Present illness Narrative* Trevor Lynne [...] Trevor Lynne MD CC: Dr. Kin Espinoza, [facility]: Dr. Michel, [facility] documented in this encounterMartin [facility]01-16-2023 History of Present illness Narrative* Eli Ocampo, MARCUS - 05/03/2022 10:45 AM EST Radiology Service Progress Note DATE OF SERVICE: [...] Value Ref Range Status 05/03/2022 93 >=60 mL/min/1.73m Final Comment: Estimated Glomerular Filtration Rate (eGFR) is calculated using the 2020 CKD-EPI creatinine equation. This equation utilizes serum creatinine, sex, and age as parameters. The creatinine assay has traceable calibration to isotope dilution- mass spectrometry. Refer to KDIGO guidelines for clinical interpretation. In patients with unstable renal function, e.g. those with acute kidney injury, the eGFRmay not accurately reflect actual GFR. eGFR- Date [...] Mercer DATE: May 03, 2022 TIME: 11:22 AM * Muriel Tobias, RT(R) - 05/03/2022 10:45 AM EST Radiology Service Progress Note PATIENT NAME: Stephan Mercer DATE OF SERVICE: May 03, 2022 TIME: 11:36 AM PATIENT IDENTITY VERIFICATION COMPLETED USING TWO (2) IDENTIFIERS: Name and Date of confirmedby patient verbally. FALL SCREENING: Has the patient [...] BY: RT Dez(R) May 03, 2022 11:36 AM documented in this encounterMartin [facility] Hospital12-19-2022 Miscellaneous Notes* Telephone Encounter - [...] you, Leticia Aaron RN documented in this encounterMartin [facility] Hospital07-12-2022 Hospital Discharge instructions Patient Education [...] including vitamins, herbs, eye drops, creams, and hvnn-ppj-kjnsqzt medicines. This also includes: ?Medicines to assist [...] 05/07/2005 Document Revised: 03/17/2018 Document Reviewed: 01/09/2018 [employer] Patient Education 2020 [employer] [facility] 04-12-2022 Hospital Discharge instructions Patient Education 07/28/2021 [...] including vitamins, herbs, eye drops, creams, and hnvo-ptv-fvipagf medicines. This also includes: ?Medicines to assist [...] 05/07/2005 Document Revised: 03/17/2018 Document Reviewed: 01/09/2018 [employer] Patient Education 2020 [employer] Follow Up Care 07/16/2021 12:46:12 With:Alexis Ovalle MD, AYLEEN Ellis Address: [facility] [address], [place] [address]- When:10/27/2021 Comments:w/ pvr [facility] History of Present illness Narrative* Leticia Aaron RN - 04/30/2021 12:15 PM EST Pt was observed for 30 minutes post scan for contrast allergy. No s/s of allergic reaction. Skin pwd; resp even, easy and without any distress. Pt denies any shortness of breath or chest discomfort or additional complaints at this time. Pt ambulates to exit with steady gait and denies any further questions, needs or concerns at this time. * Leticia Aaron RN - 04/30/2021 10:15 AM EST Radiology Service Progress Note DATE OF SERVICE: April 30, 2021 TIME: 10:50 AM PATIENT WEIGHT: 180 LBS PATIENT IDENTITY VERIFICATION COMPLETED USING TWO [...] Yes STANDARD PREMEDICATION: Prednisone 50mg Dose 1 taken at 13 hours prior to scan, Dose 2 at 7 hours prior to scan, and Dose 3at 1 hour prior to scan Benadryl 50mg 1 hour prior to scan EXAM: CT -CONTRAST INDUCED NEPHROPATHY RISK FACTORS: Patient age > 60 years CREATININE: Creatinine Date Value Ref Range Status 04/30/2021 0.91 0.73 - 1.22 mg/dL Final 05/01/2020 0.85 0.73 - 1.22 mg/dL Final 05/03/2018 1.06 0.73 - 1.22 mg/dL Final Creatinine, Whole Blood (iSTAT) Date Value Ref Range Status 05/10/2019 0.90 0.60 - 1.30 mg/dL Final eGFR-All Other Races Date Value Ref Range Status 04/30/2021 >60 . Final Comment: eGFR (Estimated GFR) Units of measure: mL/min/1.73 meters squared eGFR is derived from the reexpressed MDRD Study equation using the following parameters: serum creatinine, age, gender and race. The creatinine assay has been calibrated to be traceable to IDMS. An eGFR <60 mL/min/1.73m2 for >3 months is consistent with chronic kidney disease. Refer to KDOQI guidelines for clinical interpretation. In patients with unstable renal function, e.g. those with acute kidney injury, the eGFR may not accurately reflect actual GFR. Note: On 06/13/2021, the eGFR calculation will be updated to the NKF-ASN Task Force recommended 2020 CKD-EPI creatinine equation which does not include a race variable. For more information or to access a 2020 CKD-EPI calculator, visit the National Kidney Foundation website at kidney.org/professionals/kdoqi/gfr_calculator. eGFR- Date Value Ref Range Status 04/30/2021 >60 Final P.O.C.T. RESULTS: POC done: Yes, See Lab Tab April 30, 2021 TREATMENT: No Hydration needed. IV SITE: Ambulatory: A peripheral IV was started in the Right antecubital site with a Angio cath: 20 gauge. IV SITE APPEARANCE: Clean,Dry and Intact SIGNATURE: Leticia Aaron RN PATIENT NAME: Stephan Mercer DATE: April 30, 2021 TIME: 10:50 AM * Muriel Tobias, RT(R) - 04/30/2021 10:15 AM EST Radiology Service Progress Note PATIENT NAME: Stephan Mercer DATE OF SERVICE: April 30, 2021 TIME: 11:01 AM PATIENT IDENTITY VERIFICATION COMPLETED USING TWO (2) IDENTIFIERS: Name and Date of confirmedby patient verbally. FALL SCREENING: Has the patient [...] Site disposition Discontinued SIGNED BY: RT Dez(R) April 30, 2021 11:01 AM documented in this encounterMartin [facility] Hospital10-23-2012 History of Past illness Narrative* Problem Noted Date Resolved Date Leukopenia 02/08/2012 12/13/2013 documented as of this encounter (statuses as of 04/09/2022) [facility] of Past illness Narrative* Problem Noted Date Resolved Date Leukopenia 02/08/2012 12/13/2013 documented as of this encounter (statuses as of 04/30/2022) [facility] History of Past illness Narrative* Problem Noted Date Resolved Date Leukopenia 02/08/2012 12/13/2013 documented as of this encounter (statuses as of 05/11/2022) [facility] Future Appointments Appointment Date:10/27/2021 10:15:00 AM Scheduled Provider:Asaf Espinoza Jr., MD Location:[facility] Appointment Type:URO Office Visit [facility] evaluation + Plan note Future Appointments Appointment Date:12/14/2022 11:15:00 AM Scheduled Provider: Location:[facility] Appointment Type:Urology CALL PAT FT Appointment Date:12/28/2022 02:00:00 PM Scheduled Provider: Location:[facility] Appointment Type:Urology FT [facility] evaluation + Plan note Future Appointments Appointment Date:05/30/2023 10:15:00 AM Scheduled Provider:Connor KELSEY MD Location:[facility] Appointment Type:URO Office Visit [facility] evaluation + Plan note Future Appointments Appointment Date:08/29/2023 10:45:00 AM Scheduled Provider:Connor KELSEY MD Location:[facility] Appointment Type:URO Office Visit [facility] evaluation + Plan note Diagnostic Tests Pending * PSA Total 03/18/24 [facility] evaluation note* Diagnosis Malignant melanoma of skin (HCC)- Primary Melanoma of skin, site unspecified [facility] this encounter [facility] Diagnosis Malignant melanoma of skin (HCC)- Primary Melanoma of skin, site unspecified Benign localized prostatic hyperplasia with lower urinary tract symptoms (LUTS) Benign localized hyperplasia of prostate with urinary obstruction and other lower urinary tract symptoms (LUTS) Essential tremor Essential and other specified forms of tremor documented in this encounter [facility] time[facility] Other Evaluation note* Diagnosis Parkinson's disease without dyskinesia or fluctuating manifestations (HCC)- Primary [facility] Diagnosis Malignant melanoma of skin (HCC) Melanoma of skin, site unspecified Malignant melanoma, unspecified site (HCC) [facility] Diagnosis Parkinson's disease without dyskinesia or fluctuating manifestations (HCC)- Primary [facility] Diagnosis Malignant melanoma of skin (HCC) Melanoma of skin, site unspecified [facility] Diagnosis Enlarged lymph node Enlargement of lymph nodes [facility] Diagnosis History of melanoma- Primary Personal history of malignant melanoma of skin documented in this encounter [facility] general Narrative - Reported* Type Description Date Medical History melanoma [id number] Medical History interfueron treatment for melano ma 2010 Medical History hypertension Medical History Esophageal reflux Surgical History fistula-colon Surgical History carpal tunnel release-bilateral Surgical History trigger finger release-right th umb Surgical History cystoscopy [facility] Other Hospital course Narrative No data available for this section [facility] Hospital Discharge instructions No data available for this section [facility] progress note No data available for this section [facility] reason for visit Narrative* Diagnostic Procedure Only (Routine) - Closed Specialty Diagnoses / Procedures Referred By Babs t Referred To Contact MOLECULAR & FUNCTIONAL IMAGING Diagnoses Tremor Procedures NM BRAIN TREMOR SPECT/CT RP LOCLZJ DULCE MARIA SPECT W/CT 1 AREA 1 DAY IMAGING Alec Huntley, DO [address] [place] [address] Molecular & Functional Imaging [address] [place] [address] Referral ID Status Reason Start Date Expiration Date V isits Requested Visits Authorized [id number] Closed Auto-Generate d Referral 02/17/2023 03/18/2024 1 1 [facility] Reason for Referral Specialty Diagnoses / Procedures Referred By Babs t Referred To Contact Diagnoses Parkinson's disease without dyskinesia or fluctuating manifestations (HCC) Procedures PROVIDER ORDERED FOLLOW UP OFFICE/OUTPATIENT [facility] 60 MINUTES Alec Huntley, DO [address] [place] [address] Referral ID Status Reason Start Date Expiration Date V isits Requested Visits Authorized [id number] Authorized 07/02/2024 09/30/2024 1 1 Specialty Diagnoses / Procedures Referred By Contac t Referred To Contact CT IMAGING Diagnoses Malignant melanoma of skin (HCC) Procedures CT CHEST W IVCON DIAGNOSTIC COMPUTED TOMOGRAPHY THORAX W/CONTRAST Trevor Lynne MD [address] [place] [address] [place] [address] Ct Imaging Referral ID Status Reason Start Date Expiration Date Visits Requested Visits Authorized [id number] Authorized Auto-Generat ed Referral 05/10/2022 06/09/2023 1 1 Specialty Diagnoses / Procedures Referred By Contac t Referred To Contact CT IMAGING Diagnoses Malignant melanoma of skin (HCC) Procedures CT ABD/PEL W IVCON CT ABD & PELVIS W/CONTRAST Trevor Lynne MD [address] [place] [address] [place] [address] Ct Imaging Referral ID Status Reason Start Date Expiration Date Visits Requested Visits Authorized [id number] Authorized Auto-Generat ed Referral 05/10/2022 06/09/2023 1 1 Summary Purpose Family History No Family History Records Found No data available for this section No Family History Records Found No data available for this section No data available for this section No Family History Records FoundNo Family History Records Found No data available for this section No data available for this section No Family History Records Found Advance Directives No Advanced Directives Records FoundNo Advanced Directives Records FoundNo Advanced Directives Records FoundNo Advanced Directives Records FoundNo Advanced Directives Records Found Additional Source Comments Care Team (unrecognized sect ion and content) Braider Operator Relationship Specialty Start Date End Date Florencio Crowell MD [address] [place] [address] PCP - General Family Medicine 08/29/12 Braider Operator Relationship Specialty Start Date End Date Florencio Crowell MD [address] [place] [address] PCP - General Family Medicine 08/29/12 Braider Operator Relationship Specialty Start Date End Date Florencio Crowell MD [address] [place] [address] PCP - General Family Medicine 08/29/12 Braider Operator Relationship Specialty Start Date End Date Florencio Crowell MD [address] [place] [address] PCP - General Family Medicine 08/29/12 Anita Roman CNP [address] [place] [address] Referring Family Medicine 10/25/22 Braider Operator Relationship Specialty Start Date End Date Florencio Crowell MD [address] [place] [facility] [address] PCP - General Family Medicine 08/29/12 Anita Roman, WEIGHER AND CHARGER [address] [place] [facility] [place] [address] Referring Family Medicine 10/25/22 Braider Operator Relationship Specialty Start Date End Date Florencio Crowell MD [address] [place] [facility] [place] [address] PCP - General Family Medicine 08/29/12 Anita Roman, WEIGHER AND CHARGER [address] [place] [facility] [place] [phone] Referring Family Medicine 10/25/22 Braider Operator Relationship Specialty Start Date End Date Florencio Crowell MD [address] [place] [facility] [place] [address] PCP - General Family Medicine 08/29/12 Anita Roman, WEIGHER AND CHARGER [address] [place] [facility] [place] [phone] Referring Family Medicine 10/25/22 Braider Operator Relationship Specialty Start Date End Date Florencio Crowell MD [address] [place] [facility] [place] [address] PCP - General Family Medicine 08/29/12 Anita Roman, WEIGHER AND CHARGER [address] [place] [place] [phone] Referring Family Medicine 10/25/22 Braider Operator Relationship Specialty Start Date End Date Florencio Crowell MD [address] [place] [facility] [place] [phone] PCP - General Family Medicine 08/29/12 Anita Roman, WEIGHER AND CHARGER [address] [place] [facility] [place] [phone] Referring Family Medicine 10/25/22 Braider Operator Relationship Specialty Start Date End Date Florencio Crowell MD [address] [place] [facility] [place] [phone] PCP - General Family Medicine 08/29/12 Anita Roman, WEIGHER AND CHARGER [address] [place] [facility] [place] [address] Referring Family Medicine 10/25/22 Braider Operator Relationship Specialty Start Date End Date Florencio Crowell MD [address] [place] [place] [address] PCP - General Family Medicine 08/29/12 Braider Operator Relationship Specialty Start Date End Date Florencio Crowell MD [address] [place] [place] [address] PCP - General Family Medicine 08/29/12 Braider Operator Relationship Specialty Start Date End Date Florencio Crowell MD [address] [place] [facility] [place] [phone] PCP - General Family Medicine 08/29/12 Anita Roman ROMEO [address] [facility] [place] [address] Referring Family Medicine 10/25/22 Braider Operator Relationship Specialty Start Date End Date Florencio Crowell MD [address] [place] [place] [address] PCP - General Family Medicine 08/29/12 Anita Roman CNP [address] [place] [facility] [place] [address] Referring Family Medicine 10/25/22 Braider Operator Relationship Specialty Start Date End Date Florencio Crowell MD [address] [place] [facility] [place] [address] PCP - General Family Medicine 08/29/12 Anita Roman CNP [address] [place] [facility] [place] [phone] Referring Family Medicine 10/25/22 Source Comments (unrecognize d section and content) In the event this informatio n is protected by the Federal Confidentiality of Alcohol and Drug Abuse Patient Records regulations: The Federal rules restrict any use of the information to criminally investigate or prosecute any alcohol or drug abuse patient.[facility] HospitalIn the event this information is protected by the Federal Confidentiality of Alcohol and Drug Abuse Patient Records regulations: The Federal rules restrict any use of the information to criminally investigate or prosecute any alcohol or drug abuse patient.[facility] HospitalIn the event this information is protected by the Federal Confidentiality of Alcohol and Drug Abuse Patient Records regulations: The Federal rules restrict any use of the information to criminally investigate or prosecute any alcohol or drug abuse patient.[facility] HospitalIn the event this information is protected by the Federal Confidentiality of Alcohol and Drug Abuse Patient Records regulations: The Federal rules restrict any use of the information to criminally investigate or prosecute any alcohol or drug abuse patient.[facility] HospitalIn the event this information is protected by the Federal Confidentiality of Alcohol and Drug Abuse Patient Records regulations: The Federal rules restrict any use of the information to criminally investigate or prosecute any alcohol or drug abuse patient.[facility] HospitalIn the event this information is protected by the Federal Confidentiality of Alcohol and Drug Abuse Patient Records regulations: The Federal rules restrict any use of the information to criminally investigate or prosecute any alcohol or drug abuse patient.[facility] HospitalIn the event this information is protected by the Federal Confidentiality of Alcohol and Drug Abuse Patient Records regulations: The Federal rules restrict any use of the information to criminally investigate or prosecute any alcohol or drug abuse patient.[facility] HospitalIn the event this information is protected by the Federal Confidentiality of Alcohol and Drug Abuse Patient Records regulations: The Federal rules restrict any use of the information to criminally investigate or prosecute any alcohol or drug abuse patient.[facility] HospitalIn the event this information is protected by the Federal Confidentiality of Alcohol and Drug Abuse Patient Records regulations: The Federal rules restrict any use of the information to criminally investigate or prosecute any alcohol or drug abuse patient.[facility]In the event this information is protected by the Federal Confidentiality of Alcohol and Drug Abuse Patient Records regulations: The Federal rules restrict any use of the information to criminally investigate or prosecute any alcohol or drug abuse patient.[facility] HospitalIn the event this information is protected by the Federal Confidentiality of Alcohol and Drug Abuse Patient Records regulations: The Federal rules restrict any use of the information to criminally investigate or prosecute any alcohol or drug abuse patient.[facility] HospitalIn the event this information is protected by the Federal Confidentiality of Alcohol and Drug Abuse Patient Records regulations: The Federal rules restrict any use of the information to criminally investigate or prosecute any alcohol or drug abuse patient.[facility] HospitalIn the event this information is protected by the Federal Confidentiality of Alcohol and Drug Abuse Patient Records regulations: The Federal rules restrict any use of the information to criminally investigate or prosecute any alcohol or drug abuse patient.[facility] HospitalIn the event this information is protected by the Federal Confidentiality of Alcohol and Drug Abuse Patient Records regulations: The Federal rules restrict any use of the information to criminally investigate or prosecute any alcohol or drug abuse patient.[facility] HospitalIn the event this information is protected by the Federal Confidentiality of Alcohol and Drug Abuse Patient Records regulations: The Federal rules restrict any use of the information to criminally investigate or prosecute any alcohol or drug abuse patient.[facility] Reason for Visit (unrecogniz ed section and content) Reason Comments Orders Reason Comments Malignant Melanoma Reason Comments NM LEV Reason Comments Radiology NM Specialty Diagnoses / Procedures Referred By Contac t Referred To Contact MOLECULAR & FUNCTIONAL IMAGING Diagnoses Tremor Procedures NM BRAIN TREMOR SPECT/CT RP LOCLZJ DULCE MARIA SPECT W/CT 1 AREA 1 DAY IMAGING Alec Huntley DO [address] [place] [address] Molecular & Functional Imaging [address] [id number] Referral ID Status Reason Start Date Expiration Date V isits Requested Visits Authorized [id number] Closed Auto-Generate d Referral 02/17/2023 03/18/2024 1 1 Reason Comments Established Patient Reason Comments Radiology CT Specialty Diagnoses / Procedures Referred By Contac t Referred To Contact CT IMAGING Diagnoses Malignant melanoma of skin (HCC) Procedures CT CHEST W IVCON DIAGNOSTIC COMPUTED TOMOGRAPHY THORAX W/CONTRAST Trevor Lynne MD [address] [place] [address] [place] [address] [place] [address] Referral ID Status Reason Start Date Expiration Date V isits Requested Visits Authorized [id number] Closed Auto-Generate d Referral 05/10/2022 06/09/2023 1 1 Reason Comments Parkinson's Disease Specialty Diagnoses / Procedures Referred By Contac t Referred To Contact CT IMAGING Diagnoses Malignant melanoma of skin (HCC) Procedures CT ABD/PEL W IVCON CT ABD & PELVIS W/CONTRAST Trevor Lynne MD [address] [address] [place] [address] Referral ID Status Reason Start Date Expiration Date V isits Requested Visits Authorized [id number] Closed Auto-Generate d Referral 05/11/2021 06/10/2022 [address] Referral ID Status Reason Start Date Expiration Date V isits Requested Visits Authorized [id number] Closed Auto-Generate d Referral 05/05/2023 06/03/2024 1 1 Reason Comments Melanoma Follow up (unrecognized sect ion and content) No Status Records FoundNo Status Records FoundNo Status Records FoundNo Status Records FoundNo Status Records Found INFORMATION SOURCE (unrecogn ized section and content) DATE CREATED AUTHOR 07/28/2022 [facility] DATE CREATED AUTHOR AUTHOR'S ORGANIZ ATION 05/27/2023 [facility] DATE CREATED AUTHOR AUTHOR'S ORGANIZ ATION 04/11/2024 [facility] DATE CREATED AUTHOR AUTHOR'S ORGANIZ ATION 05/06/2024 [facility] DATE CREATED AUTHOR AUTHOR'S ORGANIZ ATION 05/09/2024 [facility] FOR RECORDS PERTAINING TO PATIENTS WHO [...] BE BASED ON THE PRIMARY CLINICAL RECORDS. [facility]. provides no warranty or guarantee of the accuracy or completeness of information in this document.
[2024-05-14] MEDS: LIDOCAINE 2% JELLY 10 ML UR (08:19)
[2024-05-14 08:22] VITALS: BP 166/91; BP 174/86; PULSE 53; PULSE 68; O2SAT 97
--- NOTE | 2024-05-14 08:27 | PM.URSON ---
Urology Surgery Operative Note Operative Note Procedure Date: 05/14/24 Time Out Performed: yes Pre-op Diagnosis: History of TCC of the bladder Post-op Diagnosis: same as pre-op Procedures performed: 1. Cystoscopy. 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 He now presents for surveillance cystoscopy. He has signed an informed consent. Detailed description of Procedure: Patient was kept on the [place] bed and brought into the endoscopy suite. Timeout was done by all parties in the room. Genitalia were sterilely prepped and draped in the usual fashion. 2% lidocaine gel was passed per urethra. I started by passing a flexible cystoscope per urethra and into the bladder. Anterior urethra was normal. Prostatic urethra was open but there was moderate regrowth in the lateral lobes. Careful panendoscopy in the bladder revealed no evidence of any papillary tumors. There was thick trabeculation with open diverticuli diffusely. The scope was retroflexed and there was no new findings noted. The scope was then removed. He was then discharged to home. Plan he will get another surveillance cystoscopy in 2 years
== END 2024-05-14 08:34 | disposition home or self-care (01) ==
PROVIDERS: PCP Family Medicine; Visit Provider Urology
PROC: (CPT 52000; principal; 2024-05-14 08:00)
DX: Z08 Encounter for follow-up examination after completed treatment for malignant neoplasm (principal); Z85.51 Personal history of malignant neoplasm of bladder; I10 Essential (primary) hypertension; Z85.828 Personal history of other malignant neoplasm of skin; N32.89 Other specified disorders of bladder; N40.0 Benign prostatic hyperplasia without lower urinary tract symptoms
CPT/HCPCS: 52000